=== PATIENT | female | born 1935 | race Caucasian/White ===

== ENCOUNTER → 2016-07-22 | Outpatient (CLI) | payer OTHER ==
[~2016-07-22] MED LIST: ACET-1138 PO; ASPEC81 PO; ASPI81TA28 PO; BNC40 PO; CHOL2000 PO; CLX/20 PO; COENCAP9 PO; DIPH-437 PO; LEVO50TA6 PO; LPT/20 PO; MISCCAP80 PO; NXM/40 PO; ONDA8TAB6 PO; OXYSR/10 PO; PSYL48.59 PO; RXC5 PO; ULT50HP PO; VLT50 PO
--- NOTE | 2016-07-26 12:36 | CODING QUERY MEDICAL NECESSITY ---
SUPPORTING DIAGNOSIS NEEDED A supporting diagnosis is required for the test/procedure performed on this patient in order for us to be reimbursed by the patient's insurance. Please provide a supporting diagnosis for the following test/procedure listed below next to the test name along with your signature. *If there is no additional diagnosis for this patient that would support the following test/procedure please document that below next to the test/procedure. Test(s)/Procedure(s) that require a supporting diagnosis: DOS 07/22 * Bone Density Study DIAGNOSIS: Provider Signature: Date: Thank you [facility] Once completed, please kindly fax back to [phone] For questions please call [phone]
== END | disposition home or self-care (01) ==
LOC: C.MAMM 08:41
PROVIDERS: ATTEND Internal Medicine
DX: M85.80 Other specified disorders of bone density and structure, unspecified site (principal)

== ENCOUNTER 2016-07-29 07:59 | Observation (INO) | payer OTHER ==
[~2016-07-29] VITALS: Ht 157.5 cm; Wt 51.4 kg
[~2016-07-29 07:59] MED LIST changes: -ACET-1138 PO; -ASPEC81 PO; -ASPI81TA28 PO; -BNC40 PO; -CHOL2000 PO; -CLX/20 PO; -COENCAP9 PO; -DIPH-437 PO; -LEVO50TA6 PO; -LPT/20 PO; -MISCCAP80 PO; -NXM/40 PO; -ONDA8TAB6 PO; -OXYSR/10 PO; -PSYL48.59 PO; -RXC5 PO; -VLT50 PO
[2016-07-29] MEDS ORDERED: SODIUM CHLORIDE 0.9% 1000ML 1,000 ML IV SCH (08:27)
[2016-07-29] MEDS ORDERED: LPT/20 PO (08:29)
[2016-07-29] MEDS ORDERED: ASPI81TA28 PO (08:29)
--- NOTE | 2016-07-29 08:31 | EMERGENCY ROOM VISIT NOTE ---
History Report prepared by Bhavna: Сергей Marks Under the Supervision of: Dr. Starr Chao M.D. First contact with patient: 08:17 Chief Complaint: HEADACHE Stated Complaint: HEAD PAIN History of Present Illness The patient is a 80 year old female who presents to the Emergency Room with complaints of persistent double vision for the past week. The patient notes that when she woke up this morning she noticed she was still having double vision. She notes one episode where she saw two pills instead of only the one pill in her hand. She notes this lasted about one minute. After the episode of double vision this morning, she complained of a "blinding" headache and nausea. She notes her head just doesn't feel "right" and notes the discomfort is all over her head. Currently, she describes her vision as blurry. She denies numbness or weakness at this time. The patient is on baby Aspirin. Source of History: patient Onset: the past week Position: eye (bilateral) Timing: other (persistent) Associated Symptoms: + headache ("blinding"), + nausea, No numbness, No weakness Note: Other associated symptoms: blurry vision Review of Systems See HPI for pertinent positives & negatives. A total of 10 systems reviewed and were otherwise negative. Past Medical & Surgical Medical Problems: (1) Arthritis (2) CLL (chronic lymphocytic leukemia) (3) Diverticulitis (4) IBS (irritable bowel syndrome) Family History Cancer Social History Smoking Status: Never Smoker Alcohol Use: none Marital Status: Housing Status: lives with family Occupation Status: unemployed Current/Historical Medications Scheduled Acetaminophen/Diphenhydramine (Tylenol Pm), 1 TAB PO HS Aspirin (Aspirin Ec), 81 MG PO DAILY Atorvastatin (Atorvastatin Calcium), 20 MG PO DAILY Citalopram (Citalopram Hydrobromide), 20 MG PO DAILY Diclofenac Sod (Diclofenac Sodium Dr), 1 TABS PO BID Esomeprazole Magnesium (Nexium), 40 MG PO DAILY Levothyroxine Sodium (Levothyroxine Sodium), 50 MCG PO QPM Olmesartan Medoxomil (Benicar), 40 MG PO DAILY Probiotic Product (Probiotic), 1 CAP PO DAILY Allergies Coded Allergies: Sulfa Antibiotics (Verified Allergy, Unknown, "SULFA DRUGS", 07/29/16) Physical Exam Vital Signs Date Time Temp Pulse Resp B/P Pulse Ox O2 Delivery O2 Flow Rate FiO2 2/6/17 11:04 68 16 176/66 100 Room Air 07/29/16 10:22 65 19 181/73 100 Room Air 07/29/16 09:04 62 16 160/62 97 Room Air 07/29/16 08:50 66 07/29/16 08:40 97 Room Air 07/29/16 08:08 36.7 73 18 203/81 99 Room Air Physical Exam CONSTITUTIONAL: Mild anxious distress HEENT: No icterus, moist mucous membranes NECK: No meningismus, trachea is midline. CARDIOVASCULAR: Regular rate, normal perfusion RESPIRATORY: Unlabored breathing. Clear to auscultation. GASTROINTESTINAL: Non-tender GENITOURINARY: No flank tenderness MUSCULOSKELETAL: Full range of motion NEUROLOGIC: Normal cranial nerves. No diplopia at this time. PSYCHIATRIC: Normal affect SKIN: Normal for ethnicity. Medical Decision & Procedures ER Provider Diagnostic Interpretation: Radiology results as stated below per my review and radiologist interpretation. HEAD CT NONCONTRAST CT DOSE: 537.48 mGy.cm HISTORY: Mental status change Stroke TECHNIQUE: Multiaxial CT images of the head were performed without the use of intravenous contrast. Comparison: 03/04/2016 Findings: The paranasal sinuses and mastoid air cells are clear. The calvarium and skull base are intact. The ventricles and sulci are within normal limits. There is no mass, hematoma, midline shift, or acute infarct. Age-related atrophy Impression: No acute intracranial abnormality. Age-related atrophy Electronically signed by: Harris Lee M.D. 07/29/2016 9:01 AM Dictated Date/Time: 07/29/2016 9:00 AM SINGLE VIEW CHEST CLINICAL HISTORY: Strokelike symptoms. FINDINGS: An AP, portable, upright chest radiograph is compared to study dated 03/07/2016 and correlated with chest CT dated 11/12/2006. The examination is degraded by portable technique, apical lordotic positioning, and patient rotation. The cardiomediastinal silhouette is unremarkable. There is atherosclerotic calcification of the thoracic aorta. A hiatal hernia is noted. The lungs and pleural spaces are clear. Mild apical scarring is observed. No pneumothorax is seen. The skeletal structures are osteopenic. The bony thorax is grossly intact. IMPRESSION: 1. No acute cardiopulmonary abnormality. 2. Hiatal hernia. Electronically signed by: Seymour Gasca M.D. 07/29/2016 8:56 AM Dictated Date/Time: 07/29/2016 8:55 AM Laboratory Results 07/29/16 08:40 Red Blood Count 3.66, Mean Corpuscular Volume 91.8, Mean Corpuscular Hemoglobin 30.9, Mean Corpuscular Hemoglobin Concent 33.6, Mean Platelet Volume 9.3, Neutrophils (%) (Auto) 20.4, Lymphocytes (%) (Auto) 76.2, Monocytes (%) (Auto) 2.6, Eosinophils (%) (Auto) 0.3, Basophils (%) (Auto) 0.2, Neutrophils # (Auto) 6.18, Lymphocytes # (Auto) 23.03, Monocytes # (Auto) 0.78, Eosinophils # (Auto) 0.10, Basophils # (Auto) 0.05 07/29/16 08:40 Test 07/29/16 08:40 07/29/16 08:48 07/29/16 10:25 White Blood Count 30.23 K/uL (4.8-10.8) Red Blood Count 3.66 M/uL (4.2-5.4) Hemoglobin 11.3 g/dL (12.0-16.0) Hematocrit 33.6 % (37-47) Mean Corpuscular Volume 91.8 fL (80-100) Mean Corpuscular Hemoglobin 30.9 pg (25-34) Mean Corpuscular Hemoglobin Concent 33.6 g/dl (32-36) Platelet Count 298 K/uL (130-400) Mean Platelet Volume 9.3 fL (7.4-10.4) Neutrophils (%) (Auto) 20.4 % Lymphocytes (%) (Auto) 76.2 % Monocytes (%) (Auto) 2.6 % Eosinophils (%) (Auto) 0.3 % Basophils (%) (Auto) 0.2 % Neutrophils # (Auto) 6.18 K/uL (1.4-6.5) Lymphocytes # (Auto) 23.03 K/uL (1.2-3.4) Monocytes # (Auto) 0.78 K/uL (0.11-0.59) Eosinophils # (Auto) 0.10 K/uL (0-0.5) Basophils # (Auto) 0.05 K/uL (0-0.2) RDW Standard Deviation 52.0 fL (36.4-46.3) RDW Coefficient of Variation 15.6 % (11.5-14.5) Immature Granulocyte % (Auto) 0.3 % Immature Granulocyte # (Auto) 0.09 K/uL (0.00-0.02) Prothrombin Time 10.7 SECONDS (9.0-12.0) Prothromb Time International Ratio 1.0 (0.9-1.1) Activated Partial Thromboplast Time 24.1 SECONDS (21.0-31.0) Partial Thromboplastin Ratio 0.9 Anion Gap 8.0 mmol/L (3-11) Est Creatinine Clear Calc Drug Dose 32.8 ml/min Estimated GFR () 55.3 Estimated GFR (Non- 47.7 BUN/Creatinine Ratio 29.2 (10-20) Calcium Level 8.9 mg/dl (8.5-10.1) Troponin I < 0.015 ng/ml (0-0.045) Bedside Prothrombin Time INR 1.0 (0.9-1.1) Urine Opiates Screen NEG (NEG) Urine Methadone, Qualitative NEG (NEG) Urine Barbiturates NEG (NEG) Urine Phencyclidine (PCP) Level NEG (NEG) Ur Amphetamine/Methamphetamine NEG (NEG) MDMA (Ecstasy) Screen NEG (NEG) Urine Benzodiazepines Screen NEG (NEG) Urine Cocaine Metabolite NEG (NEG) Urine Marijuana (THC) NEG (NEG) Labs reviewed by ED physician. Medications Administered Medications (Trade) Dose Ordered Sig/Neyda Route Start Time Stop Time Status Last Admin Dose Admin Sodium Chloride (Nss 1000ml) 1,000 ml @ 50 mls/hr Q20H IV 07/29/16 08:27 08/28/16 08:26 07/29/16 08:48 50 MLS/HR ECG Indication: other Rate (beats per minute): 65 Rhythm: sinus rhythm Findings: nonspecific-ST abn (Anterior), other (normal axis & reciprocal findings) ED Course 0828: Past medical records reviewed. The patient was evaluated in room B11. A complete history and physical examination was performed. 0827: Ordered NSS 1000 ml @ 50 mls/hr IV. 1149: At this time, I discussed the patient's case with Dr. Pace - Hospitalist [facility] and he agreed to accept the patient for further evaluation. Medical Decision Differential diagnoses include stroke, TIA, cranial nerve palsy. 80-year-old with history of CLL presents into the emergency room for waxing and waning diplopia. She reports she "saw 2 pills "no symptoms presently with cranial nerves intact. CT head negative. Given concern for TIA like syndrome admission arranged with Dr. Pace of hospital service. Patient remained asymptomatic throughout ED course. Consults Time Called: [phone] Consulting Physician: Dr. Pace - Hospitalist [facility] Returned Call: [phone] At this time, I discussed the patient's case with Dr. Pace and he agreed to accept the patient for further evaluation. Impression Primary Impression: Diplopia Scribe Attestation The scribe's documentation has been prepared under my direction and personally reviewed by me in its entirety. I confirm that the note above accurately reflects all work, treatment, procedures, and medical decision making performed by me. Departure Information Dispostion Being Evaluated By Hospitalist Referrals Bebeto Willis M.D. (PCP)
--- NOTE | 2016-07-29 08:57 | DIAGNOSTIC IMAGING REPORT ---
SINGLE VIEW CHEST CLINICAL HISTORY: Strokelike symptoms. FINDINGS: An AP, portable, upright chest radiograph is compared to study dated 03/07/2016 and correlated with chest CT dated 11/12/2006. The examination is degraded by portable technique, apical lordotic positioning, and patient rotation. The cardiomediastinal silhouette is unremarkable. There is atherosclerotic calcification of the thoracic aorta. A hiatal hernia is noted. The lungs and pleural spaces are clear. Mild apical scarring is observed. No pneumothorax is seen. The skeletal structures are osteopenic. The bony thorax is grossly intact. IMPRESSION: 1. No acute cardiopulmonary abnormality. 2. Hiatal hernia. Electronically signed by: Seymour Gasca M.D. 07/29/2016 8:56 AM Dictated Date/Time: 07/29/2016 8:55 AM
--- NOTE | 2016-07-29 09:03 | DIAGNOSTIC IMAGING REPORT ---
HEAD CT NONCONTRAST CT DOSE: 537.48 mGy.cm HISTORY: Mental status change Stroke TECHNIQUE: Multiaxial CT images of the head were performed without the use of intravenous contrast. Comparison: 03/04/2016 Findings: The paranasal sinuses and mastoid air cells are clear. The calvarium and skull base are intact. The ventricles and sulci are within normal limits. There is no mass, hematoma, midline shift, or acute infarct. Age-related atrophy Impression: No acute intracranial abnormality. Age-related atrophy Electronically signed by: Harris Lee M.D. 07/29/2016 9:01 AM Dictated Date/Time: 07/29/2016 9:00 AM
[2016-07-29 09:17] LABS: PARTIAL THROMBOPLASTIN RATIO 0.9; PROTHROMBIN TIME (PATIENT) 10.7 SECONDS (9.0-12.0)
[2016-07-29 09:22] LABS: BLOOD UREA NITROGEN 32 mg/dl (7-18); BUN/CREATININE RATIO 29.2 (10-20); CALCIUM 8.9 mg/dl (8.5-10.1); CARBON DIOXIDE 27 mmol/L (21-32); CHLORIDE 101 mmol/L (98-107); GLUCOSE 80 mg/dl (70-99); POTASSIUM 4.8 mmol/L (3.5-5.1); SODIUM 136 mmol/L (136-145)
[2016-07-29 09:59] LABS: BASO % 0.2 %; BASO ABS # 0.05 K/uL (0-0.2); COMPLETE YES; EOS % 0.3 %; HEMATOCRIT 33.6 % (37-47); IG% 0.3 %; LYMPH % 76.2 %; LYMPH ABS # 23.03 K/uL (1.2-3.4); MEAN CELL VOLUME 91.8 fL (80-100); MEAN CORPUSCULAR HEMOGLOBIN 30.9 pg (25-34); MEAN CORPUSCULAR HGB CONC 33.6 g/dl (32-36); MEAN PLATELET VOLUME 9.3 fL (7.4-10.4); MONO % 2.6 %; NEUT % 20.4 %; PLATELET COUNT 298 K/uL (130-400); RED BLOOD COUNT 3.66 M/uL (4.2-5.4); WHITE BLOOD COUNT 30.23 K/uL (4.8-10.8)
[2016-07-29 11:04] LABS: BENZODIAZEPINE, URINE NEG (NEG); COCAINE,URINE NEG (NEG); PHENCYCLIDINE, URINE NEG (NEG)
[2016-07-29] MEDS ORDERED: ACETAMINOPHEN 325 MG TAB PO PRN (13:00)
[2016-07-29] MEDS ORDERED: ONDANSETRON INJ 2 MG/ML 2 ML VIAL IV PRN (13:00)
[2016-07-29] MEDS ORDERED: ALUMINUM/MAGNESIUM/SIMETH (MAALOX MAX) 30 ML UDC PO PRN (13:00)
[2016-07-29] MEDS ORDERED: POLYETHYLENE (MIRALAX) 17 GM PACK PO PRN (13:00)
[2016-07-29] MEDS ORDERED: MAGNESIUM HYDROXIDE SUSP 30 ML UDC PO PRN (13:00)
[2016-07-29 13:28] LABS: ESTIMATED AVERAGE GLUCOSE 111 mg/dl; HA1C FLAG Normal (Normal)
--- NOTE | 2016-07-29 13:56 | History and Physical ---
History & Physical Date & Time of Service: Jul 29, 2016 at 13:21 Chief Complaint: Head Pain Primary Care Physician: Bebeto Willis M.D. History of Present Illness Source: patient, family (son at bedside), clinic records, hospital records This is a 80 y/o female with a history of bilateral carotid stenosis, HTN, hypothyroidism, CLL, depression and GERD who presented to the ED on 07/29 with diplopia and headache. The patient states that she has had intermittent diplopia and blurry vision over the last week. It occurs when she is reading for prolonged periods of time and then stands up and will resolve on its own after a few minutes. This morning the patient developed a sharp 5/10 headache all over her head accompanied with nausea. The patient does have a history of migraines but states that she stopped getting them years ago. The sharp head pain did subside but was then replaced with a 5/10 duller pain focused more on her forehead. She did not take anything for the pain. Her nausea has also since resolved. She currently rates her pain about a 2/10. She denies any changes in vision at the onset of the head pain. The patient denies fevers, chills, sweats, lightheadedness, loss of consciousness, chest pain, palpitations , claudication, cough, wheezing, shortness of breath, vomiting, abdominal pain, dysuria, hematuria, urinary retention, paralysis, weakness, numbness and tingling. Past Medical/Surgical History Medical Problems: (1) Arthritis Status: Chronic (2) CLL (chronic lymphocytic leukemia) Status: Chronic (3) Diverticulitis Status: Chronic (4) IBS (irritable bowel syndrome) Status: Chronic Family History The patient denies any known family history, stating that her parents in their 20s and that her only sibling, a sister, is "healthy." She denies family history of HTN, HLD, CAD, [place], CVA, diabetes mellitus, lung disease, kidney disease, and cancers. Social History Smoking Status: Never Smoker Smokeless Tobacco Use: No Alcohol Use: socially (1 drink 3x/week) Drug Use: none Marital Status: Housing status: lives with family (lives with son) Occupational Status: retired Multi-Drug Resistant Organisms History of MDRO: No Allergies Coded Allergies: Sulfa Antibiotics (Verified Allergy, Unknown, "SULFA DRUGS", 07/29/16) Home Medications Scheduled Acetaminophen/Diphenhydramine (Tylenol Pm), 1 TAB PO HS Aspirin (Aspirin Ec), 81 MG PO DAILY Atorvastatin (Atorvastatin Calcium), 20 MG PO DAILY Citalopram (Citalopram Hydrobromide), 20 MG PO DAILY Diclofenac Sod (Diclofenac Sodium Dr), 1 TABS PO BID Esomeprazole Magnesium (Nexium), 40 MG PO DAILY Levothyroxine Sodium (Levothyroxine Sodium), 50 MCG PO QPM Olmesartan Medoxomil (Benicar), 40 MG PO DAILY Probiotic Product (Probiotic), 1 CAP PO DAILY Review of Systems Constitutional: + problem reported (headache), No chills, No fever, No sweats Eyes: + diplopia (intermittent, transient), + worsening of vision (intermittent , transient blurry vision), No eye pain ENT: + tinnitus, No hearing loss, No sore throat, No trouble swallowing Respiratory: No cough, No shortness of breath, No wheezing Cardiovascular: No chest pain, No claudication, No palpitations Abdomen: + nausea, No pain, No vomiting Musculoskeletal: No calf pain, No joint pain, No muscle pain Genitourinary - Female: No dysuria, No hematuria, No urinary retention Neurologic: No balance problems, No numbness/tingling, No paralysis, No weakness Integumentary: No color change, No rash Physical Exam Vital Signs Date Time Temp Pulse Resp B/P Pulse Ox O2 Delivery O2 Flow Rate FiO2 07/29/16 12:43 71 07/29/16 12:34 74 16 99 Room Air 07/29/16 11:28 74 16 172/64 98 Room Air 07/29/16 11:04 68 16 176/66 100 Room Air 07/29/16 10:22 65 19 181/73 100 Room Air 07/29/16 09:04 62 16 160/62 97 Room Air 07/29/16 08:50 66 07/29/16 08:40 97 Room Air 07/29/16 08:08 36.7 73 18 203/81 99 Room Air General Appearance: WD/WN, no apparent distress Head: normocephalic, atraumatic Eyes: normal inspection, PERRL, EOMI, sclerae normal ENT: normal ENT inspection, hearing grossly normal, pharynx normal Neck: supple, no JVD, trachea midline, + pertinent finding (carotid bruits bilaterally) Respiratory/Chest: lungs clear, normal breath sounds, no respiratory distress Cardiovascular: regular rate, rhythm, no gallop, no murmur Abdomen/GI: normal bowel sounds, non tender, soft Extremities/Musculoskelatal: normal inspection, no calf tenderness, no pedal edema Neurologic/Psych: no motor/sensory deficits, alert, normal mood/affect, oriented x 3 Skin: normal color, warm/dry, no rash Diagnostics Laboratory Results Results Past 24 Hours Test 07/29/16 08:40 07/29/16 08:48 07/29/16 10:25 Range/Units White Blood Count 30.23 4.8-10.8 K/uL Red Blood Count 3.66 4.2-5.4 M/uL Hemoglobin 11.3 12.0-16.0 g/dL Hematocrit 33.6 37-47 % Mean Corpuscular Volume 91.8 80-100 fL Mean Corpuscular Hemoglobin 30.9 25-34 pg Mean Corpuscular Hemoglobin Concent 33.6 32-36 g/dl Platelet Count 298 130-400 K/uL Mean Platelet Volume 9.3 7.4-10.4 fL Neutrophils (%) (Auto) 20.4 % Lymphocytes (%) (Auto) 76.2 % Monocytes (%) (Auto) 2.6 % Eosinophils (%) (Auto) 0.3 % Basophils (%) (Auto) 0.2 % Neutrophils # (Auto) 6.18 1.4-6.5 K/uL Lymphocytes # (Auto) 23.03 1.2-3.4 K/uL Monocytes # (Auto) 0.78 0.11-0.59 K/uL Eosinophils # (Auto) 0.10 0-0.5 K/uL Basophils # (Auto) 0.05 0-0.2 K/uL RDW Standard Deviation 52.0 36.4-46.3 fL RDW Coefficient of Variation 15.6 11.5-14.5 % Immature Granulocyte % (Auto) 0.3 % Immature Granulocyte # (Auto) 0.09 0.00-0.02 K/uL Prothrombin Time 10.7 9.0-12.0 SECONDS Prothromb Time International Ratio 1.0 0.9-1.1 Activated Partial Thromboplast Time 24.1 21.0-31.0 SECONDS Partial Thromboplastin Ratio 0.9 Sodium Level 136 136-145 mmol/L Potassium Level 4.8 3.5-5.1 mmol/L Chloride Level 101 98-107 mmol/L Carbon Dioxide Level 27 21-32 mmol/L Anion Gap 8.0 3-11 mmol/L Blood Urea Nitrogen 32 7-18 mg/dl Creatinine 1.10 0.60-1.20 mg/dl Est Creatinine Clear Calc Drug Dose 32.8 ml/min Estimated GFR () 55.3 Estimated GFR (Non- 47.7 BUN/Creatinine Ratio 29.2 10-20 Random Glucose 80 70-99 mg/dl Calcium Level 8.9 8.5-10.1 mg/dl Troponin I < 0.015 0-0.045 ng/ml Bedside Prothrombin Time INR 1.0 0.9-1.1 Urine Opiates Screen NEG NEG Urine Methadone, Qualitative NEG NEG Urine Barbiturates NEG NEG Urine Phencyclidine (PCP) Level NEG NEG Ur Amphetamine/Methamphetamine NEG NEG MDMA (Ecstasy) Screen NEG NEG Urine Benzodiazepines Screen NEG NEG Urine Cocaine Metabolite NEG NEG Urine Marijuana (THC) NEG NEG Diagnostic Radiology Reviewed the following studies and agree with interpretation as follows: Patient Name: GIGI FARRELL Unit Number: [id number] Dictated: 07/29/16899 Transcribed: 07/29/16899 MS Printed Date/Time: [~ rep prt dt]/[~ rep prt tm] [~ rep ct labl] - [~ rep ct ivnm] [facility] [place] [address] Dictated: 07/29/16899 Transcribed: 07/29/16899 MS Printed Date/Time: [~ rep prt dt]/[~ rep prt tm] [~ rep ct labl] - [~ rep ct ivnm] Patient: GIGI FARRELL Address1: [address] [facility] Rec: [id number] Address2: Acct ID: [id number] [facility] Zip: [place] [address] Date: 1935 Sex: F Room/Bed: Ref Phy: Bebeto Willis M.D. SC: VICENTE Att Phy: Report #: [id number] [facility] Test: HWO Admit Phy: Freezing Room Worker: TOAN Interpreting Phy: Harris Lee M.D. Diagnosis: HEAD PAIN Ordering Phy: Pérez Chao MD Service Date: 07/29/16 Admit Date: 07/29/16 MNE: [id number] CONF: DICTATED BY: Harris Lee M.D.]] CC: Bebeto Willis M.D. Talotta, N. Joe., Endcc: [~ rep ct add3]] HEAD CT NONCONTRAST CT DOSE: 537.48 mGy.cm HISTORY: Mental status change Stroke TECHNIQUE: Multiaxial CT images of the head were performed without the use of intravenous contrast. Comparison: 03/04/2016 Findings: The paranasal sinuses and mastoid air cells are clear. The calvarium and skull base are intact. The ventricles and sulci are within normal limits. There is no mass, hematoma, midline shift, or acute infarct. Age-related atrophy Impression: No acute intracranial abnormality. Age-related atrophy Electronically signed by: Harris Lee M.D. 07/29/2016 9:01 AM Dictated Date/Time: 07/29/2016 9:00 AM The status of this report is Signed. Draft = Not yet reviewed or approved by Radiologist. Signed = Reviewed and approved by Radiologist. <AttendingPhy></AttendingPhy> <FamilyPhy>Bebeto Willis M.D.</FamilyPhy> < PrimaryPhy>Bebeto Willis M.D.</PrimaryPhy> <UnitNumber>[id number]</UnitNumber> <VisitNumber>[id number]</VisitNumber> <PatientName>GIGI FARRELL</PatientName > <DateOfBirth>1935</DateOfBirth> <Location>C.EDB</Location> <ServiceDate> 07/29/16</ServiceDate> <MNE>ESINDI</MNE> <OrderingPhy>Pérez Chao MD</ OrderingPhy> <OrderingPhyMNE>f rep ord dr ruano</OrderingPhyMNE> <DictatingPhyMNE> f rep dict dr ruano</DictatingPhyMNE> <CCListMNE>f rep ct mne</CCListMNE> < AdmittingPhyMNE>f pt admit dr ruano</AdmittingPhyMNE> <AttendingPhyMNE>f pt attend dr ruano</AttendingPhyMNE> <ConsultingPhyMNE>f pt consult dr ruano</ConsultingPhyMNE> <FamilyPhyMNE>f pt fam dr ruano</FamilyPhyMNE> <OtherPhyMNE>f pt other dr ruano</OtherPhyMNE> < PrimaryPhyMNE>f pt prim care dr ruano</PrimaryPhyMNE> <ReferringPhyMNE>f pt referring dr ruano</ReferringPhyMNE> Patient Name: GIGI FARERLL Unit Number: [id number] Dictated: 07/29/16854 Transcribed: 07/29/16854 EV Printed Date/Time: [~ rep prt dt]/[~ rep prt tm] [~ rep ct labl] - [~ rep ct ivnm] [facility] Radiology Department [place], [place] [id number] Dictated: 07/29/16854 Transcribed: 07/29/16854 EV Printed Date/Time: [~ rep prt dt]/[~ rep prt tm] [~ rep ct labl] - [~ rep ct ivnm] Patient: GIGI FARRELL Address1: [address] [place] [address] Rec: [id number] Address2: Acct ID: [id number] [facility] Zip: [place] [address] Date: 1935 Sex: F Room/Bed: Ref Phy: Bebeto Willis M.D. SC: VICENTE Att Phy: Report #: [id number] [place] Phy: Bebeto Willis M.D. Test: CXR1P Admit Phy: Freezing Room Worker: RADHA Interpreting Phy: Seymour Gasca M.D. Diagnosis: HEAD PAIN Ordering Phy: Pérez Chao MD Service Date: 07/29/16 Admit Date: 07/29/16 MNE: [id number] CONF: DICTATED BY: Seymour Gasca M.D.]] CC: Bebeto Willis M.D. Talotta, N. Joe., Endcc: [~ rep ct add3]] SINGLE VIEW CHEST CLINICAL HISTORY: Strokelike symptoms. FINDINGS: An AP, portable, upright chest radiograph is compared to study dated 03/07/2016 and correlated with chest CT dated 11/12/2006. The examination is degraded by portable technique, apical lordotic positioning, and patient rotation. The cardiomediastinal silhouette is unremarkable. There is atherosclerotic calcification of the thoracic aorta. A hiatal hernia is noted. The lungs and pleural spaces are clear. Mild apical scarring is observed. No pneumothorax is seen. The skeletal structures are osteopenic. The bony thorax is grossly intact. IMPRESSION: 1. No acute cardiopulmonary abnormality. 2. Hiatal hernia. Electronically signed by: Seymour Gasca M.D. 07/29/2016 8:56 AM Dictated Date/Time: 07/29/2016 8:55 AM The status of this report is Signed. Draft = Not yet reviewed or approved by Radiologist. Signed = Reviewed and approved by Radiologist. <AttendingPhy></AttendingPhy> <FamilyPhy>Bebeto Willis M.D.</FamilyPhy> < PrimaryPhy>Bebeto Willis M.D.</PrimaryPhy> <UnitNumber>[id number]</UnitNumber> <VisitNumber>[id number]</VisitNumber> <PatientName>GIGI FARRELL</PatientName > <DateOfBirth>1935</DateOfBirth> <Location>C.EDB</Location> <ServiceDate> 07/29/16</ServiceDate> <MNE>ESINDI</MNE> <OrderingPhy>Pérez Chao MD</ OrderingPhy> <OrderingPhyMNE>f rep ord dr ruano</OrderingPhyMNE> <DictatingPhyMNE> f rep dict dr ruano</DictatingPhyMNE> <CCListMNE>f rep ct mne</CCListMNE> < AdmittingPhyMNE>f pt admit dr ruano</AdmittingPhyMNE> <AttendingPhyMNE>f pt attend dr ruano</AttendingPhyMNE> <ConsultingPhyMNE>f pt consult dr ruano</ConsultingPhyMNE> <FamilyPhyMNE>f pt fam dr ruano</FamilyPhyMNE> <OtherPhyMNE>f pt other dr ruano</OtherPhyMNE> < PrimaryPhyMNE>f pt prim care dr ruano</PrimaryPhyMNE> <ReferringPhyMNE>f pt referring dr ruano</ReferringPhyMNE> EKG Reviewed EKG and agree with interpretation as follows: 65 bpm, SR, prolonged QT Impression Assessment and Plan 80 y/o female with a history of bilateral carotid stenosis, HTN, hypothyroidism , CLL, depression and GERD who presented to the ED on 07/29 with diplopia and headache. Intermittent diplopia and blurry vision after reading or watching TV for long periods of time. Headache this morning with nausea, does have h/o migraines and nausea now resolved. Head CT no acute intracranial abnormalities , age related atrophy. CXR shows hiatal hernia, no acute cardiopulmonary disease. BP 176/66, otherwise VSS. Diplopia and headache in the setting of bilateral carotid stenosis--60-70% occlusion bilaterally, scheduled to f/u with vascular next month -Admit to telemetry for observation -MRI of brain w/o contrast -Will check HgbA1c, TSH and fasting lipid profile -Continue ASA 81 mg PO qd and atorvastatin 20 mg PO qd HTN -Continue Benicar 40 mg PO qd Hypothyroidism -Continue Synthroid 50 mcg PO qd GERD -Continue Nexium 40 mg PO qd DVT prophylaxis -Enoxaparin 30 mg SC q24h -SULLY pretty and SCDs Code Status -Level V, DO NOT RESUSCITATE Depression -Continue Celexa 20 mg PO qd I agree with PA assessment and plan and have seen and examined pt myself No further episodes of diplopia Resting comfortably in bed VSS Labs reviewed Neuro: CN 2-12 intact, no sensory or motor defects Rule out TIA, check HgA1C, TSH May need opthal f/u on discharge Level of Care Telemetry (observation) Resuscitation Status DO NOT RESUSCITATE VTE Prophylaxis VTE Risk Assessment Done? Y/N: Yes Risk Level: Moderate Given or contraindicated: Enoxaparin (Lovenox)SQ, T.E.D. Stockings, SCD's
[2016-07-29] MEDS ORDERED: IV FLUIDS COMPLETED PRN (14:15)
[2016-07-29 15:16] VITALS: BP 178/76; PULSE 71; TEMP 36.6; O2SAT 97; Ht 157.5 cm; Wt 51.4 kg
--- NOTE | 2016-07-29 15:19 | DIAGNOSTIC IMAGING REPORT ---
MRI OF THE BRAIN WITHOUT IV CONTRAST CLINICAL HISTORY: Strokelike symptoms. Headache. COMPARISON STUDY: CT the brain dated 07/29/2016. TECHNIQUE: MRI of the brain was performed utilizing various T1 and T2-weighted sequences in the axial, sagittal, and coronal planes. IV contrast was not administered for this examination. FINDINGS: Brain parenchyma: There is mild patchy subcortical and periventricular microangiopathic disease. There is no hemorrhage or mass effect. There is no restricted diffusion identified typical for acute ischemia. Pa-white matter differentiation is preserved. A punctate focus of T2 shine through is seen in the posterior aspect of the corpus callosum. No extra-axial fluid collection is seen. The cerebellar tonsils are normal in configuration. Ventricles, sulci, and cisterns: Normal in configuration. Pituitary and sella: Partially empty sella is incidentally noted. Intracranial vasculature: Normal flow voids are maintained at the skull base. Orbits: The bony orbits are grossly intact. Orbital contents are normal in appearance. Sinuses and mastoids: There is a trace right mastoid effusion. The left mastoid air cells and the paranasal sinuses are clear. Calvarium: Unremarkable. Cervical cord: Partially visualized cervical spinal cord is normal in morphology and signal intensity. IMPRESSION: There is no hemorrhage, mass effect, or evidence of acute ischemia. Electronically signed by: Seymour Gasca M.D. 07/29/2016 3:18 PM Dictated Date/Time: 07/29/2016 3:12 PM
[2016-07-29 16:47] VITALS: BP_SYST 174; BP_SYST 176; BP_DIAS 70; BP_DIAS 76
[2016-07-29] MEDS ORDERED: VLT50 PO (17:25)
[2016-07-29] MEDS ORDERED: MISCCAP80 PO (17:25)
[2016-07-29] MEDS ORDERED: NXM/40 PO (17:25)
[2016-07-29 18:25] VITALS: BP 158/78; PULSE 70
[2016-07-29] MEDS ORDERED: DIPH-437 PO (18:42)
[2016-07-29 19:12] VITALS: BP_SYST 158; BP_SYST 169; BP_DIAS 78; BP_DIAS 83; PULSE 65; TEMP 36.7; O2SAT 98
[2016-07-29 20:00] VITALS: O2SAT 98
[2016-07-29] MEDS ORDERED: ENOXAPARIN 30 MG/0.3 ML SYR SC SCH (21:00)
[2016-07-29] MEDS ORDERED: LEVOTHYROXINE 50 MCG TAB PO SCH (21:00)
[2016-07-29] MEDS ORDERED: LEVO50TA6 PO (22:25)
[2016-07-29] MEDS ORDERED: BNC40 PO (22:25)
[2016-07-29] MEDS ORDERED: CLX/20 PO (22:25)
[2016-07-29 23:13] VITALS: BP 144/67; PULSE 72; TEMP 36.7; O2SAT 100
[2016-07-30 00:01] VITALS: O2SAT 100
[2016-07-30 03:37] VITALS: BP_SYST 165; BP_SYST 168; BP_DIAS 74; BP_DIAS 80; PULSE 64; TEMP 36.7; O2SAT 99
[2016-07-30 07:35] LABS: HEMATOCRIT 34.5 % (37-47); MEAN CORPUSCULAR HEMOGLOBIN 30.7 pg (25-34); MEAN PLATELET VOLUME 9.4 fL (7.4-10.4); PLATELET COUNT 315 K/uL (130-400); RED BLOOD COUNT 3.71 M/uL (4.2-5.4); WHITE BLOOD COUNT 27.41 K/uL (4.8-10.8)
[2016-07-30 07:56] VITALS: BP 150/79; PULSE 61; TEMP 36.7; O2SAT 98
[2016-07-30 07:57] LABS: BUN/CREATININE RATIO 25.6 (10-20); CALCIUM 8.7 mg/dl (8.5-10.1); CREATININE 1.1 mg/dl (0.60-1.20); POTASSIUM 4.3 mmol/L (3.5-5.1)
[2016-07-30 08:01] LABS: CHOLESTEROL/HDL RATIO 2.2
[2016-07-30] MEDS ORDERED: CITALOPRAM 20 MG TAB PO SCH (09:00)
[2016-07-30] MEDS ORDERED: OLMESARTAN MEDOXOMIL 40 MG TAB PO SCH (09:00)
[2016-07-30] MEDS ORDERED: ATORVASTATIN 20 MG TAB PO SCH (09:00)
[2016-07-30] MEDS ORDERED: PANTOprazole SOD 40 MG TAB PO SCH (09:00)
[2016-07-30] MEDS ORDERED: ASPIRIN 81 MG ECTAB PO SCH (09:00)
--- NOTE | 2016-07-30 10:59 | Discharge Instructions ---
Discharge Instructions Admission Reason for Admission: Diplopia, Headache Discharge Discharge Diagnosis / Problem: Diplopia, headache Discharge Goals Goal(s): Decrease discomfort, Diagnostic testing, Therapeutic intervention Activity Recommendations Activity Limitations: resume your previous activity . Instructions / Follow-Up Instructions / Follow-Up You were admitted to the hospital for overnight observation due to developing double vision as well as a headache with nausea. These findings can be concerning for a stroke or another acute intracranial event. A CAT scan of your head and a MRI of your brain were both negative for any masses, hematomas, or stroke. Cardiac monitoring overnight did not show any concerning arrhythmias. Blood tests to check for diabetes, thyroid dysfunction and to check your cholesterol were all normal. The double vision did not return during your stay, and this is likely an issue related directly to your eyes, not your brain. Your headache and nausea did improve/resolve on their own, and this is likely related to your history of migraines. Medications: Continue to take all of your home medications as previously prescribed. Follow up: Please follow up with your eye doctor regarding your double vision, as this could be a sign of cataracts. Please seek medical attention if you experience lightheadedness, loss of consciousness, motor weakness (especially on one side only), numbness/tingling, sudden loss of vision, chest pain, shortness of breath, nausea, or vomiting. Current Hospital Diet Patient's current hospital diet: AHA Diet (Heart Healthy) Discharge Diet Recommended Diet: AHA Diet (Heart Healthy) Pending Studies Studies pending at discharge: no Laboratory Results Hemoglobin A1c Test 07/29/16 08:40 Range/Units Estimated Average Glucose 111 mg/dl Hemoglobin A1c 5.5 4.5-5.6 % Lipid Panel Test 07/30/16 06:55 Range/Units Triglycerides Level 90 0-150 mg/dl Cholesterol Level 181 0-200 mg/dl HDL Cholesterol 82 mg/dl Cholesterol/HDL Ratio 2.2 LDL Cholesterol, Calculated 81 mg/dl Medical Emergencies . Who to Call and When: Medical Emergencies: If at any time you feel your situation is an emergency, please call 911 immediately. . Non-Emergent Contact Non-Emergency issues call your: Primary Care Provider, [employer] Call Non-Emergent contact if: your pain is worsening, your pain is unusual for you, your pain is concerning you, you have any medication questions . Past History Medical & Surgical History: (1) Diplopia (2) Headache (3) CLL (chronic lymphocytic leukemia) . "Provider Documentation" section prepared by Mariia Ruiz. VTE Core Measure Inpt VTE Proph given/why not?: Enoxaparin (Lovenox)PIERCE, T.EYe. Lotus, SCD's
--- NOTE | 2016-07-30 11:07 | Discharge Summary ---
Discharge Summary Admission Date: Jul 29, 2016 at 13:14 Discharge Date: Jul 30, 2016 Discharge Disposition: Home Principal Diagnosis: Diplopia, headache (Mariia Ruiz ., MINH) Medication Reconciliation Continued Medications: Acetaminophen/Diphenhydramine (Tylenol Pm) 500 Mg/25 Mg Tab 1 TAB PO HS, TAB Aspirin (Aspirin Ec) 81 Mg Tab 81 MG PO DAILY Atorvastatin (Atorvastatin Calcium) 20 Mg Tab 20 MG PO DAILY, #90 Citalopram (Citalopram Hydrobromide) 20 Mg Tab 20 MG PO DAILY, #90 Diclofenac Sod (Diclofenac Sodium Dr) 50 Mg Tabec 1 TABS PO BID, #180 Esomeprazole Magnesium (Nexium) 40 Mg Capcr 40 MG PO DAILY, CAP Levothyroxine Sodium (Levothyroxine Sodium) 50 Mcg Tab 50 MCG PO QPM, #90 Olmesartan Medoxomil (Benicar) 40 Mg Tab 40 MG PO DAILY, #90 Probiotic Product (Probiotic) 1 Cap Cap 1 CAP PO DAILY Discharge Exam Patient reports feeling well. No recurrence of diplopia. Headache has improved to a 1/10, states that it feels like her typical "sinus headaches" and denies any need for pain medication. No other complaints and ready for discharge. Review of Systems: Constitutional: + problem reported (1/10 dull headache in forehead), No chills, No fever, No sweats Eyes: No diplopia, No eye pain, No worsening of vision ENT: No hearing loss, No sore throat, No trouble swallowing Respiratory: No cough, No shortness of breath, No wheezing Cardiovascular: No chest pain, No claudication, No palpitations Abdomen: No nausea, No pain, No vomiting Musculoskeletal: No calf pain, No joint pain, No muscle pain Genitourinary - Female: No dysuria, No hematuria, No urinary retention Neurologic: No numbness/tingling, No paralysis, No weakness Integumentary: No color change, No itch, No rash Physical Exam: General Appearance: WD/WN, no apparent distress Eyes: normal inspection, PERRL, EOMI ENT: normal ENT inspection, hearing grossly normal, pharynx normal Neck: supple, no JVD, trachea midline, + pertinent finding (cartoid bruits bilaterally) Respiratory/Chest: lungs clear, normal breath sounds, no respiratory distress Cardiovascular: regular rate, rhythm, no gallop, + systolic murmur Abdomen / GI: normal bowel sounds, non tender, soft Extremities: normal inspection, no calf tenderness, no pedal edema Neurologic/Psychiatric: alert, normal mood/affect, oriented x 3 Skin: normal color, warm/dry, no rash (Mariia Ruiz ., PA-C) Hospital Course 80 y/o female with a history of bilateral carotid stenosis, HTN, hypothyroidism , CLL, depression and GERD who presented to the ED on 07/29 with diplopia and headache. Intermittent diplopia and blurry vision after reading or watching TV for long periods of time. Headache this morning with nausea, does have h/o migraines and nausea now resolved. Head CT no mass, hematoma, infarct or other acute intracranial abnormalities, positive for age related atrophy. CXR shows hiatal hernia, no acute cardiopulmonary disease. BP 176/66, otherwise VSS. Diplopia and headache in the setting of bilateral carotid stenosis--60-70% occlusion bilaterally, scheduled to f/u with vascular next month -Admit to telemetry for observation -MRI of brain w/o contrast shows no hemorrhage, mass effect, or evidence of acute ischemia -HgbA1c, TSH and fasting lipid profile all WNL -Continue ASA 81 mg PO qd and atorvastatin 20 mg PO qd -No diplopia while in hospital, will need to follow up non-urgently with ophthalmology as may be sign of cataracts -Headaches with h/o migraines and "sinus headaches", symptoms consistent with her typical headache HTN--stable -Continue Benicar 40 mg PO qd Hypothyroidism--stable, TSH WNL -Continue Synthroid 50 mcg PO qd Depression -Continue Celexa 20 mg PO qd GERD -Continue Nexium 40 mg PO qd DVT prophylaxis -Enoxaparin 30 mg SC q24h -SULLY pretty and SCDs Code Status -Level V, DO NOT RESUSCITATE Total Time Spent: Greater than 30 minutes This includes examination of the patient, discharge planning, medication reconciliation, and communication with other providers. (Mariia Ruiz ., PA-C) I agree with PA assessment and plan and have seen and examined pt myself Pt presented with diploplia which as since resolved since admission MRI neg for stroke VSS Labs reviewed HEENT: NC AT EOMI Discharge home with ophthalmology follow up (Los, Jose M., D.O.) Discharge Instructions Please refer to the electronic Patient Visit Report (Discharge Instructions) for additional information. (Mariia Ruiz ., GUILLEC) Additional Copies To Bebeto Willis M.D.
[2016-07-30 11:30] VITALS: BP 150/79; PULSE 61; TEMP 36.7; O2SAT 98
[2016-10-15] MEDS ORDERED: CHOL2000 PO (09:39)
[2016-10-15] MEDS ORDERED: COENCAP9 PO (09:39)
== END 2016-07-30 12:07 | disposition home or self-care (01) ==
LOC: ENRESERVDT → ENRESERVTM → C.EDB 08:01 → C.2T 13:14
PROVIDERS: ADMIT Hospitalist; ATTEND Hospitalist
DX: H53.2 Diplopia (principal); R51 Headache; E03.9 Hypothyroidism, unspecified; I10 Essential (primary) hypertension; C91.10 Chronic lymphocytic leukemia of B-cell type not having achieved remission; K58.9 Irritable bowel syndrome, unspecified; I65.23 Occlusion and stenosis of bilateral carotid arteries; F32.9 Major depressive disorder, single episode, unspecified; K21.9 Gastro-esophageal reflux disease without esophagitis; Z79.899 Other long term (current) drug therapy; K44.9 Diaphragmatic hernia without obstruction or gangrene; Z66 Do not resuscitate; Z79.82 Long term (current) use of aspirin; Z88.2 Allergy status to sulfonamides

== ENCOUNTER → 2016-10-25 | Outpatient (CLI) | payer OTHER ==
[~2016-10-25] MED LIST changes: +ACET-1138 PO; +ASPEC81 PO; +ASPI81TA28 PO; +ATROPINE SULFATE 0.1 MG/ML 5ML SYR ONE; +BNC40 PO; +CHOL2000 PO; +CLX/20 PO; +COENCAP9 PO; +DIPH-437 PO; +DOBUTamine HCL 12.5 MG/ML 20 ML VIAL ONE; +LEVO50TA6 PO; +LPT/20 PO; +METOPROLOL TARTRATE 1 MG/ML VIAL ONE; +MISCCAP80 PO; +NXM/40 PO; +ONDA8TAB6 PO; +OXYSR/10 PO; +PSYL48.59 PO; +RXC5 PO; -ULT50HP PO; +VLT50 PO
--- NOTE | 2016-10-25 14:40 | DOBUTAMINE ECHO ---
*NOTICE TO RECEIVING CONSTITUTION PARTY AGENCY This information is strictly Confidential and protected under [place] law. [place] law prohibits you from making any further disclosure of this information unless further disclosure is expressly permitted by the written consent of the person to whom it pertains or is authorized by law. A general authorization for the release of medical or other information is not sufficient for this purpose. Hospital accepts no responsibility if the information is made available to any other person, INCLUDING THE PATIENT. Interpretation Summary * Name: GIGI FARRELL Study Date: 10/25/2016 10:34 AM BP: 142/53 mmHg * Patient Location: [facility] ([facility] HR: 64 * : 1935 (M/d/yyyy) Gender: Female Height: 63 in * Age: 80 yrs Ethnicity: [place] Weight: 114 lb * Ordering Physician: Bebeto Willis * Referring Physician: Bebeto Willis * Performed By: Dora Teixeira RDCS * * Reason For Study: Pre-op, hypertension * BSA: 1.5 m2 * -- Conclusions -- * Negative dobutamine stress echocardiogram at 92% maximum predicted heart rate. * No dobutamine induced chest pain. * No ECG changes. * Baseline echocardiogram notes normal left ventricular systolic function and diastolic dysfunction. Procedure Details * DOBUTAMINE ECHO, CPT#40455 * ECHO DOPPLER, CPT #[id number] * ECHO COLOR FLOW, CPT #[id number] Left Ventricle * The left ventricle is normal in size. * There is borderline concentric left ventricular hypertrophy. * Ejection Fraction = 65-70%. * Left ventricular systolic function is normal. * Resting wall motion: Normal. Stress wall motion: Appropriate increase in Left ventricular systolic function and decrease in cavity size. No stress induced segmental wall motion abnormalities. Right Ventricle * The right ventricular cavity size is normal (basal dimension <4.2 cm in right ventricular apical 4-chamber view). * The right ventricular systolic function is normal as assessed by tricuspid annular plane systolic excursion (TAPSE) (normal >1.5 cm). Atria * The left atrial size is normal. * Right atrial size is normal. * No ASD detected; PFO is not assessed. Mitral Valve * The mitral valve is normal in structure and function. * There is no mitral valve stenosis. * Significant mitral regurgitation is absent. Tricuspid Valve * The tricuspid valve anatomy is normal. * Significant tricuspid regurgitation is absent. Aortic Valve * The aortic valve is normal in structure and function. * No hemodynamically significant valvular aortic stenosis. * There is no significant aortic regurgitation. Pulmonic Valve * The pulmonary valve is not well seen, but the Doppler examination is normal without significant regurgitation or stenosis. Great Vessels * The aortic root is normal size. Pericardium * There is no pericardial effusion. Stress Parameters * Normal baseline electrocardiogram. * Stress ECG: No ST changes. No arrhythmias. * The stress portion of this study was personally supervised by the undersigned interpreting physician. * Rest heart rate was '64' BPM. * Rest blood pressure was '142/53' * Maximum heart rate achieved was 126 bpm. * Maximum heart rate was 89 % of maximum age-predicted heart rate. * Maximum blood pressure was '142/53' * Maximum Dobutamine infusion rate was '20' mcg/kg/min. * A total of 0.375 mg of intravenous Atropine was used to supplement Dobutamine for heart rate response. * Dobutamine infusion was terminated due to achieving target heart rate * A total of 5 mg of IV Metoprolol was administered to reverse Dobutamine-induced tachycardia. MMode 2D Measurements and Calculations IVSd 0.87 cm LVIDd 3.4 cm LVIDs 2.0 cm LVPWd 1.0 cm IVS/LVPW 0.84 FS 41.0 % EDV(Teich) 46.9 ml ESV(Teich) 12.6 ml EF(Teich) 73.0 % EDV(cubed) 38.7 ml ESV(cubed) 7.9 ml EF(cubed) 79.5 % LV mass(C)d 91.0 grams LV mass(C)dI 59.8 grams/m\S\2 SV(Teich) 34.2 ml SI(Teich) 22.5 ml/m\S\2 SV(cubed) 30.8 ml SI(cubed) 20.2 ml/m\S\2 Ao root diam 2.7 cm Ao root area 5.6 cm\S\2 ACS 1.8 cm LA dimension 2.4 cm asc Aorta Diam 2.7 cm LA/Ao 0.90 LVOT diam 2.0 cm LVOT area 3.0 cm\S\2 LVAd ap4 18.1 cm\S\2 LVLd ap4 6.4 cm EDV(MOD-sp4) 41.7 ml EDV(sp4-el) 43.2 ml LVAs ap4 8.0 cm\S\2 LVLs ap4 4.7 cm ESV(MOD-sp4) 11.7 ml ESV(sp4-el) 11.5 ml EF(MOD-sp4) 72.0 % EF(sp4-el) 73.3 % LVAd ap2 19.4 cm\S\2 LVLd ap2 6.6 cm EDV(MOD-sp2) 46.9 ml EDV(sp2-el) 48.8 ml LVAs ap2 8.0 cm\S\2 LVLs ap2 4.6 cm ESV(MOD-sp2) 12.1 ml ESV(sp2-el) 11.6 ml EF(MOD-sp2) 74.2 % EF(sp2-el) 76.2 % LVLd %diff 1.9 % EDV(MOD-bp) 44.4 ml LVLs %diff -1.62 % ESV(MOD-bp) 11.9 ml EF(MOD-bp) 73.2 % SV(MOD-sp4) 30.0 ml SI(MOD-sp4) 19.7 ml/m\S\2 SV(MOD-sp2) 34.8 ml SI(MOD-sp2) 22.9 ml/m\S\2 SV(MOD-bp) 32.5 ml SI(MOD-bp) 21.4 ml/m\S\2 SV(sp4-el) 31.7 ml SI(sp4-el) 20.8 ml/m\S\2 SV(sp2-el) 37.2 ml SI(sp2-el) 24.4 ml/m\S\2 Doppler Measurements and Calculations MV E max briana 61.5 cm/sec MV A max briana 106.8 cm/sec MV E/A 0.58 MV dec time 0.32 sec Ao V2 max 117.5 cm/sec Ao max PG 5.5 mmHg Ao max PG (full) 3.2 mmHg TIAN(V,A) 2.0 cm\S\2 TIAN(V,D) 2.0 cm\S\2 LV V1 max PG 2.3 mmHg LV V1 max 76.0 cm/sec PA V2 max 110.6 cm/sec PA max PG 4.9 mmHg PA acc slope 509.6 cm/sec\S\2 PA acc time 0.11 sec TR max briana 215.4 cm/sec PA pr(Accel) 29.0 mmHg
--- NOTE | 2016-10-30 07:41 | CODING QUERY MEDICAL NECESSITY ---
SUPPORTING DIAGNOSIS NEEDED Dr. Willis, A supporting diagnosis is required for the test/procedure performed on this patient in order for us to be reimbursed by the patient's insurance. Please provide a supporting diagnosis for the following test/procedure listed below next to the test name along with your signature. *If there is no additional diagnosis for this patient that would support the following test/procedure please document that below next to the test/procedure. Test(s)/Procedure(s) that require a supporting diagnosis: * ([id number]) ECHO DOPPLER COMPLETE DIAGNOSIS: * ([id number]) ECHO COLOR FLOW DIAGNOSIS: DATE OF SERVICE: 10/25/16 Provider Signature: Date: Thank you Ibrahima Brooks [facility] Information Management Once completed, please kindly fax back to [phone] For questions please call [phone]
== END | disposition home or self-care (01) ==
LOC: C.CPL 09:18
PROVIDERS: ATTEND Internal Medicine
DX: Z01.818 Encounter for other preprocedural examination (principal); I10 Essential (primary) hypertension; I65.29 Occlusion and stenosis of unspecified carotid artery

== ENCOUNTER 2016-10-31 05:42 | Inpatient (IN) | payer OTHER ==
[2016-10-15 09:39] VITALS: BMI 21.0
--- NOTE | 2016-10-15 10:14 | PAT Medication Instructions ---
Service Date Oct 15, 2016. Current Home Medication List Acetaminophen/Diphenhydramine (Tylenol Pm), 1 TAB PO HS Aspirin (Aspirin Ec), 81 MG PO QAM Atorvastatin (Atorvastatin Calcium), 20 MG PO QAM Cholecalciferol (Vitamin D3), 1 CAP PO QAM Citalopram (Citalopram Hydrobromide), 20 MG PO QAM Coenzyme D93-Dujf Oil-Vitamin (Co-Q 10 [place]-3 Fish Oil), 1 CAP PO QAM Diclofenac Sod (Diclofenac Sodium Dr), 1 TABS PO QAM Esomeprazole Magnesium (Nexium), 40 MG PO QAM Levothyroxine Sodium (Levothyroxine Sodium), 50 MCG PO QPM Olmesartan Medoxomil (Benicar), 40 MG PO QAM Probiotic Product (Probiotic), 1 CAP PO QAM Medication Instructions For Your Scheduled Surgery - Hold the following medications 2 weeks prior to surgery: Coenzyme E81-Urij Oil-Vitamin (Co-Q 10 [place]-3 Fish Oil), 1 CAP PO QAM - Hold the following medications 10 days prior to surgery per surgeon's instructions: Diclofenac Sod (Diclofenac Sodium Dr), 1 TABS PO QAM - Hold the following medications the morning of surgery: Olmesartan Medoxomil (Benicar), 40 MG PO QAM Probiotic Product (Probiotic), 1 CAP PO QAM Cholecalciferol (Vitamin D3), 1 CAP PO QAM - Take the following medications the morning of surgery with a sip of water OTHERWISE NOTHING TO EAT OR DRINK AFTER MIDNIGHT: Esomeprazole Magnesium (Nexium), 40 MG PO QAM Aspirin (Aspirin Ec), 81 MG PO QAM Citalopram (Citalopram Hydrobromide), 20 MG PO QAM Atorvastatin (Atorvastatin Calcium), 20 MG PO QAM - Take the following medications as scheduled the night before surgery: Levothyroxine Sodium (Levothyroxine Sodium), 50 MCG PO QPM Acetaminophen/Diphenhydramine (Tylenol Pm), 1 TAB PO HS If you have any questions please call us at [phone] or [phone] or [phone]
[2016-10-15 10:37] LABS: HEMATOCRIT 31.6 % (37-47); MEAN CELL VOLUME 91.6 fL (80-100); MEAN CORPUSCULAR HEMOGLOBIN 29.6 pg (25-34); MEAN CORPUSCULAR HGB CONC 32.3 g/dl (32-36); MEAN PLATELET VOLUME 8.9 fL (7.4-10.4); PLATELET COUNT 280 K/uL (130-400); RED BLOOD COUNT 3.45 M/uL (4.2-5.4); WHITE BLOOD COUNT 20.19 K/uL (4.8-10.8)
[2016-10-15 10:39] LABS: URINE APPEARANCE CLEAR (CLEAR); URINE BILIRUBIN NEG (NEG); URINE COLOR YELLOW; URINE NITRITE NEG (NEG); URINE PH 6.5 (4.5-7.5); URINE SPECIFIC GRAVITY 1.009 (1.000-1.030); UROBILINOGEN NEG (NEG)
[2016-10-15 10:41] LABS: MANUAL MICROSCOPIC REQUIRED? NO; REVIEW REQ? NO
[2016-10-15 10:46] LABS: PROTHROMBIN TIME (PATIENT) 10.3 SECONDS (9.0-12.0)
[2016-10-15 10:58] LABS: BUN/CREATININE RATIO 23.5 (10-20); CALCIUM 8.8 mg/dl (8.5-10.1); POTASSIUM 4.8 mmol/L (3.5-5.1)
[2016-10-15 11:04] LABS: ESTIMATED AVERAGE GLUCOSE 114 mg/dl; HA1C FLAG Normal (Normal)
[2016-10-15 11:27] LABS: BASO % 0.2 %; BASO ABS # 0.04 K/uL (0-0.2); COMPLETE YES; EOS % 0.9 %; IG% 0.2 %; LYMPH % 67.3 %; LYMPH ABS # 13.59 K/uL (1.2-3.4); MONO % 3.2 %; NEUT % 28.2 %; SMUDGE CELLS PRESENT
--- NOTE | 2016-10-30 13:37 | HISTORY & PHYSICAL EXAMINATION ---
DATE OF ADMISSION: 10/31/2016 CHIEF COMPLAINT: Right knee pain. HISTORY OF PRESENT ILLNESS: The patient is a 80-year-old female with known osteoarthritis about her right knee. She has had previous corticosteroid injections with minimal relief. She has ongoing pain and disability with activities of daily living. She has pain with prolonged weightbearing and standing activities. She has difficulty with any kneeling, bending, or squatting activities. She now desires to proceed with right total knee arthroplasty. PAST MEDICAL HISTORY: Carotid stenosis, chronic lymphocytic leukemia, depression, gastroesophageal reflux disease, hypertension, hypothyroidism, and irritable bowel syndrome. PAST SURGICAL HISTORY: Colonoscopy, hand surgery, shoulder surgery, and hysterectomy. MEDICATIONS: Atorvastatin, calcium 20 mg daily, diclofenac sodium 50 mg 2 tablets daily, citalopram hydrobromide 20 mg daily, Nexium 40 mg daily, Tylenol PM at bedtime, Benicar 40 mg daily, levothyroxine sodium 50 mcg daily, aspirin 81 mg daily, probiotic daily, and vitamin D 2000 units daily. ALLERGIES: HYDROCHLOROTHIAZIDE AND SULFA. SOCIAL HISTORY AND REVIEW OF SYSTEMS: Noncontributory. PHYSICAL EXAMINATION: GENERAL: Well-nourished and well-developed elderly female, who appears her stated age. HEENT: Normocephalic and atraumatic. Extraocular movements intact. Oropharynx is pink and moist. NECK: Supple without adenopathy. LUNGS: Clear to auscultation bilaterally. HEART: Regular rate and rhythm. ABDOMEN: Soft, nontender, and nondistended. EXTREMITIES: The upper extremities are within normal limits. The right knee has a relatively neutral alignment. She complains primarily of medial compartment pain. She has mild crepitus with range of motion. X-RAYS: X-rays were reviewed. She has near qshu-mq-fuja arthritis of the medial compartment with significant loss of the medial joint space. She has dlsi-[id number]-lmbk arthritis of the patellofemoral joint. ASSESSMENT: Right knee degenerative joint disease. PLAN: Risks versus benefits were discussed. Consent was obtained. The patient has been seen preoperatively by Mariya Quesada PA-C. We will proceed with right total knee arthroplasty upon preoperative workup and medical clearance.
[~2016-10-31] VITALS: Ht 160 cm; Wt 54.1 kg
[2016-10-31] VITALS (10 sets, daily range): BP systolic 101–164; BP diastolic 51–72; PULSE 66–89; TEMP 36.5–36.8; O2SAT 97–100; Ht 160 cm; Wt 54.1 kg
[~2016-10-31 05:42] MED LIST changes: -ACET-1138 PO; -ASPEC81 PO; -ATROPINE SULFATE 0.1 MG/ML 5ML SYR ONE; -DOBUTamine HCL 12.5 MG/ML 20 ML VIAL ONE; -METOPROLOL TARTRATE 1 MG/ML VIAL ONE; -ONDA8TAB6 PO; -OXYSR/10 PO; -PSYL48.59 PO; -RXC5 PO
[2016-10-31] MEDS ORDERED: ACETAMINOPHEN 500 MG TAB PO SCH (06:00)
[2016-10-31] MEDS ORDERED: LACTATED RINGER'S 1000ML IV SCH (06:00)
[2016-10-31] MEDS ORDERED: LACTATED RINGER'S 1000ML 1,000 ML IV SCH (06:00)
[2016-10-31] MEDS ORDERED: CEFAZOLIN 1000MG/55 ML D5W 55 ML IV SCH (06:00)
[2016-10-31] MEDS ORDERED: DEXAMETHASONE 4 MG TAB PO SCH (06:00)
[2016-10-31] MEDS ORDERED: LACTATED RINGER'S 1000ML 500 ML IV ONE (06:00)
[2016-10-31] MEDS ORDERED: FAMOTIDINE 20 MG TAB PO SCH (06:00)
[2016-10-31] MEDS ORDERED: GABAPENTIN 300 MG CAP PO SCH (06:00)
[2016-10-31] MEDS ORDERED: ROPIVACAINE 5MG/ML 30 ML 150 MG, BUPIVACAINE/EPINEPHR 0.5% MPF 30 ML, KETOROLAC TROMETH... INFIL SCH ×7 (06:00)
[2016-10-31] MEDS ORDERED: METOCLOPRAMIDE HCL 10 MG TAB PO SCH (06:00)
[2016-10-31] MEDS ORDERED: PSYL48.59 PO (06:14)
[2016-10-31] MEDS ORDERED: BUPIVACAINE 0.25% 30 ML VIAL ONE (06:29)
[2016-10-31] MEDS ORDERED: BUPIVACAINE 0.5 % 5 MG/1 ML PF 10ML VIAL ONE (06:29)
[2016-10-31] MEDS ORDERED: MIDAZOLAM HCL 1 MG/ML 2ML VIAL ONE ×2 (06:52)
[2016-10-31] MEDS ORDERED: FENTANYL CITRATE INJ 50 MCG/1 ML 2 ML VIAL ONE (06:52)
[2016-10-31] MEDS ORDERED: POVIDONE-IODINE OP SOLN 30 ML BTL ONE (06:57)
[2016-10-31] MEDS ORDERED: BACITRACIN 50000 UNIT VIAL ONE (06:57)
[2016-10-31] MEDS ORDERED: ORTHO JOINT ANESTHETIC ONE (06:57)
--- NOTE | 2016-10-31 06:58 | History & Physical Bridge Note ---
H&P Re-Evaluation Bridge Note: I have examined the patient, reviewed the History & Physical and in the interval since the performance of the History & Physical I have noted the following changes of clinical significance: No changes noted
[2016-10-31] MEDS ORDERED: EpHEDrine SULFATE INJ 50 MG/ML AMP IV PRN (07:15)
[2016-10-31] MEDS ORDERED: ONDANSETRON INJ 2 MG/ML 2 ML VIAL IV PRN ×2 (07:15→09:45)
[2016-10-31] MEDS ORDERED: ATROPINE SULFATE 0.1 MG/ML 5ML SYR IV PRN (07:15)
[2016-10-31] MEDS ORDERED: FENTANYL CITRATE INJ 50 MCG/1 ML 2 ML VIAL IV PRN (07:15)
[2016-10-31] MEDS: TRANEXAMIC ACID INJ 1,000 MG in SODIUM CHLORIDE 0.9% 100ML 100 ML IV SCH ×2 (07:59→11:17)
[2016-10-31] MEDS ORDERED: LIDOCAINE HCL 2% 2 ML VIAL (20MG/ML) ONE (08:35)
[2016-10-31] MEDS ORDERED: EpHEDrine SULFATE 50MG/5ML SYR ONE (08:35)
[2016-10-31] MEDS ORDERED: PROPOFOL IV EMULSION 10 MG/ML 20 ML VIAL IV ONE (08:35)
[2016-10-31] MEDS ORDERED: PHENYLEPHRINE 100MCG/ML 5ML SYR ONE (08:35)
--- NOTE | 2016-10-31 09:12 | [facility] Post Operative Brief Note ---
Immediate Operative Summary Operative Date October 31, 2016. Pre-Operative Diagnosis DEGENERATIVE JOINT DISEASE Post-Operative Diagnosis SAME PREOP Procedure(s) Performed RIGHT TOTAL KNEE ARTHROPLASTY Surgeon DR. Virginia MILLARD Bilingual Case Manager Surgeon(s) Karina CARRINGTON PAC Estimated Blood Loss 10ml Findings oa Specimens RIGHT KNEE BONE AND TISSUE Disposition Recovery Room / PACU
--- NOTE | 2016-10-31 09:25 | OPERATIVE REPORT ---
DATE OF OPERATION: 10/31/2016 PREOPERATIVE DIAGNOSIS: Osteoarthritis, right knee. POSTOPERATIVE DIAGNOSIS: Osteoarthritis, right knee. PROCEDURE: Right total knee arthroplasty. SURGEON: Dr. Cantu. ASSOCIATE PROFESSOR OF ARCHAEOLOGY: Christos Holland PA-C. ANESTHESIA: Spinal. COMPLICATIONS: None. OPERATION AND FINDINGS: Following induction of spinal anesthesia, the patient's right leg was prepped and draped in the usual sterile manner. Limb was exsanguinated with an Esmarch bandage and tourniquet was inflated to 350 mmHg. A longitudinal incision was made anteriorly. Subcutaneous tissue was sharply dissected. Electrocautery was used for hemostasis. Prepatellar bursa was incised and median parapatellar incision was performed. Patella was everted and the knee was flexed. Fat pad was removed to aid in visualization and the anterior and posterior cruciate ligaments were removed. The medial face of the tibia was cleared of soft tissue first with a Bovie and a Naranjo elevator. This tissue was retracted posteriorly using a blunt Hohmann. A Parker retractor was used to expose the synovium above on the anterior aspect of the femur and this was removed down to bone. The PSI guide was placed on the distal femur and two pins were placed anteriorly and kept in position and two additional pins were placed distally and removed. The distal femoral cutting block was placed in position and the distal femoral cut was used in the +0 setting. Next, the cutting block was removed and the 3 block was placed in the distal end of the femur. Care was taken to ensure appropriate external rotation and feeler gauge was used to ensure no notching would occur. The femoral block was centered on the distal femur and in the medial and lateral direction and was fixed using two bone screws. The gold pins were then removed. The oscillating saw was used to create the bone cuts and the distal femoral cutting block was removed and the reciprocating saw was used to further trim the femoral cuts as well as a deep in the area for the trochlear groove. Next, posterior condyle remnants were removed. Following this, a meniscal clamp and knife were utilized to remove the anterior portion of both medial and lateral meniscus. The proximal tibia PSI guide was placed into position and the proximal tibial cutting guide was screwed into position. The extra medullary alignment guide was utilized to ensure appropriate alignment. The proximal tibia was cut and the proximal tibial cutting block was removed and this bone fragment was removed. The appropriate guide was used to perform the notch cut on the distal femur and a lamina serologist and a cochlear knife were utilized to finish both medial and lateral meniscectomies to remove any remnants of the posterior or anterior cruciate ligaments. Following this, the distal femoral component was impacted into position and blunt Deonna was used to sublux the tibia anteriorly. The proximal tibia was sized and a 2 tibial tray was chosen as the size to be used. This was put into position and appropriate external rotation and a double check with extramedullary alignment guide was performed. The canal for the tibial stem was prepared first with a 17 mm drill and then the punch and a mallet and the trial tibial poly was placed. A 9 was chosen the size to be used. It was brought to extension and the patella was prepared with the patellar reamer. A 36 component was chosen the size to be used. The trial component was placed and knee was taken through a full range of motion and there was found to be no lateral subluxation of the tibia. No lateral release was required. The trials were all removed. The final components were obtained and assembled. Cement was mixed. The knee was thoroughly irrigated and the ortho mix was injected about the knee joint. The final components were cemented into position. After thoroughly suctioning and drying the bone ends, all excess cement was removed. The knee was held in extension while the cement hardened. The wound was irrigated and closed over a Hemovac drain. #1 Vicryl was used to close the extensor mechanism. Subcutaneous tissues closed using 0 Dexon. Skin was closed with halina. Sterile dressing of Adaptic, 4 x 4's, sterile Webril, and Chacho was applied. The patient tolerated the procedure well, recovery room stable. Due to the complex nature of the procedure, the entire surgery was performed with the operational assistance of Christos Holland PA-C. The purchasing administrative assistant, under direct supervision, was involved in the actual performance of all aspects of the surgical procedure including hemostasis, tissue retraction and incision, instrument management, patient positioning, and wound closure. I attest to the content of the Intraoperative Record and any orders documented therein. Any exceptio ns are noted below.
[2016-10-31] MEDS ORDERED: MAGNESIUM HYDROXIDE SUSP 30 ML UDC PO PRN (09:45)
[2016-10-31] MEDS ORDERED: METOCLOPRAMIDE HCL INJ 5 MG/ML 2 ML VIAL IV PRN (09:45)
[2016-10-31] MEDS ORDERED: ZOLPIDEM TARTRATE 5 MG TAB PO PRN (09:45)
[2016-10-31] MEDS ORDERED: ALUMINUM/MAGNESIUM/SIMETH (MAALOX MAX) 30 ML UDC PO PRN (09:45)
[2016-10-31] MEDS ORDERED: MoRPHine SULFATE 2 MG/ML CARP IV PRN ×2 (09:45→11:45)
--- NOTE | 2016-10-31 10:18 | Anesthesiology Progress Note ---
Anesthesia Post Op Note Date & Time October 31, 2016 at 10:18 Vital Signs Pain Intensity: 0 Vital Signs Past 12 Hours Date Time Temp Pulse Resp B/P Pulse Ox O2 Delivery O2 Flow Rate FiO2 10/31/16 10:15 37.1 86 14 139/55 100 Nasal Cannula 2 10/31/16 10:05 87 12 133/56 100 Nasal Cannula 2 10/31/16 09:55 86 14 135/56 100 Nasal Cannula 2 10/31/16 09:45 87 12 132/57 100 Nasal Cannula 2 10/31/16 09:37 36.3 95 18 123/68 100 Nasal Cannula 2 10/31/16 06:22 36.6 66 18 164/72 100 Room Air Notes Mental Status: alert / awake / arousable, participated in evaluation Pt Amnestic to Procedure: Yes Nausea / Vomiting: adequately controlled Pain: adequately controlled Airway Patency, RR, SpO2: stable & adequate BP & HR: stable & adequate Hydration State: stable & adequate Neuraxial Anesthesia: was administered, sensory block is resolving Anesthetic Complications: no major complications apparent
--- NOTE | 2016-10-31 10:33 | DIAGNOSTIC IMAGING REPORT ---
RIGHT KNEE 2 VIEWS History: Right total knee arthroplasty. Degenerative arthritis. Postop. FINDINGS: The patient is status post a right total knee arthroplasty. The hardware is intact. No fracture or dislocation. Skin halina and surgical drains are in place. IMPRESSION: Right total knee arthroplasty. No evidence for hardware complication. Electronically signed by: Bret Chambers M.D. 10/31/2016 10:32 AM Dictated Date/Time: 10/31/2016 10:31 AM
[2016-10-31] MEDS ORDERED: MoRPHine SULFATE 4 MG/ML 1 ML CARP\\VIAL IV PRN (11:45)
[2016-10-31] MEDS: D5W AND 1/2NSS + 20MEQ KCL 1,000 ML IV SCH ×2 (12:24→21:33)
[2016-10-31] MEDS: FERROUS GLUCONATE 324 MG TAB PO SCH ×2 (13:03→18:04)
[2016-10-31] MEDS: ACETAMINOPHEN 500 MG TAB PO SCH ×2 (15:24→21:34)
[2016-10-31] MEDS: KETOROLAC TROMETHAMINE 30 MG/ML VIAL IV. SCH ×2 (15:30→21:35)
[2016-10-31] MEDS: CEFAZOLIN IV 1,000 MG in DEXTROSE 5% 50ML 50 ML IV SCH ×2 (15:30→23:20)
[2016-10-31] MEDS: ASPIRIN 81 MG ECTAB PO SCH (20:36)
[2016-10-31] MEDS: LEVOTHYROXINE 50 MCG TAB PO SCH (20:36)
[2016-10-31] MEDS: DOCUSATE SODIUM 100 MG CAP PO SCH (20:36)
[2016-11-01] VITALS (10 sets, daily range): BP systolic 123–163; BP diastolic 60–73; PULSE 70–84; TEMP 36.1–36.6; O2SAT 94–100
[2016-11-01] MEDS: KETOROLAC TROMETHAMINE 30 MG/ML VIAL IV. SCH ×2 (04:01→09:57)
[2016-11-01] MEDS: ACETAMINOPHEN 500 MG TAB PO SCH ×3 (05:19→22:31)
[2016-11-01 06:10] LABS: HEMATOCRIT 22.8 % (37-47); MEAN CELL VOLUME 90.8 fL (80-100); MEAN CORPUSCULAR HEMOGLOBIN 30.7 pg (25-34); MEAN CORPUSCULAR HGB CONC 33.8 g/dl (32-36); MEAN PLATELET VOLUME 8.4 fL (7.4-10.4); PLATELET COUNT 233 K/uL (130-400); RED BLOOD COUNT 2.51 M/uL (4.2-5.4); WHITE BLOOD COUNT 23.99 K/uL (4.8-10.8)
[2016-11-01 06:52] LABS: CREATININE 1.1 mg/dl (0.60-1.20); POTASSIUM 5.2 mmol/L (3.5-5.1)
[2016-11-01] MEDS ORDERED: DEXAMETHASONE INJ 10 MG in SYRINGE 0 ML IV ONE (07:30)
--- NOTE | 2016-11-01 07:46 | Orthopedic Progress Note ---
Orthopedic Progress Note Date of Service November 01, 2016. Subjective Post OP Day: 1 Reports: feeling well Objective N/V intact, dressing C/D/I (Hemovac in place), toes mobile Date Time Temp Pulse Resp B/P Pulse Ox O2 Delivery O2 Flow Rate FiO2 11/01/16 07:31 36.5 70 16 126/60 100 Room Air 11/01/16 03:15 36.3 75 18 134/62 97 Room Air 10/31/16 23:23 Room Air 10/31/16 23:11 36.5 80 15 101/51 97 Room Air 10/31/16 19:19 36.7 87 16 147/68 98 Room Air 10/31/16 15:30 100 Nasal Cannula 1.0 10/31/16 14:59 36.8 87 14 152/68 100 Nasal Cannula 1.0 10/31/16 13:49 36.6 89 16 116/65 99 Nasal Cannula 2.0 10/31/16 13:00 88 16 138/61 100 Nasal Cannula 10/31/16 11:34 100 Nasal Cannula 2.0 10/31/16 11:26 36.7 80 18 142/63 100 Nasal Cannula 2.0 10/31/16 11:18 100 Nasal Cannula 2.0 10/31/16 10:45 83 13 134/57 100 Nasal Cannula 2 10/31/16 10:30 85 15 139/55 100 Nasal Cannula 2 10/31/16 10:15 37.1 86 14 139/55 100 Nasal Cannula 2 10/31/16 10:05 87 12 133/56 100 Nasal Cannula 2 10/31/16 09:55 86 14 135/56 100 Nasal Cannula 2 10/31/16 09:45 87 12 132/57 100 Nasal Cannula 2 10/31/16 09:37 36.3 95 18 123/68 100 Nasal Cannula 2 Laboratory Results 24 Hours: Test 11/01/16 05:55 Hematocrit 22.8 % Hemoglobin 7.7 g/dL Assessment & Plan Assessment: 80 yo female stable POD #1 s/p right TKA, acute blood loss anemia Plan: 1. Med management- will transfuse 1 unit PRBC 2. DVT prophylaxis- ASA, TEDs, SCDs 3. PT/OT 4. D/C planning- home with
--- NOTE | 2016-11-01 07:50 | Discharge Instructions ---
Discharge Instructions Date of Service November 01, 2016. Admission Reason for Admission: Right Knee Osteoarthritis Discharge Discharge Diagnosis / Problem: Right knee arthritis Discharge Goals Goal(s): Decrease discomfort, Improve function Activity Recommendations Activity Limitations: as noted below Weightbearing Status: Right weightbearing (as tolerated) . Instructions / Follow-Up Instructions / Follow-Up ACTIVITY RECOMMENDATIONS: SELF CARE INSTRUCTIONS AFTER TOTAL KNEE REPLACEMENT A. You may need to continue a physical therapy program after discharge from the hospital. There are several options available to you. Your doctor will assist you in selecting the best one for you. 1. An out-patient facility 2 to 3 times a week for therapy or home therapy. 2. Continue working on all exercises taught to you in the hospital. Your goals should be to increase bending of your knee to 90 degrees and beyond and to fully straighten your knee. B. You may progress at your own pace from walking with a walker or crutches to a cane; then to no assistive devices. C. Make walking a part of your daily routine. Be up as much as comfortable with rest periods throughout the day. Rest with leg elevation is very important. Use the ice wrap frequently for the first 3-4 weeks. D. There are no restrictions on activities. You may ride in a car, shop, participate in loin puller and all social activities. E. Wear the long elastic stockings (SULLY hose) 20 hours a day for 2 weeks after surgery. They can be removed several times a day for laundering and for a bath. F. You may shower, no tub baths until cleared by your doctor. SPECIAL CARE INSTRUCTIONS: VERY IMPORTANT TO READ AND REVIEW A. There are a few signs you need to watch for after you are home. Call [facility] if you notice any of the followin. Increased severe knee pain. Some pain is expected especially when you exercise. 2. Increased swelling in your leg or knee; pain or swelling of the calf muscle in either lower leg. 3. Any fluid drainage from the incision. 4. Shortness of breath or chest pain. B. Please call [facility] at if you have any concerns or questions about your operation or recovery. The doctor or his nurse will return your call promptly. C. You must take antibiotics before dental work, bladder, bowel or other surgery. Your doctor will provide you with a permanent care to carry describing this precaution. IMPORTANT: * REMEMBER TO TAKE ASPIRIN, 81 MG, TWICE DAILY FOR 4 WEEKS UNLESS OTHERWISE DIRECTED. THIS IS YOUR BLOOD THINNER. * HIGH RISK PATIENTS MAY BE PRESCRIBED A STRONGER BLOOD THINNER. THIS WILL BE PROVIDED AT DISCHARGE. * CALL IF INCREASED PAIN, REDNESS, DRAINAGE OR FEVER GREATER THAT 101. * WEAR SULLY HOSE 20 HOURS PER DAY FOR 2 WEEKS. Silverlon- This is a large adhesive bandage that contains silver ions. This helps your incision heal by fighting off bacteria and protecting it from the outside environment. You are permitted to shower with this dressing. This will remain on your incision for 7 days and then should be removed. Some visible blood or drainage through the dressing window is normal. If there is significant drainage or leaking noted before the 7 days notify your doctor's office immediately. Once removed, keep incision clean and dry. If there is any drainage or redness noted, please call your surgeon. FOLLOW UP VISIT: If appointment is not already scheduled: Please call [facility] to make a follow-up appointment for 2 weeks after your surgery at . Current Hospital Diet Patient's current hospital diet: Regular Diet Discharge Diet Recommended Diet: Regular Diet Procedures Procedures Performed: RIGHT TOTAL KNEE ARTHROPLASTY Pending Studies Studies pending at discharge: no Laboratory Results Hemoglobin A1c Test 10/15/16 10:19 Range/Units Estimated Average Glucose 114 mg/dl Hemoglobin A1c 5.6 4.5-5.6 % Medical Emergencies . Who to Call and When: Medical Emergencies: If at any time you feel your situation is an emergency, please call 911 immediately. . Non-Emergent Contact Non-Emergency issues call your: Surgeon Call Non-Emergent contact if: temperature is above 101.5, your pain is not controlled, wound has increased drainage, wound has increased redness . "Provider Documentation" section prepared by Christos Holland PA-C. . VTE Core Measure Inpt VTE Proph given/why not?: Other Anticoagulation (ASA 81mg bid), T.E.D. Stockings, SCD's [place] Drug Monitoring Program Search Results: patient reviewed within database, no issues identified
--- NOTE | 2016-11-01 08:04 | Anesthesiology Progress Note ---
Anesthesia Post Op Note Date & Time November 01, 2016 at 08:03 Vital Signs Pain Intensity: 0.0 Vital Signs Past 12 Hours Date Time Temp Pulse Resp B/P Pulse Ox O2 Delivery O2 Flow Rate FiO2 11/01/16 07:31 36.5 70 16 126/60 100 Room Air 11/01/16 03:15 36.3 75 18 134/62 97 Room Air 10/31/16 23:23 Room Air 10/31/16 23:11 36.5 80 15 101/51 97 Room Air Notes Mental Status: alert / awake / arousable, participated in evaluation Anesthetic Complications: no major complications apparent
--- NOTE | 2016-11-01 08:34 | Clinical Documentation Query ---
CLINICAL DOCUMENTATION QUERY 80-y/o who has undergone right TKR. In your clinical opinion is this patient being managed for: ( ) Acute blood loss anemia evidenced by 2.5g/dL drop in Hgb treated with 1 unit of PRBC's ( ) Other explanation of clinical findings (Please Explain) ( ) Unable to determine (Please Define) ( ) Need to Discuss ( ) Not Agree The medical record reflects the following clinical findings, treatment, and risk factors. Clinical Indicators: Hgb 7.7, Hct 22.8, Treatment: 1 units PRBC's Risk Factors: Age, major orthopedic sx, Please clarify and document your clinical opinion in the progress notes and discharge summary. Terms such as "probable", "suspected", "likely", "questionable", "possible", or "still to be ruled out" are acceptable. IF IN AGREEMENT, YOU MUST DOCUMENT ABOVE DIAGNOSTIC STATEMENT IN DAILY PROGRESS NOTES AND DISCHARGE SUMMARY. This document is not part of the patient's record. Thank You, Chad Barrera, RN [phone]
[2016-11-01] MEDS: DOCUSATE SODIUM 100 MG CAP PO SCH ×2 (09:55→20:48)
[2016-11-01] MEDS: D5W AND 1/2NSS + 20MEQ KCL 1,000 ML IV SCH (09:55)
[2016-11-01] MEDS: ATORVASTATIN 20 MG TAB PO SCH (09:55)
[2016-11-01] MEDS: FERROUS GLUCONATE 324 MG TAB PO SCH ×3 (09:56→18:04)
[2016-11-01] MEDS: CITALOPRAM 20 MG TAB PO SCH (09:56)
[2016-11-01] MEDS: OLMESARTAN MEDOXOMIL 40 MG TAB PO SCH (09:56)
[2016-11-01] MEDS: PANTOprazole SOD 40 MG TAB PO SCH (09:56)
[2016-11-01] MEDS: MULTIVITAMIN TAB PO SCH (09:56)
[2016-11-01] MEDS: ASPIRIN 81 MG ECTAB PO SCH ×2 (09:57→20:48)
[2016-11-01] MEDS: OXYCODONE HCL IR 5 MG TAB (IMMEDIATE RELEASE) PO PRN ×2 (12:48→20:49)
[2016-11-01] MEDS: LEVOTHYROXINE 50 MCG TAB PO SCH (20:48)
[2016-11-02] MEDS: OXYCODONE HCL IR 5 MG TAB (IMMEDIATE RELEASE) PO PRN ×2 (02:26→12:31)
[2016-11-02] MEDS: ACETAMINOPHEN 500 MG TAB PO SCH (06:04)
[2016-11-02 06:06] VITALS: PULSE 77; TEMP 36.4; O2SAT 100
[2016-11-02 06:13] VITALS: BP 162/69
--- NOTE | 2016-11-02 07:41 | Orthopedic Progress Note ---
Orthopedic Progress Note Date of Service November 02, 2016. Subjective Post OP Day: 2 Reports: feeling well, pain controlled w PO medications, Denies: SOB, calf pain , chest pain, complaints, light headedness, nausea / vomiting Objective calves soft nontender, N/V intact, capillary refill less than 2 sec., dressing C /D/I, A&O x3, toes mobile Date Time Temp Pulse Resp B/P Pulse Ox O2 Delivery O2 Flow Rate FiO2 11/02/16 06:13 162/69 11/02/16 06:06 36.4 77 16 100 Room Air 11/02/16 01:00 Room Air 11/01/16 23:30 36.6 75 16 123/66 97 Room Air 11/01/16 15:45 Room Air 11/01/16 15:35 36.4 84 18 163/69 97 Room Air 11/01/16 12:30 73 18 156/72 11/01/16 11:30 36.4 74 18 161/73 11/01/16 10:49 36.5 71 18 154/68 100 11/01/16 10:30 36.5 74 16 158/67 94 11/01/16 10:18 36.5 16 138/69 100 11/01/16 09:58 36.1 80 18 161/61 Laboratory Results 24 Hours: Test 11/02/16 07:23 Assessment & Plan Assessment: 80 yo female stable POD #2 s/p right TKA, acute blood loss anemia- awaiting labs today Plan: 1. Med management- was transfused 1 unit PRBC yesterday, awaiting labs today 2. DVT prophylaxis- ASA, TEDs, SCDs 3. PT/OT 4. D/C planning- home with Discharge Planning Discharge Planning: home with home health DVT Prophylaxis: TEDs, SCDs, ASA Therapy: Physical Therapy
[2016-11-02 07:42] LABS: HEMATOCRIT 25.2 % (37-47); MEAN CELL VOLUME 88.7 fL (80-100); MEAN CORPUSCULAR HEMOGLOBIN 29.9 pg (25-34); MEAN CORPUSCULAR HGB CONC 33.7 g/dl (32-36); MEAN PLATELET VOLUME 8.7 fL (7.4-10.4); PLATELET COUNT 230 K/uL (130-400); RED BLOOD COUNT 2.84 M/uL (4.2-5.4); WHITE BLOOD COUNT 20.27 K/uL (4.8-10.8)
[2016-11-02] MEDS ORDERED: OXYSR/10 PO (07:44)
[2016-11-02] MEDS ORDERED: ASPEC81 PO (07:44)
[2016-11-02] MEDS ORDERED: ONDA8TAB6 PO (07:44)
[2016-11-02] MEDS ORDERED: RXC5 PO (07:44)
[2016-11-02] MEDS ORDERED: ACET-1138 PO (07:44)
[2016-11-02] MEDS: PANTOprazole SOD 40 MG TAB PO SCH (09:47)
[2016-11-02] MEDS: ATORVASTATIN 20 MG TAB PO SCH (09:47)
[2016-11-02] MEDS: MULTIVITAMIN TAB PO SCH (09:47)
[2016-11-02] MEDS: ASPIRIN 81 MG ECTAB PO SCH (09:47)
[2016-11-02] MEDS: DOCUSATE SODIUM 100 MG CAP PO SCH (09:47)
[2016-11-02] MEDS: CITALOPRAM 20 MG TAB PO SCH (09:47)
[2016-11-02] MEDS: OLMESARTAN MEDOXOMIL 40 MG TAB PO SCH (09:48)
[2016-11-02] MEDS: FERROUS GLUCONATE 324 MG TAB PO SCH ×2 (09:48→12:30)
[2016-11-02 10:42] VITALS: BP 162/69; PULSE 77; TEMP 36.4; O2SAT 100
--- NOTE | 2016-11-13 17:02 | DISCHARGE SUMMARY ---
CHIEF COMPLAINT: Right knee pain. Please see complete history and physical examination. HOSPITAL COURSE: The patient underwent right total knee arthroplasty without complication. She tolerated the procedure well and was discharged to the recovery room in stable condition. Her postoperative course was relatively uneventful. Her postoperative pain was reasonably well controlled with a combination of spinal anesthesia, adductor canal block, intraoperative joint injection, IV, and oral pain medications. She was started on aspirin for DVT prophylaxis. She also utilized SULLY stockings and SCDs for additional prophylaxis. She was transfused 1 unit of packed red cells for low H\T\H of 7.7 and 22.8. Her H\T\H responded appropriately and was 8.5 and 25.2 the next day. Her surgical drain was placed until postoperative day 2, her surgical dressing will remain in place for approximately 7 days postoperative. She tolerated postoperative physical therapy reasonably well where she was bending her knee and ambulating appropriately. She was discharged home on postoperative day 2. She will continue her physical therapy at home. She will continue her aspirin for DVT prophylaxis and follow up in our office in approximately 10-14 days for her initial postop evaluation.
== END 2016-11-02 12:40 | disposition home health service (06) | DRG 470 ==
LOC: ENRESERVTM → ENRESERVDT → C.ACU 05:42 → C.3E 06:50
PROC: 0SRC0J9 Replacement of Right Knee Joint with Synthetic Substitute, Cemented, Open Approach (ICD-10-PCS; principal; 2016-10-31 08:00)
DX: M17.9 Osteoarthritis of knee, unspecified (principal); C91.10 Chronic lymphocytic leukemia of B-cell type not having achieved remission; D62 Acute posthemorrhagic anemia; K21.9 Gastro-esophageal reflux disease without esophagitis; I10 Essential (primary) hypertension; E03.9 Hypothyroidism, unspecified; K58.9 Irritable bowel syndrome, unspecified; Z79.82 Long term (current) use of aspirin; Z79.899 Other long term (current) drug therapy

== ENCOUNTER → 2016-11-07 | Outpatient (CLI) | payer OTHER ==
[~2016-11-07] MED LIST changes: +ACET-1138 PO; +ASPEC81 PO; -ASPI81TA28 PO; -COENCAP9 PO; -DIPH-437 PO; +ONDA8TAB6 PO; +OXYSR/10 PO; +PSYL48.59 PO; +RXC5 PO; -VLT50 PO
--- NOTE | 2016-11-07 11:01 | DIAGNOSTIC IMAGING REPORT ---
ULTRASOUND RIGHT LOWER EXTREMITY VENOUS CLINICAL HISTORY: Right leg swelling. COMPARISON STUDY: Right lower extremity venous ultrasound dated 04/11/2010. TECHNIQUE: Real-time, grayscale, and color Doppler sonography of the deep veins of the right lower extremity was performed from the inguinal crease to the calf. Compression and augmentation were utilized. FINDINGS: There is no sonographic evidence of deep venous thrombosis identified in the right lower extremity. The common femoral, superficial femoral, and popliteal veins are patent and normally compressible. The greater saphenous vein and the profunda femoris vein at the junction with the common femoral vein are clear. The visualized calf veins are patent. A complex popliteal cyst measures 8.2 x 2.2 x 3.3 cm. This contains a coarse shadowing calcification. IMPRESSION: 1. There is no sonographic evidence of deep venous thrombosis identified in the right lower extremity. 2. Complex popliteal cyst. Electronically signed by: Seymour Gasca M.D. 11/07/2016 10:59 AM Dictated Date/Time: 11/07/2016 10:58 AM
== END | disposition home or self-care (01) ==
LOC: C.ULTRBC 10:31
PROVIDERS: ATTEND Internal Medicine
DX: R60.9 Edema, unspecified (principal); M71.21 Synovial cyst of popliteal space [Baker], right knee

== ENCOUNTER → 2017-07-21 | Outpatient (CLI) | payer OTHER ==
[~2017-07-21] MED LIST changes: -LPT/20 PO; +LPT20 PO; -ONDA8TAB6 PO
[2017-07-21 14:34] LABS: ALBUMIN 4.1 gm/dl (3.4-5.0); ALT/SGPT 18 U/L (12-78); BLOOD UREA NITROGEN 25 mg/dl (7-18); CALCIUM 9.5 mg/dl (8.5-10.1); CARBON DIOXIDE 25 mmol/L (21-32); CHOLESTEROL 189 mg/dl (0-200); CREATININE 1.04 mg/dl (0.60-1.20); GLUCOSE 87 mg/dl (70-99); POTASSIUM 4.3 mmol/L (3.5-5.1); SODIUM 135 mmol/L (136-145)
[2017-07-21 14:44] LABS: ALKALINE PHOSPHATASE 56 U/L (45-117); AST/SGOT 16 U/L (15-37); LDL CHOLESTEROL CALCULATED 89 mg/dl; TOTAL PROTEIN 7.4 gm/dl (6.4-8.2)
== END | disposition home or self-care (01) ==
LOC: C.LABBC 10:09
PROVIDERS: ATTEND Internal Medicine
DX: H53.2 Diplopia (principal); E03.9 Hypothyroidism, unspecified; M19.90 Unspecified osteoarthritis, unspecified site; C91.10 Chronic lymphocytic leukemia of B-cell type not having achieved remission; D75.89 Other specified diseases of blood and blood-forming organs; K21.9 Gastro-esophageal reflux disease without esophagitis; I10 Essential (primary) hypertension; N18.3 Chronic kidney disease, stage 3 (moderate)

== ENCOUNTER → 2017-08-15 | Outpatient (CLI) | payer OTHER ==
--- NOTE | 2017-08-15 09:12 | DIAGNOSTIC IMAGING REPORT ---
ULTRASOUND RIGHT UPPER QUADRANT ABDOMEN CLINICAL HISTORY: Epigastric abdominal pain. COMPARISON STUDY: Abdominal CT dated 03/07/2016. TECHNIQUE: Real-time, grayscale, and color flow sonography of the right upper quadrant of the abdomen was performed. Images are reviewed in the transverse and longitudinal planes. FINDINGS: Liver: The liver is normal in size and echotexture. There is no intrahepatic biliary ductal dilatation. The main portal vein is patent. Scattered cysts measure up to 1.5 cm. Gallbladder: The gallbladder is normal in appearance. No gallstones are identified. There is no gallbladder wall thickening or pericholecystic fluid. A sonographic Michelle's sign is reportedly absent. The common bile duct measures up to 0.3 cm in diameter. Pancreas: Visualized portions of the pancreatic head and body are normal in appearance. Right kidney: Survey images of the right kidney demonstrate cortical atrophy. There is no hydronephrosis. Ascites: None. IMPRESSION: No acute sonographic abnormality is identified in the right upper quadrant. No gallstones are seen. Electronically signed by: Seymour Gasca M.D. 08/15/2017 9:11 AM Dictated Date/Time: 08/15/2017 9:08 AM
== END | disposition home or self-care (01) ==
LOC: C.ULTRBC 08:45
PROVIDERS: ATTEND Physician Assistant Medical
DX: R10.13 Epigastric pain (principal); R10.11 Right upper quadrant pain

== ENCOUNTER → 2018-01-26 | Outpatient (CLI) | payer OTHER ==
[~2018-01-26] MED LIST changes: -ACET-1138 PO; +ACET-1256 PO; -ASPEC81 PO; +ASPI81TA28 PO; -CLX/20 PO; -OXYSR/10 PO; -RXC5 PO; +TRAM-10 PO
--- NOTE | 2018-01-26 10:20 | DIAGNOSTIC IMAGING REPORT ---
DOUBLE CONTRAST BARIUM ESOPHAGRAM CLINICAL HISTORY: Hiatal hernia. COMPARISON STUDY: Abdominal CT dated 01/09/2018. TECHNIQUE: A standard air contrast barium esophagram is performed. Multiple spot images of the esophagus are acquired both upright and prone. FINDINGS: The patient swallowed barium and the barium pill without difficulty. The mucosal pattern is normal. There is no evidence of intrinsic or extrinsic mass lesion. No aspiration was seen. Mild dysmotility is seen in the mid to distal third. The gastroesophageal junction distended normally. No gastroesophageal reflux could be elicited by having the patient perform the Valsalva maneuver. There is a moderate sliding-type hiatal hernia. Fluoroscopy time: 1.3 minutes. Fluoroscopic images: 22 IMPRESSION: 1. Mild esophageal dysmotility. 2. Moderate hiatal hernia. Electronically signed by: Seymour Gasca M.D. 01/26/2018 10:19 AM Dictated Date/Time: 01/26/2018 10:18 AM
== END | disposition home or self-care (01) ==
LOC: C.RAD 09:30
PROVIDERS: ATTEND Surgery
DX: K44.9 Diaphragmatic hernia without obstruction or gangrene (principal)

== ENCOUNTER → 2018-01-30 | Outpatient (CLI) | payer OTHER ==
--- NOTE | 2018-01-30 10:28 | DIAGNOSTIC IMAGING REPORT ---
(CHEST) THORAX WITHOUT CT DOSE: 166.67 mGycm HISTORY: Hiatal hernia LARGE HIATAL HERNIA TECHNIQUE: Multiaxial CT images of the chest were performed without contrast. A dose lowering technique was utilized adhering to the principles of ALARA. COMPARISON: 11/12/2006. Barium esophagus 01/26/2018 FINDINGS: Chronic apical pleural thickening bilaterally. Moderate fixed hiatal hernia. Lungs are considered clear. No significant parenchymal nodularity. No significant hilar or mediastinal adenopathy of significance. IMPRESSION: Moderate hiatal hernia. Otherwise negative chest. The above report was generated using voice recognition software. It may contain grammatical, syntax or spelling errors. Electronically signed by: Harris Lee M.D. 01/30/2018 10:26 AM Dictated Date/Time: 01/30/2018 10:23 AM
== END | disposition home or self-care (01) ==
LOC: C.CTS 10:02
PROVIDERS: ATTEND Surgery
DX: K44.9 Diaphragmatic hernia without obstruction or gangrene (principal)

== ENCOUNTER 2018-08-17 11:48 | Inpatient (IN) ==
[2018-08-17 12:57] LABS: Partial Thromboplastin Ratio 0.9; Partial Thromboplastin Time 23.6 Seconds (21.0-31.0); Prothrombin Time 10.5 Seconds (9.0-12.0)
--- NOTE | 2018-08-17 13:01 | XRay Report ---
XR chest 1V portable CLINICAL HISTORY: left arm pain COMPARISON STUDY: 07/03/2018 FINDINGS: The cardiac and mediastinal contours are normal. There is no evidence of focal pulmonary co nsolidation. There is no evidence of failure. No pleural effusions are visualized.[ IMPRESSION: No active disease in the chest. Electronically signed by: Van Gardner M.D. 08/17/2018 1:00 PM
[2018-08-17 13:05] LABS: Alanine Aminotransferase 22 U/L (12-78); Aspartate Aminotransferase 23 U/L (15-37); Blood Urea Nitrogen 36 mg/dl (7-18); Calcium 9.2 mg/dl (8.5-10.1); Carbon Dioxide 26 mmol/L (21-32); Chloride 102 mmol/L (98-107); Creatinine Clr Calc Pharmacy 27.1 ml/min; Est GFR (African American) 43.3; Est GFR (Non-African American) 37.4; Glucose 107 mg/dl (70-99); Potassium 4.4 mmol/L (3.5-5.1); Sodium 135 mmol/L (136-145)
[2018-08-17 13:09] LABS: Albumin Globulin Ratio 1.2 (0.9-2); Alkaline Phosphatase 63 U/L (45-117); Bilirubin,Total 0.4 mg/dl (0.2-1); Globulin 3.2 gm/dl (2.5-4.0); Total Protein 7.2 gm/dl (6.4-8.2); Troponin I < 0.015 ng/ml (0-0.045)
[2018-08-17 13:13] LABS: Hematocrit (blood only) 37.9 % (37-47); Hemoglobin 12.6 g/dL (12.0-16.0); Mean Corpuscular Hgb Conc 33.2 g/dL (32-36); Mean Corpuscular Volume 92.7 fL (80-100); Mean Platelet Volume 9.2 fL (7.4-10.4); Platelet Count 242 K/uL (130-400); RDW Coefficient of Variation 15.5 % (11.5-14.5); RDW Standard Deviation 52.3 fL (36.4-46.3); Red Blood Count 4.09 M/uL (4.2-5.4); White Blood Count 34.28 K/uL (4.8-10.8)
[2018-08-17] MEDS ORDERED: ASPIRIN CHEW 324 MG PO STA (13:21)
[2018-08-17] MEDS ORDERED: SODIUM CHLORIDE 0.9% 1000ML 1,000 ML IV ONE (13:21)
[2018-08-17 13:22] LABS: Basophils # (auto) 0.05 K/uL (0-0.2); Basophils % (auto) 0.1 %; Eosinophils # (auto) 0.03 K/uL (0-0.5); Eosinophils % (auto) 0.1 %; Immature Granulocytes # (auto) 0.08 K/uL (0.00-0.02); Immature Granulocytes % (auto) 0.2 %; Lymphocytes # (auto) 26.55 K/uL (1.2-3.4); Lymphocytes % (auto) 77.5 %; Monocytes # (auto) 0.72 K/uL (0.11-0.59); Monocytes % (auto) 2.1 %; Neutrophils # (auto) 6.85 K/uL (1.4-6.5); Smudge Cells Present
--- NOTE | 2018-08-17 13:48 | CT Scan Report ---
CT head/brain wo con CLINICAL HISTORY: 82 years-old Female presenting with Stroke symptoms, left arm pain. TECHNIQUE: Multidetector CT imaging of the head was performed without the use of intravenous contrast . IV contrast: None. One or more dose lowering techniques were used consistent with the principles of ALARA (as low as reasonably achievable), including automatic exposure control, mA or kV adjustment t o individual patient size, and/or use of iterative reconstruction. COMPARISON: 07/29/2016. CT DOSE (mGy.cm): The estimated cumulative dose is 537.48 mGy.cm. FINDINGS: Mixing Machine Operator topogram: Unremarkable. Proportional ventricular and sulcal prominence, likely age-related parenchymal volume loss. No hemorr galina. Brain parenchyma normal in appearance with preserved damon-white differentiation. No acute laura torial infarct. No mass effect or midline shift. No extra-axial fluid collection. Paranasal sinuses a nd mastoid air cells clear. Calvarium intact. IMPRESSION: 1. No acute intracranial abnormality. Electronically signed by: Bebeto Hoover M.D. 08/17/2018 1:47 PM
[2018-08-17 14:37] LABS: Calcium 8.7 mg/dl (8.5-10.1); Creatinine Clr Calc Pharmacy 29.8 ml/min; Est GFR (African American) 48.6; Est GFR (Non-African American) 41.9; Magnesium 2.5 mg/dl (1.8-2.4); Potassium 4.9 mmol/L (3.5-5.1)
[2018-08-17] MEDS ORDERED: ACETAMINOPHEN 325 MG TAB PO PRN (18:20)
[2018-08-17] MEDS ORDERED: PHARMACIST DISCHARGE MED REC CONSULT PRN (18:20)
--- NOTE | 2018-08-17 19:27 | Emergency Department Note ---
Entered by Audrey Aguilar acting as a scribe for History of Present Illness General Chief complaint: Arm Pain Stated complaint: PAIN IN LEFT ARM Source: patient Mode of arrival: ambulatory Limitations: no limitations History of Present Illness Onset (ago): hour(s) (929) Location: upper extremity (left arm ) Radiation: other (left shoulder) Pain Consistency: + constant Maximum Pain Intensity: 3 Quality: + other (The patient describes the pain as a weight on her arm.) Associated symptoms: + headaches and + other (The patient complains of lightheadedness and left arm weakness. The patient denies leg pain, abdominal pain, and difficulty talking. ) The patient is an 82 year old female with a history of arthritis, IBS, and diverticulitis who presents to the ED with complaints of constant left arm pain that onset this morning. She states that her pain started with her left hand cramping up and then the pain radiated up into her shoulder. The patient describes the pain as a weight on her arm. The patient complains of headache, lightheadedness, and left arm weakness. The patient denies leg pain, abdominal pain, and difficulty talking. She notes that she had trouble with her grasp along with movement of her left upper arm because it was weaker than the right. Home Medications Home Medications Medication Instructions Recorded Confirmed Type atorvastatin 20 mg PO QAM 02/26/18 08/17/18 History levothyroxine 50 mcg PO DAILY 02/26/18 08/17/18 History olmesartan [Benicar] 40 mg PO QAM 02/26/18 08/17/18 History Allergies Allergy/AdvReac Type Severity Reaction Status Date / Time hydrochlorothiazide Allergy Unknown ON MNPG Verified 08/17/18 12:41 LIST celecoxib AdvReac Intermediate loss of Verified 08/17/18 12:41 appetite and fatigue Sulfa (Sulfonamide AdvReac Unknown fatigue, Verified 08/17/18 12:41 Antibiotics) n/v Past Med/Surg History Medical History Encounter for pre-operative examination Arthritis (Chronic) Diverticulitis (Chronic) IBS (irritable bowel syndrome) (Chronic) CLL (chronic lymphocytic leukemia) (Chronic) Anemia (Acute) CLL (chronic lymphocytic leukemia) (Acute) Constipation (Acute) Contusion of left clavicle (Acute) Degenerative arthritis of right knee Headache (Acute) Lower gastrointestinal bleed (Acute 07/18/14) Syncope (Acute) Vasovagal near syncope (Acute) CLL (chronic lymphocytic leukemia) (Acute) Carotid artery stenosis Chronic back pain Diverticular disease GERD (gastroesophageal reflux disease) H/O deep venous thrombosis ~16 years ago Hiatal hernia Hyperlipidemia Hypertension Hypothyroidism IBS (irritable bowel syndrome) Intestinal perforation SURGICAL REPAIR-2015 LBBB (left bundle branch block) Osteoarthritis Thumb joint stiffness R JOINT REPLACEMENT Surgical History H/O arthroscopy of shoulder L H/O colonoscopy History of arthroscopy R History of cataract surgery R/L History of tonsillectomy History of total knee replacement R S/P [id number] Family History Son No problems noted. Son Family history of diabetes mellitus Social History Current Living Situation: Family Feels Safe at Home: Yes Smoking Status: Never smoker Second Hand Exposure: No Hx Alcohol Use: Yes Alcohol type: wine and hard liquor Alcohol Intake Frequency : 0-2 drinks per day Hx Substance Use: No Beliefs That Will Affect Care: None Preferred Language: Lao Communication Ability: Effective Visual Impairment: No Limitations Hearing Ability: Normal Review of Systems See HPI for pertinent positives & negatives. and A total of 10 systems reviewed and were otherwise negative Physical Exam Vital Signs Vital Signs - 24 hr 08/17/18 11:53 08/17/18 13:13 08/17/18 13:16 Temperature 36.3 C L Temperature Source Oral Sepsis Recent Fever Within 48 Hours No Sepsis New/Unexplained Change in Mental Status No Sepsis Action Taken by Nursing No Action Required Pulse Rate 74 80 Respiratory Rate 12 17 Blood Pressure 198/75 H 202/87 H Blood Pressure Mean 116 125 Pulse Oximetry Oxygen Delivery Method 08/17/18 13:27 08/17/18 13:30 08/17/18 14:00 Temperature Temperature Source Sepsis Recent Fever Within 48 Hours Sepsis New/Unexplained Change in Mental Status Sepsis Action Taken by Nursing Pulse Rate 67 72 69 Respiratory Rate 18 18 18 Blood Pressure 186/66 H Blood Pressure Mean 106 Pulse Oximetry Oxygen Delivery Method 08/17/18 14:01 08/17/18 14:10 08/17/18 14:20 Temperature Temperature Source Sepsis Recent Fever Within 48 Hours Sepsis New/Unexplained Change in Mental Status Sepsis Action Taken by Nursing Pulse Rate 72 63 Respiratory Rate 20 17 14 Blood Pressure 174/74 H Blood Pressure Mean 107 Pulse Oximetry Oxygen Delivery Method 08/17/18 14:30 08/17/18 14:31 08/17/18 14:40 Temperature Temperature Source Sepsis Recent Fever Within 48 Hours Sepsis New/Unexplained Change in Mental Status Sepsis Action Taken by Nursing Pulse Rate 67 65 68 Respiratory Rate 16 15 18 Blood Pressure 161/72 H Blood Pressure Mean 101 Pulse Oximetry Oxygen Delivery Method 08/17/18 14:50 08/17/18 15:03 08/17/18 15:10 Temperature Temperature Source Sepsis Recent Fever Within 48 Hours Sepsis New/Unexplained Change in Mental Status Sepsis Action Taken by Nursing Pulse Rate 72 74 67 Respiratory Rate 12 18 14 Blood Pressure Blood Pressure Mean Pulse Oximetry Oxygen Delivery Method 08/17/18 15:20 08/17/18 15:30 08/17/18 15:31 Temperature Temperature Source Sepsis Recent Fever Within 48 Hours Sepsis New/Unexplained Change in Mental Status Sepsis Action Taken by Nursing Pulse Rate 67 67 66 Respiratory Rate 16 15 12 Blood Pressure 167/79 H Blood Pressure Mean 108 Pulse Oximetry Oxygen Delivery Method 08/17/18 15:40 08/17/18 15:50 08/17/18 16:00 Temperature Temperature Source Sepsis Recent Fever Within 48 Hours Sepsis New/Unexplained Change in Mental Status Sepsis Action Taken by Nursing Pulse Rate 76 70 67 Respiratory Rate 21 20 14 Blood Pressure Blood Pressure Mean Pulse Oximetry Oxygen Delivery Method 08/17/18 16:01 08/17/18 16:10 08/17/18 16:20 Temperature Temperature Source Sepsis Recent Fever Within 48 Hours Sepsis New/Unexplained Change in Mental Status Sepsis Action Taken by Nursing Pulse Rate 67 68 67 Respiratory Rate 14 14 12 Blood Pressure 177/65 H Blood Pressure Mean 102 Pulse Oximetry Oxygen Delivery Method 08/17/18 16:30 08/17/18 16:31 08/17/18 16:40 Temperature Temperature Source Sepsis Recent Fever Within 48 Hours Sepsis New/Unexplained Change in Mental Status Sepsis Action Taken by Nursing Pulse Rate 70 66 70 Respiratory Rate 14 20 19 Blood Pressure 178/59 H Blood Pressure Mean 98 Pulse Oximetry Oxygen Delivery Method 08/17/18 16:50 08/17/18 17:00 08/17/18 17:02 Temperature Temperature Source Sepsis Recent Fever Within 48 Hours Sepsis New/Unexplained Change in Mental Status Sepsis Action Taken by Nursing Pulse Rate 66 70 72 Respiratory Rate 17 16 15 Blood Pressure Blood Pressure Mean 80 Pulse Oximetry Oxygen Delivery Method 08/17/18 17:10 08/17/18 17:39 Temperature Temperature Source Sepsis Recent Fever Within 48 Hours Sepsis New/Unexplained Change in Mental Status Sepsis Action Taken by Nursing Pulse Rate 70 70 Respiratory Rate 14 16 Blood Pressure 163/78 H Blood Pressure Mean Pulse Oximetry 97 Oxygen Delivery Method Room Air GENERAL: Sitting up in bed, alert, well appearing, well nourished, no distress, non-toxic EYE EXAM: normal conjunctiva. OROPHARYNX: no exudate, no erythema, lips, buccal mucosa, and tongue normal and mucous membranes are moist NECK: supple, no nuchal rigidity, no adenopathy, non-tender LUNGS: Clear to auscultation. Normal chest wall mechanics HEART: no murmurs, S1 normal and S2 normal ABDOMEN: abdomen soft, non-tender, normo-active bowel, sounds, no masses, no rebound or guarding. BACK: acute upper thoracic paraspinal tenderness tracking into left humerus. SKIN: no rashes and no bruising LOWER EXTREMITIES: No pitting edema. NEURO EXAM: Normal sensorium, cranial nerves II-XII intact, normal speech, faint weakness with grasp and left upper extremity; no weakness with flexion extension at the wrist elbows or movement of the shoulders, no weakness of legs. No drift. Finger to nose intact. Gross sensation intact. Course 1305: Past medical records reviewed. The patient was evaluated in room A12B, and a complete history and physical examination were performed. 1447: I updated the patient. Upon reevaluation, the patient is resting comfortably. 1440: I reviewed the patient's [facility] She will evaluate the patient for further management. Consultations Consultation #1: 1440: I reviewed the patient's case with [facility]. She will evaluate the patient for further management. Time: 14:40 Administered Medications Discontinued Medications Aspirin (Aspirin) 324 mg PO NOW STA Stop: 08/17/18 13:22 Last Admin: 08/17/18 14:00 Dose: 324 mg Sodium Chloride (Nss 1000ml) 1,000 mls @ 999 mls/hr IV .Q1H1M ONE Stop: 08/17/18 14:21 Last Infusion: 08/17/18 17:28 Dose: 0 mls/hr Admin: 08/17/18 14:03 Dose: 999 mls/hr Medical Decision Making Differential Diagnosis Differential Diagnosis: Ischemic Stroke, hemorrhagic stroke, bells palsy, mass, neoplasm, migraine headache, seizure, subarachnoid hemorrhage, TIA, and transient global amnesia. Medical Records Attestation: I reviewed the patient's medical records. Home Medications Current Medication List: was personally reviewed by me Laboratory Data Attestation: I reviewed the patient's lab results. Result diagrams: 08/17/18 12:35 08/17/18 14:12 Lab Results 08/17/18 08/17/18 08/17/18 Range/Units 12:35 12:35 12:35 WBC 34.28 H* (4.8-10.8) K/uL RBC 4.09 L (4.2-5.4) M/uL Hgb 12.6 (12.0-16.0) g/dL Hct 37.9 (37-47) % MCV 92.7 (80-100) fL MCH 30.8 (25-34) pg MCHC 33.2 (32-36) g/dL RDW Std Deviation 52.3 H (36.4-46.3) fL RDW Coeff of Kaley 15.5 H (11.5-14.5) % Plt Count 242 (130-400) K/uL MPV 9.2 (7.4-10.4) fL Immature Gran % (Auto) 0.2 % Neut % (Auto) 20.0 % Lymph % (Auto) 77.5 % Wake % (Auto) 2.1 % Eos % (Auto) 0.1 % Baso % (Auto) 0.1 % Immature Gran # (Auto) 0.08 H (0.00-0.02) K/uL Neut # (Auto) 6.85 H (1.4-6.5) K/uL Lymph # (Auto) 26.55 H (1.2-3.4) K/uL Wake # (Auto) 0.72 H (0.11-0.59) K/uL Eos # (Auto) 0.03 (0-0.5) K/uL Baso # (Auto) 0.05 (0-0.2) K/uL Smudge Cells Present PT 10.5 (9.0-12.0) Seconds INR 1.0 (0.9-1.1) APTT 23.6 (21.0-31.0) Seconds PTT Ratio 0.9 Sodium 135 L (136-145) mmol/L Potassium 4.4 (3.5-5.1) mmol/L Chloride 102 (98-107) mmol/L Carbon Dioxide 26 (21-32) mmol/L Anion Gap 7.0 (3-11) BUN 36 H (7-18) mg/dl Creatinine 1.33 H (0.6-1.2) mg/dl Est Cr Clr Drug Dosing 27.1 ml/min Est GFR ( Amer) 43.3 Est GFR (Non-Af Amer) 37.4 BUN/Creatinine Ratio 27.0 H (10-20) Glucose 107 H (70-99) mg/dl Calcium 9.2 (8.5-10.1) mg/dl Magnesium (1.8-2.4) mg/dl Total Bilirubin 0.4 (0.2-1) mg/dl AST 23 (15-37) U/L ALT 22 (12-78) U/L Alkaline Phosphatase 63 (45-117) U/L Troponin I < 0.015 (0-0.045) ng/ml Total Protein 7.2 (6.4-8.2) gm/dl Albumin 4.0 (3.4-5.0) gm/dl Globulin 3.2 (2.5-4.0) gm/dl Albumin/Globulin Ratio 1.2 (0.9-2) Blood Type Antibody Screen 08/17/18 08/17/18 Range/Units 14:12 14:12 WBC (4.8-10.8) K/uL RBC (4.2-5.4) M/uL Hgb (12.0-16.0) g/dL Hct (37-47) % MCV (80-100) fL MCH (25-34) pg MCHC (32-36) g/dL RDW Std Deviation (36.4-46.3) fL RDW Coeff of Kaley (11.5-14.5) % Plt Count (130-400) K/uL MPV (7.4-10.4) fL Immature Gran % (Auto) % Neut % (Auto) % Lymph % (Auto) % Wake % (Auto) % Eos % (Auto) % Baso % (Auto) % Immature Gran # (Auto) (0.00-0.02) K/uL Neut # (Auto) (1.4-6.5) K/uL Lymph # (Auto) (1.2-3.4) K/uL Wake # (Auto) (0.11-0.59) K/uL Eos # (Auto) (0-0.5) K/uL Baso # (Auto) (0-0.2) K/uL Smudge Cells PT (9.0-12.0) Seconds INR (0.9-1.1) APTT (21.0-31.0) Seconds PTT Ratio Sodium 136 (136-145) mmol/L Potassium 4.9 (3.5-5.1) mmol/L Chloride 105 (98-107) mmol/L Carbon Dioxide 25 (21-32) mmol/L Anion Gap 6.0 (3-11) BUN 33 H (7-18) mg/dl Creatinine 1.21 H (0.6-1.2) mg/dl Est Cr Clr Drug Dosing 29.8 ml/min Est GFR ( Amer) 48.6 Est GFR (Non-Af Amer) 41.9 BUN/Creatinine Ratio 27.0 H (10-20) Glucose 83 (70-99) mg/dl Calcium 8.7 (8.5-10.1) mg/dl Magnesium 2.5 H (1.8-2.4) mg/dl Total Bilirubin (0.2-1) mg/dl AST (15-37) U/L ALT (12-78) U/L Alkaline Phosphatase (45-117) U/L Troponin I (0-0.045) ng/ml Total Protein (6.4-8.2) gm/dl Albumin (3.4-5.0) gm/dl Globulin (2.5-4.0) gm/dl Albumin/Globulin Ratio (0.9-2) Blood Type O Positive Antibody Screen NEGATIVE Imaging Data Radiologist's Impression: Radiology results as stated below per my review and the radiologist's interpretation: CT head/brain wo con CLINICAL HISTORY: 82 years-old Female presenting with Stroke symptoms, left arm pain. TECHNIQUE: Multidetector CT imaging of the head was performed without the use of intravenous contrast. IV contrast: None. One or more dose lowering techniques were used consistent with the principles of ALARA (as low as reasonably achievable), including automatic exposure control, mA or kV adjustment to individual patient size, and/or use of iterative reconstruction. COMPARISON: 07/29/2016. CT DOSE (mGy.cm): The estimated cumulative dose is 537.48 mGy.cm. FINDINGS: Print Press Operator topogram: Unremarkable. Proportional ventricular and sulcal prominence, likely age-related parenchymal volume loss. No hemorrhage. Brain parenchyma normal in appearance with preserved damon-white differentiation. No acute territorial infarct. No mass effect or midline shift. No extra-axial fluid collection. Paranasal sinuses and mastoid air cells clear. Calvarium intact. IMPRESSION: 1. No acute intracranial abnormality. Electronically signed by: Bebeto Hoover M.D. 08/17/2018 1:47 PM Dictated: 08/17/18 1344 Transcribed: 08/17/18 1344 XR chest 1V portable CLINICAL HISTORY: left arm pain COMPARISON STUDY: 07/03/2018 FINDINGS: The cardiac and mediastinal contours are normal. There is no evidence of focal pulmonary consolidation. There is no evidence of failure. No pleural effusions are visualized.[ IMPRESSION: No active disease in the chest. Electronically signed by: Van Gardner M.D. 08/17/2018 1:00 PM Dictated: 08/17/18 1300 Transcribed: 08/17/18 1300 ECG Data Attestation: I personally reviewed and interpreted this ECG as follows: Indication: other (arm pain) Rate (beats per minute): 73 Rhythm: sinus rhythm Findings: + other (normal axis, TWI in highlateral), + LBBB and + ST depression (Normal axis, TWI in highlateral and lateral) Comparison ECG Date: from (01/09/2019) Change: the following changes noted (V6 is slightly changed) Blood Pressure Blood Pressure Findings: Elevated blood pressure Blood Pressure Disposition: further management by hospitalist ANNALISA Narrative Patient is an 82-year-old female with a past medical history of CLL that presents the ER for weakness in her left upper extremity that started around 930. Upon arrival she notes that has improved significantly. She has no other complaints. She is completely neurologically intact with exception of mild weakness with grasp. She does have some pain stemming from the left shoulder as well. Labs were obtained and showed a leukocytosis of 34,000 as expected with CLL. No significant anemia. INR was unremarkable. BMP along with LFTs bilirubin and troponin was negative. CT head was negative. EKG was unremarkable. Patient was updated bedside. With the possibility of a TIA I discussed case with the hospitalist for observation. Impression & Plan TIA (transient ischemic attack), Headache, CLL (chronic lymphocytic leukemia) Discharge Plan Visit Data *Final* Discharge Date/Time: 08/17/18 17:39 Chief Complaint: Arm Pain Stated Complaint: PAIN IN LEFT ARM ED Provider: Kendrick Barreto Discharge Problem: TIA (transient ischemic attack), Headache, CLL (chronic lymphocytic leukemia) Patient Disposition: Admitted As Inpatient Discharge Instructions Interventions: ED Discharge Assessment Last Done: 08/17/18 17:39 The scribe's documentation has been prepared under my direction and personally reviewed by me in its entirety. I confirm that the note above accurately reflects all work, treatment, procedures, and medical decision making performed by me.
[2018-08-17] MEDS ORDERED: OPTIRAY 320 125ml IV PRN (20:03)
--- NOTE | 2018-08-17 22:02 | History & Physical Report ---
Date of Service August 17, 2018 Assessment & Plan (1) TIA (transient ischemic attack): Patient with mild weakness in LUE. ?TIA/CVA/focal seizure as symptoms began with hand cramping then progressed. Patient with history of left carotid stenosis, audible bruit -Admit to PCU -Check MRI brain -Check CTA head and neck -Check 2D echo -Check AIC and Lipids -ASA 81mg po daily -Continue Lipitor, will increase to 40mg po daily -Neurology consultation - appreciate assistance (2) Hypertension: Blood pressure well controlled at present. -Hold Olmesartan for now to allow for permissive HTN in setting of possible CVA -Continue to monitor (3) Hyperlipidemia: -Continue Lipitor - increase to 40mg po daily (4) CLL (chronic lymphocytic leukemia): Stable. WBC count is near baseline -Continue to monitor (5) Hypothyroid: Stable -Continue Synthroid F/E/N - Heplock. Monitor electrolytes. Heart healthy diet as tolerated when speech/swallow passed Ppx - SCDs to bilateral LE code - Full Dispo [- 280-1 History of Present Illness Chief Complaint: arm pain, tingling Primary Care Provider: Bebeto Willis MD 82yo female with history of HTN, HLP, GERD, Hypothyroid, Carotid stenosis, CLL presenting with pain and weakness in the left upper extremity. Symptoms began around 0900 with cramping in the left hand which progressed to the forearm and shoulder. Around 10:00 patient began to have weakness in her left arm. Symptoms lasted approximately 2 hours then resolved. She also reports blurring of vision in both eyes and a dull diffuse headache. She denies facial droop, slurred speech, leg weakness or difficulty with balance. Patient with history of frequent hand cramping. She states that her cramps typically don't progress as they did today and have never before resulted in focal weakness. ER Course: NSS, ASA 324mg Allergies Allergy/AdvReac Type Severity Reaction Status Date / Time hydrochlorothiazide Allergy Unknown ON MNPG Verified 08/17/18 12:41 LIST celecoxib AdvReac Intermediate loss of Verified 08/17/18 12:41 appetite and fatigue Sulfa (Sulfonamide AdvReac Unknown fatigue, Verified 08/17/18 12:41 Antibiotics) n/v Home Medications Home Medications Medication Instructions Recorded Confirmed Type atorvastatin 20 mg PO QAM 02/26/18 08/17/18 History levothyroxine 50 mcg PO DAILY 02/26/18 08/17/18 History olmesartan [Benicar] 40 mg PO QAM 02/26/18 08/17/18 History Past Med/Surg History Medical History Encounter for pre-operative examination Arthritis (Chronic) Diverticulitis (Chronic) IBS (irritable bowel syndrome) (Chronic) CLL (chronic lymphocytic leukemia) (Chronic) Anemia (Acute) CLL (chronic lymphocytic leukemia) (Acute) Constipation (Acute) Contusion of left clavicle (Acute) Degenerative arthritis of right knee Headache (Acute) Lower gastrointestinal bleed (Acute 07/18/14) Syncope (Acute) Vasovagal near syncope (Acute) CLL (chronic lymphocytic leukemia) (Acute) Carotid artery stenosis Chronic back pain Diverticular disease GERD (gastroesophageal reflux disease) H/O deep venous thrombosis ~16 years ago Hiatal hernia Hyperlipidemia Hypertension Hypothyroidism IBS (irritable bowel syndrome) Intestinal perforation SURGICAL REPAIR-2015 LBBB (left bundle branch block) Osteoarthritis Thumb joint stiffness R JOINT REPLACEMENT Surgical History H/O arthroscopy of shoulder L H/O colonoscopy History of arthroscopy R History of cataract surgery R/L History of tonsillectomy History of total knee replacement R S/P SHWETA-BSO Family History Son No problems noted. Son Family history of diabetes mellitus Social History Current Living Situation: Family Feels Safe at Home: Yes Smoking Status: Never smoker Second Hand Exposure: No Hx Alcohol Use: Yes Alcohol type: wine and hard liquor Alcohol Intake Frequency : 0-2 drinks per day Hx Substance Use: No Beliefs That Will Affect Care: None Preferred Language: Divehi Communication Ability: Effective Visual Impairment: No Limitations Hearing Ability: Normal Review of Systems All systems reviewed & are unremarkable except as noted in HPI & below +lightheadedness +blurry ision +headache +neck pain Physical Exam 2 Vital Signs (Past 24 Hours): Last Vital Signs Temp 36.3 C L 08/17/18 11:53 Pulse 70 08/17/18 17:39 Resp 16 08/17/18 17:39 BP 163/78 H 08/17/18 17:39 Pulse Ox 97 08/17/18 17:39 Physical Exam: General: patient resting comfortably, NAD, non-toxic in appearance, AA&O x 4 Skin: warm, dry, intact, no rashes or lesions HEENT: NC/AT, PERRL, EOMI, anicteric sclera, conjunctiva without injection, external ear normal to inspection and nontender, bilateral hearing aides in place, nares patent, moist mucus membranes, dentition intact, no oropharyngeal lesions, neck supple, trachea midline, no LAD, no thyromegaly, no JVD Heart: +S1/S2, regular, +DAVEY 3/6 at LSB, +carotid bruit left Lungs: equal air entry bilaterally, no rales/rhonchi/wheezes Abd: +BS, soft, NT/ND, no masses/organomegaly/ascites Ext: warm, 2+ pulses in UE/LE bilaterally, no clubbing/cyanosis or edema Neuro: nonfocal, patient AA&O x 4, speech intact, no facial droop, moving all extremities on command, slighly weaker in LUE 4+/5 with handgrip, flexion/ extension Results & Data Laboratory Results Lab Results 08/17/18 08/17/18 08/17/18 Range/Units 12:35 12:35 12:35 WBC 34.28 H* (4.8-10.8) K/uL RBC 4.09 L (4.2-5.4) M/uL Hgb 12.6 (12.0-16.0) g/dL Hct 37.9 (37-47) % MCV 92.7 (80-100) fL MCH 30.8 (25-34) pg MCHC 33.2 (32-36) g/dL RDW Std Deviation 52.3 H (36.4-46.3) fL RDW Coeff of Kaley 15.5 H (11.5-14.5) % Plt Count 242 (130-400) K/uL MPV 9.2 (7.4-10.4) fL Immature Gran % (Auto) 0.2 % Neut % (Auto) 20.0 % Lymph % (Auto) 77.5 % Garrard % (Auto) 2.1 % Eos % (Auto) 0.1 % Baso % (Auto) 0.1 % Immature Gran # (Auto) 0.08 H (0.00-0.02) K/uL Neut # (Auto) 6.85 H (1.4-6.5) K/uL Lymph # (Auto) 26.55 H (1.2-3.4) K/uL Garrard # (Auto) 0.72 H (0.11-0.59) K/uL Eos # (Auto) 0.03 (0-0.5) K/uL Baso # (Auto) 0.05 (0-0.2) K/uL Smudge Cells Present PT 10.5 (9.0-12.0) Seconds INR 1.0 (0.9-1.1) APTT 23.6 (21.0-31.0) Seconds PTT Ratio 0.9 Sodium 135 L (136-145) mmol/L Potassium 4.4 (3.5-5.1) mmol/L Chloride 102 (98-107) mmol/L Carbon Dioxide 26 (21-32) mmol/L Anion Gap 7.0 (3-11) BUN 36 H (7-18) mg/dl Creatinine 1.33 H (0.6-1.2) mg/dl Est Cr Clr Drug Dosing 27.1 ml/min Est GFR ( Amer) 43.3 Est GFR (Non-Af Amer) 37.4 BUN/Creatinine Ratio 27.0 H (10-20) Glucose 107 H (70-99) mg/dl Calcium 9.2 (8.5-10.1) mg/dl Magnesium (1.8-2.4) mg/dl Total Bilirubin 0.4 (0.2-1) mg/dl AST 23 (15-37) U/L ALT 22 (12-78) U/L Alkaline Phosphatase 63 (45-117) U/L Troponin I < 0.015 (0-0.045) ng/ml Total Protein 7.2 (6.4-8.2) gm/dl Albumin 4.0 (3.4-5.0) gm/dl Globulin 3.2 (2.5-4.0) gm/dl Albumin/Globulin Ratio 1.2 (0.9-2) Blood Type Antibody Screen 08/17/18 08/17/18 Range/Units 14:12 14:12 WBC (4.8-10.8) K/uL RBC (4.2-5.4) M/uL Hgb (12.0-16.0) g/dL Hct (37-47) % MCV (80-100) fL MCH (25-34) pg MCHC (32-36) g/dL RDW Std Deviation (36.4-46.3) fL RDW Coeff of Kaley (11.5-14.5) % Plt Count (130-400) K/uL MPV (7.4-10.4) fL Immature Gran % (Auto) % Neut % (Auto) % Lymph % (Auto) % Garrard % (Auto) % Eos % (Auto) % Baso % (Auto) % Immature Gran # (Auto) (0.00-0.02) K/uL Neut # (Auto) (1.4-6.5) K/uL Lymph # (Auto) (1.2-3.4) K/uL Garrard # (Auto) (0.11-0.59) K/uL Eos # (Auto) (0-0.5) K/uL Baso # (Auto) (0-0.2) K/uL Smudge Cells PT (9.0-12.0) Seconds INR (0.9-1.1) APTT (21.0-31.0) Seconds PTT Ratio Sodium 136 (136-145) mmol/L Potassium 4.9 (3.5-5.1) mmol/L Chloride 105 (98-107) mmol/L Carbon Dioxide 25 (21-32) mmol/L Anion Gap 6.0 (3-11) BUN 33 H (7-18) mg/dl Creatinine 1.21 H (0.6-1.2) mg/dl Est Cr Clr Drug Dosing 29.8 ml/min Est GFR ( Amer) 48.6 Est GFR (Non-Af Amer) 41.9 BUN/Creatinine Ratio 27.0 H (10-20) Glucose 83 (70-99) mg/dl Calcium 8.7 (8.5-10.1) mg/dl Magnesium 2.5 H (1.8-2.4) mg/dl Total Bilirubin (0.2-1) mg/dl AST (15-37) U/L ALT (12-78) U/L Alkaline Phosphatase (45-117) U/L Troponin I (0-0.045) ng/ml Total Protein (6.4-8.2) gm/dl Albumin (3.4-5.0) gm/dl Globulin (2.5-4.0) gm/dl Albumin/Globulin Ratio (0.9-2) Blood Type O Positive Antibody Screen NEGATIVE Diagnostic Findings XR chest 1V portable CLINICAL HISTORY: left arm pain COMPARISON STUDY: 07/03/2018 FINDINGS: The cardiac and mediastinal contours are normal. There is no evidence of focal pulmonary consolidation. There is no evidence of failure. No pleural effusions are visualized.[ IMPRESSION: No active disease in the chest. Electronically signed by: Van Gardner M.D. 08/17/2018 1:00 PM Dictated: 08/17/18 1300 Transcribed: 08/17/[address] head/brain wo con CLINICAL HISTORY: 82 years-old Female presenting with Stroke symptoms, left arm pain. TECHNIQUE: Multidetector CT imaging of the head was performed without the use of intravenous contrast. IV contrast: None. One or more dose lowering techniques were used consistent with the principles of ALARA (as low as reasonably achievable), including automatic exposure control, mA or kV adjustment to individual patient size, and/or use of iterative reconstruction. COMPARISON: 07/29/2016. CT DOSE (mGy.cm): The estimated cumulative dose is 537.48 mGy.cm. FINDINGS: Vacuum Furnace Operator topogram: Unremarkable. Proportional ventricular and sulcal prominence, likely age-related parenchymal volume loss. No hemorrhage. Brain parenchyma normal in appearance with preserved damon-white differentiation. No acute territorial infarct. No mass effect or midline shift. No extra-axial fluid collection. Paranasal sinuses and mastoid air cells clear. Calvarium intact. IMPRESSION: 1. No acute intracranial abnormality. Electronically signed by: Bebeto oHover M.D. 08/17/2018 1:47 PM Dictated: 08/17/18 1344 Transcribed: 08/17/18 1344 ECG Additional Comments: Sinus rhythm with PACsYOSEPH new from January 09 2018, no acute ischemia Code Status & VTE Plan Code Status full VTE Prophylaxis Plan VTE Prophylaxis will be ordered: Yes Critical Care Time Critical Care Time: No _ (1) Hypertension Hypertension type: essential hypertension Qualified Code(s): I10 - Essential (primary) hypertension (2) Hyperlipidemia Hyperlipidemia type: unspecified Qualified Code(s): E78.5 - Hyperlipidemia, unspecified (3) Hypothyroid Hypothyroidism type: unspecified Qualified Code(s): E03.9 - Hypothyroidism, unspecified
[2018-08-17] MEDS ORDERED: GADOBUTROL 65ML VIAL IV PRN (23:04)
--- NOTE | 2018-08-17 23:49 | CT Scan Report ---
CT ANGIOGRAM OF THE BRAIN; CT ANGIOGRAM OF THE NECK CLINICAL HISTORY: Strokelike symptoms. COMPARISON STUDY: Unenhanced CT of the brain dated 08/17/2018. TECHNIQUE: Following the IV administration of 120 of Optiray 320, CT angiogram of the head and neck w as performed from the aortic arch to the vertex. Images are reviewed in the axial, sagittal, and юлия nal planes. 3-D MIPS images are created and assessed. IV contrast was administered without complicati on. All measurements were calculated based on NASCET criteria. A dose lowering technique was utilize d adhering to the principles of ALARA. CT DOSE: 302.63 mGy.cm FINDINGS: Brain parenchyma: There is age-related involutional change noting mild subcortical and periventricula r microangiopathic disease. There is no hemorrhage, mass effect, or evidence of acute territorial isc hemia by CT criteria. There is no evidence of enhancing mass lesion on the angiogram phase images. Th e ventricles, sulci, and cisterns are prominent secondary to involutional change. Pa-white matter d ifferentiation is preserved. No extra-axial fluid collection is seen. Thoracic aorta: There is atherosclerotic calcification of the visualized abdominal aorta. Imaged port ions of the thoracic aorta are normal in caliber. The aortic arch demonstrates standard 3-vessel rakel jessica. Right carotid arterial system: The right common carotid artery is widely patent, as are the right int ernal and external carotid arteries. Left carotid arterial system: The left common carotid artery is widely patent, as are the left landscape maintenance internship al and external carotid arteries. The proximal to mid portions of the left internal carotid artery de monstrates a slightly beaded appearance. Vertebral arteries: Widely patent and codominant. Subclavian arteries: The subclavian arteries are widely patent bilaterally. Intracranial vasculature: There is atherosclerotic calcification and atherosclerotic irregularity see n in the cavernous carotid arteries. The internal carotid arteries are patent at the skull base, as a re the anterior and middle cerebral arteries bilaterally. The vertebrobasilar system and posterior ce rebral arteries are widely patent. The vertebral arteries are patent and codominant. There is no aneu rysm, high-grade stenosis, or focal vessel cut off seen throughout the intracranial circulation. Jugular veins: Patent bilaterally. Dural sinuses: Patent. Lung apices: Apical scarring is noted. Upper lobe lung parenchyma is otherwise clear as visualized. Soft tissues: The visualized pharyngeal soft tissues are normal in appearance noting angiographic pha se technique. The oropharyngeal airway appears widely patent. The salivary and thyroid glands are nor mal in appearance. No cervical lymphadenopathy is seen. Skeletal structures: The skeletal structures are osteopenic. Spondylotic changes noted in the cervica l spine. The calvarium appears intact. Orbits: The bony orbits are intact. Orbital contents are normal in appearance noting bilateral ocular lens implants. Sinuses and mastoids: The paranasal sinuses are clear. There is a trace right mastoid effusion. The l eft mastoid air cells are well pneumatized. IMPRESSION: 1. There is no hemorrhage, mass effect, or evidence of acute territorial ischemia by CT criteria on t his angiographic phase examination. 2. Unremarkable CT angiogram of the brain. 3. The left internal carotid artery demonstrates a slightly beaded appearance. This is nonspecific an d could be seen in the setting of fibromuscular dysplasia. 4. Otherwise unremarkable CT angiogram of the neck. The carotid arteries are widely patent bilaterall y. Electronically signed by: Seymour Gasca M.D. 08/17/2018 11:48 PM
--- NOTE | 2018-08-17 23:53 | Magnetic Resonance Report ---
MRI OF THE BRAIN COMBO CLINICAL HISTORY: Strokelike symptoms. COMPARISON STUDY: CT of the brain performed the same day 08/17/2018. MRI of the brain dated 07/29/2016. TECHNIQUE: MRI of the brain was performed utilizing various T1 and T2-weighted sequences in the axial , sagittal, and coronal planes. Contrast-enhanced sequences were acquired following the administratio n of 5 cc of Gadavist. FINDINGS: Brain parenchyma: There is age-related involutional change noting mild subcortical and periventricula r microangiopathic disease. There is no hemorrhage or mass effect. There is no restricted diffusion t o suggest acute ischemia. No enhancing mass lesion is identified on the postcontrast images. Pa-whi te matter differentiation is preserved. No extra-axial fluid collection is seen. The cerebellar tonsi ls are normal in configuration. Ventricles, sulci, and cisterns: Prominent secondary to involutional change. Pituitary and sella: Partially empty sella is incidentally noted. Intracranial vasculature: Normal flow voids are maintained at the skull base. Orbits: The bony orbits are grossly intact. Orbital contents are normal in appearance, noting bilater al ocular lens implants. Sinuses and mastoids: Clear. Calvarium: Unremarkable. Cervical cord: Partially visualized cervical spinal cord is normal in morphology and signal intensity . IMPRESSION: No acute intracranial abnormality. Electronically signed by: Seymour Gasca M.D. 08/17/2018 11:51 PM
[2018-08-18 05:58] LABS: Hematocrit (blood only) 33.4 % (37-47); Hemoglobin 10.9 g/dL (12.0-16.0); Mean Corpuscular Hgb Conc 32.6 g/dL (32-36); Mean Corpuscular Volume 93.8 fL (80-100); Mean Platelet Volume 9.4 fL (7.4-10.4); Platelet Count 203 K/uL (130-400); RDW Coefficient of Variation 15.4 % (11.5-14.5); RDW Standard Deviation 52.5 fL (36.4-46.3); Red Blood Count 3.56 M/uL (4.2-5.4); White Blood Count 23.68 K/uL (4.8-10.8)
[2018-08-18 06:16] LABS: Estimated Average Glucose 123 mg/dl; Hemoglobin A1C 5.9 % (4.5-5.6)
[2018-08-18] MEDS ORDERED: LEVOTHYROXINE SODIUM 50 MCG TABLET PO SCH (06:30)
[2018-08-18 06:36] LABS: BUN Creatinine Ratio 27.8 (10-20); Calcium 8.4 mg/dl (8.5-10.1); Creatinine Clr Calc Pharmacy 32.3 ml/min; Est GFR (African American) 53.9; Est GFR (Non-African American) 46.5; Potassium 4.3 mmol/L (3.5-5.1)
[2018-08-18 07:23] LABS: Basophils # (auto) 0.04 K/uL (0-0.2); Basophils % (auto) 0.2 %; Eosinophils # (auto) 0.15 K/uL (0-0.5); Eosinophils % (auto) 0.6 %; Immature Granulocytes # (auto) 0.04 K/uL (0.00-0.02); Immature Granulocytes % (auto) 0.2 %; Lymphocytes # (auto) 19.84 K/uL (1.2-3.4); Lymphocytes % (auto) 83.8 %; Monocytes # (auto) 0.61 K/uL (0.11-0.59); Monocytes % (auto) 2.6 %; Neutrophils % (auto) 12.6 %; Smudge Cells Present
[2018-08-18] MEDS ORDERED: ATORVASTATIN 40 MG TAB PO SCH (09:00)
[2018-08-18] MEDS ORDERED: ASPIRIN 81 MG ECTAB PO SCH (09:00)
[2018-08-18] MEDS ORDERED: OLMESARTAN MEDOXOMIL 40 MG TAB PO SCH (09:00)
--- NOTE | 2018-08-18 09:15 | Neurology Consultation ---
Date of Consultation August 18, 2018 Assessment & Plan (1) Left arm pain: This is a 82-year-old right-handed female who presents with slowly progressive left upper extremity pain and cramping with secondarily some sense of mild weakness. Considering that she did not have any symptoms in the face or leg, symptoms more likely related to cervical radiculopathy. While I cannot 100% rule out a TIA, less likely to be TIA by history. Patient's vascular risk factors include hypertension and dyslipidemia. Recommendations: I have ordered MRI of the neck for further evaluation of left arm pain. Advised that if left arm pain returns, would recommend physical therapy. Agree with addition of aspirin 81 mg daily to cover her for possible TIA and taking into consideration her vascular risk factors and age. Follow-up echocardiogram results Follow-up PT/OT for discharge planning. Avoid hypotension and dehydration Stroke risk factor modifications and recommendations: Blood pressure recommendations 130/80-110/70 Total cholesterol goal 100- 200 and LDL goal less than 100 Hemoglobin A1c goal less than 7 Encourage cardiovascular exercise at least 3 times a week for 30 minutes. Follow-up in neurology clinic in 1 month for hospital follow-up if desired. If there is any questions or concerns, feel free to call/page me. History of Present Illness Reason for Consultation: Concern for possible TIA Attending Physician: Aamir Pace, DO History of Present Illness This is a 82-year-old right-handed female who presents with left arm pain numbness. Patient reports that she has a history of cramping and pain in her right hand but this is the first time that she had it in the left hand. She reports that maybe 5 minutes before she felt a little lightheaded. She then started to notice pain and cramping in her left hand. Slowly progressed to pain in the forearm and she noticed that it felt like her left arm was half and had difficulty moving it. She denies any numbness or tingling. She reports that then progressed to pain in her left shoulder. Describes it as an achy type pain. She reports that the symptoms lasted from 9:30 AM to last evening and then slowly resolved. She does report chronic neck pain. No shooting pain down the arms. Upon reviewing her chart the patient does have notable chronic pain from multiple sites of osteoarthritis. She has seen Dr. Grady in neurology clinic in 2011 for left lumbar radiculopathy. On review of systems the patient notes daily headaches for years. These appear to be non-migrainous and may be cervicogenic. She does report a history of migraine headaches 35 years ago. Creatinine 1.1, total cholesterol 153, LDL 70, HDL 70 was right 65, hemoglobin A1c 5.9. CTA of the head and neck was reviewed. Noted to have some left ICA slightly beaded appearance which may be related to fibromuscular dysplasia MRI of the brain report and images were reviewed by myself and essentially unremarkable for age. There is a few nonspecific T2 hyperintensities in the subcortical white matter likely indicative of mild cerebral small vessel ischemic disease. Past medical history: Chronic pain secondary to osteoarthritis, hypothyroid, dyslipidemia, hypertension, IBS, CLL, CKD, lumbar radiculopathy, Tylenol hernia repair, postop right knee surgery, history of perforated diverticulitis, Raynouds, remote history of migraine headaches Family history of sister with migraine headaches Social history: Normally independent her activities of daily living. No tobacco use. Allergies Allergy/AdvReac Type Severity Reaction Status Date / Time hydrochlorothiazide Allergy Unknown ON MNPG Verified 08/17/18 12:41 LIST celecoxib AdvReac Intermediate loss of Verified 08/17/18 12:41 appetite and fatigue Sulfa (Sulfonamide AdvReac Unknown fatigue, Verified 08/17/18 12:41 Antibiotics) n/v Home Medications Home Medications Medication Instructions Recorded Confirmed Type atorvastatin 20 mg PO QAM 02/26/18 08/17/18 History levothyroxine 50 mcg PO DAILY 02/26/18 08/17/18 History olmesartan [Benicar] 40 mg PO QAM 02/26/18 08/17/18 History Patient History Medical History Encounter for pre-operative examination Arthritis (Chronic) Diverticulitis (Chronic) IBS (irritable bowel syndrome) (Chronic) CLL (chronic lymphocytic leukemia) (Chronic) Anemia (Acute) CLL (chronic lymphocytic leukemia) (Acute) Constipation (Acute) Contusion of left clavicle (Acute) Degenerative arthritis of right knee Headache (Acute) Lower gastrointestinal bleed (Acute 07/18/14) Syncope (Acute) Vasovagal near syncope (Acute) CLL (chronic lymphocytic leukemia) (Acute) Carotid artery stenosis Chronic back pain Diverticular disease GERD (gastroesophageal reflux disease) H/O deep venous thrombosis ~16 years ago Hiatal hernia Hyperlipidemia Hypertension Hypothyroidism IBS (irritable bowel syndrome) Intestinal perforation SURGICAL REPAIR-2016 LBBB (left bundle branch block) Osteoarthritis Thumb joint stiffness R JOINT REPLACEMENT Surgical History H/O arthroscopy of shoulder L H/O colonoscopy History of arthroscopy R History of cataract surgery R/L History of tonsillectomy History of total knee replacement R S/P SHWETA-BSO Family History Son No problems noted. Son Family history of diabetes mellitus Social History Current Living Situation: Family Other Information That Helps Us Care for You: No Feels Safe at Home: Yes Safety Concerns: Feels Safe At This Time Smoking Status: Never smoker Second Hand Exposure: No Hx Alcohol Use: Yes Alcohol type: wine and hard liquor Alcohol Intake Frequency : 0-2 drinks per day Hx Substance Use: No Beliefs That Will Affect Care: None Preferred Language: Occitan Communication Ability: Effective Review of Systems Complete review of systems otherwise negative except for the above-noted in HPI Physical Exam 2 Vital Signs (Past 24 Hours): Last Vital Signs Temp 36.8 C 08/18/18 07:03 Pulse 67 08/18/18 07:03 Resp 20 08/18/18 07:03 BP 138/73 08/18/18 07:03 Pulse Ox 97 08/18/18 07:03 Physical Exam: Gen.: Patient is alert and oriented in no acute distress lying in bed Heart: Regular rate and rhythm Extremities: No gross deformities or rashes noted Neurological examination: Mental status: Patient is alert and oriented to person place and time. Able to give his own history. Good fund of knowledge. Attention concentration normal for the situation. Remote and recent memory intact Speech is fluent without any dysarthria or aphasia noted Cranial nerves: Visual toro intact to confrontation. Funduscopic examination was unremarkable with no signs of papilledema. Pupils equally round and reactive to light. Extraocular muscles intact without nystagmus. No facial asymmetry noted. Facial sensation intact. Tongue midline. Good palatal elevation. Good shoulder shrug bilaterally. Hearing grossly intact voice. Strength: 5/5 both proximal and distal in all extremities .Tone is normal. Sensation: Grossly intact to light touch in all extremities Deep tendon reflexes: +1 in bilateral biceps and patellar. Toes are downgoing to plantar stimulation bilaterally Coordination: Patient has good finger to nose without dysmetria. Station within the bed is normal.
[2018-08-18] MEDS ORDERED: INFLUENZA ADMINISTRATION CHARGE ONE (10:15)
[2018-08-18] MEDS ORDERED: INFLUENZA VACCINE HIGH DOSE 65+ 0.5 ML SYR IM ONE (10:15)
--- NOTE | 2018-08-18 11:03 | Magnetic Resonance Report ---
MR cervical spine wo con CLINICAL HISTORY: 82 years-old Female presenting with left arm pain and weakness, lightheadedness, le ft arm pain. TECHNIQUE: Multisequence, multiplanar MR imaging of the cervical spine was performed without the use of intravenous contrast. IV contrast: None. COMPARISON: Correlation made to CTA neck from 08/17/2018. FINDINGS: Localizer images: Unremarkable. Reversal of normal cervical lordosis due to multilevel degenerative changes. Vertebral bodies maintai n normal height and bone marrow signal intensity. There is trace anterolisthesis of C3 on C4 measurin g 2 mm. Alignment otherwise grossly preserved. Moderate to severe intervertebral disc height loss fro m C3-4 through C5-6, where there is the greatest degree of degenerative change. Multilevel degenerati ve changes further detailed below: C2-3: Trace disc osteophyte complex. No neural foraminal or spinal canal narrowing. C3-4: Disc osteophyte complex/uncovertebral hypertrophy results in mild effacement of the ventral the cruz sac. Mild right and mild to moderate left neural foraminal narrowing. Minimal contouring of the a nterior spinal cord. C4-5: Disc osteophyte complex/uncovertebral hypertrophy results in minimal effacement of the ventral thecal sac and moderate left neural foraminal narrowing. C5-6: Disc osteophyte complex/uncovertebral hypertrophy results in no significant spinal canal narrow ing. Mild bilateral neural foraminal narrowing, left greater than right. C6-7: Trace disc osteophyte complex. No significant neural foraminal or spinal canal narrowing. C7-T1: No significant spinal canal or neural foraminal narrowing. Cervical spinal cord maintains normal morphology and signal intensity. Craniocervical junction normal . No gross evidence of an epidural collection. No paraspinal muscle edema. Remaining visualized soft tissues within normal limits. IMPRESSION: 1. Multilevel degenerative changes of the cervical spine most severe from C3-4 through C5-6. Neural foraminal narrowing at these levels is worse on the left. No significant spinal canal narrowing. Electronically signed by: Bebeto Hoover M.D. 08/18/2018 11:01 AM
--- NOTE | 2018-08-18 23:30 | Discharge Summary ---
Date of Service August 18, 2018 Admission HPI Per Admitting Provider 82yo female with history of HTN, HLP, GERD, Hypothyroid, Carotid stenosis, CLL presenting with pain and weakness in the left upper extremity. Symptoms began around 0900 with cramping in the left hand which progressed to the forearm and shoulder. Around 10:00 patient began to have weakness in her left arm. Symptoms lasted approximately 2 hours then resolved. She also reports blurring of vision in both eyes and a dull diffuse headache. She denies facial droop, slurred speech, leg weakness or difficulty with balance. Patient with history of frequent hand cramping. She states that her cramps typically don't progress as they did today and have never before resulted in focal weakness. ER Course: NSS, ASA 324mg Admission Exam Per Admitting Provider Physical Exam: General: patient resting comfortably, NAD, non-toxic in appearance, AA&O x 4 Skin: warm, dry, intact, no rashes or lesions HEENT: NC/AT, PERRL, EOMI, anicteric sclera, conjunctiva without injection, external ear normal to inspection and nontender, bilateral hearing aides in place, nares patent, moist mucus membranes, dentition intact, no oropharyngeal lesions, neck supple, trachea midline, no LAD, no thyromegaly, no JVD Heart: +S1/S2, regular, +DAVEY 3/6 at LSB, +carotid bruit left Lungs: equal air entry bilaterally, no rales/rhonchi/wheezes Abd: +BS, soft, NT/ND, no masses/organomegaly/ascites Ext: warm, 2+ pulses in UE/LE bilaterally, no clubbing/cyanosis or edema Neuro: nonfocal, patient AA&O x 4, speech intact, no facial droop, moving all e xtremities on command, slighly weaker in LUE 4+/5 with handgrip, flexion/extension Principal Diagnosis Left arm weakness Discharge Exam Constitutional WD/WN, vitals as above Eyes PERRL, conjunctivae normal, anicteric sclerae ENMT external ear and nose normal, oropharynx normal Neck trachea midline, no thyromegaly Respiratory normal respiratory effort, lungs clear to auscultation Cardiovascular RRR, no murmur, no edema Gastrointestinal (Abdomen) normal bowel sounds, soft, nontender, no hepatosplenomegaly Musculoskeletal no cyanosis or clubbing, extremities motor strength 5/5 Skin no rashes, warm and dry Neurologic patellar DTR's 2+ bilat, sensation intact and PERRL, EOMI, accommodation nl, no face palsy, no dysarthria Psychiatric A+Ox3, euthymic affect Lymphatic no cervical or axillary lymphadenopathy Discharge Data Allergies Allergy/AdvReac Type Severity Reaction Status Date / Time hydrochlorothiazide Allergy Unknown ON [facility] Verified 08/17/18 12:41 LIST celecoxib AdvReac Intermediate loss of Verified 08/17/18 12:41 appetite and fatigue Sulfa (Sulfonamide AdvReac Unknown fatigue, Verified 08/17/18 12:41 Antibiotics) n/v Consultations 08/17/18 14:47 ED Decision to Admit Stat 08/17/18 18:20 Consult Case Management - Discharge Planning Routine Consult Neurology Routine Ordered Studies 08/17/18 13:20 CT head/brain wo con Stat 08/17/18 18:20 CT angio head w con Routine CT angio neck with con Routine MR brain wo/w con Routine 08/18/18 09:00 MR cervical spine wo con Routine Hospital Course (1) TIA (transient ischemic attack): thought to be TIA but ruled out MRI brain showed no stroke CTA head and neck unremarkable MRI cervical spine showed degenerative changes and mild foraminal narrowing but nothing severe neurology recommends physical therapy follow up with PCP continue aspirin for protection in the future (2) Hypertension: continue Olmesartan (3) Hyperlipidemia: -Continue Lipitor (4) CLL (chronic lymphocytic leukemia): Stable. WBC count is near baseline -Continue to monitor (5) Hypothyroid: Stable -Continue Synthroid Total Time Total Time Spent Total Time Spent (In Minutes): 25 minutes Total Time Includes: Examination of the Patient, Discharge Planning, Medication Reconciliation and Communication With Other Providers (Dr. Uribe) Discharge Plan Discharge Items Patient Disposition: Home - Self-Care Reason For Visit: TIA Discharge Diagnosis: Possible TIA, MRI brain normal Cervical spine MRI showed some degenerative changes Condition: Good Discharge Goals: Improve function and Increase independence Activity: Resume your previous activity Lifting: None Bathing: No limitations Exercise/Sports: None Non-emergency contact: Primary Care Provider and Neurologist Call non-emergency contact if: you have any medication questions, your symptoms worsen and you have a fever Diet: Heart Healthy Addtl Provider Instructions: Medications: - ASPIRIN: start taking 81mg daily for stroke prevention - LIPITOR: increase to 40mg daily, take two tablets, follow up with PCP for script for 40mg Left arm weakness MRI brain normal, MR angiogram head and neck normal MRI cervical spine with some mild degenerative changes, nothing severe recommend physical therapy follow up with PCP in one week, follow up in neurology clinic in one month Prescriptions: New aspirin [Ecotrin Low Strength] 81 mg Tablet,Delayed Release (Dr/Ec) 81 mg PO QAM 30 Days Qty: 30 RF: 1 Continued atorvastatin 20 mg Tablet 20 mg PO QAM RF: 0 levothyroxine 50 mcg Tablet 50 mcg PO DAILY RF: 0 olmesartan [Benicar] 40 mg Tablet 40 mg PO QAM RF: 0 Stand-Alone Forms: [facility] Discharge Orders: Discharge Order (Routine); Ordered 08/18/18 Ordered By: Aamir Pace Admission Data Admit Date/Time: 08/17/18 16:10 Attending Provider: Aamir Pace Admit Provider: Yuliana Watkins Primary Care Provider: Bebeto Willis Other Providers: Bobbi Bowser Service: Telemetry Other Interventions: Discharge Summary Assessment (RN) Last Done: 08/18/18 14:52 DC Date/Time DO NOT enter until pt leaves facility: 08/18/18 15:39
--- NOTE | 2018-09-25 07:22 | Coding Query ---
CODING QUERY To promote full compliance with coding requirements relating to patient care, provider participation is requested in all cases of machine assembler supervisor uncertainty. Please assist us with the question(s) below: Coding Question: There is conflicting documentation in the record, in the discharge summary under "hospital course" it states "thought to be TIA but ruled out", yet it is listed under the discharge diagnosis. Please clarify below to the best of your knowledge. Thank you so much for your help! ( ) Arm pain/weakness due to TIA (x ) TIA ruled-out ( ) Arm pain/weakness possibly due to cervical radiculopathy ( ) Other, explain Thank you! Roz Lion Principal Diagnosis: "that condition established after study, to be chiefly responsible for occasioning the admission of the patient to the hospital for care." Co-Existing Principal Diagnosis: "when two or more diagnoses equally meet the criteria for principal diagnosis as determined by the circumstances of admission, diagnostic work up, and/or therapy provided, and the Alphabetic Index, Tabular List, or another coding guideline does not provide sequencing direction, any one of the diagnoses may be sequenced first." "When the physician has documented what appears to be a current diagnosis in the body of the record, but has not included the diagnosis in the final diagnostic statement, the physician should be asked whether the diagnosis should be added." ([facility] 2 QTR90. p3-4) YUMIKO
== END 2018-08-18 15:39 | disposition home or self-care (01) | DRG 74 ==
LOC: ED 11:48 → 2N 16:10 → SUATTDRO 16:10 → 2N 17:39

== ENCOUNTER 2019-01-11 21:38 | Observation (INO) ==
[2019-01-11] MEDS ORDERED: ONDANSETRON INJ 2 MG/ML 2 ML VIAL IV STA (21:54)
[2019-01-11] MEDS ORDERED: SODIUM CHLORIDE 0.9% 500 ML IV SCH (22:00)
--- NOTE | 2019-01-11 22:15 | XRay Report ---
XR chest 1V portable HISTORY: cough COMPARISON: Chest 08/17/2018. FINDINGS: The lungs are clear. Cardiac silhouette is normal in size. No pleural effusions. No pneumot horax. IMPRESSION: No acute process. Electronically signed by: Bret Chambers M.D. 01/11/2019 10:13 PM
[2019-01-11 22:28] LABS: Alanine Aminotransferase 22 U/L (12-78); Albumin Level 3.8 gm/dl (3.4-5.0); Aspartate Aminotransferase 22 U/L (15-37); BUN Creatinine Ratio 31.1 (10-20); Blood Urea Nitrogen 34 mg/dl (7-18); Calcium 8.9 mg/dl (8.5-10.1); Carbon Dioxide 24 mmol/L (21-32); Chloride 101 mmol/L (98-107); Creatinine Clr Calc Pharmacy 31.2 ml/min; Est GFR (African American) 54.1; Est GFR (Non-African American) 46.7; Glucose 53 mg/dl (70-99); Hematocrit (blood only) 34.5 % (37-47); Hemoglobin 11.8 g/dL (12.0-16.0); Magnesium 2.1 mg/dl (1.8-2.4); Mean Corpuscular Hgb Conc 34.2 g/dL (32-36); Mean Corpuscular Volume 93.5 fL (80-100); Mean Platelet Volume 9.1 fL (7.4-10.4); Platelet Count 293 K/uL (130-400); Potassium 3.8 mmol/L (3.5-5.1); RDW Coefficient of Variation 13.8 % (11.5-14.5); RDW Standard Deviation 46.9 fL (36.4-46.3); Red Blood Count 3.69 M/uL (4.2-5.4); Sodium 134 mmol/L (136-145); White Blood Count 50.39 K/uL (4.8-10.8)
[2019-01-11 22:38] LABS: Albumin Globulin Ratio 1.4 (0.9-2); Alkaline Phosphatase 57 U/L (45-117); Bilirubin,Total 0.3 mg/dl (0.2-1); Globulin 2.8 gm/dl (2.5-4.0); Total Protein 6.6 gm/dl (6.4-8.2); Troponin I < 0.015 ng/ml (0-0.045)
[2019-01-11] MEDS ORDERED: IOVERSOL 100ml IV PRN (22:52)
--- NOTE | 2019-01-11 22:53 | CT Scan Report ---
HEAD CT NONCONTRAST CT DOSE: 537.48 mGy.cm HISTORY: syncope TECHNIQUE: Multiaxial CT images of the head were performed without the use of intravenous contrast. A utomated exposure control was utilized for this study. A dose lowering technique was utilized adheri ng to the principles of ALARA. Comparison: Head CT 08/17/2018. Findings: The paranasal sinuses and mastoid air cells are clear. The calvarium and skull base are int act. There is no mass, hematoma, midline shift, acute infarct. White matter hypodensity is nonspecifi c but suggestive of microvascular ischemic change. The ventricles and sulci demonstrate mild age-rela emmanuel involutional changes. Impression: No significant change compared to the prior study. No acute intracranial abnormality. Electronically signed by: Bret Chambers M.D. 01/11/2019 10:51 PM
[2019-01-11 22:56] LABS: Basophils # (auto) 0.07 K/uL (0-0.2); Basophils % (auto) 0.1 %; Echinocytes 1+; Eosinophils # (auto) 0.16 K/uL (0-0.5); Eosinophils % (auto) 0.3 %; Immature Granulocytes # (auto) 0.09 K/uL (0.00-0.02); Immature Granulocytes % (auto) 0.2 %; Lymphocytes # (auto) 44.81 K/uL (1.2-3.4); Lymphocytes % (auto) 88.9 %; Monocytes # (auto) 1.02 K/uL (0.11-0.59); Neutrophils # (auto) 4.24 K/uL (1.4-6.5); Neutrophils % (auto) 8.5 %; Smudge Cells Present
--- NOTE | 2019-01-11 23:04 | CT Scan Report ---
ABDOMEN AND PELVIS CT WITH IV CONTRAST CT DOSE: 252.39 mGy.cm HISTORY: mid abd pain TECHNIQUE: Multiaxial CT images of the abdomen and pelvis were performed following the use of intrave nous contrast. A dose lowering technique was utilized adhering to the principles of ALARA. COMPARISON STUDY: Abdomen and pelvis CT 01/09/2018. FINDINGS: A few bibasilar linear densities consistent with subsegmental atelectasis. No pneumoperiton eum. No pneumatosis. Old right right-sided pelvic fractures are again noted. Old mild inferior endpla te compression fracture at T10. Small hiatus hernia is noted. This is decreased in size. A few scatte red hepatic cysts remain unchanged. The gallbladder, spleen, and adrenal glands are unremarkable. No hydronephrosis. Stable 1 cm cystic focus at the uncinate process of the pancreas. 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 Extensive calcified plaque within the abdominal aorta . No evidence for an abdominal aortic aneurysm. The bladder is unremarkable. The uterus is surgically absent. Colonic diverticulosis. No evidence for diverticulitis. Mild thickening versus decompression of the splenic flexure of the colon. Therefore, a low-grade colitis cannot be excluded. Normal appen johnny. IMPRESSION: 1. Mild thickening versus under distention of the splenic flexure of the colon. Therefore, a low-grad e colitis cannot be excluded. 2. Normal appendix. 3. Colonic diverticulosis. 4. Additional chronic findings as described above. Electronically signed by: Bret Chambers M.D. 01/11/2019 11:03 PM
[2019-01-11] MEDS ORDERED: PROCHLORPERAZINE 5 MG in SYRINGE 4 ML IV ONE (23:27)
[2019-01-11] MEDS ORDERED: SODIUM CHLORIDE 0.9% 1000ML 250 ML IV ONE (23:28)
--- NOTE | 2019-01-12 00:07 | Emergency Department Note ---
History of Present Illness General Chief complaint: Nausea Stated complaint: SYNCOPE, AB PAIN, VOMITING, NAUSEA History of Present Illness This 83-year-old presents to the ER complaining of syncope, nausea, vomiting and abdominal pain Location: Generalized Quality: Nauseous Severity: Moderate Duration: Tonight Timing: Patient passed out and son called EMS Context: Family was concerned and summoned EMS Modifying factors: better with nothing; worse with movement Patient states she got up from the couch got lightheaded went to the bar and passed out. Her son caught her and lowered her to the ground. Patient came to and has been vomiting since. She states when she got to the bar she had abdomin al pain before she passed out. Patient has not been able to keep fluids down. EMS gave her Zofran. Patient denies headache, neck pain, chest pain, dyspnea, fever, chills, congestion. Patient states she had an occasional cough. No prior heart disease or history of CVA. Patient states she felt fine all day. She went bowling, shopping and grocery shopping. Patient states she only had a peanut butter sandwich for dinner. Home Medications Home Medications Medication Instructions Recorded Confirmed Type atorvastatin 20 mg PO QAM 02/26/18 01/11/19 History levothyroxine 50 mcg PO HS 02/26/18 01/11/19 History olmesartan [Benicar] 40 mg PO QAM 02/26/18 01/11/19 History coQ10 (ubiquinol) 200 mg PO QAM 10/13/18 01/11/19 History ranitidine HCl [Zantac] 150 mg PO BID 10/13/18 01/11/19 History Saccharomyces boulardii 250 mg 250 mg PO DAILY cap 12/31/18 01/11/19 History capsule cholecalciferol (vitamin D3) 2,000 2,000 units PO DAILY cap 12/31/18 01/11/19 History unit capsule Allergies Allergy/AdvReac Type Severity Reaction Status Date / Time hydrochlorothiazide Allergy Unknown ON [facility] Verified 01/11/19 23:24 LIST celecoxib AdvReac Intermediate loss of Verified 01/11/19 23:24 appetite and fatigue Sulfa (Sulfonamide AdvReac Mild fatigue, Verified 01/11/19 23:24 Antibiotics) n/v Past Med/Surg History Medical History Arteriosclerosis of carotid artery Adult situational stress disorder (Acute) Arthritis (Acute) Chronic constipation (Acute) Chronic kidney disease (CKD), stage III (moderate) (Acute) Chronic lymphocytic leukemia (Acute) Chronic pain (Acute) Depression (Acute) Hypertension (Acute) Hypothyroidism (Acute) Insomnia (Acute) Irritable bowel syndrome (Acute) Left carotid bruit (Acute) Lumbar radiculopathy (Acute) Macrocytosis (Acute) Osteopenia (Acute) Raynauds phenomenon (Acute) Arthritis (Chronic) IBS (irritable bowel syndrome) (Chronic) CLL (chronic lymphocytic leukemia) (Chronic) CONT. MONITORING Anemia (Acute) Degenerative arthritis of right knee Lower gastrointestinal bleed (Acute 07/18/14) Vasovagal near syncope (Acute) Carotid artery stenosis Chronic back pain Diverticular disease GERD (gastroesophageal reflux disease) H/O deep venous thrombosis "OVER 45 YEARS AGO" Hyperlipidemia Hypertension Hypothyroidism LBBB (left bundle branch block) Migraine HX OF Osteoarthritis Surgical History H/O arthroscopy of shoulder L H/O colonoscopy History of arthroscopy R History of cataract surgery R/L History of esophagogastroduodenoscopy (EGD) History of herniorrhaphy HIATAL HERNIA REPAIR History of tonsillectomy History of tooth extraction History of total knee replacement R S/P SHWETA-BSO Thumb joint stiffness R JOINT REPLACEMENT Family History Sister Migraine headache Son Family history of diabetes mellitus Social History Preferred Language: Wolof Communication Ability: Effective Visual Impairment: No Limitations Hearing Ability: Normal Beliefs That Will Affect Care: None Current Living Situation: Family Feels Safe at Home: Yes Smoking Status: Never smoker Second Hand Exposure: No Hx Alcohol Use: Yes Alcohol type: wine and hard liquor Hx Substance Use: No Review of Systems All systems reviewed & are unremarkable except as noted in HPI & below Physical Exam Vital Signs Vital Signs - 24 hr 01/11/19 21:53 01/11/19 21:59 Temperature 36.5 C Temperature Source Oral Sepsis Recent Fever Within 48 Hours No Sepsis New/Unexplained Change in Mental Status No Sepsis Action Taken by Nursing No Action Required Pulse Rate 86 Pulse Rhythm Regular Respiratory Rate 18 Respiratory Effort / Characteristics Non-Labored Respiratory Depth Normal Respiratory Pattern Regular Blood Pressure 159/70 H Blood Pressure Mean 99 Pulse Oximetry 97 97 Oxygen Delivery Method Room Air Room Air VITALS: Vitals are noted on the nurse's note and reviewed by myself. Vital signs stable. GENERAL: Pleasant female, in no acute distress, nondiaphoretic, well-developed well-nourished. SKIN: The skin was without rashes, erythema, edema, or bruising. There is no tenting of the skin. Capillary reflex less than 2 seconds. HEAD: Normocephalic atraumatic. EARS: External auditory canals clear, tympanic membranes pearly damon without erythema or effusion bilaterally. EYES: Pupils equal round and reactive to light and accommodation. Conjunctivae without injection, sclerae without icterus. Extraocular movements intact. NOSE: Patent, turbinates without inflammation or discharge. MOUTH: Mucous membranes mildly dry. Pharynx without erythema or exudate. Uvula midline. Airway patent. Tongue does not deviate. NECK: Supple without nuchal rigidity. No lymphadenopathy. No thyromegaly. Cervical spine is nontender. No JVD. HEART: Regular rate and rhythm LUNGS: Clear to auscultation bilaterally without wheezes, rales or rhonchi. No retractions or accessory muscle use. ABDOMEN: Positive bowel sounds x 4. Normal tympanic percussion. Soft, tender to palpation epigastric region, without masses or organomegaly. Michelle sign ne gative. No guarding or rebound tenderness. No CVA tenderness MUSCULOSKELETAL: No muscle atrophy, erythema, or edema noted. NEURO: Patient was alert and oriented to person place and time. Normal se nsation to light and sharp touch. No focal neurological deficits. Course Administered Medications Ioversol (Optiray 320 100ml) 100 ml IV ONCE PRN PRN Reason: Interaction Checking Stop: 01/15/19 22:51 Last Admin: 01/11/19 22:52 Dose: 93 ml Documented by: [id number] Discontinued Medications Sodium Chloride (Nss) 500 mls @ 999 mls/hr IV .Q31M TAMARA Stop: 01/11/19 22:30 Last Infusion: 01/11/19 23:20 Dose: 0 mls/hr Documented by: [id number] Admin: 01/11/19 22:39 Dose: 999 mls/hr Documented by: [id number] Ondansetron HCl (Zofran) 4 mg IV NOW STA Stop: 01/11/19 21:55 Last Admin: 01/11/19 22:39 Dose: 4 mg Documented by: [id number] Medical Decision Making Medical Records Attestation: I reviewed the patient's medical records. Home Medications Current Medication List: was personally reviewed by me Laboratory Data Attestation: I reviewed the patient's lab results. Result diagrams: 01/11/19 21:03 01/11/19 21:03 Lab Results 01/11/19 01/11/19 01/11/19 Range/Units 21:03 21:03 21:48 WBC 50.39 H* (4.8-10.8) K/uL RBC 3.69 L (4.2-5.4) M/uL Hgb 11.8 L (12.0-16.0) g/dL Hct 34.5 L (37-47) % MCV 93.5 (80-100) fL MCH 32.0 (25-34) pg MCHC 34.2 (32-36) g/dL RDW Std Deviation 46.9 H (36.4-46.3) fL RDW Coeff of Kaley 13.8 (11.5-14.5) % Plt Count 293 (130-400) K/uL MPV 9.1 (7.4-10.4) fL Immature Gran % (Auto) 0.2 % Neut % (Auto) 8.5 % Lymph % (Auto) 88.9 % [place] % (Auto) 2.0 % Eos % (Auto) 0.3 % Baso % (Auto) 0.1 % Immature Gran # (Auto) 0.09 H (0.00-0.02) K/uL Neut # (Auto) 4.24 (1.4-6.5) K/uL Lymph # (Auto) 44.81 H (1.2-3.4) K/uL [place] # (Auto) 1.02 H (0.11-0.59) K/uL Eos # (Auto) 0.16 (0-0.5) K/uL Baso # (Auto) 0.07 (0-0.2) K/uL Smudge Cells Present Echinocytes 1+ Sodium 134 L (136-145) mmol/L Potassium 3.8 (3.5-5.1) mmol/L Chloride 101 (98-107) mmol/L Carbon Dioxide 24 (21-32) mmol/L Anion Gap 9.0 (3-11) BUN 34 H (7-18) mg/dl Creatinine 1.10 (0.6-1.2) mg/dl Est Cr Clr Drug Dosing 31.2 ml/min Est GFR ( Amer) 54.1 Est GFR (Non-Af Amer) 46.7 BUN/Creatinine Ratio 31.1 H (10-20) Glucose 53 L* (70-99) mg/dl POC Glucose 58 L* (70-99) Calcium 8.9 (8.5-10.1) mg/dl Magnesium 2.1 (1.8-2.4) mg/dl Total Bilirubin 0.3 (0.2-1) mg/dl AST 22 (15-37) U/L ALT 22 (12-78) U/L Alkaline Phosphatase 57 (45-117) U/L Troponin I < 0.015 (0-0.045) ng/ml Total Protein 6.6 (6.4-8.2) gm/dl Albumin 3.8 (3.4-5.0) gm/dl Globulin 2.8 (2.5-4.0) gm/dl Albumin/Globulin Ratio 1.4 (0.9-2) Lipase 254 (73-393) U/L TSH 2.770 (0.300-4.500) uIu/ml 01/11/19 Range/Units 22:55 WBC (4.8-10.8) K/uL RBC (4.2-5.4) M/uL Hgb (12.0-16.0) g/dL Hct (37-47) % MCV (80-100) fL MCH (25-34) pg MCHC (32-36) g/dL RDW Std Deviation (36.4-46.3) fL RDW Coeff of Kaley (11.5-14.5) % Plt Count (130-400) K/uL MPV (7.4-10.4) fL Immature Gran % (Auto) % Neut % (Auto) % Lymph % (Auto) % [place] % (Auto) % Eos % (Auto) % Baso % (Auto) % Immature Gran # (Auto) (0.00-0.02) K/uL Neut # (Auto) (1.4-6.5) K/uL Lymph # (Auto) (1.2-3.4) K/uL Hopewell # (Auto) (0.11-0.59) K/uL Eos # (Auto) (0-0.5) K/uL Baso # (Auto) (0-0.2) K/uL Smudge Cells Echinocytes Sodium (136-145) mmol/L Potassium (3.5-5.1) mmol/L Chloride (98-107) mmol/L Carbon Dioxide (21-32) mmol/L Anion Gap (3-11) BUN (7-18) mg/dl Creatinine (0.6-1.2) mg/dl Est Cr Clr Drug Dosing ml/min Est GFR ( Amer) Est GFR (Non-Af Amer) BUN/Creatinine Ratio (10-20) Glucose (70-99) mg/dl POC Glucose 78 (70-99) Calcium (8.5-10.1) mg/dl Magnesium (1.8-2.4) mg/dl Total Bilirubin (0.2-1) mg/dl AST (15-37) U/L ALT (12-78) U/L Alkaline Phosphatase (45-117) U/L Troponin I (0-0.045) ng/ml Total Protein (6.4-8.2) gm/dl Albumin (3.4-5.0) gm/dl Globulin (2.5-4.0) gm/dl Albumin/Globulin Ratio (0.9-2) Lipase (73-393) U/L TSH (0.300-4.500) uIu/ml Imaging Data Attestation: I personally reviewed and interpreted this imaging study as follows: MDM Narrative Prior records/ancillary studies reviewed. Triage Nursing notes reviewed. Additional history obtained from family and EMS. The patient's history was concerning for syncope. Differential diagnosis: Etiologies such as vasovagal event, infection, hypoglycemia, electrolyte abnormalities, cardiac sources, intracerebral event, toxicologic, neurologic, as well as others were entertained. Physical examination: As above ER treatment provided: IV hydration with normal saline, Zofran, Zantac, Compazine On reassessment the patient felt better. Diagnostics interpretation by me: ECG: Poor baseline, normal sinus, normal intervals, no acute ST-T wave changes, rate of 70. EKG compared to prior EKG with no acute changes noted. Impression normal sinus rhythm interpreted by myself I think arrhythmia is unlikely. EKG shows normal sinus rhythm with no interval abnormalities such as QT prolongation or WPW. There are no findings to suggest Brugada syndrome. Cardiac monitoring in the emergency department reveals no tachycardic or bradycardic dysrhythmia. Hypertrophic cardiomyopathy was considered but there are no clear historical elements pointing toward this. EKG is not suggestive. The QRS voltage is not extremely large and there are no suggestive Q waves. The labs revealed leukocytosis, patient has CLL. Hypoglycemia and patient was given addison bobbi and blood sugar came up Imaging studies: HEAD CT NONCONTRAST CT DOSE: 537.48 mGy.cm HISTORY: syncope TECHNIQUE: Multiaxial CT images of the head were performed without the use of intravenous contrast. Automated exposure control was utilized for this study. A dose lowering technique was utilized adhering to the principles of ALARA. Comparison: Head CT 08/17/2018. Findings: The paranasal sinuses and mastoid air cells are clear. The calvarium and skull base are intact. There is no mass, hematoma, midline shift, acute infarct. White matter hypodensity is nonspecific but suggestive of microvascular ischemic change. The ventricles and sulci demonstrate mild age-related involutional changes. Impression: No significant change compared to the prior study. No acute intracranial abnormality. Electronically signed by: Bret Chambers M.D. 01/11/2019 10:51 PM XR chest 1V portable HISTORY: cough COMPARISON: Chest 08/17/2018. FINDINGS: The lungs are clear. Cardiac silhouette is normal in size. No pleural effusions. No pneumothorax. IMPRESSION: No acute process. Electronically signed by: Bret Chambers M.D. 01/11/2019 10:13 PM ABDOMEN AND PELVIS CT WITH IV CONTRAST CT DOSE: 252.39 mGy.cm HISTORY: mid abd pain TECHNIQUE: Multiaxial CT images of the abdomen and pelvis were performed following the use of intravenous contrast. A dose lowering technique was utilized adhering to the principles of ALARA. COMPARISON STUDY: Abdomen and pelvis CT 01/09/2018. FINDINGS: A few bibasilar linear densities consistent with subsegmental atelectasis. No pneumoperitoneum. No pneumatosis. Old right right-sided pelvic fractures are again noted. Old mild inferior endplate compression fracture at T10. Small hiatus hernia is noted. This is decreased in size. A few scattered hepatic cysts remain unchanged. The gallbladder, spleen, and adrenal glands are unremarkable. No hydronephrosis. Stable 1 cm cystic focus at the uncinate process of the pancreas. 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 Extensive calcified plaque within the abdominal aorta. No evidence for an abdominal aortic aneurysm. The bladder is unremarkable. The uterus is surgically absent. Colonic diverticulosis. No evidence for diverticulitis. Mild thickening versus decompression of the splenic flexure of the colon. Therefore, a low-grade colitis cannot be excluded. Normal appendix. IMPRESSION: 1. Mild thickening versus under distention of the splenic flexure of the colon. Therefore, a low-grade colitis cannot be excluded. 2. Normal appendix. 3. Colonic diverticulosis. 4. Additional chronic findings as described above. Electronically signed by: Bret Chambers M.D. Consultation: A consultation was placed with Dr. Quinn, hospitalist. The case was discussed and diagnostics were reviewed. The patient was evaluated in the ER for further treatment. This appears to be consistent with syncope, intractable vomiting and dehydration. Medicine was consulted. Patient is agreeable to treatment plan of admission. Patient still quite weak appearing. She still got nauseated. She is given several rounds of antiemetics. She was hydrated as above. Negative PET scan. Negative chest x-ray. Mild colitis on CAT scan. By the evaluation outlined above emergent etiologies such as electrolyte abnormalities, cardiac sources, intracerebral event, toxicologic, neurologic,as well as others were deemed relatively unlikely. The pt informed about the findings as listed above. All questions were answered and pleased with the treatment. Case reviewed with my attending The chart was completed utilizing [employer] voice recognition software. Grammatical errors, random word insertions, pronoun errors, and incomplete sentences are an occassional consequence of this system due to software limitations, ambient noise, and hardware issues. Any formal questions or concerns about the content, text, or information contained within the body of this dictation should be directly addressed to the physician occupational therapist assistants for clarification. Impression & Plan Atypical syncope, Vomiting, Colitis Discharge Plan Visit Data Chief Complaint: Nausea Stated Complaint: SYNCOPE, AB PAIN, VOMITING, NAUSEA ED Provider: Lu[facility] ED Midlevel Provider: July Rust Discharge Problem: Atypical syncope, Vomiting, Colitis Patient Disposition: Being Evaluated by Hospitalist Condition: Fair Forms Stand Alone Forms: [facility] Prescriptions Prescriptions: No Action Saccharomyces boulardii 250 mg capsule 250 mg PO DAILY RF: 0 cholecalciferol (vitamin D3) 2,000 unit capsule 2,000 units PO DAILY RF: 0 ranitidine HCl [Zantac] 150 mg Tablet 150 mg PO BID RF: 0 coQ10 (ubiquinol) 200 mg Capsule 200 mg PO QAM RF: 0 atorvastatin 20 mg Tablet 20 mg PO QAM RF: 0 levothyroxine 50 mcg Tablet 50 mcg PO HS RF: 0 olmesartan [Benicar] 40 mg Tablet 40 mg PO QAM RF: 0 Referrals Referrals: Bebeto Willis MD [Primary Care Provider] -
[2019-01-12] MEDS ORDERED: PROCHLORPERAZINE 5 MG/ML 2 ML VIAL ONE (00:14)
--- NOTE | 2019-01-12 00:53 | History & Physical Report ---
Date of Service January 12, 2019 Assessment & Plan (1) Abdominal pain, acute, epigastric: This is an 83-year-old female who presents with acute onset of abdominal pain, emesis and then syncope at home. She states she was in her usual state of health as of lunchtime today, had normal appetite. She did have one loose BM this morning, but she states this is normal for her. She endorses a history of IBS. States that she was waiting for her son to come home, and when he did she sat up from the couch and walked to the kitchen and experienced acute abdominal pain in the epigastric area and the next thing she knew she was on the ground. She states her son witnessed the entire event. States he denies any shaking of her limbs or head. He brought her to the emergency room for evaluation. She states she is also had several bouts of nonbloody emesis prior to arrival. Past medical history does include history of hernia repair, IBS, history of bowel perforation and stay [place] [facility] [place] States last colonoscopy was for screening purposes and was told to return in 10 years. She did have an upper EGD done earlier this September which showed a mild Schatzki ring at the GE junction which was dilated, also showed small hiatal hernia, normal duodenum and no specimens were collected. Patient also has CLL, hypothyroidism, osteopenia. ED course: Patient remained afebrile and normotensive. Not hypoxic. Labs remarkable for leukocytosis (in the setting of CLL), normal chemistries, negative troponin, normal lipase, normal TSH. Slightly elevated BUN. Imaging was done and showed abdominal pelvis CT with contrast showed low-grade colitis, colonic diverticulosis as well as a normal appendix. CT head was negative. Chest x-ray was negative. She was given fluids and antiemetics. Abdominal pain, emesis -denies diarrrheal symptoms. No h/o radiation to bowels. Does not take excessive NSAIDs. -endorses nonbloody emesis prior to arrival, responding well to IV compazine -possible colitis on CT a/p, but otherwise nonacute on imaging -h/o multiple abdominal issues including hiatal hernia, IBS, diverticulosis and h/o bowel perforation and Schatzki ring s/p dilation (Sep 2018) by Dr. Solis. Plan: -observe -IV hydration -bowel rest, clear fluids -zofran PRN -without diarrheal symptoms do not see clear indication for cipro/flagyl therapy, however day team to assess clinical response to above Syncope -x1 associated with acute nausea/emesis -no diarrheal symptoms -no residual neurologic deficits on exam, CT head neg -likely 2/2 vasovagal reflex. Fluids/antiemetics as above. FEN/GI: NSS @80. Clear liquids, advance as tolerated DVT ppx: SCDs, ambulation CODE STATUS: DNR/DNI as discussed with pt DISPO: observe on Med/surg (2) Vomiting: (3) Colitis: (4) Chronic lymphocytic leukemia: with expected leukocytosis (5) Hypothyroidism: cont levothyroxine TSH normal (6) Irritable bowel syndrome: (7) CLL (chronic lymphocytic leukemia): (8) IBS (irritable bowel syndrome): (9) Diverticulosis: (10) Hiatal hernia: cont antacids (11) Vasovagal syncope: History of Present Illness Chief Complaint: Emesis, syncope, abdominal pain Primary Care Provider: Bebeto Willis MD This is an 83-year-old female who presents with acute onset of abdominal pain, emesis and then syncope at home. She states she was in her usual state of health as of lunchtime today, had normal appetite. She did have one loose BM this morning, but she states this is normal for her. She endorses a history of IBS. States that she was waiting for her son to come home, and when he did she sat up from the couch and walked to the kitchen and experienced acute abdominal pain in the epigastric area and the next thing she knew she was on the ground. She states her son witnessed the entire event. States he denies any shaking of her limbs or head. He brought her to the emergency room for evaluation. She states she is also had several bouts of nonbloody emesis prior to arrival. Past medical history does include history of hernia repair, IBS, history of bowel perforation and stay at [facility] [place] States last colonoscopy was for screening purposes and was told to return in 10 years. She did have an upper EGD done earlier this September which showed a mild Schatzki ring at the GE junction which was dilated, also showed small hiatal hernia, normal duodenum and no specimens were collected. Patient also has CLL, hypothyroidism, osteopenia. ED course: Patient remained afebrile and normotensive. Not hypoxic. Labs remarkable for leukocytosis (in the setting of CLL), normal chemistries, ne gative troponin, normal lipase, normal TSH. Slightly elevated BUN. Imaging was done and showed abdominal pelvis CT with contrast showed low-grade colitis, colonic diverticulosis as well as a normal appendix. CT head was negative. Chest x-ray was negative. She was given fluids and antiemetics. Allergies Allergy/AdvReac Type Severity Reaction Status Date / Time hydrochlorothiazide Allergy Unknown ON MNPG Verified 01/11/19 23:24 LIST celecoxib AdvReac Intermediate loss of Verified 01/11/19 23:24 appetite and fatigue Sulfa (Sulfonamide AdvReac Mild fatigue, Verified 01/11/19 23:24 Antibiotics) n/v Home Medications Home Medications Medication Instructions Recorded Confirmed Type atorvastatin 20 mg PO QAM 02/26/18 01/11/19 History levothyroxine 50 mcg PO HS 02/26/18 01/11/19 History olmesartan [Benicar] 40 mg PO QAM 02/26/18 01/11/19 History coQ10 (ubiquinol) 200 mg PO QAM 10/13/18 01/11/19 History Saccharomyces boulardii 250 mg 250 mg PO DAILY cap 12/31/18 01/11/19 History capsule cholecalciferol (vitamin D3) 2,000 2,000 units PO DAILY cap 12/31/18 01/11/19 History unit capsule ranitidine 150 mg tablet 150 mg PO BID #60 tab 01/12/19 Rx Past Med/Surg History Medical History Arteriosclerosis of carotid artery Adult situational stress disorder (Acute) Arthritis (Acute) Chronic constipation (Acute) Chronic kidney disease (CKD), stage III (moderate) (Acute) Chronic lymphocytic leukemia (Acute) Chronic pain (Acute) Depression (Acute) Hypertension (Acute) Hypothyroidism (Acute) Insomnia (Acute) Irritable bowel syndrome (Acute) Left carotid bruit (Acute) Lumbar radiculopathy (Acute) Macrocytosis (Acute) Osteopenia (Acute) Raynauds phenomenon (Acute) Arthritis (Chronic) IBS (irritable bowel syndrome) (Chronic) CLL (chronic lymphocytic leukemia) (Chronic) CONT. MONITORING Anemia (Acute) Degenerative arthritis of right knee Lower gastrointestinal bleed (Acute 07/18/14) Vasovagal near syncope (Acute) Carotid artery stenosis Chronic back pain Diverticular disease GERD (gastroesophageal reflux disease) H/O deep venous thrombosis "OVER 45 YEARS AGO" Hyperlipidemia Hypertension Hypothyroidism LBBB (left bundle branch block) Migraine HX OF Osteoarthritis Surgical History H/O arthroscopy of shoulder L H/O colonoscopy History of arthroscopy R History of cataract surgery R/L History of esophagogastroduodenoscopy (EGD) History of herniorrhaphy HIATAL HERNIA REPAIR History of tonsillectomy History of tooth extraction History of total knee replacement R S/P SHWETA-BSO Thumb joint stiffness R JOINT REPLACEMENT Family History Sister Migraine headache Son Family history of diabetes mellitus Social History Preferred Language: Uzbek Communication Ability: Effective Visual Impairment: No Limitations Hearing Ability: Normal Beliefs That Will Affect Care: None Current Living Situation: Family Feels Safe at Home: Yes Smoking Status: Never smoker Second Hand Exposure: No Hx Alcohol Use: Yes Alcohol type: wine and hard liquor Hx Substance Use: No Review of Systems Review of Systems: All systems reviewed & are unremarkable except as noted in HPI & below Physical Exam Physical Exam: Vitals noted and within normal limits GENERAL: Awake, alert to person, place, and time, nontoxic-appearing, in no distress. HENT: Normocephalic, atraumatic. Mucus membranes appear dry. EYES: Normal conjunctiva. Sclera non-icteric. EOMI. NECK: Supple. Full range of motion. No JVD. RESPIRATORY: Clear to auscultation. Normal work of breathing. CARDIAC: Regular rate, normal rhythm. Extremities warm and well perfused. ABDOMEN: Soft, non-distended. Mild tenderness to palpation in epigastric area, notable for no tenderness in the left lower quadrant. No rebound or guarding. No masses. Bowel sounds are normal. LOWER EXTREMITIES: Inspection of calves reveal equal size bilaterally. They are non-tender. No edema. No discoloration. NEURO: No gross focal motor deficits noted. Sensation in tact. CN II-XII grossly in tact. . SKIN: Rash not present. No jaundice noted. Significant lesions not present. PSYCH: Appropriate mood and affect. Cooperative. Exam as done by Zulema Preston MD, Medication Administration Professional. Results & Data Vital Signs (Past 12 Hours) Vital Signs Temp Pulse Pulse Resp BP BP Pulse Ox 01/12/19 00:27 71 18 118/43 L 99 01/11/19 21:59 97 01/11/19 21:53 36.5 C 86 18 159/70 H 97 Laboratory Results 01/11/19 01/11/19 01/11/19 Range/Units 22:55 21:48 21:03 WBC (4.8-10.8) K/uL RBC (4.2-5.4) M/uL Hgb (12.0-16.0) g/dL Hct (37-47) % MCV (80-100) fL MCH (25-34) pg MCHC (32-36) g/dL RDW Std Deviation (36.4-46.3) fL RDW Coeff of Kaley (11.5-14.5) % Plt Count (130-400) K/uL MPV (7.4-10.4) fL Immature Gran % (Auto) % Neut % (Auto) % Lymph % (Auto) % Pacific % (Auto) % Eos % (Auto) % Baso % (Auto) % Immature Gran # (Auto) (0.00-0.02) K/uL Neut # (Auto) (1.4-6.5) K/uL Lymph # (Auto) (1.2-3.4) K/uL Pacific # (Auto) (0.11-0.59) K/uL Eos # (Auto) (0-0.5) K/uL Baso # (Auto) (0-0.2) K/uL Smudge Cells Echinocytes Sodium 134 L (136-145) mmol/L Potassium 3.8 (3.5-5.1) mmol/L Chloride 101 (98-107) mmol/L Carbon Dioxide 24 (21-32) mmol/L Anion Gap 9.0 (3-11) BUN 34 H (7-18) mg/dl Creatinine 1.10 (0.6-1.2) mg/dl Est Cr Clr Drug Dosing 31.2 ml/min Est GFR ( Amer) 54.1 Est GFR (Non-Af Amer) 46.7 BUN/Creatinine Ratio 31.1 H (10-20) Glucose 53 L* (70-99) mg/dl POC Glucose 78 58 L* (70-99) Calcium 8.9 (8.5-10.1) mg/dl Magnesium 2.1 (1.8-2.4) mg/dl Total Bilirubin 0.3 (0.2-1) mg/dl AST 22 (15-37) U/L ALT 22 (12-78) U/L Alkaline Phosphatase 57 (45-117) U/L Troponin I < 0.015 (0-0.045) ng/ml Total Protein 6.6 (6.4-8.2) gm/dl Albumin 3.8 (3.4-5.0) gm/dl Globulin 2.8 (2.5-4.0) gm/dl Albumin/Globulin Ratio 1.4 (0.9-2) Lipase 254 (73-393) U/L TSH 2.770 (0.300-4.500) uIu/ml 01/11/19 Range/Units 21:03 WBC 50.39 H* (4.8-10.8) K/uL RBC 3.69 L (4.2-5.4) M/uL Hgb 11.8 L (12.0-16.0) g/dL Hct 34.5 L (37-47) % MCV 93.5 (80-100) fL MCH 32.0 (25-34) pg MCHC 34.2 (32-36) g/dL RDW Std Deviation 46.9 H (36.4-46.3) fL RDW Coeff of Kaley 13.8 (11.5-14.5) % Plt Count 293 (130-400) K/uL MPV 9.1 (7.4-10.4) fL Immature Gran % (Auto) 0.2 % Neut % (Auto) 8.5 % Lymph % (Auto) 88.9 % Pacific % (Auto) 2.0 % Eos % (Auto) 0.3 % Baso % (Auto) 0.1 % Immature Gran # (Auto) 0.09 H (0.00-0.02) K/uL Neut # (Auto) 4.24 (1.4-6.5) K/uL Lymph # (Auto) 44.81 H (1.2-3.4) K/uL Pacific # (Auto) 1.02 H (0.11-0.59) K/uL Eos # (Auto) 0.16 (0-0.5) K/uL Baso # (Auto) 0.07 (0-0.2) K/uL Smudge Cells Present Echinocytes 1+ Sodium (136-145) mmol/L Potassium (3.5-5.1) mmol/L Chloride (98-107) mmol/L Carbon Dioxide (21-32) mmol/L Anion Gap (3-11) BUN (7-18) mg/dl Creatinine (0.6-1.2) mg/dl Est Cr Clr Drug Dosing ml/min Est GFR ( Amer) Est GFR (Non-Af Amer) BUN/Creatinine Ratio (10-20) Glucose (70-99) mg/dl POC Glucose (70-99) Calcium (8.5-10.1) mg/dl Magnesium (1.8-2.4) mg/dl Total Bilirubin (0.2-1) mg/dl AST (15-37) U/L ALT (12-78) U/L Alkaline Phosphatase (45-117) U/L Troponin I (0-0.045) ng/ml Total Protein (6.4-8.2) gm/dl Albumin (3.4-5.0) gm/dl Globulin (2.5-4.0) gm/dl Albumin/Globulin Ratio (0.9-2) Lipase (73-393) U/L TSH (0.300-4.500) uIu/ml Supervising Physician Co-Signing Physician Notes Attending addendum: I have physically seen this patient, have supervised the medical residents activities, and agree with the H&P unless as otherwise noted. Assessment and Plan: Abdominal pain/emesis/syncope- History of hiatal hernia, IBS, diverticulosis, bowel perforation, Schatzki ring status post dilatation. Observation admission. Bowel rest with clear fluids IV fluids Zofran 4 mg IV every 6 hours as needed. Order stool studies for C. difficile and culture. Antibiotics not indicated at this time. Syncope was likely vasovagal. Remainder of orders and notations as noted. PG Care Time/CCT Total # of Minutes Spent Total Time Spent with Patient: Total time spent is greater than 50% in patient information coordinator rdination of care (as documented) at patient's floor/unit and/or counseling patient: Resident Activity Tracking Resident Involvement: Resident Care Provided Care Provided: Adult [facility]
--- NOTE | 2019-01-12 01:25 | Emergency Department Note ---
ED Visit Note HPI: 83 y/o woman with pmhx of CLL presents with syncope. PE: AFVSS, NAD Oropharynx with dry mucous membranes and otherwise unremarkable. RRR CTAB EKG with baseline LBBB. No Sgarbossa criteria. Similar to prior. Plan: CT head negative. CT a/p with colitis. IVF hydration. Admit. I reviewed the patient's past medical history, medications, and visit nursing notes. I discussed the case with the physician engineer first assistant, examined the patient, and agree with the findings and plan as documented in JERSON Rust's note. .
[2019-01-12 02:20] LABS: Appearance Urine Clear (Clear); Bacteria Urine Automated Negative (Negative); Bilirubin Urine Negative (Negative); Blood Urine Trace (Negative); Cast Urine Automated 0 /lpf (0-5); Color Urine Yellow; Epithelial Cell Urine Auto 0-5 /lpf (0-5); Glucose Urine UA Negative (Negative); Ketones Urine Negative (Negative); Leukocyte Esterase Urine Negative (Negative); Nitrite Urine Negative (Negative); Protein Urine Negative (Negative); RBC Urine Automated 0-4 /hpf (0-4); Specific Gravity Urine 1.039 (1.000-1.030); Urobilinogen Urine Negative (Negative); pH Urine 6.5 (4.5-7.5)
[2019-01-12] MEDS ORDERED: MAGNESIUM HYDROXIDE SUSP 30 ML UDC PO PRN (02:28)
[2019-01-12] MEDS ORDERED: ALUMINUM/MAGNESIUM SUSP 30 ML UDC PO PRN (02:28)
[2019-01-12] MEDS ORDERED: ONDANSETRON INJ 2 MG/ML 2 ML VIAL IV PRN (02:28)
[2019-01-12] MEDS ORDERED: ACETAMINOPHEN 325 MG TAB PO PRN (02:28)
[2019-01-12] MEDS ORDERED: POLYETHYLENE (MIRALAX) 17 GM PACK PO PRN (02:28)
[2019-01-12] MEDS: SODIUM CHLORIDE 0.9% 1000ML 1,000 ML IV SCH ×2 (03:48→15:36)
[2019-01-12] MEDS ORDERED: OLMESARTAN MEDOXOMIL 40 MG TAB PO SCH (09:00)
--- NOTE | 2019-01-12 13:36 | Discharge Summary ---
Date of Service January 12, 2019 Admission HPI Per Admitting Provider This is an 83-year-old female who presents with acute onset of abdominal pain, emesis and then syncope at home. She states she was in her usual state of health as of lunchtime today, had normal appetite. She did have one loose BM this morning, but she states this is normal for her. She endorses a history of IBS. States that she was waiting for her son to come home, and when he did she sat up from the couch and walked to the kitchen and experienced acute abdominal pain in the epigastric area and the next thing she knew she was on the ground. She states her son witnessed the entire event. States he denies any shaking of her limbs or head. He brought her to the emergency room for evaluation. She states she is also had several bouts of nonbloody emesis prior to arrival. Past medical history does include history of hernia repair, IBS, history of bowel perforation and stay at [facility] [place]. States last colonoscopy was for screening purposes and was told to return in 10 years. She did have an upper EGD done ear lier this September which showed a mild Schatzki ring at the GE junction which was dilated, also showed small hiatal hernia, normal duodenum and no specimens were collected. Patient also has CLL, hypothyroidism, osteopenia. ED course: Patient remained afebrile and normotensive. Not hypoxic. Labs remarkable for leukocytosis (in the setting of CLL), normal chemistries, negative troponin, normal lipase, normal TSH. Slightly elevated BUN. Imaging was done and showed abdominal pelvis CT with contrast showed low-grade colitis, colonic diverticulosis as well as a normal appendix. CT head was negative. Chest x-ray was negative. She was given fluids and antiemetics. Principal Diagnosis Vasovagal syncope Discharge Exam Constitutional WD/WN, vitals as above Eyes PERRL, conjunctivae normal, anicteric sclerae ENMT external ear and nose normal, oropharynx normal Neck trachea midline, no thyromegaly Respiratory normal respiratory effort, lungs clear to auscultation Cardiovascular RRR, no murmur, no edema Gastrointestinal (Abdomen) normal bowel sounds, soft, nontender, no hepatosplenomegaly Musculoskeletal no cyanosis or clubbing, extremities motor strength 5/5 Skin no rashes, warm and dry Neurologic patellar DTR's 2+ bilat, sensation intact and PERRL, EOMI, accommodation nl, no face palsy, no dysarthria Psychiatric A+Ox3, euthymic affect Lymphatic no cervical or axillary lymphadenopathy Discharge Data Allergies Allergy/AdvReac Type Severity Reaction Status Date / Time hydrochlorothiazide Allergy Unknown ON MNPG Verified 01/11/19 23:24 LIST celecoxib AdvReac Intermediate loss of Verified 01/11/19 23:24 appetite and fatigue Sulfa (Sulfonamide AdvReac Mild fatigue, Verified 01/11/19 23:24 Antibiotics) n/v Consultations 01/11/19 23:28 ED Decision to Admit Stat Ordered Studies 01/11/19 21:52 CT abd pelvis IV con only Stat 01/11/19 21:53 CT head/brain wo con Stat Hospital Course (1) Abdominal pain, acute, epigastric: most likely etiology was gastroenteritis, most of the pain was after vomiting so it was likely from straining no evidence of colitis, pancreatitis, cholecystitis h/o multiple abdominal issues including hiatal hernia, IBS, diverticulosis and h/o bowel perforation and Schatzki ring s/p dilation (Sep 2018) by Dr. Solis. tolerated liquids this morning, advanced to low fiber diet and ate well no abdominal pain, no nausea or vomiting d/c to home with PCP follow up (2) Vasovagal syncope: passed out after experiencing abdominal pain, profound nausea no further episodes after initial episode at home vitals stable, walking without light headedness okay to d/c home (3) Vomiting: gastroenteritis resolved (4) Chronic lymphocytic leukemia: with expected leukocytosis, 50k today (5) Hypothyroidism: cont levothyroxine TSH normal (6) Irritable bowel syndrome: no diarrhea or constipation at this time (7) Diverticulosis: (8) Hiatal hernia: cont antacids s/p partial fundoplication and hiatal hernia repair in the fall of [address] Parada no complications Total Time Total Time Spent Total Time Spent (In Minutes): 32 minutes Total Time Includes: Examination of the Patient, Discharge Planning and Medication Reconciliation Discharge Plan Discharge Items Patient Disposition: Home - Self-Care Reason For Visit: VOMITING, COLITIS Condition: Good Discharge Goals: Decrease discomfort and Improve function Activity: Resume your previous activity Follow-up/Referrals: Bebeto Willis MD [Primary Care Provider] - Diet: Regular Addtl Provider Instructions: Medications: no changes Gastroenteritis, acute episode no findings on lab work or imaging CT of the abdomen/pelvis was essentially normal, no infectious or inflammatory changes symptoms resolved with supportive care tolerating a diet Syncope most likely etiology was vasovagal syncope in setting of gastrointestinal symptoms no other findings on work up and no further episodes Prescriptions: Continued ranitidine HCl [Zantac] 150 mg tablet 150 mg PO BID Qty: 60 RF: 1 Saccharomyces boulardii 250 mg capsule 250 mg PO DAILY RF: 0 cholecalciferol (vitamin D3) 2,000 unit capsule 2,000 units PO DAILY RF: 0 coQ10 (ubiquinol) 200 mg Capsule 200 mg PO QAM RF: 0 atorvastatin 20 mg Tablet 20 mg PO QAM RF: 0 levothyroxine 50 mcg Tablet 50 mcg PO HS RF: 0 olmesartan [Benicar] 40 mg Tablet 40 mg PO QAM RF: 0 Stand-Alone Forms: [facility] Discharge Orders: Discharge Order (Routine); Ordered 01/12/19 Ordered By: Aamir Pace Admission Data Admit Date/Time: 01/12/19 01:17 Attending Provider: Aamir Pace Admit Provider: Zulema Preston Primary Care Provider: Bebeto Willis Other Providers: Shaka Leger Service: Medical
[2019-01-12] MEDS ORDERED: LEVOTHYROXINE SODIUM 50 MCG TABLET PO SCH (21:00)
== END 2019-01-12 16:18 | disposition home or self-care (01) ==
LOC: 3N 21:38 → ED 21:38 → SUATTDRO 01-12 01:17 → 3N 01-12 02:01

== ENCOUNTER 2021-07-22 19:35 | Inpatient (IN) ==
[2021-07-22] MEDS ORDERED: ONDANSETRON INJ 2 MG/ML 2 ML VIAL IV STA ×2 (19:54→21:14)
--- NOTE | 2021-07-22 19:58 | Emergency Department Note ---
History of Present Illness General Chief complaint: Nausea Stated complaint: NAUSEA, Time Seen by Provider: 07/22/21 19:43 Source: patient History of Present Illness Provider complaint: Abdominal pain Onset (ago): day(s) Location: abdomen, left and right Radiation: non-radiation Pain Consistency: + now resolved Maximum Pain Intensity: 4 Quality: + other (Soreness) Relieved By: + none Associated symptoms: + nausea/vomiting; no chest pain, no cough, no fever/chills or no shortness of breath This is a 85-year-old female presents with abdominal discomfort and nausea. The patient states that she developed abdominal pain 3 days ago. She states it was a soreness to both sides. It lasted for 2 days and now is completely resolved. No modifying factors. No associated vomiting. She presents today because she has persistent nausea for the past 2 to 3 days. She has not vomited. She does state that she feels like she has heartburn and has a burning sensation in her upper abdomen. She denies any chest discomfort or pain. She has had no fever, cough or cold symptoms, shortness of breath, diarrhea, black or bloody stools or urinary symptoms. She states that approximately 3 years ago she had a ruptured bowel and was concerned that this may be a recurrence. She does not know why her bowel ruptured. Home Medications Medication Instructions Recorded Confirmed Type cetirizine 10 mg tablet (Zyrtec) 5 mg PO DAILY PRN 07/29/19 07/22/21 History ondansetron HCl 4 mg tablet 4 mg PO Q8H PRN #20 tab 09/05/20 07/22/21 Rx tramadol 50 mg tablet 50 mg PO Q8H PRN #60 tab 09/05/20 07/22/21 Rx atorvastatin 20 mg tablet 20 mg PO QAM #90 tab 06/21/21 07/22/21 Rx levothyroxine 50 mcg tablet 50 mcg PO HS #90 tab 06/21/21 07/22/21 Rx acetaminophen 650 mg 650 mg PO Q12H PRN 07/22/21 07/22/21 History tablet,extended release (Tylenol Arthritis Pain) aspirin 81 mg tablet,delayed 81 mg PO QAM 07/22/21 07/22/21 History release (Adult Aspirin Regimen) escitalopram oxalate 10 mg tablet 10 mg PO QAM 07/22/21 07/22/21 History olmesartan 40 mg tablet 40 mg PO QAM 07/22/21 07/22/21 History Allergies Allergy/AdvReac Type Severity Reaction Status Date / Time hydrochlorothiazide Allergy Unknown ON MNPG Verified 07/22/21 20:58 LIST celecoxib AdvReac Intermediate loss of Verified 07/22/21 20:58 appetite and fatigue Sulfa (Sulfonamide AdvReac Mild fatigue, Verified 07/22/21 20:58 Antibiotics) n/v Past Med/Surg History Medical History Allergic rhinitis Atypical syncope Carpal tunnel syndrome of left wrist Chronic hyponatremia Chronic sinusitis, unspecified Diverticulitis H/O deep venous thrombosis "OVER 45 YEARS AGO" Hiatal hernia s/p robotic repair Left carotid bruit Lower gastrointestinal bleed (07/18/14) Migraine HX OF TIA (transient ischemic attack) Vasovagal near syncope Vasovagal syncope Surgical History H/O arthroscopy of shoulder L H/O colonoscopy History of arthroscopy R History of carpal tunnel release History of cataract surgery R/L History of esophagogastroduodenoscopy (EGD) History of herniorrhaphy HIATAL HERNIA REPAIR History of tonsillectomy History of tooth extraction History of total knee replacement R S/P SHWETA-BSO Status post LASIK surgery of both eyes Thumb joint stiffness R JOINT REPLACEMENT Family History Sister Migraine headache Son Family history of diabetes mellitus Denies family history of Ovarian cancer Prostate cancer Myocardial infarction Breast cancer Lung cancer Colorectal cancer Social History Smoking Status: Never smoker Second Hand Exposure: No; Hx Alcohol Use: Yes Alcohol type: wine and hard liquor Alcohol Intake Frequency: 4 or More x per/Week Hx Substance Use: No Preferred Language: Chadian Communication Ability: Effective Visual Impairment: Limited Hearing Ability: Use of Hearing Aid Pastry Assistant Required: No Beliefs That Will Affect Care: None marital status: / Current Living Situation: Family current occupational status: retired How many Children do You have: 0 Feels Safe at Home: Yes Childhood Exposure to Second-Hand Smoke: No caffeine: Yes Dental Care, Regularly: No Physical Activity Frequency: 3-4 Times per Week Seatbelt Use: always Sunscreen Use: No Assistive Devices: None Review of Systems See HPI for pertinent positives & negatives. and A total of 10 systems reviewed and were otherwise negative Physical Exam Vital Signs Vital Signs - 24 hr 07/22/21 19:39 07/22/21 20:18 Temperature 36.3 C L Temperature Source Temporal Artery Scan Pulse Rate 84 Pulse Rate [Apical] 79 Respiratory Rate 20 15 Respiratory Effort / Characteristics Non-Labored Spontaneous Respiratory Depth Normal Blood Pressure 218/82 H Blood Pressure [Left Arm] 219/78 H Blood Pressure Mean 127 Blood Pressure Mean [Left Arm] 125 Pulse Oximetry 96 98 Oxygen Delivery Method Room Air Room Air Sepsis New/Unexplained Change in Mental Status N/A Sepsis Action Taken by Nursing No Action Required Constitutional: Vital signs reviewed. Eyes: Pupils are equal round reactive to light. Conjunctiva are noninjected. ENT: Pharynx is clear without erythema or exudate. Mucous membranes are moist. Neck supple without meningeal signs. Respiratory: Clear to auscultation bilaterally. Breath sounds are equal bilaterally. Cardiovascular: Regular rate and rhythm. No rubs or gallops. GI: Soft, nondistended and nontender. Bowel sounds are present. Musculoskeletal: No peripheral edema. No lower extremity tenderness. Integumentary: No cyanosis. or jaundice. Neurological: The patient is awake and alert. No focal deficits. Psychiatric: Normal affect. Not anxious appearing. Course Administered Medications Sodium Chloride (Nss) 500 mls @ 80 mls/hr IV .Q6H15M [facility] Stop: 08/21/21 19:59 Last Admin: 07/22/21 20:26 Dose: 80 mls/hr Documented by: [id number] Discontinued Medications Labetalol HCl (Labetalol Hcl Iv 5 Mg/Ml 20ml) 10 mg IV NOW STA Stop: 07/22/21 21:13 Last Admin: 07/22/21 21:21 Dose: 10 mg Documented by: [id number] Cosigned by: [id number] Ondansetron HCl (Ondansetron Inj 2 Mg/Ml 2 Ml Vial) 4 mg IV NOW STA Stop: 07/22/21 19:55 Last Admin: 07/22/21 20:30 Dose: 4 mg Documented by: [id number] Ondansetron HCl (Ondansetron Inj 2 Mg/Ml 2 Ml Vial) 4 mg IV NOW STA Stop: 07/22/21 21:15 Last Admin: 07/22/21 21:21 Dose: 4 mg Documented by: [id number] Medical Decision Making Differential Diagnosis GERD, bowel obstruction, peptic ulcer disease, cardiac, dehydration Medical Records Attestation: I reviewed the patient's medical records. I did perform a limited focused review of portions of the patient's old chart on the electronic medical record. The patient has had no recent pertinent visits to this hospital. Home Medications Current Medication List: was personally reviewed by wa Laboratory Data Attestation: I reviewed the patient's lab results. Result diagrams: 07/22/21 20:07/22/21 20:01 Lab Results 07/22/21 07/22/21 07/22/21 Range/Units 20:01 20:01 21:24 WBC 29.43 H (4.8-10.8) K/uL RBC 3.95 L (4.2-5.4) M/uL Hgb 13.0 (12.0-16.0) g/dL Hct 38.0 (37-47) % MCV 96.2 (80-100) fL MCH 32.9 (25-34) pg MCHC 34.2 (32-36) g/dL RDW Std Deviation 48.5 H (36.4-46.3) fL RDW Coeff of Kaley 13.7 (11.5-14.5) % Plt Count 225 (130-400) K/uL MPV 9.1 (7.4-10.4) fL Immature Gran % (Auto) 0.1 % Neut % (Auto) 9.7 % Lymph % (Auto) 88.4 % [place] % (Auto) 1.7 % Eos % (Auto) 0.0 % Baso % (Auto) 0.1 % Neut # (Auto) 2.83 (1.4-6.5) K/uL Lymph # (Auto) 26.02 H (1.2-3.4) K/uL [place] # (Auto) 0.51 (0.11-0.59) K/uL Eos # (Auto) 0.01 (0-0.5) K/uL Baso # (Auto) 0.02 (0-0.2) K/uL Immature Gran # (Auto) 0.04 H (0.00-0.02) K/uL Smudge Cells Present Sodium 122 L (136-145) mmol/L Potassium 4.4 (3.5-5.1) mmol/L Chloride 89 L (98-107) mmol/L Carbon Dioxide 23 (21-32) mmol/L Anion Gap 10 (3-11) BUN 14 (6-23) mg/dl Creatinine 0.89 (0.6-1.2) mg/dl Est Cr Clr Drug Dosing 38.6 ml/min Est GFR ( Amer) 69.0 ml/min Est GFR (Non-Af Amer) 59.5 ml/min BUN/Creatinine Ratio 15.7 (10-20) Glucose 100 H (70-99(Fasting)) mg/dl Calcium 9.1 (8.5-10.1) mg/dl Total Bilirubin 0.4 (0.2-1.0) mg/dl AST 35 (13-39) U/L ALT 27 (7-52) U/L Alkaline Phosphatase 55 (34-104) U/L Troponin I < 0.03 (0-0.04) ng/ml Total Protein 6.8 (6.0-8.3) gm/dl Albumin 4.4 (3.4-5.0) gm/dl Globulin 2.4 L (2.5-4.0) gm/dl Albumin/Globulin Ratio 1.8 (0.9-2) Lipase 24 (11-82) U/L Urine Color Yellow Urine Appearance Clear (Clear) Urine pH 6.0 (4.5-7.5) Ur Specific [place] 1.014 (1.000-1.030) Urine Protein Negative (Negative) Urine Glucose (UA) Negative (Negative) Urine Ketones 1+ H (Negative) Urine Blood Negative (Negative) Urine Nitrite Negative (Negative) Urine Bilirubin Negative (Negative) Urine Urobilinogen Negative (Negative) Ur Leukocyte Esterase Negative (Negative) Imaging Data Radiologist's Impression: [facility] Patient: GIGI FARRELL (Female) :B 37 Status: ER Date: 07/22/21 21:04 Room #: History: nausea and pain eval for obstruction Slices: [phone] Priors: Tech: Montana Castaneda @ [phone] Exams: CT ABDOMEN & PELVIS Without Contrast Contrast: Accession Numbers: [id number] Referring Physician: REFERRED SELF Preliminary Findings Only See Final Report For Complete Findings CT ABDOMEN & PELVIS Without Contrast: No bowel obstruction. No free fluid, fluid collection, or free air. No acute abnormality within the organs. Radiologist: Hector Malik MD Study ready at 21:10 and initial results transmitted at 22:08 ECG Data Attestation: I personally reviewed and interpreted this ECG as follows: Indication: + nausea Rate (beats per minute): 60 Rhythm: + normal sinus ECG Intervals/blocks: + Left bundle branch block ECG ST segments: + Nonspecific ST abnormalities ECG Findings: no PVCs Comparison ECG Date: from (January 12, 2019) Change: no significant change MDM Narrative I did evaluate the patient as noted above. The patient is presenting with nausea for the past 2 to 3 days. Previously she had 2 days of abdominal soreness which is now completely resolved. On exam she has no tenderness to palpation of her abdomen. She is primarily concerned about an intestinal problem such as a repeat perforation as she had years ago. IV access was established. I did place an order for continuous cardiac monitoring. The monitor showed normal sinus rhythm at a rate of 78 bpm. I did order and personally review the patient's 12-lead EKG as described above. She has some nonspecific ST changes as well as a left bundle branch block. These are not new when compared to an EKG from December 2018. Her blood pressure remains significantly elevated and so I did treat her with labetalol 10 mg IV. Her blood pressure did improve significantly with a systolic of 160. I did order a urine analysis. There is no evidence of infection. I did order and review the patient's blood work as noted in the electronic medical record. CBC demonstrates a white count of 29,000. She does have CLL. She is not anemic or thrombocytopenic. Electrolytes are concerning for sodium of 122. Her last sodium was 133 in March. Chloride is 89. LFTs are unremarkable. Troponin is negative. I did order a CT of the abdomen and pelvis. I did review the images myself as well as the radiology report as described above. There is no evidence of acute process. No obstruction or perforation. I did discuss the test results with the patient. She states she barely drank any water today and usually she drinks about 3 to 4 16 ounce bottles of water a day. did recommend hospitalization for further care and evaluation. I did discuss the case with the hospitalist and comp field case manager. Impression & Plan Acute hyponatremia, Abdominal pain, Nausea, Hypertensive urgency Discharge Plan Visit Data Chief Complaint: Nausea Stated Complaint: NAUSEA, ED Provider: Sanjeev Stafford Discharge Problem: Acute hyponatremia, Abdominal pain, Nausea, Hypertensive urgency Patient Disposition: Being Evaluated by Hospitalist Forms Stand Alone Forms: My [facility] Prescriptions Prescriptions: No Action atorvastatin 20 mg tablet 20 mg PO QAM Qty: 90 RF: 3 levothyroxine 50 mcg tablet 50 mcg PO HS Qty: 90 RF: 3 cetirizine [Zyrtec] 10 mg tablet 5 mg PO DAILY PRN (Reason: Allergy Symptoms) RF: 0 tramadol 50 mg tablet 50 mg PO Q8H PRN (Reason: pain) Qty: 60 RF: 0 ondansetron HCl 4 mg tablet 4 mg PO Q8H PRN (Reason: nausea and vomiting) Qty: 20 RF: 0 aspirin [Adult Aspirin Regimen] 81 mg tablet,delayed release (DR/EC) 81 mg PO QAM RF: 0 olmesartan 40 mg tablet 40 mg PO QAM RF: 0 escitalopram oxalate 10 mg tablet 10 mg PO QAM RF: 0 acetaminophen [Tylenol Arthritis Pain] 650 mg Tablet Extended Release 650 mg PO Q12H PRN (Reason: arthritis pain) RF: 0 Referrals Referrals: Bebeto Willis MD [Primary Care Provider] -
[2021-07-22] MEDS ORDERED: SODIUM CHLORIDE 0.9% 500 ML IV SCH (20:00)
[2021-07-22 20:39] LABS: Mean Corpuscular Hemoglobin 32.9 pg (25-34); Mean Corpuscular Hgb Conc 34.2 g/dL (32-36); Mean Corpuscular Volume 96.2 fL (80-100); Mean Platelet Volume 9.1 fL (7.4-10.4); Platelet Count 225 K/uL (130-400); RDW Coefficient of Variation 13.7 % (11.5-14.5); RDW Standard Deviation 48.5 fL (36.4-46.3); Red Blood Count 3.95 M/uL (4.2-5.4); White Blood Count 29.43 K/uL (4.8-10.8)
[2021-07-22 21:00] LABS: Alanine Aminotransferase 27 U/L (7-52); Albumin Globulin Ratio 1.8 (0.9-2); Albumin Level 4.4 gm/dl (3.4-5.0); Alkaline Phosphatase 55 U/L (34-104); Anion Gap 10 (3-11); Aspartate Aminotransferase 35 U/L (13-39); BUN Creatinine Ratio 15.7 (10-20); Bilirubin,Total 0.4 mg/dl (0.2-1.0); Blood Urea Nitrogen 14 mg/dl (6-23); Calcium 9.1 mg/dl (8.5-10.1); Carbon Dioxide 23 mmol/L (21-32); Chloride 89 mmol/L (98-107); Creatinine Clr Calc Pharmacy 38.6 ml/min; Est GFR (Non-African American) 59.5 ml/min; Globulin 2.4 gm/dl (2.5-4.0); Glucose 100 mg/dl (70-99(Fasting)); Lipase 24 U/L (11-82); Potassium 4.4 mmol/L (3.5-5.1); Sodium 122 mmol/L (136-145); Total Protein 6.8 gm/dl (6.0-8.3)
[2021-07-22 21:01] LABS: Troponin I < 0.03 ng/ml (0-0.04)
[2021-07-22] MEDS ORDERED: LABETALOL HCL IV 5 MG/ML 20ML IV STA (21:12)
[2021-07-22 21:20] LABS: Basophils # (auto) 0.02 K/uL (0-0.2); Basophils % (auto) 0.1 %; Eosinophils # (auto) 0.01 K/uL (0-0.5); Immature Granulocytes # (auto) 0.04 K/uL (0.00-0.02); Immature Granulocytes % (auto) 0.1 %; Lymphocytes # (auto) 26.02 K/uL (1.2-3.4); Lymphocytes % (auto) 88.4 %; Monocytes # (auto) 0.51 K/uL (0.11-0.59); Monocytes % (auto) 1.7 %; Neutrophils # (auto) 2.83 K/uL (1.4-6.5); Neutrophils % (auto) 9.7 %; Smudge Cells Present
[2021-07-22 21:32] LABS: Appearance Urine Clear (Clear); Bilirubin Urine Negative (Negative); Blood Urine Negative (Negative); Color Urine Yellow; Glucose Urine UA Negative (Negative); Ketones Urine 1+ (Negative); Leukocyte Esterase Urine Negative (Negative); Nitrite Urine Negative (Negative); Protein Urine Negative (Negative); Specific Gravity Urine 1.014 (1.000-1.030); Urobilinogen Urine Negative (Negative)
[2021-07-22] MEDS ORDERED: ALUMINUM/MAGNESIUM SUSP 30 ML UDC PO STA (22:53)
--- NOTE | 2021-07-22 22:54 | History & Physical Report ---
Date of Service July 22, 2021 Assessment & Plan (1) COVID-19: Plan: 85yo female with history of HTN, GERD, CLL presenting with weakness, fatigue and ongoing nausea. Patient had low back/flank pain several days ago which has since resolved - LBP is quite common in Omicron Covid-19 infection. She is afebrile. Denies SOB, fever. She has a chronic cough but does not state it has gotten worse. She has not received her Covid-19 vaccination Not hypoxic, no need for supplemental O2 -Admit to medical -Maintain isolation precautions -Monitor oxygen saturation -No indication for supplemental oxygen, steroids or other Covid treatments at this time -Tylenol as needed for fever (2) Acute hyponatremia: Plan: Sd=775 on baseline hyponatremia. Last Na was 133 on 04/16/21. Suspect SIADH picture in setting of Covid-19 infection -Check urine and serum osm and random urine Na -Check TSH with AM labs -Fluid restriction 1000mL/day -Monitor Na (3) Nausea: Plan: Most likely secondary to Covid-19 infection, worsening GERD, possibly low Na contributing to nausea as well -Zofran PRN -Phenergan PRN -Treatment as above (4) Hypertension: Plan: Blood pressure elevated on arrival - presently 182/73 -Continue Olmesartan 40mg po daily -Continue to monitor (5) GERD (gastroesophageal reflux disease): Plan: Chronic. Worsening symptoms over the last several days. Possibly secondary to GERD -Start Pepcid 40mg daily -Maalox as needed (6) Depression: Plan: Chronic -Continue Escitalopram 10mg po daily (7) Hypothyroidism: Plan: Chronic -Check TSH -Continue Synthroid 50mcg po daily (8) CLL (chronic lymphocytic leukemia): Plan: WBC improved from prior -Continue to monitor (9) Hyperlipidemia: Plan: Chronic. -Continue Atorvastatin 20mg daily Plan: F/E/N - 1L given in ER, monitor Na as above, regular diet as tolerated with fluid restriction Ppx - Lovenox Code - Conditional - patient does not want intubation or mechanical ventilation Dispo - Admit to medical History of Present Illness Chief Complaint: Nausea Primary Care Provider: Bebeto Willis MD Jennie William is an 85yo female with history of CLL, chronic hyponatremia (last Rl=174 on 04/16/21), TIA. Patient presents with 3 days of persistent nausea without vomiting. Symptoms are worsened with bending over. She has some e pigastric discomfort as well as abdominal fullness and pain of the bilateral flanks. Back pain lasted x 2 days and has since resolved but nausea has persisted. Patient has not eaten much over the last several days. She has not had a bowel movement. She feels weak and tired. She denies fever, chills, sweats, SOB, vomiting, diarrhea, dysuria, melena or hematochezia. No additional complaints at this time. States she drinks appx 3-4 20oz bottles of water per day (appx 60-80 oz daily). Hypertensive in the ER. Adequate oxygenation on room air ER Course: Zofran 4mg IV x 2, Labetalol 10mg IV, NSS 500mL at 80mL/hr Patient is not vaccinated against Covid-19 Her Covid-19 test performed in the ER is POSITIVE Allergies Allergy/AdvReac Type Severity Reaction Status Date / Time hydrochlorothiazide Allergy Unknown ON MNPG Verified 07/22/21 20:58 LIST celecoxib AdvReac Intermediate loss of Verified 07/22/21 20:58 appetite and fatigue Sulfa (Sulfonamide AdvReac Mild fatigue, Verified 07/22/21 20:58 Antibiotics) n/v Home Medications Medication Instructions Recorded Confirmed Type cetirizine 10 mg tablet (Zyrtec) 5 mg PO DAILY PRN 07/29/19 07/22/21 History ondansetron HCl 4 mg tablet 4 mg PO Q8H PRN #20 tab 09/05/20 07/22/21 Rx tramadol 50 mg tablet 50 mg PO Q8H PRN #60 tab 09/05/20 07/22/21 Rx atorvastatin 20 mg tablet 20 mg PO QAM #90 tab 06/21/21 07/22/21 Rx levothyroxine 50 mcg tablet 50 mcg PO HS #90 tab 06/21/21 07/22/21 Rx acetaminophen 650 mg 650 mg PO Q12H PRN 07/22/21 07/22/21 History tablet,extended release (Tylenol Arthritis Pain) aspirin 81 mg tablet,delayed 81 mg PO QAM 07/22/21 07/22/21 History release (Adult Aspirin Regimen) escitalopram oxalate 10 mg tablet 10 mg PO QAM 07/22/21 07/22/21 History olmesartan 40 mg tablet 40 mg PO QAM 07/22/21 07/22/21 History Past Med/Surg History Medical History Allergic rhinitis Atypical syncope Carpal tunnel syndrome of left wrist Chronic hyponatremia Chronic sinusitis, unspecified Diverticulitis H/O deep venous thrombosis "OVER 45 YEARS AGO" Hiatal hernia s/p robotic repair Left carotid bruit Lower gastrointestinal bleed (07/18/14) Migraine HX OF TIA (transient ischemic attack) Vasovagal near syncope Vasovagal syncope Surgical History H/O arthroscopy of shoulder L H/O colonoscopy History of arthroscopy R History of carpal tunnel release History of cataract surgery R/L History of esophagogastroduodenoscopy (EGD) History of herniorrhaphy HIATAL HERNIA REPAIR History of tonsillectomy History of tooth extraction History of total knee replacement R S/P SHWETA-BSO Status post LASIK surgery of both eyes Thumb joint stiffness R JOINT REPLACEMENT Family History Sister Migraine headache Son Family history of diabetes mellitus Denies family history of Ovarian cancer Prostate cancer Myocardial infarction Breast cancer Lung cancer Colorectal cancer Social History Smoking Status: Never smoker Second Hand Exposure: No; Hx Alcohol Use: Yes Alcohol type: wine and hard liquor Alcohol Intake Frequency: 4 or More x per/Week Hx Substance Use: No Preferred Language: [place] Communication Ability: Effective Visual Impairment: Limited Hearing Ability: Use of Hearing Aid Location Manager Required: No Beliefs That Will Affect Care: None marital status: / Current Living Situation: Family current occupational status: retired How many Children do You have: 0 Feels Safe at Home: Yes Childhood Exposure to Second-Hand Smoke: No caffeine: Yes Dental Care, Regularly: No Physical Activity Frequency: 3-4 Times per Week Seatbelt Use: always Sunscreen Use: No Assistive Devices: None Review of Systems Review of Systems: All systems reviewed & are unremarkable except as noted in HPI & below Physical Exam Physical Exam: General: patient resting comfortably, NAD, non-toxic in appearance, AA&O x 4 Skin: warm, dry, intact, no rashes or lesions HEENT: NC/AT, PERRL, EOMI, anicteric sclera, conjunctiva without injection, external ear normal to inspection and nontender, nares patent, moist mucus membranes, dentition intact, no oropharyngeal lesions, neck supple, trachea midline, no LAD, no thyromegaly, no JVD Heart: +S1/S2, regular, no m/r/g Lungs: equal air entry bilaterally, no rales/rhonchi/wheezes Abd: +BS, soft, ND, tenderness in epigastric region, no masses/organomegaly/ascites Ext: warm, 2+ pulses in UE/LE bilaterally, no clubbing/cyanosis or edema Neuro: nonfocal, patient AA&O x 4, speech intact, no facial droop, moving all extremities on command with equal strength 5/5 Results & Data Results & Data ([facility]) Vital Signs (Past 12 Hours) Vital Signs Temp Pulse Pulse Resp BP BP Pulse Ox 07/22/21 22:00 64 14 182/73 H 96 07/22/21 20:18 79 15 219/78 H 98 07/22/21 19:39 36.3 C L 84 20 218/82 H 96 Laboratory Results Laboratory Results WBC 29.43 K/uL (4.8-10.8) H 07/22/21 20:01 RBC 3.95 M/uL (4.2-5.4) L 07/22/21 20:01 Hgb 13.0 g/dL (12.0-16.0) 07/22/21 20:01 Hct 38.0 % (37-47) 07/22/21 20:01 MCV 96.2 fL (80-100) 07/22/21 20:01 MCH 32.9 pg (25-34) 07/22/21 20:01 MCHC 34.2 g/dL (32-36) 07/22/21 20:01 RDW Std Deviation 48.5 fL (36.4-46.3) H 07/22/21 20:01 RDW Coeff of Kaley 13.7 % (11.5-14.5) 07/22/21 20:01 Plt Count 225 K/uL (130-400) 07/22/21 20:01 MPV 9.1 fL (7.4-10.4) 07/22/21 20:01 Immature Gran % (Auto) 0.1 % 07/22/21 20:01 Neut % (Auto) 9.7 % 07/22/21 20:01 Lymph % (Auto) 88.4 % 07/22/21 20:01 [place] % (Auto) 1.7 % 07/22/21 20:01 Eos % (Auto) 0.0 % 07/22/21 20:01 Baso % (Auto) 0.1 % 07/22/21 20:01 Neut # (Auto) 2.83 K/uL (1.4-6.5) 07/22/21 20:01 Lymph # (Auto) 26.02 K/uL (1.2-3.4) H 07/22/21 20:01 [place] # (Auto) 0.51 K/uL (0.11-0.59) 07/22/21 20:01 Eos # (Auto) 0.01 K/uL (0-0.5) 07/22/21 20:01 Baso # (Auto) 0.02 K/uL (0-0.2) 07/22/21 20:01 Immature Gran # (Auto) 0.04 K/uL (0.00-0.02) H 07/22/21 20:01 Smudge Cells Present 07/22/21 20:01 Sodium 122 mmol/L (136-145) L 07/22/21 20:01 Potassium 4.4 mmol/L (3.5-5.1) 07/22/21 20:01 Chloride 89 mmol/L (98-107) L 07/22/21 20:01 Carbon Dioxide 23 mmol/L (21-32) 07/22/21 20:01 Anion Gap 10 (3-11) 07/22/21 20:01 BUN 14 mg/dl (6-23) 07/22/21 20:01 Creatinine 0.89 mg/dl (0.6-1.2) 07/22/21 20:01 Est Cr Clr Drug Dosing 38.6 ml/min 07/22/21 20:01 Est GFR ( Amer) 69.0 ml/min 07/22/21 20:01 Est GFR (Non-Af Amer) 59.5 ml/min 07/22/21 20:01 BUN/Creatinine Ratio 15.7 (10-20) 07/22/21 20:01 Glucose 100 mg/dl (70-99(Fasting)) H 07/22/21 20:01 Calcium 9.1 mg/dl (8.5-10.1) 07/22/21 20:01 Total Bilirubin 0.4 mg/dl (0.2-1.0) 07/22/21 20:01 AST 35 U/L (13-39) 07/22/21 20:01 ALT 27 U/L (7-52) 07/22/21 20:01 Alkaline Phosphatase 55 U/L (34-104) 07/22/21 20:01 Troponin I < 0.03 ng/ml (0-0.04) 07/22/21 20:01 Total Protein 6.8 gm/dl (6.0-8.3) 07/22/21 20:01 Albumin 4.4 gm/dl (3.4-5.0) 07/22/21 20:01 Globulin 2.4 gm/dl (2.5-4.0) L 07/22/21 20:01 Albumin/Globulin Ratio 1.8 (0.9-2) 07/22/21 20:01 Lipase 24 U/L (11-82) 07/22/21 20:01 Urine Color Yellow 07/22/21 21:24 Urine Appearance Clear (Clear) 07/22/21 21:24 Urine pH 6.0 (4.5-7.5) 07/22/21 21:24 Ur Specific [place] 1.014 (1.000-1.030) 07/22/21 21:24 Urine Protein Negative (Negative) 07/22/21 21:24 Urine Glucose (UA) Negative (Negative) 07/22/21 21:24 Urine Ketones 1+ (Negative) H 07/22/21 21:24 Urine Blood Negative (Negative) 07/22/21 21:24 Urine Nitrite Negative (Negative) 07/22/21 21:24 Urine Bilirubin Negative (Negative) 07/22/21 21:24 Urine Urobilinogen Negative (Negative) 07/22/21 21:24 Ur Leukocyte Esterase Negative (Negative) 07/22/21 21:24 ECG Additional Comments: LBBB present on prior admission Code Status & VTE Plan VTE Prophylaxis Plan VTE Prophylaxis will be ordered: Yes PG Care Time/CCT Total # of Minutes Spent Total Time Spent with Patient: Total time spent is greater than 50% in coordination of care (as documented) at patient's floor/unit and/or counseling patient: Coding Level of Care Code INT OBSERVATION CARE 70M LVL 3 Diagnoses Acute hyponatremia E87.1 Nausea R11.0 Depression F32.9 Depression Type: unspecified Hypothyroidism E03.9 CLL (chronic lymphocytic leukemia) C91.90 Hypertension I10 Hypertension type: essential hypertension Hyperlipidemia E78.5 Hyperlipidemia type: unspecified GERD (gastroesophageal reflux disease) K21.9 COVID-19 U07.1 (1) Depression Depression Type: unspecified Qualified Code(s): F32.9 - Major depressive disorder, single episode, unspecified (2) Hypertension Hypertension type: essential hypertension Qualified Code(s): I10 - Essential (primary) hypertension (3) Hyperlipidemia Hyperlipidemia type: unspecified Qualified Code(s): E78.5 - Hyperlipidemia, unspecified
[2021-07-23] MEDS ORDERED: diphenhydrAMINE Capsule 25 MG CAP PO PRN (00:51)
[2021-07-23] MEDS ORDERED: traMADol HCL 50 MG TABLET PO PRN (00:51)
[2021-07-23] MEDS ORDERED: ACETAMINOPHEN 325 MG TAB PO PRN (00:51)
[2021-07-23] MEDS ORDERED: PROMETHAZINE HCL 6.25 MG in SODIUM CHLORIDE 0.9% 50 ML IV PRN (00:51)
[2021-07-23] MEDS ORDERED: DOCUSATE SODIUM 100 MG CAP PO PRN (00:51)
[2021-07-23] MEDS ORDERED: POLYETHYLENE (MIRALAX) 17 GM PACK PO PRN (00:51)
[2021-07-23 01:23] LABS: Magnesium 1.7 mg/dl (1.7-2.4)
[2021-07-23] MEDS: ENOXAPARIN INJ 40 MG/0.4 ML SYR SQ SCH (06:15)
--- NOTE | 2021-07-23 07:40 | CT Scan Report ---
CT SCAN OF THE ABDOMEN AND PELVIS WITHOUT IV CONTRAST CLINICAL HISTORY: Nausea. Generalized abdominal pain. COMPARISON STUDY: Abdominal CT dated 01/11/2019. TECHNIQUE: CT scan of the abdomen and pelvis is performed from the lung bases to the proximal femora. Images are reviewed in the axial, sagittal, and coronal planes. IV contrast was not administered for this examination. Note that the examination was performed in significantly suboptimal fashion withou t oral and IV contrast. A dose lowering technique was utilized adhering to the principles of ALARA. CT DOSE: 237.89 mGy.cm FINDINGS: Lung bases: The heart is normal in size and without pericardial effusion. A calcified granuloma is se en at the right lung base. The lung bases are otherwise clear noting mild bibasilar scarring/atelecta sis. There is a small hiatal hernia. Liver: The unenhanced liver is normal in size, contour, and attenuation. There is no intrahepatic aston iary ductal dilatation. Hepatic cysts measure up to 2.1 cm. Additional subcentimeter hypodensities al so likely represent cysts but are too small for definitive characterization. Gallbladder: Unremarkable. Spleen: Normal in size and attenuation. Pancreas: The unenhanced pancreas is atrophic and grossly unremarkable. Adrenal glands: Unremarkable. Kidneys: The unenhanced kidneys are atrophic and without hydronephrosis. There are no renal calculi i dentified. There is no evidence of contour deforming renal mass lesion. Abdominal vasculature: There is advanced atherosclerotic calcification mild ectasia of the abdominal aorta. Bowel: There is mild colonic diverticulosis without CT evidence of acute diverticulitis. No bowel obs truction is seen. The sigmoid colon is redundant. The appendix is well-visualized and normal. Peritoneum: There is no intraperitoneal free air or abdominal ascites. There is a small fat-containin g umbilical hernia. There are also fat-containing supraumbilical hernias. Lymphadenopathy: None. Pelvic viscera: The bladder is normal as visualized. The uterus is surgically absent. No adnexal lesi on is seen. Skeletal structures: The skeletal structures are osteopenic. There are chronic right pubic ring fract ures. Moderate lumbosacral spondylosis is observed. There is a minimal chronic superior endplate comp ression deformity of T12. No lytic or blastic lesions are seen. IMPRESSION: 1. Significantly suboptimal examination without oral and IV contrast. 2. There are no acute infectious or inflammatory findings in the abdomen or pelvis. 3. Chronic changes as above. ACT 112: Negative or not required by law. Electronically signed by: Seymour Gasca M.D. 07/23/2021 7:39 AM
[2021-07-23 07:59] LABS: Hematocrit (blood only) 34.2 % (37-47); Hemoglobin 11.8 g/dL (12.0-16.0); Mean Corpuscular Hemoglobin 32.4 pg (25-34); Mean Corpuscular Hgb Conc 34.5 g/dL (32-36); Mean Platelet Volume 9.3 fL (7.4-10.4); Platelet Count 193 K/uL (130-400); RDW Coefficient of Variation 13.6 % (11.5-14.5); Red Blood Count 3.64 M/uL (4.2-5.4); White Blood Count 26.44 K/uL (4.8-10.8)
--- NOTE | 2021-07-23 08:08 | Hospitalist Progress Note ---
Date of Service July 23, 2021 Assessment & Plan (1) COVID-19: Plan: 85yo female with HTN, CLL, and GERD presented on 07/22 with weakness, fatigue, nausea, and low back/flank pain. Acute hyponatremia Differential includes SIADH (possibly secondary to covid), paraneoplastic process, others Serum and urine osmolality both low Fluid restriction to 1000mL/hr Salt tabs 1g daily Trend BMP Covid-19 Patient tested positive on admission (07/22) Maintaining adequate oxygenation on room air; dexamethasone and remdesevir not indicated at this time Leukocytosis likely secondary to known CLL CXR not indicated at this time given adequate oxygenation, unremarkable lung exam, and lack of symptoms Airborne precautions Continue to monitor Back pain: resolved Likely secondary to covid-19 as low back pain is common with omicron Resolved as of 07/23; continue to monitor APAP for mild pain, tramadol for moderate pain Nausea: resolved Likely secondary to covid-19 +/- GERD Resolved as of 07/23; continue zofran and phenergan prn HTN Significantly elevated on admission (218/78), likely secondary to active covid infection; no signs/symptoms of hypertensive emergency at that time Fairly well-controlled at this time (144/74) Continue home olmesartan CLL WBC improved from prior labs; continue to monitor GERD Continue pepcid, maalox HLD Continue home atorvastatin Hypothyroidism TSH wnl at 2.825 (07/23) Continue home synthroid Depression Continue home escitalopram FEN: regular diet, fluid restriction (1000mL/day) Code status: DNI DVT ppx: lovenox Isolation: airborne PT/OT: ordered Dispo: med/surg (2) CLL (chronic lymphocytic leukemia): (3) Chronic kidney disease (CKD), stage III (moderate): (4) Acute hyponatremia: (5) Hypertension: (6) Hyperlipidemia: (7) GERD (gastroesophageal reflux disease): Admission and Anticipated Discharge Date Admission Date: July 22, 2021 Supervising Physician Co-Signing Physician Notes I personally examined the patient and verified all bridges points of history and exam, discussed case, and agree with decision making with Dr Haynes generally feeling better still nauseated but doing better vitals noted nad heent nc at mmm breathing unlabored no accessory muscles good effort skin no pallor or icterus. abd soft nd nt covid w GI sx - doing better, suspect acute on chronic hyponatremia a little low solute and SiADH - fluid restrict, salt tabs, follow for rate of correction - as long as eating better and Na moving towards her normal, can look to dc ?maybe in the next day or so otherwise as above Subjective Patient seen and evaluated at bedside this morning. No acute events overnight. Patient feels well today and has no complaints. Denies CP or SOB at this time. Patient also denies fever, chills, abdominal pain, nausea, vomiting, or other symptoms. Review of Systems Review of Systems: See HPI Physical Exam Physical Exam: Constitutional: well-appearing, no acute distress HEENT: MMM CV: regular rhythm, no murmur appreciated, extremities well-perfused, no LE edema Resp: CTABL, no wheezes/rales/rhonchi appreciated, no increased work of breathing GI: soft, nondistended, nontender, BS normoactive MSK: no gross deformities appreciated Skin: warm, dry, no rash appreciated Neuro: alert, oriented, no focal neurologic deficit appreciated Results & Data Results & Data ([facility]) Vital Signs (Past 12 Hours) Vital Signs Temp Pulse Pulse Resp BP Pulse Ox 07/23/21 07:52 36.7 C 61 16 144/74 H 98 07/23/21 00:52 36.7 C 63 16 197/64 H 100 07/22/21 23:58 95 H 24 194/68 H 96 07/22/21 22:00 64 14 182/73 H 96 07/22/21 20:18 79 15 219/78 H 98 Resident Activity Tracking Resident Involvement: Resident Care Provided Care Provided: Adult Hospital Medicine (1) Hyperlipidemia Hyperlipidemia type: unspecified Qualified Code(s): E78.5 - Hyperlipidemia, unspecified (2) Hypertension Hypertension type: essential hypertension Qualified Code(s): I10 - Essential (primary) hypertension
[2021-07-23 08:25] LABS: BUN Creatinine Ratio 16.7 (10-20); Calcium 8.6 mg/dl (8.5-10.1); Creatinine Clr Calc Pharmacy 47.4 ml/min; Est GFR (African American) 89.1 ml/min; Est GFR (Non-African American) 76.9 ml/min; Potassium 4.3 mmol/L (3.5-5.1)
[2021-07-23 08:54] LABS: Basophils # (auto) 0.03 K/uL (0-0.2); Basophils % (auto) 0.1 %; Eosinophils # (auto) 0.02 K/uL (0-0.5); Eosinophils % (auto) 0.1 %; Immature Granulocytes # (auto) 0.03 K/uL (0.00-0.02); Immature Granulocytes % (auto) 0.1 %; Lymphocytes # (auto) 23.99 K/uL (1.2-3.4); Lymphocytes % (auto) 90.7 %; Monocytes # (auto) 0.56 K/uL (0.11-0.59); Monocytes % (auto) 2.1 %; Neutrophils # (auto) 1.81 K/uL (1.4-6.5); Neutrophils % (auto) 6.9 %; Smudge Cells Present
[2021-07-23] MEDS: ONDANSETRON INJ 2 MG/ML 2 ML VIAL IV PRN (09:21)
--- NOTE | 2021-07-23 09:25 | Electrocardiogram Report ---
Test Reason : Blood Pressure : / mmHG Vent. Rate : 060 BPM Atrial Rate : 060 BPM P-R Int : 180 ms QRS Dur : 122 ms QT Int : 488 ms P-R-T Axes : 048 -18 050 degrees QTc Int : 488 ms Normal sinus rhythm Possible Left atrial enlargement Left bundle branch block Abnormal ECG When compared with ECG of 11-JAN-2019 21:46, Left bundle branch block is now Present Criteria for Septal infarct are no longer Present Borderline criteria for Lateral infarct are no longer Present Confirmed by Jesse Lakhani ([id number]) on 07/23/2021 9:24:34 AM Referred By: REFERRED SELF Confirmed By:Jesse Lakhani
[2021-07-23] MEDS: SENNA 8.6 MG TAB PO SCH (09:30)
[2021-07-23] MEDS: FAMOTIDINE 40 MG TABLET PO SCH (09:30)
[2021-07-23] MEDS: ESCITALOPRAM OXALATE 10 MG TAB PO SCH (09:30)
[2021-07-23] MEDS: OLMESARTAN MEDOXOMIL 40 MG TAB PO SCH (09:30)
[2021-07-23] MEDS: ASPIRIN 81 MG ECTAB PO SCH (09:30)
[2021-07-23] MEDS: ATORVASTATIN 20 MG TAB PO SCH (09:30)
[2021-07-23] MEDS: SODIUM CHLORIDE 1 GM TABLET PO SCH (12:47)
[2021-07-23 16:14] LABS: BUN Creatinine Ratio 12.5 (10-20); Calcium 8.6 mg/dl (8.5-10.1); Creatinine Clr Calc Pharmacy 32.8 ml/min; Est GFR (African American) 57.1 ml/min; Est GFR (Non-African American) 49.3 ml/min; Potassium 4.9 mmol/L (3.5-5.1)
--- NOTE | 2021-07-23 16:20 | Billing Data ---
Date of Service July 23, 2021 Coding Level of Care Code 20664 Subseq Obs Care Lvl 3
[2021-07-23] MEDS: LEVOTHYROXINE SODIUM 50 MCG TABLET PO SCH (20:21)
[2021-07-24] MEDS: ENOXAPARIN INJ 40 MG/0.4 ML SYR SQ SCH (05:44)
[2021-07-24] MEDS: ASPIRIN 81 MG ECTAB PO SCH (07:25)
[2021-07-24] MEDS: SODIUM CHLORIDE 1 GM TABLET PO SCH (07:25)
[2021-07-24] MEDS: OLMESARTAN MEDOXOMIL 40 MG TAB PO SCH (07:25)
[2021-07-24] MEDS: SENNA 8.6 MG TAB PO SCH (07:25)
[2021-07-24] MEDS: ESCITALOPRAM OXALATE 10 MG TAB PO SCH (07:26)
[2021-07-24] MEDS: ATORVASTATIN 20 MG TAB PO SCH (07:26)
[2021-07-24] MEDS: FAMOTIDINE 40 MG TABLET PO SCH (07:26)
--- NOTE | 2021-07-24 07:29 | Hospitalist Progress Note ---
Date of Service July 24, 2021 Assessment & Plan (1) COVID-19: Plan: 85yo female with HTN, CLL, and GERD presented on 07/22 with weakness, fatigue, nausea, and low back/flank pain. Acute hyponatremia Differential includes SIADH (possibly secondary to covid), paraneoplastic process, others Serum and urine osmolality both low Has gradually improved since admission, up to 127 from 122 Fluid restriction to 1000mL/hr Salt tabs 1g daily Trend BMP Covid-19 Patient tested positive on admission (07/22) Maintaining adequate oxygenation on room air; dexamethasone and remdesevir not indicated at this time Leukocytosis likely secondary to known CLL CXR not indicated at this time given adequate oxygenation, unremarkable lung exam, and lack of symptoms Airborne precautions Continue to monitor Nausea Likely secondary to covid-19 infection Continue pepcid; started protonix IV 40mg bid (07/24) Continue zofran/promethazine prn; will not schedule these at this time given mildly elevated QTc Back pain: resolved Likely secondary to covid-19 as low back pain is common with omicron Resolved as of 07/23; continue to monitor APAP for mild pain, tramadol for moderate pain Nausea: resolved Likely secondary to covid-19 +/- GERD Resolved as of 07/23; continue zofran and phenergan prn HTN Significantly elevated on admission (218/78), likely secondary to active covid infection; no signs/symptoms of hypertensive emergency at that time Continue home olmesartan CLL WBC improved from prior labs; continue to monitor GERD Continue pepcid, maalox HLD Continue home atorvastatin Hypothyroidism TSH wnl at 2.825 (07/23) Continue home synthroid Depression Continue home escitalopram FEN: regular diet, fluid restriction (1000mL/day) Code status: DNI DVT ppx: lovenox Isolation: airborne PT/OT: ordered Dispo: med/surg (2) CLL (chronic lymphocytic leukemia): (3) Chronic kidney disease (CKD), stage III (moderate): (4) Acute hyponatremia: (5) Hypertension: (6) Hyperlipidemia: (7) GERD (gastroesophageal reflux disease): Admission and Anticipated Discharge Date Admission Date: July 22, 2021 Supervising Physician Co-Signing Physician Notes I personally examined the patient and verified all bridges points of history and exam, discussed case, and agree with decision making with Dr Haynes nausea worse and vomiting a little worse today. no abd pain. doesn't feel markedly worse but does feel a ltitle worse. no otther acute complaints. vitals noted nad heent nc at mmm breathing unlabored no accessory muscles good effort skin no pallor or icterus. abd soft nd nt covid w GI sx - doing better, suspect acute on chronic hyponatremia a little low solute and SiADH - salt tabs, given poor PO intake and probable solute deficiency - and sl hyperkalemia - will give NSS to dilute K, salt load as well. worse nausea - escalate stomach meds/cover symptoms. follow. still suspect all due to viral symptoms otherwise as above, plan for home once eating/drinking better Subjective Patient seen and evaluated at bedside this morning. No acute events overnight. Today patient reports moderate nausea and one episode of vomiting this morning without blood. Patient notes her nausea has improved since. Patient is not feeling ready for discharge due to her new symptoms. No other new symptoms at this time including CP, SOB, lightheadedness, dizziness, and diarrhea. Review of Systems Review of Systems: See HPI Physical Exam Physical Exam: Constitutional: well-appearing, no acute distress HEENT: MMM CV: regular rhythm, no murmur appreciated, extremities well-perfused, no LE edema Resp: CTABL, no wheezes/rales/rhonchi appreciated, no increased work of breathing GI: soft, nondistended, nontender, BS normoactive MSK: no gross deformities appreciated Skin: warm, dry, no rash appreciated Neuro: alert, oriented, no focal neurologic deficit appreciated Results & Data Results & Data ([facility]) Vital Signs (Past 12 Hours) Vital Signs Temp Pulse Resp BP BP Pulse Ox 07/24/21 07:21 188/76 H 181/69 H 07/24/21 07:20 36.7 C 66 18 192/71 H 99 07/23/21 22:01 36.8 C 62 16 161/75 H 98 Resident Activity Tracking Resident Involvement: Resident Care Provided Care Provided: Adult Hospital Medicine (1) Hyperlipidemia Hyperlipidemia type: unspecified Qualified Code(s): E78.5 - Hyperlipidemia, unspecified (2) Hypertension Hypertension type: essential hypertension Qualified Code(s): I10 - Essential (primary) hypertension
[2021-07-24] MEDS: ONDANSETRON INJ 2 MG/ML 2 ML VIAL IV PRN (08:17)
[2021-07-24 11:31] LABS: Albumin Globulin Ratio 1.9 (0.9-2); Albumin Level 4.4 gm/dl (3.4-5.0); BUN Creatinine Ratio 17.6 (10-20); Bilirubin,Total 0.4 mg/dl (0.2-1.0); Calcium 9.1 mg/dl (8.5-10.1); Creatinine Clr Calc Pharmacy 40.1 ml/min; Est GFR (African American) 72.9 ml/min; Est GFR (Non-African American) 62.9 ml/min; Globulin 2.3 gm/dl (2.5-4.0); Potassium 5.4 mmol/L (3.5-5.1); Total Protein 6.7 gm/dl (6.0-8.3)
[2021-07-24 12:10] LABS: Basophils # (auto) 0.03 K/uL (0-0.2); Basophils % (auto) 0.1 %; Hematocrit (blood only) 40.8 % (37-47); Hemoglobin 13.7 g/dL (12.0-16.0); Immature Granulocytes # (auto) 0.06 K/uL (0.00-0.02); Immature Granulocytes % (auto) 0.2 %; Lymphocytes # (auto) 29.85 K/uL (1.2-3.4); Lymphocytes % (auto) 87.3 %; Mean Corpuscular Hemoglobin 32.3 pg (25-34); Mean Corpuscular Hgb Conc 33.6 g/dL (32-36); Mean Corpuscular Volume 96.2 fL (80-100); Mean Platelet Volume 9.2 fL (7.4-10.4); Monocytes # (auto) 0.61 K/uL (0.11-0.59); Monocytes % (auto) 1.8 %; Neutrophils # (auto) 3.63 K/uL (1.4-6.5); Neutrophils % (auto) 10.6 %; Platelet Count 229 K/uL (130-400); RDW Coefficient of Variation 13.9 % (11.5-14.5); RDW Standard Deviation 49.1 fL (36.4-46.3); Red Blood Count 4.24 M/uL (4.2-5.4); Smudge Cells Present; White Blood Count 34.18 K/uL (4.8-10.8)
[2021-07-24] MEDS: PANTOprazole 40 MG in SYRINGE 0 ML IV SCH ×2 (14:11→21:11)
[2021-07-24] MEDS ORDERED: SODIUM CHLORIDE 0.45 % 1,000 ML IV SCH (16:45)
--- NOTE | 2021-07-24 16:51 | Billing Data ---
Date of Service July 24, 2021 Coding Level of Care Code 57272 Subseq Hosp Care Lvl 3
[2021-07-24] MEDS: SODIUM CHLORIDE 0.9% 1000ML 1,000 ML IV SCH (17:51)
[2021-07-24] MEDS: LEVOTHYROXINE SODIUM 50 MCG TABLET PO SCH (21:11)
[2021-07-25] MEDS: ONDANSETRON INJ 2 MG/ML 2 ML VIAL IV PRN (01:19)
[2021-07-25] MEDS: ENOXAPARIN INJ 40 MG/0.4 ML SYR SQ SCH (06:04)
[2021-07-25] MEDS: SODIUM CHLORIDE 0.9% 1000ML 1,000 ML IV SCH (06:04)
[2021-07-25 06:47] LABS: Hemoglobin 11.7 g/dL (12.0-16.0); Mean Corpuscular Hemoglobin 32.4 pg (25-34); Mean Corpuscular Hgb Conc 33.4 g/dL (32-36); Mean Platelet Volume 8.9 fL (7.4-10.4); Platelet Count 188 K/uL (130-400); RDW Coefficient of Variation 14.1 % (11.5-14.5); Red Blood Count 3.61 M/uL (4.2-5.4); White Blood Count 24.67 K/uL (4.8-10.8)
[2021-07-25 07:36] LABS: Albumin Globulin Ratio 1.9 (0.9-2); Albumin Level 3.7 gm/dl (3.4-5.0); BUN Creatinine Ratio 12.3 (10-20); Bilirubin,Total 0.4 mg/dl (0.2-1.0); Calcium 8.3 mg/dl (8.5-10.1); Creatinine Clr Calc Pharmacy 46.7 ml/min; Est GFR (African American) 87.7 ml/min; Est GFR (Non-African American) 75.6 ml/min; Globulin 1.9 gm/dl (2.5-4.0); Potassium 4.1 mmol/L (3.5-5.1); Total Protein 5.6 gm/dl (6.0-8.3)
[2021-07-25] MEDS: SENNA 8.6 MG TAB PO SCH (08:10)
[2021-07-25] MEDS: SODIUM CHLORIDE 1 GM TABLET PO SCH (08:10)
[2021-07-25] MEDS: ASPIRIN 81 MG ECTAB PO SCH (08:10)
[2021-07-25] MEDS: ESCITALOPRAM OXALATE 10 MG TAB PO SCH (08:11)
[2021-07-25] MEDS: OLMESARTAN MEDOXOMIL 40 MG TAB PO SCH (08:11)
[2021-07-25] MEDS: PANTOprazole 40 MG in SYRINGE 0 ML IV SCH (08:11)
[2021-07-25] MEDS: FAMOTIDINE 40 MG TABLET PO SCH (08:11)
[2021-07-25] MEDS: ATORVASTATIN 20 MG TAB PO SCH (08:11)
[2021-07-25 08:32] LABS: Basophils # (auto) 0.01 K/uL (0-0.2); Eosinophils # (auto) 0.01 K/uL (0-0.5); Immature Granulocytes # (auto) 0.01 K/uL (0.00-0.02); Lymphocytes # (auto) 22.29 K/uL (1.2-3.4); Lymphocytes % (auto) 90.4 %; Monocytes # (auto) 0.48 K/uL (0.11-0.59); Monocytes % (auto) 1.9 %; Neutrophils # (auto) 1.87 K/uL (1.4-6.5); Neutrophils % (auto) 7.7 %; Poikilocytosis Present; Smudge Cells Present
--- NOTE | 2021-07-25 14:39 | Discharge Summary ---
Date of Service July 25, 2021 Admission HPI Per Admitting Provider Jennie William is an 85yo female with history of CLL, chronic hyponatremia (last Lf=655 on 04/16/21), TIA. Patient presents with 3 days of persistent nausea without vomiting. Symptoms are worsened with bending over. She has some epigastric discomfort as well as abdominal fullness and pain of the bilateral flanks. Back pain lasted x 2 days and has since resolved but nausea has persisted. Patient has not eaten much over the last several days. She has not had a bowel movement. She feels weak and tired. She denies fever, chills, sweats, SOB, vomiting, diarrhea, dysuria, melena or hematochezia. No additional complaints at this time. States she drinks appx 3-4 20oz bottles of water per day (appx 60-80 oz daily). Hypertensive in the ER. Adequate oxygenation on room air ER Course: Zofran 4mg IV x 2, Labetalol 10mg IV, NSS 500mL at 80mL/hr Patient is not vaccinated against Covid-19 Her Covid-19 test performed in the ER is POSITIVE Admission Exam Per Admitting Provider General: patient resting comfortably, NAD, non-toxic in appearance, AA&O x 4 Skin: warm, dry, intact, no rashes or lesions HEENT: NC/AT, PERRL, EOMI, anicteric sclera, conjunctiva without injection, external ear normal to inspection and nontender, nares patent, moist mucus membranes, dentition intact, no oropharyngeal lesions, neck supple, trachea midline, no LAD, no thyromegaly, no JVD Heart: +S1/S2, regular, no m/r/g Lungs: equal air entry bilaterally, no rales/rhonchi/wheezes Abd: +BS, soft, ND, tenderness in epigastric region, no masses/organomegaly/ascites Ext: warm, 2+ pulses in UE/LE bilaterally, no clubbing/cyanosis or edema Neuro: nonfocal, patient AA&O x 4, speech intact, no facial droop, moving all extremities on command with equal strength 5/5 Principal Diagnosis Covid-19, acute hyponatremia Discharge Exam Constitutional: well-appearing, no acute distress HEENT: MMM CV: regular rhythm, no murmur appreciated, extremities well-perfused, no LE edema Resp: CTABL, no wheezes/rales/rhonchi appreciated, no increased work of breathing GI: soft, nondistended, nontender, BS normoactive MSK: no gross deformities appreciated Skin: warm, dry, no rash appreciated Neuro: alert, oriented, no focal neurologic deficit appreciated Discharge Data Allergies Allergy/AdvReac Type Severity Reaction Status Date / Time hydrochlorothiazide Allergy Unknown ON [facility] Verified 07/22/21 20:58 LIST celecoxib AdvReac Intermediate loss of Verified 07/22/21 20:58 appetite and fatigue Sulfa (Sulfonamide AdvReac Mild fatigue, Verified 07/22/21 20:58 Antibiotics) n/v Consultations 07/22/21 22:20 ED Decision to Admit Stat Ordered Studies 07/22/21 19:54 CT abd pelvis wo con Urgent Hospital Course (1) COVID-19: Acute hyponatremia Differential includes SIADH (possibly secondary to covid), paraneoplastic process, others Serum and urine osmolality both low Has gradually improved since admission, up to 131 from 122 Fluid restriction to 1000mL/hr Recommend PCP follow-up with outpatient BMP within one week Covid-19 Patient tested positive on admission (07/22) Maintaining adequate oxygenation on room air; dexamethasone and remdesevir not indicated Leukocytosis likely secondary to known CLL CXR not indicated at this time given adequate oxygenation, unremarkable lung exam, and lack of symptoms Nausea Likely secondary to covid-19 infection Controlled with zofran/promethazine prn Patient discharged with a two-week course of protonix 40mg twice daily, famotidine 40mg twice daily, and zofran 4mg PO as needed for nausea Back pain: resolved Likely secondary to covid-19 as low back pain is common with omicron Resolved as of 07/23 HTN Significantly elevated on admission (218/78), likely secondary to active covid infection; no signs/symptoms of hypertensive emergency at that time Likely secondary to active covid infection Continue home olmesartan CLL WBC improved from prior labs; continue to monitor GERD Continue pepcid, maalox HLD Continue home atorvastatin Hypothyroidism TSH wnl at 2.825 (07/23) Continue home synthroid Depression Continue home escitalopram (2) CLL (chronic lymphocytic leukemia): (3) Chronic kidney disease (CKD), stage III (moderate): (4) Acute hyponatremia: (5) Hypertension: (6) Hyperlipidemia: (7) GERD (gastroesophageal reflux disease): Total Time Total Time Spent Total Time Spent (In Minutes): <30 Discharge Plan Discharge Items Patient Disposition: Home - Self-Care Reason For Visit: NAUSEA, HYPONATREMIA Discharge Diagnosis: Covid-19, acute hyponatremia Activity: Resume your previous activity Non-emergency contact: Primary Care Provider Call non-emergency contact if: your symptoms worsen Follow-up/Referrals: Bebeto Willis MD [Primary Care Provider] - 07/30/21 10:00 am (TELEPHONE CALL WITH PHUONG NASH PA-C) Diet: Heart Healthy Addtl Attending Provider Instructions: You were admitted to the hospital for covid-19 in addition to a low sodium level . You were treated with IV fluids and supportive care. We feel it is safe for you to continue your recovery from home. A discharge summary will be sent to your primary care physician to ensure contin uity of care. Please bring this discharge summary with you to your next office appointment so that your provider can review it at that time. Follow-up appointments: Make a follow-up appointment with your PCP within the next week. It is very important that you follow up with them shortly after discharge from the hospital. Keep all your follow-up appointments as already scheduled. If you cannot make an appointment, notify your provider. Medications: Your medication list has been reviewed and reconciled upon discharge to ensure accuracy and continuity of care. An updated list of all your medications is included with your hospital discharge paperwork. Please review this list closely, and make note of any changes. * We sent a new medication called Pepcid (famotidine) to your pharmacy. Take famotidine (40mg) one tablet twice daily for 14 days. * We sent a new medication called Protonix (pantoprazole) to your pharmacy. Take famotidine (40mg) one tablet twice daily for 14 days. * We sent a new medication called Zofran (ondansetron) to your pharmacy. Take ondansetron (4mg) one tablet every six hours as needed for nausea. Take your medications as instructed; do not skip a dose of your medicines. Make sure all of your doctors know every medicine you are taking (including hovw-mti-ynbdtmx medicines, vitamins, and supplements). Call your primary care provider before taking any new medicines (including hjur-mqf-helylbg medicines, vitamins, and supplements), because some of these may interact with your current medications, or may make your symptoms worse. Tell your primary care provider if you cannot afford your medications. CONTACT YOUR PRIMARY CARE PROVIDER if you experience any of the following: Fever, chills, sweats Shortness of breath Difficulty following your treatment plan, or difficulty taking medications CALL 911 OR GO TO THE EMERGENCY DEPARTMENT if you experience any of the following: Sudden, severe abdominal pain or nausea/vomiting Severe chest pain, or chest pain that radiates (moves) to your jaw or arm Sudden, severe shortness of breath or difficulty breathing Thank you for allowing us to participate in your care. Pending Studies at Discharge: No Stand-Alone Forms: My [facility], Opioid Pain Management, Smoking Cessation Medications and CO Order Prescriptions: New pantoprazole [Protonix] 40 mg tablet,delayed release (DR/EC) 40 mg PO BID 14 Days Qty: 28 RF: 0 famotidine 40 mg tablet 40 mg PO BID 14 Days Qty: 28 RF: 0 ondansetron HCl 4 mg tablet 4 mg PO Q6H PRN (Reason: nausea and vomiting) 10 Days RF: 0 Continued atorvastatin 20 mg tablet 20 mg PO QAM Qty: 90 RF: 3 levothyroxine 50 mcg tablet 50 mcg PO HS Qty: 90 RF: 3 cetirizine [Zyrtec] 10 mg tablet 5 mg PO DAILY PRN (Reason: Allergy Symptoms) RF: 0 tramadol 50 mg tablet 50 mg PO Q8H PRN (Reason: pain) Qty: 60 RF: 0 aspirin [Adult Aspirin Regimen] 81 mg tablet,delayed release (DR/EC) 81 mg PO QAM RF: 0 olmesartan 40 mg tablet 40 mg PO QAM RF: 0 escitalopram oxalate 10 mg tablet 10 mg PO QAM RF: 0 acetaminophen [Tylenol Arthritis Pain] 650 mg Tablet Extended Release 650 mg PO Q12H PRN (Reason: arthritis pain) RF: 0 ondansetron HCl 4 mg tablet 4 mg PO Q8H PRN (Reason: nausea and vomiting) 10 Days Qty: 20 RF: 0 Discharge Orders: Discharge Order (Routine); Ordered 07/25/21 Ordered By: Levi Garrett/Other Patient Handouts: Sodium (Blood), Hyponatremia Dc Admission Data Admit Date/Time: 07/24/21 07:58 Attending Provider: Kendrick William Admit Provider: Yuliana Watkins Primary Care Provider: Bebeto Willis Other Providers: Yuliana Watkins Other Interventions: Discharge Summary Assessment (RN) Last Done: 07/25/21 14:05 Supervising Physician Co-Signing Physician Notes I personally examined the patient and verified all bridges points of history and exam, discussed case, and agree with decision making with Dr Haynes Nausea better and has not vomited since yesterday. Eating better and feels up to going home. vitals noted nad heent nc at mmm breathing unlabored no accessory muscles good effort skin no pallor or icterus. covid w GI sx - doing better, suspect acute on chronic hyponatremia a little low solute and SiADH -overall is improved. I suspect that her SIADH physiology has let upend, while present earlier in her admission, seems to no longer be a clinically significant factor. Stable for home. PPI and Zofran for short time. otherwise as above Resident Activity Tracking Resident Involvement: Resident Care Provided Care Provided: Adult Hospital Medicine
--- NOTE | 2021-07-25 18:29 | Billing Data ---
Date of Service July 25, 2021 Coding Level of Care Code D/C DAY MANAGEMENT <30 MINS
== END 2021-07-25 15:58 | disposition home or self-care (01) | DRG 178 ==
LOC: ED 19:35 → 3E 19:35 → SUATTDRO 22:53 → 3E 07-23 00:27

== ENCOUNTER 2023-03-23 12:36 | Observation (INO) ==
--- NOTE | 2023-03-23 13:15 | XRay Report ---
XR chest 1V portable CLINICAL HISTORY: Chest pain, nonspecific COMPARISON STUDY: Chest CT January 30, 2018. Chest radiograph January 11, 2019. FINDINGS: Mild elevation of the right hemidiaphragm is again noted. Lungs are clear. There is no pneu mothorax or pleural effusion. Blunting of the left costophrenic angle is chronic. Cardiac size is nor mal. Mediastinal contours are normal. There is no evidence for pulmonary edema. IMPRESSION: No acute cardiopulmonary findings. ACT 112: Negative or not required by law. Electronically signed by: Vini Hoang M.D. 03/23/2023 1:13 PM
[2023-03-23 13:19] LABS: Hematocrit (blood only) 38.4 % (37.0-47.0); Hemoglobin 12.8 g/dl (12.0-16.0); Mean Corpuscular Hemoglobin 32.4 pg (25.0-34.0); Mean Corpuscular Hgb Conc 33.3 g/dL (32.0-36.0); Mean Corpuscular Volume 97.2 fL (80.0-100.0); Mean Platelet Volume 9.2 fL (9.4-12.4); Platelet Count 222 K/uL (130-400); RDW Coefficient of Variation 13.2 % (11.5-14.5); RDW Standard Deviation 47.2 fL (36.4-46.3); Red Blood Count 3.95 M/uL (4.20-5.40); White Blood Count 54.25 K/ul (4.8-10.8)
[2023-03-23 13:22] LABS: Albumin Globulin Ratio 2.2 (0.9-2); Albumin Level 4.8 gm/dl (3.4-5.0); BUN Creatinine Ratio 17.6 (10-20); Bilirubin,Total 0.7 mg/dl (0.2-1.0); Calcium 9.8 mg/dl (8.6-10.3); Creatinine Clr Calc Pharmacy 31.3 ml/min; Est GFR (African American) 57.7 ml/min; Est GFR (Non-African American) 49.8 ml/min; Globulin 2.2 gm/dl (2.5-4.0)
[2023-03-23 13:40] LABS: Troponin I High Sensitivity 4.8 pg/ml (0-14)
[2023-03-23 13:44] LABS: Basophils # (auto) 0.22 K/uL (0.00-0.20); Basophils % (auto) 0.4 %; Eosinophils # (auto) 0.05 K/uL (0.00-0.50); Eosinophils % (auto) 0.1 %; Immature Granulocytes # (auto) 0.08 K/uL (0.01-0.20); Immature Granulocytes % (auto) 0.1 %; Lymphocytes # (auto) 49.78 K/uL (1.20-3.40); Lymphocytes % (auto) 91.8 %; Monocytes # (auto) 0.43 K/uL (0.11-0.59); Monocytes % (auto) 0.8 %; Neutrophils # (auto) 3.69 K/uL (1.40-6.50); Neutrophils % (auto) 6.8 %; Smudge Cells Present
[2023-03-23 14:43] LABS: D Dimer 1150 ug/L FEU (0-500)
--- NOTE | 2023-03-23 14:49 | Emergency Department Note ---
Impression & Plan Hypertensive urgency, Chest pain ED Provider Note NAME: GIGI FARRELL AGE: 87 SEX: F : 1935 ARRIVES VIA: Walk-In INFORMANT: Patient, ED PROVIDER(S): Rudy Mathews MD CHIEF COMPLAINT: chest pain HPI: This is an 87-year-old female presenting for midsternal chest pain. Patient dates the chest pain is on the midsternal/left side of her chest. She states it is a intermittent sensation. Somewhat worse with movement. Not simply worse with breathing. Otherwise she does not note shortness of breath. She notes radiation of pain to her arm or neck or back. She denies any cardiac issues in the past. No blood thinners. ROS: See above HPI for pertinent positives & negatives. A total of 10 systems reviewed and were otherwise negative. PAST MEDICAL HISTORY: See Below PAST SURGICAL HISTORY: See Below FAMILY HISTORY: See Below SOCIAL HISTORY: See Below HOME MEDICATIONS: See Below ALLERGIES: See Below VITALS: See Below PHYSICAL EXAMINATION: General: resting comfortably in no acute distress, thin Head: Normocephalic and atraumatic Eyes: Normal inspection, extraocular muscles intact, no conjunctival pallor Ear, nose, throat: Normal external exam Neck: Normal range of motion Respiratory: Patient is in no respiratory distress, lungs clear to auscultation bilaterally Cardiovascular: RRR without murmur appreciated GI: soft, nontender, no guarding or rebound Extremities: pulses intact with good cap refills, no LE pitting edema or calf tenderness Neuro: The patient awake and alert, appropriately conversive,no focal decifits Skin: Warm, dry, and intact MEDICAL DECISION MAKING: This is a 87-year-old female presenting for midsternal/left chest pain. Intermittent sensation, somewhat random but also worse with movement. No pleurisy. We will do screening work-up for ACS, PE, dissection. Patient EKG is reviewed showing no sniffing and change from previous. Troponin is negative x2 but is uptrending. Patient blood pressure is elevated up to 224/87. This is concerning for hypertensive emergency/urgency. Will admit for further evaluation. Discussed this with the patient and family who are comfortable with this plan. Will admit for further cardiac rule out/blood pressure management Triage Nursing notes reviewed. Prior medical records reviewed Vital Signs: reviewed and remarkable for no significant abnormalities Differential diagnosis: ACS, PE, dissection, hypertensive emergency ER treatment provided: See below Diagnostics interpreted by me: ECG: ECG reviewed by me with sinus rhythm with PAC, normal axis, normal CO, incomplete left bundle branch block, normal QTc, no ST segment elevations consistent with STEMI criteria Cardiac Monitoring: An order was placed for continuous cardiac monitoring. The monitor shows a rate of 57 with sinus bradycardia Laboratory studies: As stated above and show below. Imaging studies: See below. Radiographic imaging was reviewed by myself Consultation(s): None Past Med/Surg History Medical History Allergic rhinitis Atypical syncope Carpal tunnel syndrome of left wrist Chronic hyponatremia Chronic sinusitis, unspecified Diverticulitis H/O deep venous thrombosis Hiatal hernia Left carotid bruit Lower gastrointestinal bleed (07/18/14) Migraine TIA (transient ischemic attack) Vasovagal near syncope Vasovagal syncope Surgical History H/O arthroscopy of shoulder H/O colonoscopy History of arthroscopy History of carpal tunnel release History of cataract surgery History of esophagogastroduodenoscopy (EGD) History of herniorrhaphy History of tonsillectomy History of tooth extraction History of total knee replacement S/P [id number]-BSO Status post LASIK surgery of both eyes Thumb joint stiffness Family History Sister Migraine headache Son Family history of diabetes mellitus Denies family history of Ovarian cancer Prostate cancer Myocardial infarction Breast cancer Lung cancer Colorectal cancer Social History Smoking Status: Never smoker Second Hand Exposure: No; Do You Dip or Chew Tobacco: No; Hx Alcohol Use: No Hx Substance Use: No Preferred Language: Lao Communication Ability: Effective Communication Ability Comment: BILAT AIDES Visual Impairment: Limited Hearing Ability: Use of Hearing Aid Qualitative Executive Researcher Required: No Beliefs That Will Affect Care: None marital status: / Current Living Situation: Family Current Living Situation Comment: Lives at home with son current occupational status: retired How many Children do You have: 0 Feels Safe at Home: Yes Childhood Exposure to Second-Hand Smoke: No caffeine: Yes Dental Care, Regularly: No Physical Activity Frequency: 3-4 Times per Week Seatbelt Use: always Sunscreen Use: No Assistive Devices: None Allergies Allergies Allergy/AdvReac Type Severity Reaction Status Date / Time hydrochlorothiazide Allergy Unknown ON MNPG Verified 09/18/22 10:18 LIST celecoxib AdvReac Intermediate loss of Verified 09/18/22 10:18 appetite and fatigue Sulfa (Sulfonamide AdvReac Mild fatigue, Verified 09/18/22 10:18 Antibiotics) n/v Home Meds Home Medications Medication Instructions Recorded Confirmed cetirizine 10 mg tablet (Zyrtec) 5 mg PO DAILY PRN Allergy Symptoms 07/29/19 03/23/23 acetaminophen 650 mg 650 mg PO Q12H PRN arthritis pain 07/22/21 03/23/23 tablet,extended release (Tylenol Arthritis Pain) aspirin 81 mg tablet,delayed 81 mg PO QAM 07/22/21 03/23/23 release (Adult Aspirin Regimen) atorvastatin 20 mg tablet 20 mg PO QAM 03/23/23 03/23/23 escitalopram oxalate 10 mg tablet 10 mg PO QAM 03/23/23 03/23/23 levothyroxine 50 mcg tablet 50 mcg PO HS 03/23/23 03/23/23 olmesartan 40 mg tablet 40 mg PO QAM 03/23/23 03/23/23 Previous Rx's Medication Instructions Recorded tramadol 50 mg tablet 50 mg PO Q8H PRN pain #60 tabs 04/19/22 ondansetron HCl 4 mg tablet 4 mg PO Q8H PRN nausea and 06/18/22 vomiting #30 tabs Results & Data (ED) Vital Signs Vital Signs - 24 hr 03/23/23 12:39 03/23/23 12:51 03/23/23 13:01 Temperature 36.8 C Temperature Source Temporal Artery Scan Pulse Rate 102 H 70 62 Pulse Rate [Apical] Pulse Rate from SpO2 Sensor Pulse Rhythm [Apical] Respiratory Rate 18 Respiratory Effort / Characteristics Respiratory Depth Respiratory Pattern Blood Pressure 190/93 H Blood Pressure [Right Arm] Blood Pressure Mean 125 Blood Pressure Mean [Right Arm] Blood Pressure Position [Right Arm] Pulse Oximetry 98 96 Oxygen Delivery Method Room Air Room Air Sepsis Recent Fever Within 48 Hours No Sepsis New/Unexplained Change in Mental Status No Sepsis Action Taken by Nursing No Action Required 03/23/23 12:50 03/23/23 13:00 03/23/23 13:00 Temperature Temperature Source Pulse Rate 71 64 Pulse Rate [Apical] Pulse Rate from SpO2 Sensor 64 Pulse Rhythm [Apical] Respiratory Rate 16 18 Respiratory Effort / Characteristics Respiratory Depth Respiratory Pattern Blood Pressure 218/81 H Blood Pressure [Right Arm] Blood Pressure Mean 125 Blood Pressure Mean [Right Arm] Blood Pressure Position [Right Arm] Pulse Oximetry 99 Oxygen Delivery Method Sepsis Recent Fever Within 48 Hours Sepsis New/Unexplained Change in Mental Status Sepsis Action Taken by Nursing 03/23/23 13:10 03/23/23 13:20 03/23/23 13:30 Temperature Temperature Source Pulse Rate 64 62 59 L Pulse Rate [Apical] Pulse Rate from SpO2 Sensor 65 62 64 Pulse Rhythm [Apical] Respiratory Rate 22 19 21 Respiratory Effort / Characteristics Respiratory Depth Respiratory Pattern Blood Pressure Blood Pressure [Right Arm] Blood Pressure Mean Blood Pressure Mean [Right Arm] Blood Pressure Position [Right Arm] Pulse Oximetry 99 97 77 L Oxygen Delivery Method Sepsis Recent Fever Within 48 Hours Sepsis New/Unexplained Change in Mental Status Sepsis Action Taken by Nursing 03/23/23 13:40 03/23/23 13:48 03/23/23 13:48 Temperature Temperature Source Pulse Rate 58 L 59 L Pulse Rate [Apical] Pulse Rate from SpO2 Sensor Pulse Rhythm [Apical] Respiratory Rate 20 16 Respiratory Effort / Characteristics Respiratory Depth Respiratory Pattern Blood Pressure 205/79 H Blood Pressure [Right Arm] Blood Pressure Mean 134 Blood Pressure Mean [Right Arm] Blood Pressure Position [Right Arm] Pulse Oximetry 83 L Oxygen Delivery Method Sepsis Recent Fever Within 48 Hours Sepsis New/Unexplained Change in Mental Status Sepsis Action Taken by Nursing 03/23/23 13:50 03/23/23 14:36 03/23/23 12:36 Temperature Temperature Source Pulse Rate 62 Pulse Rate [Apical] Pulse Rate from SpO2 Sensor Pulse Rhythm [Apical] Respiratory Rate 18 18 Respiratory Effort / Characteristics Respiratory Depth Respiratory Pattern Blood Pressure Blood Pressure [Right Arm] 205/79 H Blood Pressure Mean Blood Pressure Mean [Right Arm] 121 Blood Pressure Position [Right Arm] Pulse Oximetry 99 Oxygen Delivery Method Room Air Sepsis Recent Fever Within 48 Hours Sepsis New/Unexplained Change in Mental Status Sepsis Action Taken by Nursing 03/23/23 15:29 03/23/23 16:30 03/23/23 16:53 Temperature Temperature Source Pulse Rate Pulse Rate [Apical] 63 64 Pulse Rate from SpO2 Sensor Pulse Rhythm [Apical] Regular Respiratory Rate 18 18 Respiratory Effort / Characteristics Non-Labored Spontaneous Non-Labored Spontaneous Respiratory Depth Normal Normal Respiratory Pattern Regular Regular Blood Pressure 224/82 H Blood Pressure [Right Arm] 213/77 H 224/82 H Blood Pressure Mean Blood Pressure Mean [Right Arm] 122 129 Blood Pressure Position [Right Arm] Lying Lying Pulse Oximetry 98 95 Oxygen Delivery Method Room Air Room Air Sepsis Recent Fever Within 48 Hours Sepsis New/Unexplained Change in Mental Status Sepsis Action Taken by Nursing 03/23/23 17:06 03/23/23 17:10 Temperature Temperature Source Pulse Rate 57 L Pulse Rate [Apical] Pulse Rate from SpO2 Sensor Pulse Rhythm [Apical] Respiratory Rate Respiratory Effort / Characteristics Respiratory Depth Respiratory Pattern Blood Pressure 224/87 H Blood Pressure [Right Arm] Blood Pressure Mean Blood Pressure Mean [Right Arm] Blood Pressure Position [Right Arm] Pulse Oximetry Oxygen Delivery Method Sepsis Recent Fever Within 48 Hours Sepsis New/Unexplained Change in Mental Status Sepsis Action Taken by Nursing Laboratory Data 03/23/23 12:50 03/23/23 12:50 Lab Results 03/23/23 03/23/23 03/23/23 Range/Units 12:50 12:50 12:50 WBC 54.25 H* (4.8-10.8) K/ul RBC 3.95 L (4.20-5.40) M/uL Hgb 12.8 (12.0-16.0) g/dl Hct 38.4 (37.0-47.0) % MCV 97.2 (80.0-100.0) fL MCH 32.4 (25.0-34.0) pg MCHC 33.3 (32.0-36.0) g/dL RDW Std Deviation 47.2 H (36.4-46.3) fL RDW Coeff of Kaley 13.2 (11.5-14.5) % Plt Count 222 (130-400) K/uL MPV 9.2 L (9.4-12.4) fL Immature Gran % (Auto) 0.1 % Neut % (Auto) 6.8 % Lymph % (Auto) 91.8 % Patrick % (Auto) 0.8 % Eos % (Auto) 0.1 % Baso % (Auto) 0.4 % Neut # (Auto) 3.69 (1.40-6.50) K/uL Lymph # (Auto) 49.78 H (1.20-3.40) K/uL Patrick # (Auto) 0.43 (0.11-0.59) K/uL Eos # (Auto) 0.05 (0.00-0.50) K/uL Baso # (Auto) 0.22 H (0.00-0.20) K/uL Immature Gran # (Auto) 0.08 (0.01-0.20) K/uL Smudge Cells Present D-Dimer 1150 H* (0-500) ug/L FEU Sodium 132 L (136-145) mmol/L Potassium 5.0 (3.5-5.1) mmol/L Chloride 98 (98-107) mmol/L Carbon Dioxide 27 (21-32) mmol/L Anion Gap 7 (3-11) BUN 18 (6-23) mg/dl Creatinine 1.02 (0.6-1.2) mg/dl Est Cr Clr Drug Dosing 31.3 ml/min Est GFR ( Amer) 57.7 ml/min Est GFR (Non-Af Amer) 49.8 ml/min BUN/Creatinine Ratio 17.6 (10-20) Glucose 103 H (70-99(Fasting)) mg/dl Calcium 9.8 (8.6-10.3) mg/dl Total Bilirubin 0.7 (0.2-1.0) mg/dl AST 26 (13-39) U/L ALT 16 (7-52) U/L Alkaline Phosphatase 51 (34-104) U/L Troponin I High Sens 4.8 (0-14) pg/ml Total Protein 7.0 (6.0-8.3) gm/dl Albumin 4.8 (3.4-5.0) gm/dl Globulin 2.2 L (2.5-4.0) gm/dl Albumin/Globulin Ratio 2.2 H (0.9-2) Lipase 25 (11-82) U/L 03/23/23 Range/Units 15:35 WBC (4.8-10.8) K/ul RBC (4.20-5.40) M/uL Hgb (12.0-16.0) g/dl Hct (37.0-47.0) % MCV (80.0-100.0) fL MCH (25.0-34.0) pg MCHC (32.0-36.0) g/dL RDW Std Deviation (36.4-46.3) fL RDW Coeff of Kaley (11.5-14.5) % Plt Count (130-400) K/uL MPV (9.4-12.4) fL Immature Gran % (Auto) % Neut % (Auto) % Lymph % (Auto) % Patrick % (Auto) % Eos % (Auto) % Baso % (Auto) % Neut # (Auto) (1.40-6.50) K/uL Lymph # (Auto) (1.20-3.40) K/uL Patrick # (Auto) (0.11-0.59) K/uL Eos # (Auto) (0.00-0.50) K/uL Baso # (Auto) (0.00-0.20) K/uL Immature Gran # (Auto) (0.01-0.20) K/uL Smudge Cells D-Dimer (0-500) ug/L FEU Sodium (136-145) mmol/L Potassium (3.5-5.1) mmol/L Chloride (98-107) mmol/L Carbon Dioxide (21-32) mmol/L Anion Gap (3-11) BUN (6-23) mg/dl Creatinine (0.6-1.2) mg/dl Est Cr Clr Drug Dosing ml/min Est GFR ( Amer) ml/min Est GFR (Non-Af Amer) ml/min BUN/Creatinine Ratio (10-20) Glucose (70-99(Fasting)) mg/dl Calcium (8.6-10.3) mg/dl Total Bilirubin (0.2-1.0) mg/dl AST (13-39) U/L ALT (7-52) U/L Alkaline Phosphatase (34-104) U/L Troponin I High Sens 10.8 D (0-14) pg/ml Total Protein (6.0-8.3) gm/dl Albumin (3.4-5.0) gm/dl Globulin (2.5-4.0) gm/dl Albumin/Globulin Ratio (0.9-2) Lipase (11-82) U/L Administered Medications Discontinued Medications Ioversol (Optiray 320 125ml) 118 ml IV ONCE ONE Stop: 03/23/23 15:19 Last Admin: 03/23/23 15:18 Dose: 118 ml Documented By: JENELLE Labetalol HCl (Labetalol Hcl Iv 5 Mg/Ml 20ml) 10 mg IV NOW STA Stop: 03/23/23 16:51 Last Admin: 03/23/23 16:53 Dose: 10 mg Documented By: BERT Co-signed By: ASConnie Imaging Data Radiologist's Impression: Chest X-Ray 03/23/23 12:50 XR chest 1V portable CLINICAL HISTORY: Chest pain, nonspecific COMPARISON STUDY: Chest CT January 30, 2018. Chest radiograph January 11, 2019. FINDINGS: Mild elevation of the right hemidiaphragm is again noted. Lungs are clear. There is no pneumothorax or pleural effusion. Blunting of the left costophrenic angle is chronic. Cardiac size is normal. Mediastinal contours are normal. There is no evidence for pulmonary edema. IMPRESSION: No acute cardiopulmonary findings. ACT 112: Negative or not required by law. Electronically signed by: Vini Hoang M.D. 03/23/2023 1:13 PM Chest CTA 03/23/23 14:43 CT ANGIOGRAPHY OF THE CHEST, PULMONARY EMBOLUS PROTOCOL CLINICAL HISTORY: Chest pain. Evaluate for pulmonary embolus. COMPARISON STUDY: Chest CT January 30, 2018. Chest radiograph performed earlier today. TECHNIQUE: Following IV administration of 119 mL of Optiray, helical axial images of the chest were obtained utilizing the pulmonary embolus protocol. Maximal intensity projections and sagittal and coronal reformats were viewed on an independent 3D workstation. IV contrast was administered without compli cation. Automated exposure control was utilized for the study. A dose lowering technique was utilized adhering to the principles of ALARA. CT DOSE: 296.71 mGy.cm FINDINGS: No pulmonary emboli are identified. The size of the heart is normal. There are no pericardial effusion. No enlarged thoracic lymph nodes are present. No pneumothorax or pleural effusion is present. There is no consolidation to suggest pneumonia. Subpleural biapical densities favor scarring. No acute fractures within the bony thorax are noted. Mild T10 and T12 compression deformities are unchanged since prior chest CT. There is a lateral segment hepatic cyst. IMPRESSION: 1. No pulmonary emboli identified. 2. No acute intrathoracic findings. ACT 112: Negative or not required by law. Electronically signed by: Vini Hoang M.D. 03/23/2023 3:40 PM Discharge Plan Visit Data Chief Complaint: Cardiac Assessment Stated Complaint: CHEST PAIN SINCE LAST NIGHT ED Provider: Rudy Mathews Discharge Problem: Hypertensive urgency, Chest pain Forms Stand Alone Forms: [facility] Prescriptions Prescriptions: No Action tramadol 50 mg tablet 50 mg PO Q8H PRN (Reason: pain) Qty: 60 0RF cetirizine [Zyrtec] 10 mg tablet 5 mg PO DAILY PRN (Reason: Allergy Symptoms) ondansetron HCl 4 mg tablet 4 mg PO Q8H PRN (Reason: nausea and vomiting) Qty: 30 1RF aspirin [Adult Aspirin Regimen] 81 mg tablet,delayed release (DR/EC) 81 mg PO QAM acetaminophen [Tylenol Arthritis Pain] 650 mg Tablet Extended Release 650 mg PO Q12H PRN (Reason: arthritis pain) atorvastatin 20 mg tablet 20 mg PO QAM levothyroxine 50 mcg tablet 50 mcg PO HS olmesartan 40 mg tablet 40 mg PO QAM escitalopram oxalate 10 mg tablet 10 mg PO QAM Referrals Referrals: Janel Singleton PAClaudyC [Primary Care Provider] -
[2023-03-23] MEDS ORDERED: OPTIRAY 320 125ml IV ONE (15:18)
--- NOTE | 2023-03-23 15:43 | CT Scan Report ---
CT ANGIOGRAPHY OF THE CHEST, PULMONARY EMBOLUS PROTOCOL CLINICAL HISTORY: Chest pain. Evaluate for pulmonary embolus. COMPARISON STUDY: Chest CT January 30, 2018. Chest radiograph performed earlier today. TECHNIQUE: Following IV administration of 119 mL of Optiray, helical axial images of the chest were o btained utilizing the pulmonary embolus protocol. Maximal intensity projections and sagittal and cor onal reformats were viewed on an independent 3D workstation. IV contrast was administered without co mplication. Automated exposure control was utilized for the study. A dose lowering technique was ut ilized adhering to the principles of ALARA. CT DOSE: 296.71 mGy.cm FINDINGS: No pulmonary emboli are identified. The size of the heart is normal. There are no pericard ial effusion. No enlarged thoracic lymph nodes are present. No pneumothorax or pleural effusion is pr esent. There is no consolidation to suggest pneumonia. Subpleural biapical densities favor scarring. No acute fractures within the bony thorax are noted. Mild T10 and T12 compression deformities are unc hanged since prior chest CT. There is a lateral segment hepatic cyst. IMPRESSION: 1. No pulmonary emboli identified. 2. No acute intrathoracic findings. ACT 112: Negative or not required by law. Electronically signed by: Vnii Hoang M.D. 03/23/2023 3:40 PM
--- NOTE | 2023-03-23 15:58 | Electrocardiogram Report ---
Test Reason : Blood Pressure : / mmHG Vent. Rate : 073 BPM Atrial Rate : 073 BPM P-R Int : 166 ms QRS Dur : 108 ms QT Int : 414 ms P-R-T Axes : 054 -20 082 degrees QTc Int : 456 ms Sinus rhythm with Premature atrial complexes Incomplete left bundle block Abnormal ECG When compared with ECG of 22-JUL-2021 21:30, Premature atrial complexes are now Present QRS duration has decreased Confirmed by Gerry Heaton ([id number]) on 03/23/2023 3:57:58 PM Referred By: REFERRED SELF Confirmed By:Gerry Heaton
[2023-03-23] MEDS ORDERED: LABETALOL HCL IV 5 MG/ML 20ML IV STA (16:50)
--- NOTE | 2023-03-23 17:07 | History & Physical Report ---
Date of Service March 23, 2023 Assessment & Plan (1) Hypertensive urgency: Plan: Hypertensive urgency With some left shoulder pain which she notes when carrying groceries. This is not exertional and she does not have any chest pain at rest, notes that she does have pain to palpation and pain is reproduced either from using the left arm or on palpation.? Muscle strain from carrying groceries. Troponin high- sensitivity is normal on admission but with a elevated delta, she has no diaphoresis and no shortness of breath. EKG with no acute ischemic findings, left bundle similar to prior and does not meet Sgarbossa criteria. Low suspicion for ACS Patient took her olmesartan this morning. On recheck BP is greater than 220. Prior allergy to hydrochlorothiazide does not know what this was. Patient received 1 dose of labetalol, but has borderline bradycardia with heart rate in the 60s. Amlodipine added. We will admit to telemetry for hypertension with chest pain No neurologic deficits, no weakness, no strokelike symptoms at time of admission If continued hypertension will double dose of amlodipine to 5 mg. If continues to be refractory can add spironolactone although caution risk of hyperkalemia with spironolactone/ARB combination No history of persistent resistant hypertension, hypertension is generally adequately controlled at home and intermittent under increased stress. No history of DUANE. Potassium is upper limit of normal (2) Chronic kidney disease (CKD), stage III (moderate): Plan: Creatinine 1.02 on admission, at baseline Adjust drug dosing for creatinine clearance of 31 No signs of LEXA on admission (3) GERD (gastroesophageal reflux disease): Plan: No symptoms on admission (4) LBBB (left bundle branch block): Plan: Chronic, noted (5) Carotid artery stenosis: Plan: Noted, no acute strokelike pathology. Continue atorvastatin. Continue aspirin (6) CLL (chronic lymphocytic leukemia): Plan: No history of chemotherapy, follows with [facility] as outpatient. Counts have been relatively stable, ranges from approximately 3060. WBC 54 on admission consistent with CLL. D-dimer is elevated, CTA is without evidence of PE. No evidence of lower extremity DVT on exam Plan DVT prophylaxis: Heparin, SCDs Diet: Heart healthy, low-sodium Disposition: PCU CODE STATUS: DNR/DNI History of Present Illness Primary Care Provider: MINH Babinty is a 87-year-old female with a past medical history of hyponatremia, CLL, hypertension on olmesartan, GERD, hyperlipidemia, hypothyroidism, depression who presents to the emergency after she developed midsternal chest pain with some left arm radiation but which was worse on palpation and with movement and not associated with shortness of breath or diaphoresis. She is hypertensive in the ER. Initial high sensitive troponin was negative, however delta was greater than 4 and was initially held for additional evaluation. While under evaluation patient was persistently hypertensive to greater than 220 despite IV labetalol treatment and was recommended for admission and treatment of hypertensive urgency for chest pain with severe hypertension. D-dimer was elevated, CTA did not show any evidence of pulmonary emboli or other acute findings She reports she was lifting groceries and then had some pain in her L shoulder/armpit. Pain does not seen exertional. Does hurt when she moves her shoulder, no pain at rest. Hurts a little to palpation. No shortness of breath or diaphoresis. Denies hx of heart of lung problems Remote history of blood clots, does not know details. NO anticoagulations in october years, no recurrent Follows w Dr Beal in [facility] for CLL. Stable per pt. She reports she has had intermittently high blood pressure in the past, is not sure what causes this. She notes she has some chronic kidney disease which has been stable. She has been peeing normally. Has been eating and drinking normally. No salt load recently. No kidney or flank pain. Other than her shoulder when moving has no pain. Prior allergy to hydrochlorothiazide, does not know what this was. She has never been on amlodipine Denies lightheadedness, dizziness, syncope, presyncope. Denies orthostasis Medical History: Reviewed Medications: Reviewed Surgical History: Reviewed Family history: Reviewed Allergies: Reviewed Social History: Reviewed Code Status: DNR/DNI Allergies Allergy/AdvReac Type Severity Reaction Status Date / Time hydrochlorothiazide Allergy Unknown ON [facility] Verified 09/18/22 10:18 LIST celecoxib AdvReac Intermediate loss of Verified 09/18/22 10:18 appetite and fatigue Sulfa (Sulfonamide AdvReac Mild fatigue, Verified 09/18/22 10:18 Antibiotics) n/v Home Medications Medication Instructions Recorded Confirmed Type cetirizine 10 mg tablet (Zyrtec) 5 mg PO DAILY PRN Allergy Symptoms 07/29/19 03/23/23 History acetaminophen 650 mg 650 mg PO Q12H PRN arthritis pain 07/22/21 03/23/23 History tablet,extended release (Tylenol Arthritis Pain) aspirin 81 mg tablet,delayed 81 mg PO QAM 07/22/21 03/23/23 History release (Adult Aspirin Regimen) tramadol 50 mg tablet 50 mg PO Q8H PRN pain #60 tabs 04/19/22 03/23/23 Rx ondansetron HCl 4 mg tablet 4 mg PO Q8H PRN nausea and 06/18/22 03/23/23 Rx vomiting #30 tabs atorvastatin 20 mg tablet 20 mg PO QAM 03/23/23 03/23/23 History escitalopram oxalate 10 mg tablet 10 mg PO QAM 03/23/23 03/23/23 History levothyroxine 50 mcg tablet 50 mcg PO HS 03/23/23 03/23/23 History olmesartan 40 mg tablet 40 mg PO QAM 03/23/23 03/23/23 History Past Med/Surg History Medical History Allergic rhinitis Atypical syncope Carpal tunnel syndrome of left wrist Chronic hyponatremia Chronic sinusitis, unspecified Diverticulitis H/O deep venous thrombosis Hiatal hernia Left carotid bruit Lower gastrointestinal bleed (07/18/14) Migraine TIA (transient ischemic attack) Vasovagal near syncope Vasovagal syncope Surgical History H/O arthroscopy of shoulder H/O colonoscopy History of arthroscopy History of carpal tunnel release History of cataract surgery History of esophagogastroduodenoscopy (EGD) History of herniorrhaphy History of tonsillectomy History of tooth extraction History of total knee replacement S/P [id number]-BSO Status post LASIK surgery of both eyes Thumb joint stiffness Family History Sister Migraine headache Son Family history of diabetes mellitus Denies family history of Ovarian cancer Prostate cancer Myocardial infarction Breast cancer Lung cancer Colorectal cancer Social History Smoking Status: Never smoker Second Hand Exposure: No; Do You Dip or Chew Tobacco: No; Hx Alcohol Use: No Hx Substance Use: No Preferred Language: Pakistani Communication Ability: Effective Communication Ability Comment: BILAT AIDES Visual Impairment: Limited Hearing Ability: Use of Hearing Aid [employer] Program[employer] Required: No Beliefs That Will Affect Care: None marital status: / Current Living Situation: Family Current Living Situation Comment: Lives at home with son current occupational status: retired How many Children do You have: 0 Feels Safe at Home: Yes Childhood Exposure to Second-Hand Smoke: No caffeine: Yes Dental Care, Regularly: No Physical Activity Frequency: 3-4 Times per Week Seatbelt Use: always Sunscreen Use: No Assistive Devices: None Physical Exam Physical Exam: General: A&Ox3. NAD. Cooperative. Pleasant, answers questions appropriately HEENT: Atraumatic, normocephalic. Vision and hearing grossly intact. No facial asymmetry Pulm: CTAB A&P. -wheezes, -rales, -rhonchi. Symmetrical chest rise. No increased work of breathing. No respiratory distress. Cardiac: RRR, +sm. Radial pulses intact and symmetrical. Abdominal: Nontender, nondistended, soft. BS present. Extremities: Warm, dry no edema. Moves all extremities equally. Sensation soft touch intact in hands and feet without asymmetry Results & Data Results & Data Vital Signs (Past 12 Hours) Vital Signs Temp Pulse Pulse Resp BP BP Pulse Ox 03/23/23 16:53 224/82 H 03/23/23 16:30 64 18 224/82 H 95 03/23/23 15:29 63 18 213/77 H 98 03/23/23 12:36 03/23/23 14:36 18 205/79 H 99 03/23/23 13:50 62 18 03/23/23 13:48 205/79 H 03/23/23 13:48 59 L 16 03/23/23 13:40 58 L 20 83 L 03/23/23 13:30 59 L 21 77 L 03/23/23 13:20 62 19 97 03/23/23 13:10 64 22 99 03/23/23 13:00 64 18 99 03/23/23 13:00 218/81 H 03/23/23 12:50 71 16 03/23/23 13:01 62 96 03/23/23 12:51 70 03/23/23 12:39 36.8 C 102 H 18 190/93 H 98 O2 Del Method 03/23/23 16:53 03/23/23 16:30 Room Air 03/23/23 15:29 Room Air 03/23/23 12:36 Room Air 03/23/23 14:36 03/23/23 13:50 03/23/23 13:48 03/23/23 13:48 03/23/23 13:40 03/23/23 13:30 03/23/23 13:20 03/23/23 13:10 03/23/23 13:00 03/23/23 13:00 03/23/23 12:50 03/23/23 13:01 Room Air 03/23/23 12:51 03/23/23 12:39 Room Air PG Care Time/CCT Total # of Minutes Spent Total Time Spent with Patient: Total time spent is greater than 50% in coordination of care (as documented) at patient's floor/unit and/or counseling patient: Coding Level of Care Code 67844 INT INP/OBS CARE 3/75MIN Diagnoses Hypertensive urgency I16.0 Chronic kidney disease (CKD), stage III (moderate) N18.3 GERD (gastroesophageal reflux disease) K21.9 LBBB (left bundle branch block) I44.7 Carotid artery stenosis I65.29 CLL (chronic lymphocytic leukemia) C91.90
[2023-03-23] MEDS ORDERED: amLODIPine BESYLATE 5 MG TAB PO ONE (17:18)
[2023-03-23] MEDS ORDERED: CETIRIZINE HCL 10 MG TABLET PO PRN (20:45)
[2023-03-23] MEDS ORDERED: NON-FORMULARY MEDICATION (Acetaminophen [Tylenol Arthritis Pain] 650 mg Tablet Extended Re PO PRN (20:45)
[2023-03-23] MEDS ORDERED: traMADol HCL 50 MG TABLET PO PRN (20:45)
[2023-03-23] MEDS: HEPARIN SOD 5,000 UNIT/0.5 ML VIAL SQ SCH (22:21)
[2023-03-23] MEDS: LEVOTHYROXINE SODIUM 50 MCG TABLET PO SCH (22:22)
--- NOTE | 2023-03-24 07:41 | Hospitalist Progress Note ---
Date of Service March 24, 2023 Assessment & Plan (1) Hypertensive urgency: (2) Chronic kidney disease (CKD), stage III (moderate): (3) GERD (gastroesophageal reflux disease): (4) LBBB (left bundle branch block): (5) Carotid artery stenosis: (6) CLL (chronic lymphocytic leukemia): Plan #Hypertensive Urgency Continue Losartan 100mg qD Add amlodipine 10mg qD CP non exertional, likely MSK 2/2 heavy lifting Monitor pressures, consider adding Toprol 12.5mg Potassium high limit of normal, ? allergy to HCTZ #CKD III Creatinine 1.02 which is baseline #GERD currently asymptomatic #LBBB Chronic, stable #Carotid Artery Stenosis No acute stroke-like signs or symptoms Continue atorvastatin Continue ASA #CLL Untreated Normal WBC 30-60 D-dimer elevated, CTA negative for PE, angela's negative on exam Admission and Anticipated Discharge Date Admission Date: March 23, 2023 Supervising Physician Co-Signing Physician Notes I also saw the patient and confirmed bridges portions of the clinical history and physical examination. Upon our exam midmorning, the patient complained of a mild headache; denied chest pain, shortness of breath. She reports a longstanding history of hypertension however, to the best of her recollection, blood pressure normally in the [id number] when at her PCP. She does note increasing fatigue over the last 3 months. Exam 161/74, 61, 18, 36.8, 96% on room air Alert and oriented. Heart regular Soft systolic murmur heard best at the left upper sternal border Respirations are nonlabored; lungs clear No pedal edema appreciated Impression and plan I agree with the impression and plan as noted in the resident documentation above. Hypertensive urgency Continue home losartan or pharmacy equivalent Amlodipine increased to 10 mg Check echocardiogram Could consider beta-isamar or diuretic if additional blood pressure control needed Additional per resident documentation Subjective 87 yo female PMHx hyponatremia, CLL, HTN, GERD, HLD, hypothyroid, depression admitted for hypertensive urgency. Overnight continued to be hypertensive to 170-190/70-90. Received Lopressor in ED and one dose of amlodipine 5mg last night. Otherwise she is on losartan 100mg qD (converted from her olmesartan she takes at home). This AM: resting comfortably in NAD. Has mild headache and nausea which is normal for her at baseline after colon surgery. Denies vision changes, CP, SOB, N/V/D, LE swelling. Review of Systems Review of Systems: reviewed, per HPI Physical Exam Physical Exam: General: patient resting comfortably, NAD, non-toxic in appearance, AA&O x 4, answers questions appropriately and follows commands. Skin: warm, dry, intact HEENT: NC/AT, anicteric sclera, conjunctiva without injection, moist mucus membranes, trachea midline, no thyromegaly, no JVD Heart: +S1/S2, regular, systolic murmur Lungs: equal air entry bilaterally, no rales/rhonchi/wheezes Abd: +BS, soft, NT/ND, no masses/organomegaly/ascites Ext: warm, no clubbing/cyanosis or edema Neuro: nonfocal, patient AA&O x 4, speech intact, no facial droop, moving all extremities on command. Results & Data Results & Data Vital Signs (Past 12 Hours) Vital Signs Temp Pulse Pulse Resp BP BP Pulse Ox 03/24/23 07:30 36.9 C 64 18 190/78 H 97 03/24/23 04:22 36.6 C 80 16 185/73 H 95 03/24/23 04:18 61 03/24/23 00:54 36.6 C 03/23/23 23:56 72 18 170/97 H 96 03/23/23 23:00 60 16 157/85 H 96 03/23/23 22:00 57 L 18 152/57 H 99 03/23/23 21:30 58 L 12 159/58 H 96 03/23/23 21:00 57 L 12 203/84 H 98 03/23/23 21:29 58 L 03/23/23 20:55 58 L 14 149/114 H 100 O2 Del Method 03/24/23 07:30 Room Air 03/24/23 04:22 Room Air 03/24/23 04:18 03/24/23 00:54 03/23/23 23:56 Room Air 03/23/23 23:00 03/23/23 22:00 03/23/23 21:30 03/23/23 21:00 03/23/23 21:29 03/23/23 20:55 Laboratory Results 03/24/23 03/23/23 03/23/23 Range/Units 01:30 15:35 12:50 WBC (4.8-10.8) K/ul RBC (4.20-5.40) M/uL Hgb (12.0-16.0) g/dl Hct (37.0-47.0) % MCV (80.0-100.0) fL MCH (25.0-34.0) pg MCHC (32.0-36.0) g/dL RDW Std Deviation (36.4-46.3) fL RDW Coeff of Kaley (11.5-14.5) % Plt Count (130-400) K/uL MPV (9.4-12.4) fL Immature Gran % (Auto) % Neut % (Auto) % Lymph % (Auto) % Harlan % (Auto) % Eos % (Auto) % Baso % (Auto) % Neut # (Auto) (1.40-6.50) K/uL Lymph # (Auto) (1.20-3.40) K/uL Harlan # (Auto) (0.11-0.59) K/uL Eos # (Auto) (0.00-0.50) K/uL Baso # (Auto) (0.00-0.20) K/uL Immature Gran # (Auto) (0.01-0.20) K/uL Smudge Cells D-Dimer 1150 H* (0-500) ug/L FEU Sodium (136-145) mmol/L Potassium (3.5-5.1) mmol/L Chloride (98-107) mmol/L Carbon Dioxide (21-32) mmol/L Anion Gap (3-11) BUN (6-23) mg/dl Creatinine (0.6-1.2) mg/dl Est Cr Clr Drug Dosing ml/min Est GFR ( Amer) ml/min Est GFR (Non-Af Amer) ml/min BUN/Creatinine Ratio (10-20) Glucose (70-99(Fasting)) mg/dl Calcium (8.6-10.3) mg/dl Total Bilirubin (0.2-1.0) mg/dl AST (13-39) U/L ALT (7-52) U/L Alkaline Phosphatase (34-104) U/L Troponin I High Sens 13.1 10.8 D (0-14) pg/ml Total Protein (6.0-8.3) gm/dl Albumin (3.4-5.0) gm/dl Globulin (2.5-4.0) gm/dl Albumin/Globulin Ratio (0.9-2) Lipase (11-82) U/L 03/23/23 03/23/23 Range/Units 12:50 12:50 WBC 54.25 H* (4.8-10.8) K/ul RBC 3.95 L (4.20-5.40) M/uL Hgb 12.8 (12.0-16.0) g/dl Hct 38.4 (37.0-47.0) % MCV 97.2 (80.0-100.0) fL MCH 32.4 (25.0-34.0) pg MCHC 33.3 (32.0-36.0) g/dL RDW Std Deviation 47.2 H (36.4-46.3) fL RDW Coeff of Kaley 13.2 (11.5-14.5) % Plt Count 222 (130-400) K/uL MPV 9.2 L (9.4-12.4) fL Immature Gran % (Auto) 0.1 % Neut % (Auto) 6.8 % Lymph % (Auto) 91.8 % Harlan % (Auto) 0.8 % Eos % (Auto) 0.1 % Baso % (Auto) 0.4 % Neut # (Auto) 3.69 (1.40-6.50) K/uL Lymph # (Auto) 49.78 H (1.20-3.40) K/uL Harlan # (Auto) 0.43 (0.11-0.59) K/uL Eos # (Auto) 0.05 (0.00-0.50) K/uL Baso # (Auto) 0.22 H (0.00-0.20) K/uL Immature Gran # (Auto) 0.08 (0.01-0.20) K/uL Smudge Cells Present D-Dimer (0-500) ug/L FEU Sodium 132 L (136-145) mmol/L Potassium 5.0 (3.5-5.1) mmol/L Chloride 98 (98-107) mmol/L Carbon Dioxide 27 (21-32) mmol/L Anion Gap 7 (3-11) BUN 18 (6-23) mg/dl Creatinine 1.02 (0.6-1.2) mg/dl Est Cr Clr Drug Dosing 31.3 ml/min Est GFR ( Amer) 57.7 ml/min Est GFR (Non-Af Amer) 49.8 ml/min BUN/Creatinine Ratio 17.6 (10-20) Glucose 103 H (70-99(Fasting)) mg/dl Calcium 9.8 (8.6-10.3) mg/dl Total Bilirubin 0.7 (0.2-1.0) mg/dl AST 26 (13-39) U/L ALT 16 (7-52) U/L Alkaline Phosphatase 51 (34-104) U/L Troponin I High Sens 4.8 (0-14) pg/ml Total Protein 7.0 (6.0-8.3) gm/dl Albumin 4.8 (3.4-5.0) gm/dl Globulin 2.2 L (2.5-4.0) gm/dl Albumin/Globulin Ratio 2.2 H (0.9-2) Lipase 25 (11-82) U/L Resident Activity Tracking Resident Involvement: Resident Care Provided Care Provided: Adult Hospital Medicine
[2023-03-24] MEDS: LOSARTAN POTASSIUM 50 MG TAB PO SCH (07:52)
[2023-03-24] MEDS: ATORVASTATIN 20 MG TAB PO SCH (07:53)
[2023-03-24] MEDS: ASPIRIN 81 MG ECTAB PO SCH (07:53)
[2023-03-24] MEDS: ESCITALOPRAM OXALATE 10 MG TAB PO SCH (07:54)
[2023-03-24] MEDS: HEPARIN SOD 5,000 UNIT/0.5 ML VIAL SQ SCH ×2 (08:47→21:30)
[2023-03-24] MEDS: amLODIPine BESYLATE 5 MG TAB PO SCH (08:47)
[2023-03-24] MEDS ORDERED: amLODIPine BESYLATE 5 MG TAB PO SCH (09:00)
[2023-03-24] MEDS: ACETAMINOPHEN 325 MG TAB PO PRN ×2 (11:20→17:26)
--- NOTE | 2023-03-24 17:21 | XCELERA ---
[id number]
[2023-03-24] MEDS: LEVOTHYROXINE SODIUM 50 MCG TABLET PO SCH (21:31)
--- NOTE | 2023-03-25 07:37 | Hospitalist Progress Note ---
Date of Service March 25, 2023 Assessment & Plan (1) Hypertensive urgency: (2) Chronic kidney disease (CKD), stage III (moderate): (3) GERD (gastroesophageal reflux disease): (4) LBBB (left bundle branch block): (5) Carotid artery stenosis: (6) CLL (chronic lymphocytic leukemia): Plan #Hypertensive Urgency Continue Losartan 100mg qD Add amlodipine 10mg qD CP non exertional, likely MSK 2/2 heavy lifting Monitor pressures, consider adding Toprol 12.5mg Potassium high limit of normal, ? allergy to HCTZ #CKD III Creatinine 1.02 which is baseline #GERD currently asymptomatic #LBBB Chronic, stable #Carotid Artery Stenosis No acute stroke-like signs or symptoms Continue atorvastatin Continue ASA #CLL Untreated Normal WBC 30-60 D-dimer elevated, CTA negative for PE, angela's negative on exam Admission and Anticipated Discharge Date Admission Date: March 23, 2023 Subjective 87 yo female PMHx hyponatremia, CLL, HTN, GERD, HLD, hypothyroid, depression admitted for hypertensive urgency. Overnight BPs improved. This AM: resting comfortably in NAD. Has mild headache and nausea which is normal for her at baseline after colon surgery. Denies vision changes, CP, SOB, N/V/D, LE swelling. Review of Systems Review of Systems: reviewed, per HPI Physical Exam 2 Physical Exam: General: patient resting comfortably, NAD, non-toxic in appearance, AA&O x 4, answers questions appropriately and follows commands. Skin: warm, dry, intact HEENT: NC/AT, anicteric sclera, conjunctiva without injection, moist mucus membranes, trachea midline, no thyromegaly, no JVD Heart: +S1/S2, regular, systolic murmur Lungs: equal air entry bilaterally, no rales/rhonchi/wheezes Abd: +BS, soft, NT/ND, no masses/organomegaly/ascites Ext: warm, no clubbing/cyanosis or edema Neuro: nonfocal, patient AA&O x 4, speech intact, no facial droop, moving all extremities on command. Results & Data Results & Data Vital Signs (Past 12 Hours) Vital Signs Temp Pulse Pulse Resp BP Pulse Ox O2 Del Method 03/25/23 07:18 57 L 03/25/23 04:40 36.8 C 66 18 153/68 H 95 Room Air 03/24/23 22:00 66 10/03/23 00:00 36.8 C 75 18 134/71 98 Room Air 03/24/23 20:09 36.6 C 66 18 160/64 H 96 Room Air Laboratory Results 03/24/23 Range/Units 07:47 Troponin I High Sens 8.7 D (0-14) pg/ml
[2023-03-25] MEDS: LOSARTAN POTASSIUM 50 MG TAB PO SCH (08:21)
[2023-03-25] MEDS: ESCITALOPRAM OXALATE 10 MG TAB PO SCH (08:21)
[2023-03-25] MEDS: ASPIRIN 81 MG ECTAB PO SCH (08:21)
[2023-03-25] MEDS: amLODIPine BESYLATE 5 MG TAB PO SCH (08:21)
[2023-03-25] MEDS: HEPARIN SOD 5,000 UNIT/0.5 ML VIAL SQ SCH (08:22)
[2023-03-25 08:30] LABS: BUN Creatinine Ratio 17.5 (10-20); Calcium 9.3 mg/dl (8.6-10.3); Est GFR (Non-African American) 49.2 ml/min; Magnesium 1.9 mg/dl (1.7-2.4); Potassium 4.7 mmol/L (3.5-5.1)
[2023-03-25] MEDS: ATORVASTATIN 20 MG TAB PO SCH (10:02)
--- NOTE | 2023-03-25 13:09 | Discharge Summary ---
Date of Service March 25, 2023 Admission HPI Per Admitting Provider Jennie is a 87-year-old female with a past medical history of hyponatremia, CLL, hypertension on olmesartan, GERD, hyperlipidemia, hypothyroidism, depression who presents to the emergency after she developed midsternal chest pain with some left arm radiation but which was worse on palpation and with movement and not associated with shortness of breath or diaphoresis. She is hypertensive in the ER. Initial high sensitive troponin was negative, however delta was greater than 4 and was initially held for additional evaluation. While under evaluation patient was persistently hypertensive to greater than 220 despite IV labetalol treatment and was recommended for admission and treatment of hypertensive urgency for chest pain with severe hypertension. D-dimer was elevated, CTA did not show any evidence of pulmonary emboli or other acute findings She reports she was lifting groceries and then had some pain in her L shoulder/armpit. Pain does not seen exertional. Does hurt when she moves her shoulder, no pain at rest. Hurts a little to palpation. No shortness of breath or diaphoresis. Denies hx of heart of lung problems Remote history of blood clots, does not know details. NO anticoagulations in october years, no recurrent Follows w Dr Beal in [facility] for CLL. Stable per pt. She reports she has had intermittently high blood pressure in the past, is not sure what causes this. She notes she has some chronic kidney disease which has been stable. She has been peeing normally. Has been eating and drinking normally. No salt load recently. No kidney or flank pain. Other than her shoulder when moving has no pain. Prior allergy to hydrochlorothiazide, does not know what this was. She has never been on amlodipine Denies lightheadedness, dizziness, syncope, presyncope. Denies orthostasis Medical History: Reviewed Medications: Reviewed Surgical History: Reviewed Family history: Reviewed Allergies: Reviewed Social History: Reviewed Code Status: DNR/DNI Admission Exam Per Admitting Provider Physical Exam: General: A&Ox3. NAD. Cooperative. Pleasant, answers questions appropriately HEENT: Atraumatic, normocephalic. Vision and hearing grossly intact. No facial asymmetry Pulm: CTAB A&P. -wheezes, -rales, -rhonchi. Symmetrical chest rise. No increased work of breathing. No respiratory distress. Cardiac: RRR, +sm. Radial pulses intact and symmetrical. Abdominal: Nontender, nondistended, soft. BS present. Extremities: Warm, dry no edema. Moves all extremities equally. Sensation soft touch intact in hands and feet without asymmetry Principal Diagnosis Hypertensive urgency Discharge Exam General: patient resting comfortably, NAD, non-toxic in appearance, AA&O x 4, answers questions appropriately and follows commands. Skin: warm, dry, intact HEENT: NC/AT, anicteric sclera, conjunctiva without injection, moist mucus membranes, trachea midline, no thyromegaly, no JVD Heart: +S1/S2, regular, systolic murmur Lungs: equal air entry bilaterally, no rales/rhonchi/wheezes Abd: +BS, soft, NT/ND, no masses/organomegaly/ascites Ext: warm, no clubbing/cyanosis or edema Neuro: nonfocal, patient AA&O x 4, speech intact, no facial droop, moving all extremities on command. Discharge Data Allergies Allergy/AdvReac Type Severity Reaction Status Date / Time hydrochlorothiazide Allergy Unknown ON [facility] Verified 09/18/22 10:18 LIST celecoxib AdvReac Intermediate loss of Verified 09/18/22 10:18 appetite and fatigue Sulfa (Sulfonamide AdvReac Mild fatigue, Verified 09/18/22 10:18 Antibiotics) n/v Consultations 03/23/23 17:01 ED Decision to Admit Stat Ordered Studies 03/23/23 14:43 CT for pulmonary embolism PE [CT angio chest PE protocol] Stat Hospital Course (1) Hypertensive urgency: (2) Chronic kidney disease (CKD), stage III (moderate): (3) GERD (gastroesophageal reflux disease): (4) LBBB (left bundle branch block): (5) Carotid artery stenosis: (6) CLL (chronic lymphocytic leukemia): Jeremiah Schneider was admitted to [facility] with complaint of L chest/shoulder/arm pain. Cardiac workup was initiated and was negative except for elevated BP. She was intially treated with lopressor with little improvement in her BP. Was trialed on 5 mg of amlodipine with good response but not at goal. Amlodipine increased to 10 mg on hospital day 1 with better response. Systolic BPs remained less than 160 on this dose. She would likely benefit from a diuretic but with her history of questionable allergy and borderline potassium this was not initiated. She was dischared on amlodipine 10mg and her usual dose of olmesartan. #Hypertensive Urgency Continue Losartan 100mg qD Add amlodipine 10mg qD CP non exertional, likely MSK 2/2 heavy lifting Monitor pressures, consider adding Toprol 12.5mg Potassium high limit of normal, ? allergy to HCTZ #CKD III Creatinine 1.02 which is baseline #GERD currently asymptomatic #LBBB Chronic, stable #Carotid Artery Stenosis No acute stroke-like signs or symptoms Continue atorvastatin Continue ASA #CLL Untreated Normal WBC 30-60 D-dimer elevated, CTA negative for PE, angela's negative on exam Total Time Total Time Spent Total Time Spent (In Minutes): 20 minutes Discharge Plan Discharge Items Patient Disposition: Home - Self-Care Reason For Visit: HYPERTENSION, CP Discharge Diagnosis: Hypertension Activity: Resume your previous activity Non-emergency contact: Primary Care Provider Call non-emergency contact if: you have any medication questions Follow-up/Referrals: Jaenl Singleton PA-C [Primary Care Provider] - 04/01/23 12:00 pm Diet: Regular Addtl Attending Provider Instructions: You were admitted to the hospital for L chest/shoulder/arm pain and found to have very high blood pressure. You were treated with medications including amlodipine. A discharge summary will be sent to your primary care physician to ensure continuity of care. Please bring this discharge summary with you to your next office appointment so that your provider can review it at that time. Medications: Your medication list has been reviewed and reconciled upon discharge to ensure accuracy and continuity of care. An updated list of all your medications is included with your hospital discharge paperwork. Please review this list closely and make note of any changes to your medications. Continue all medications you were taking before you were admitted to the hospital. You should begin taking amlodipine 10mg once per day. Follow up appointments: - Make a follow up appointment with your PCP within the next week. It is very important that you follow up with them shortly after discharge from the hospital. - Keep all of your follow up appointments as already scheduled. If you cannot make an appointment, notify your provider. CONTACT YOUR PRIMARY CARE PROVIDER if you experience any of the following: - Difficulty following your treatment plan - Difficulty taking any of your med ications CALL 911 OR GO TO THE EMERGENCY DEPARTMENT if you experience any of the following: Severe chest pain or chest pain that radiates to your jaw or arm - Sudden, severe shortness of breath or difficulty breathing Pending Studies at Discharge: No Stand-Alone Forms: My [facility] Medications and DC Order Prescriptions: New amlodipine 10 mg tablet 10 mg PO QAM Qty: 30 0RF Continued tramadol 50 mg tablet 50 mg PO Q8H PRN (Reason: pain) Qty: 60 0RF cetirizine [Zyrtec] 10 mg tablet 5 mg PO DAILY PRN (Reason: Allergy Symptoms) ondansetron HCl 4 mg tablet 4 mg PO Q8H PRN (Reason: nausea and vomiting) Qty: 30 1RF aspirin [Adult Aspirin Regimen] 81 mg tablet,delayed release (DR/EC) 81 mg PO QAM acetaminophen [Tylenol Arthritis Pain] 650 mg Tablet Extended Release 650 mg PO Q12H PRN (Reason: arthritis pain) atorvastatin 20 mg tablet 20 mg PO QAM levothyroxine 50 mcg tablet 50 mcg PO HS olmesartan 40 mg tablet 40 mg PO QAM escitalopram oxalate 10 mg tablet 10 mg PO QAM Discharge Orders: Discharge Order (Routine); Ordered 03/25/23 Ordered By: Ascencion Moe Admission Data Admit Date/Time: 03/23/23 17:30 Attending Provider: Yuri Murdock Admit Provider: Bebeto Santiago Primary Care Provider: Janel Singleton Other Providers: Bebeto Santiago Other Interventions: Discharge Summary Assessment (RN) Last Done: 03/25/23 10:48 Supervising Physician Co-Signing Physician Notes I also saw the patient and confirmed bridges portions of the clinical history and physical examination. Patient without complaint this morning. She is looking forward to returning home. Blood pressures are improved. \ Exam 151/61, 70, 16, 36.8, 95% room air Alert and oriented. Heart regular Soft systolic murmur heard best at the left upper sternal border Respirations are nonlabored; lungs clear No pedal edema appreciated Impression and plan I agree with the impression and plan as noted in the resident documentation above. Hypertensive urgency Continue home losartan or pharmacy equivalent Continue amlodipine 10 mg Follow-up with PCP 1-2 weeks Could consider beta-isamar or diuretic if additional blood pressure control needed Additional per resident documentation Resident Activity Tracking Resident Involvement: Resident Care Provided Care Provided: Adult Hospital Medicine
== END 2023-03-25 11:29 | disposition home or self-care (01) ==
LOC: EDINP 12:36 → ED 12:36 → SUATTDRO 17:30 → 2E 20:45 → 2N 03-24 17:15

== ENCOUNTER 2025-02-12 12:50 | Observation (INO) ==
--- NOTE | 2025-02-12 13:56 | CT Scan Report ---
CT SCAN OF THE BRAIN WITHOUT IV CONTRAST CLINICAL HISTORY: Fall. Head injury. COMPARISON STUDY: CT of the brain dated 01/11/2019 TECHNIQUE: Unenhanced axial CT scan of the brain is performed from the vertex to the skull base. Imag es are reviewed in the axial, sagittal, coronal planes. A dose lowering technique was utilized adheri ng to the principles of ALARA. CT DOSE: 547.75 mGy.cm FINDINGS: Brain parenchyma: There is age-related involutional change noting [id number] subcortical and pe riventricular microangiopathic disease. There is no hemorrhage, mass effect, or evidence of acute ter ritorial ischemia by CT criteria. A small chronic lacunar infarct is seen in the left basal ganglia. Pa-white matter differentiation is preserved. No extra-axial fluid collection is seen. Ventricles, sulci, cisterns: Prominent secondary to involutional change. Intracranial vasculature: There is atherosclerotic calcification of the cavernous carotid and vertebr al arteries. Calvarium: The skeletal structures are osteopenic. No depressed calvarial fracture is seen. Sinuses and mastoids: The visualized paranasal sinuses are clear. There is trace right mastoid effusi on. The left mastoid air cells are well pneumatized. Orbits: The bony orbits are grossly intact. There are bilateral ocular lens implants. IMPRESSION: There is no hemorrhage, mass effect, or evidence of acute territorial ischemia by CT donna milan. ACT 112: Negative or not required by law. Electronically signed by: Seymour Gasca M.D. 02/12/2025 1:54 PM
[2025-02-12 14:50] LABS: Hematocrit (blood only) 38.0 % (37.0-47.0); Hemoglobin 12.3 g/dl (12.0-16.0); Mean Corpuscular Hemoglobin 32.4 pg (25.0-34.0); Mean Corpuscular Volume 100.0 fL (80.0-100.0); Platelet Count 219 K/uL (130-400); RDW Standard Deviation 52.8 fL (36.4-46.3); Red Blood Count 3.80 M/uL (4.20-5.40); White Blood Count 57.62 K/ul (4.8-10.8)
--- NOTE | 2025-02-12 15:05 | Emergency Department Note ---
Impression & Plan Syncope, Acute hyperkalemia ED Provider Note NAME: GIGI FARRELL AGE: 89 SEX: F : 1935 ARRIVES VIA: Walk-In INFORMANT: Patient, ED PROVIDER(S): Rudy Mathews MD CHIEF COMPLAINT: Fell, syncope, twitching HPI: This is a an 89-year-old female presents for fall, syncope and twitching. Patient notes that yesterday she was getting up to get food when she passed out. She reported did not hit her head as per her sister, who was not here. Son tells me the story. Otherwise patient is not complain of any chest pain, shortness of breath, fever, chills, nausea, vomiting. She reports no weakness in any 1 side. No numbness, tingling, slurred speech or confusion. She states she feels just weak overall. She notes some slight twitching in her muscles in all extremities but otherwise at her baseline. ROS: See above HPI for pertinent positives & negatives. A total of 10 systems reviewed and were otherwise negative. PAST MEDICAL HISTORY: See Below PAST SURGICAL HISTORY: See Below FAMILY HISTORY: See Below SOCIAL HISTORY: See Below HOME MEDICATIONS: See Below ALLERGIES: See Below VITALS: See Below PHYSICAL EXAMINATION: General: resting comfortably in no acute distress Head: Normocephalic and atraumatic Eyes: Normal inspection, extraocular muscles intact Ear, nose, throat: Normal external exam Neck: Normal range of motion Respiratory: lungs clear to auscultation bilaterally Cardiovascular: Regular rate/rhythm, holosystolic murmur GI: soft, nontender, no guarding or rebound Extremities: nontender, moves all extremities Neuro: The patient awake and alert, appropriately conversive, no focal deficits, symmetric faces, NIH 0, no motor drift Skin: Warm, dry, and intact MEDICAL DECISION MAKING: This is a an 89-year-old female seen for fall, syncope and twitching. Patient states she feels weak overall. Will do screening blood work, troponin, EKG -Blood shows chronically elevated WBC count, consistent with her CLL. Otherwise electrolytes show slight dehydration including hyponatremia and minimal hyperkalemia. -Troponin negative. -CT head currently negative -Chest Xray independently interpreted by me showing no pneumothorax, focal opacity, or pleural effusions. -Patient does have a cardiac murmur, unclear if new or old. She also had a syncope with no significant prodrome. Due to this, concern for cardiogenic syncope, will admit for further rule out and echocardiogram. Differential diagnosis: Cardiogenic syncope, dehydration, hyperkalemia, ACS Independent History obtained from: Son Diagnostics interpreted by me: ECG: ECG independently interpreted by me with normal sinus rhythm, rate of 65, normal axis, normal TN, normal QRS, normal QTc, no ST segment elevations consistent with STEMI criteria Cardiac Monitoring: An order was placed for continuous cardiac monitoring. The monitor shows a rate of with rhythm. Past Med/Surg History Problem List (Updated 02/12/25 @ 16:14 by Rudy Mathews MD) Acute hyperkalemia (Acute) Syncope (Acute) Hematuria Chronic hyponatremia Chronic sinusitis, unspecified (Chronic) Glaucoma (Chronic) Arteriosclerosis of carotid artery (Chronic) Chronic constipation (Chronic) Chronic kidney disease (CKD), stage III (moderate) (Chronic) Chronic pain (Chronic) Depression (Chronic) Hypothyroidism (Chronic) Insomnia (Chronic) Lumbar radiculopathy (Chronic) Macrocytosis (Chronic) Osteopenia (Chronic) Raynauds phenomenon (Chronic) GERD (gastroesophageal reflux disease) (Chronic) Hyperlipidemia (Chronic) Hypertension (Chronic) LBBB (left bundle branch block) (Chronic) Osteoarthritis (Chronic) Degenerative arthritis of right knee (Chronic) CLL (chronic lymphocytic leukemia) (Chronic) Anemia (Chronic) IBS (irritable bowel syndrome) (Chronic) Medical History (Updated 02/12/25 @ 16:14 by Rudy Mathwes MD) IBS (irritable bowel syndrome) History of anemia Osteoarthritis Carotid artery stenosis Left bundle branch block (LBBB) HTN (hypertension) Hyperlipidemia GERD (gastroesophageal reflux disease) Raynauds disease Osteopenia Left carotid bruit History of diverticulosis Hypothyroidism Depression Chronic pain CKD (chronic kidney disease), stage III Chronic constipation Arteriosclerosis of carotid artery Glaucoma Chronic sinusitis History of COVID-19 (2021) no hosp; resolved Chronic hyponatremia Nephrolithiasis current CLL (chronic lymphocytic leukemia) Hypertensive urgency hx Allergic rhinitis Carpal tunnel syndrome of left wrist Vasovagal syncope hx Hiatal hernia s/p robotic repair Migraine HX OF TIA (transient ischemic attack) denies H/O deep venous thrombosis "OVER 45 YEARS AGO" Lower gastrointestinal bleed (07/18/14) HX Surgical History Status post LASIK surgery of both eyes History of carpal tunnel release History of esophagogastroduodenoscopy (EGD) History of herniorrhaphy Lap HIATAL HERNIA REPAIR 02/2018. Dr Parada. History of tooth extraction H/O colonoscopy Thumb joint stiffness R JOINT REPLACEMENT H/O arthroscopy of shoulder L History of total knee replacement R History of arthroscopy R S/P [id number] History of cataract surgery R/L History of tonsillectomy Family History Sister Migraine headache Son Family history of diabetes mellitus Denies family history of Ovarian cancer Prostate cancer Myocardial infarction Breast cancer Lung cancer Colorectal cancer Social History Smoking Status: Never smoker Second Hand Exposure: No; Do You Dip or Chew Tobacco: No; Hx Alcohol Use: No Hx Substance Use: No Preferred Language: Russian Communication Ability: Effective Visual Impairment: Limited Hearing Ability: Use of Hearing Aid Auto Radiator Specialist Required: No Beliefs That Will Affect Care: None marital status: / Current Living Situation: Alone Current Living Situation Comment: home with son current occupational status: retired How many Children do You have: 0 Other Information That Helps Us Care for You: No Feels Safe at Home: Yes Safety Concerns: Feels Safe At This Time Childhood Exposure to Second-Hand Smoke: No caffeine: Yes Dental Care, Regularly: No Physical Activity Frequency: 3-4 Times per Week Seatbelt Use: always Sunscreen Use: No Assistive Devices: None Allergies Allergies Allergy/AdvReac Type Severity Reaction Status Date / Time hydrochlorothiazide Allergy Unknown ON MNPG Verified 02/12/25 15:19 LIST celecoxib AdvReac Intermediate loss of Verified 02/12/25 15:19 appetite and fatigue Sulfa (Sulfonamide AdvReac Mild fatigue, Verified 02/12/25 15:19 Antibiotics) n/v Home Meds Home Medications Medication Instructions Recorded Confirmed cetirizine 10 mg tablet (Zyrtec) 5 mg PO DAILY PRN Allergy Symptoms 07/29/19 02/12/25 acetaminophen 650 mg 650 mg PO Q12H arthritis pain 07/22/21 02/12/25 tablet,extended release (Tylenol Arthritis Pain) aspirin 81 mg tablet,delayed 81 mg PO QAM 07/22/21 02/12/25 release (Adult Aspirin Regimen) estradiol 0.01% (0.1 mg/gram) 2 g vaginal 2XWK PRN Unknown 02/12/25 02/12/25 vaginal cream gabapentin 100 mg capsule 100 mg PO HS 02/12/25 02/12/25 quetiapine 25 mg tablet 25 mg PO HS 02/12/25 02/12/25 tramadol 50 mg tablet 25 - 50 mg PO Q8H PRN pain 02/12/25 02/12/25 Previous Rx's Medication Instructions Recorded ondansetron HCl 4 mg tablet 4 mg PO Q8H PRN nausea and 02/06/24 vomiting #30 tabs famotidine 20 mg tablet 20 mg PO BID PRN heartburn #180 03/16/24 tabs amlodipine 10 mg tablet 10 mg PO DAILY #14 tabs 05/18/24 albuterol sulfate 90 mcg/actuation 1 inh inhalation QID PRN shortness 06/18/24 aerosol inhaler of breath or wheezing #6.7 grams pantoprazole 40 mg tablet,delayed 40 mg PO DAILY #90 tabs 08/11/24 release azelastine 137 mcg (0.1 %) nasal 1 spray intranasal BID #30 mL 10/05/24 spray atorvastatin 20 mg tablet 20 mg PO QAM #90 tabs 12/23/24 olmesartan 40 mg tablet 40 mg PO QAM #90 tabs 12/23/24 budesonide 1 mg/2 mL suspension 1 mg (2 mL) inhalation DAILY #60 mL 12/27/24 for nebulization levothyroxine 50 mcg tablet 50 mcg PO HS #90 tabs 12/30/24 escitalopram oxalate 10 mg tablet 10 mg PO DAILY #90 tabs 02/01/25 (Lexapro) Results & Data (ED) Vital Signs Vital Signs - 24 hr 02/12/25 12:52 02/12/25 13:30 02/12/25 13:41 Temperature 36.6 C Temperature Source Temporal Artery Scan Pulse Rate 81 68 Pulse Rate [Apical] 66 Respiratory Rate 20 20 Respiratory Effort / Characteristics Non-Labored Respiratory Depth Normal Blood Pressure 184/65 H Blood Pressure [Right Arm] 158/60 H Blood Pressure Mean 104 Blood Pressure Mean [Right Arm] 92 Blood Pressure Position [Right Arm] Sitting Pulse Oximetry 100 97 Oxygen Delivery Method Room Air Room Air Sepsis Recent Fever Within 48 Hours No Sepsis New/Unexplained Change in Mental Status No Sepsis Action Taken by Nursing No Action Required 02/12/25 13:41 02/12/25 15:00 Temperature Temperature Source Pulse Rate Pulse Rate [Apical] 66 Respiratory Rate 20 Respiratory Effort / Characteristics Non-Labored Spontaneous Respiratory Depth Normal Blood Pressure Blood Pressure [Right Arm] 164/65 H Blood Pressure Mean Blood Pressure Mean [Right Arm] 98 Blood Pressure Position [Right Arm] Pulse Oximetry 97 100 Oxygen Delivery Method Room Air Room Air Sepsis Recent Fever Within 48 Hours Sepsis New/Unexplained Change in Mental Status Sepsis Action Taken by Nursing Laboratory Data 02/13/25 01:31 02/13/25 01:31 Lab Results 02/12/25 02/12/25 Range/Units 14:36 14:38 WBC 57.62 H* (4.8-10.8) K/ul RBC 3.80 L (4.20-5.40) M/uL Hgb 12.3 (12.0-16.0) g/dl POC Hgb 13.6 (12.0-16.0) g/dl Hct 38.0 (37.0-47.0) % POC Hct 40 (37-47) % MCV 100.0 (80.0-100.0) fL MCH 32.4 (25.0-34.0) pg MCHC 32.4 (32.0-36.0) g/dL RDW Std Deviation 52.8 H (36.4-46.3) fL RDW Coeff of Kaley 14.3 (11.5-14.5) % Plt Count 219 (130-400) K/uL MPV 9.3 L (9.4-12.4) fL PT 10.3 (9.0-12.0) Seconds INR 0.9 (0.9-1.1) APTT 26 (21-31) Seconds PTT Ratio 1.0 POC Sodium 136 (135-144) mmol/L Sodium 134 L (136-145) mmol/L POC Potassium 5.0 (3.3-5.0) mmol/L Potassium 5.3 H (3.5-5.1) mmol/L POC Chloride 99 L (101-112) mmol/L Chloride 100 (98-107) mmol/L Carbon Dioxide 28 (21-32) mmol/L POC Total CO2 25 (24-31) mmol/L Anion Gap 6 (3-11) POC Anion Gap 18.0 (16-25) mmol/L POC BUN 35 H (7-18) mg/dl BUN 37 H (6-23) mg/dl Creatinine 1.17 (0.6-1.2) mg/dl POC Creatinine 1.2 (0.6-1.3) mg/dl Est Cr Clr Drug Dosing 25.1 ml/min eGFR 44.88 BUN/Creatinine Ratio 31.6 H (10-20) Glucose 89 (70-99(Fasting)) mg/dl POC Glucose (other) 87 (70-99) mg/dl Calcium 9.8 (8.6-10.3) mg/dl POC Ioniz Calcium Martinez 1.21 (1.12-1.32) mmol/l Magnesium 2.5 H (1.7-2.4) mg/dl Total Bilirubin 0.6 (0.2-1.0) mg/dl AST 31 (13-39) U/L ALT 22 (7-52) U/L Alkaline Phosphatase 43 (34-104) U/L Troponin I High Sens 6.0 (0-14) pg/ml Total Protein 7.6 (6.0-8.3) gm/dl Albumin 4.5 (3.4-5.0) gm/dl Globulin 3.1 (2.5-4.0) gm/dl Albumin/Globulin Ratio 1.5 (0.9-2) SARS-CoV-2 (PCR) NEGATIVE (Negative) Influenza Type A (PCR) Negative (Neg) Influenza Type B (PCR) Negative (Neg) RSV (RT-PCR) Negative (Neg) Administered Medications Acetaminophen (Acetaminophen 325 Mg Tab) 650 mg PO Q12H TAMARA Stop: 03/14/25 18:14 Last Admin: 02/13/25 05:32 Dose: 650 mg Documented By: Admin: 02/12/25 18:10 Dose: Not Given Documented By: CA Azelastine HCl (Azelastine Hcl 0.1% Nasal 200 Sprays/27,400 Mcg Btl) 1 sprays NA BID TAMARA Stop: 03/14/25 20:59 Last Admin: 02/12/25 20:19 Dose: 1 sprays Documented By: JESSICA Gabapentin (Gabapentin 100 Mg Cap) 100 mg PO HS TAMARA Stop: 03/14/25 20:59 Last Admin: 02/12/25 20:19 Dose: 100 mg Documented By: JESSICA Heparin Sodium (Porcine) (Heparin Sod 5,000 Unit/0.5 Ml Vial) 5,000 units SQ Q12 TAMARA Stop: 03/14/25 20:59 Last Admin: 02/12/25 20:19 Dose: 5,000 units Documented By: JESSICA Levothyroxine Sodium (Levothyroxine Sodium 50 Mcg Tablet) 50 mcg PO DAILYBB TAMARA Stop: 03/15/25 06:29 Last Admin: 02/13/25 05:32 Dose: 50 mcg Documented By: JESSICA Quetiapine Fumarate (Quetiapine Fumarate 25 Mg Tablet) 25 mg PO HS TAMARA Stop: 03/14/25 20:59 Last Admin: 02/12/25 20:19 Dose: 25 mg Documented By: JESSICA Sodium Zirconium Cyclosilicate (Sodium Zirconium Cyclosilicate 10 Gm Packet) 10 gm PO TID@0600,1200,1900 TAMARA Stop: 02/13/25 12:01 Last Admin: 02/13/25 06:45 Dose: 10 gm Documented By: JESSICA Discontinued Medications Budesonide (Budesonide 0.5 Mg/2 Ml Vial (Pulmicort)) 1 mg INH DAILY TAMARA Stop: 03/15/25 08:59 Last Admin: 02/13/25 06:49 Dose: 1 mg Documented By: NICOLÁS Acetaminophen (Ofirmev) 1,000 mg in 100 mls @ 400 mls/hr IV NOW STA Stop: 02/12/25 16:39 Last Infusion: 02/12/25 17:34 Dose: Infused Documented By: Admin: 02/12/25 16:33 Dose: 400 mls/hr Documented By: CTK Sodium Zirconium Cyclosilicate (Sodium Zirconium Cyclosilicate 10 Gm Packet) 10 gm PO TID TAMARA Stop: 02/12/25 21:01 Last Admin: 02/12/25 22:03 Dose: 10 gm Documented By: KDL Imaging Data Radiologist's Impression: Head CT 02/12/25 13:22 CT SCAN OF THE BRAIN WITHOUT IV CONTRAST CLINICAL HISTORY: Fall. Head injury. COMPARISON STUDY: CT of the brain dated 01/11/2019 TECHNIQUE: Unenhanced axial CT scan of the brain is performed from the vertex to the skull base. Images are reviewed in the axial, sagittal, coronal planes. A dose lowering technique was utilized adhering to the principles of ALARA. CT DOSE: 547.75 mGy.cm FINDINGS: Brain parenchyma: There is age-related involutional change noting [id number] subcortical and periventricular microangiopathic disease. There is no hemorrhage, mass effect, or evidence of acute territorial ischemia by CT criteria. A small chronic lacunar infarct is seen in the left basal ganglia. Pa-white matter differentiation is preserved. No extra-axial fluid collection is seen. Ventricles, sulci, cisterns: Prominent secondary to involutional change. Intracranial vasculature: There is atherosclerotic calcification of the cavernous carotid and vertebral arteries. Calvarium: The skeletal structures are osteopenic. No depressed calvarial fracture is seen. Sinuses and mastoids: The visualized paranasal sinuses are clear. There is trace right mastoid effusion. The left mastoid air cells are well pneumatized. Orbits: The bony orbits are grossly intact. There are bilateral ocular lens implants. IMPRESSION: There is no hemorrhage, mass effect, or evidence of acute territorial ischemia by CT criteria. ACT 112: Negative or not required by law. Electronically signed by: Seymour Gasca M.D. 02/12/2025 1:54 PM Discharge Plan Visit Data Chief Complaint: TIA Symptoms Stated Complaint: TIA SYMPTOMS ED Provider: Rudy Mathews Discharge Problem: Syncope, Acute hyperkalemia Patient Disposition: Admitted As Inpatient Condition: Fair Discharge Instructions Interventions: ED Discharge Assessment Last Done: 02/12/25 17:23
[2025-02-12 15:09] LABS: Alanine Aminotransferase 22.0 U/L (7-52); Albumin Globulin Ratio 1.5 (0.9-2); Alkaline Phosphatase 43.0 U/L (34-104); Anion Gap 6.0 (3-11); Bilirubin,Total 0.6 mg/dl (0.2-1.0); Blood Urea Nitrogen 37.0 mg/dl (6-23); Calcium 9.8 mg/dl (8.6-10.3); Carbon Dioxide 28.0 mmol/L (21-32); Chloride 100.0 mmol/L (98-107); Creatinine Clr Calc Pharmacy 25.1 ml/min; Globulin 3.1 gm/dl (2.5-4.0); Glucose 89.0 mg/dl (70-99(Fasting)); Magnesium 2.5 mg/dl (1.7-2.4); Potassium 5.3 mmol/L (3.5-5.1); Sodium 134.0 mmol/L (136-145); Total Protein 7.6 gm/dl (6.0-8.3)
[2025-02-12 15:25] LABS: INR 0.9 (0.9-1.1); Partial Thromboplastin Time 26 Seconds (21-31); Prothrombin Time 10.3 Seconds (9.0-12.0)
[2025-02-12 15:32] LABS: Influenza A virus by PCR Negative (Neg); Influenza B virus by PCR Negative (Neg); SARS CoV2 RNA(COVID-19) Ceph NEGATIVE (Negative)
--- NOTE | 2025-02-12 16:26 | History & Physical Report ---
Date of Service February 12, 2025 Assessment & Plan (1) Acute hyperkalemia: (2) Syncope: Plan 89 female Atherosclerotic disease chronic hyponatremia CKD depression hypothyroidism insomnia lumbar radiculopathy GERD hypertension hyperlipidemia left bundle branch block OA CLL anemia Who presents with syncope. This occurred when standing up to get food with her immediately passing out. Syncope was witnessed no head trauma. No prodromal symptoms prior to episode no chest pain shortness of breath nausea lightheadedness headache vision change numbness tingling weakness abdominal pain or any other symptoms. No recent illness. Endorses generalized weakness and fatigue. No focal weakness. No tongue biting or incontinence or seizure activity witnessed. She Did endorse some muscle twitching in her extremities. Her son at bedside. At my time of evaluation she was asymptomatic. She told me she was leaving and was ready to go. Relayed to ED physician was about to discharge the patient. After I had an extensive conversation with patient and son Regarding risks of leaving, she ultimately decided to stay To at least be monitored overnight. She reminds me of her age and tells me she does not want to be in the hospital but will stay overnight just to be monitored. Syncope Telemetry Neurochecks EKG nonspecific changes. Trend troponins Orthostatics Echo TFTs Orthostatics Hyperkalemia Lokelma Monitor CKD Avoid nephrotoxic meds Hypothyroidism hypertension hyperlipidemia continue home medications DVT prophylaxis Full code Disposition admit for observation History of Present Illness Chief Complaint: syncope Primary Care Provider: Lucinda Wick, DO 89 female Atherosclerotic disease chronic hyponatremia CKD depression hypothyroidism insomnia lumbar radiculopathy GERD hypertension hyperlipidemia left bundle branch block OA CLL anemia Who presents with syncope. This occurred when standing up to get food with her immediately passing out. Syncope was witnessed no head trauma. No prodromal symptoms prior to episode no chest pain shortness of breath nausea lightheadedness headache vision change numbness ting ling weakness abdominal pain or any other symptoms. No recent illness. Endorses generalized weakness and fatigue. No focal weakness. No tongue biting or incontinence or seizure activity witnessed. She Did endorse some muscle twitching in her extremities. Her son at bedside. At my time of evaluation she was asymptomatic. She told me she was leaving and was ready to go. Relayed to ED physician was about to discharge the patient. After I had an extensive conversation with patient and son Regarding risks of leaving, she ultimately decided to stay To at least be monitored overnight. She reminds me of her age and tells me she does not want to be in the hospital but will stay overnight just to be monitored. Awaiting completion of med rec Allergies Allergy/AdvReac Type Severity Reaction Status Date / Time hydrochlorothiazide Allergy Unknown ON MNPG Verified 02/12/25 15:19 LIST celecoxib AdvReac Intermediate loss of Verified 02/12/25 15:19 appetite and fatigue Sulfa (Sulfonamide AdvReac Mild fatigue, Verified 02/12/25 15:19 Antibiotics) n/v Home Medications Medication Instructions Recorded Confirmed Type cetirizine 10 mg tablet (Zyrtec) 5 mg PO DAILY PRN Allergy Symptoms 07/29/19 02/12/25 History acetaminophen 650 mg 650 mg PO Q12H arthritis pain 07/22/21 02/12/25 History tablet,extended release (Tylenol Arthritis Pain) aspirin 81 mg tablet,delayed 81 mg PO QAM 07/22/21 02/12/25 History release (Adult Aspirin Regimen) ondansetron HCl 4 mg tablet 4 mg PO Q8H PRN nausea and 02/06/24 02/12/25 Rx vomiting #30 tabs famotidine 20 mg tablet 20 mg PO BID PRN heartburn #180 03/16/24 02/12/25 Rx tabs amlodipine 10 mg tablet 10 mg PO DAILY #14 tabs 05/18/24 02/12/25 Rx albuterol sulfate 90 mcg/actuation 1 inh inhalation QID PRN shortness 06/18/24 02/12/25 Rx aerosol inhaler of breath or wheezing #6.7 grams pantoprazole 40 mg tablet,delayed 40 mg PO DAILY #90 tabs 08/11/24 02/12/25 Rx release azelastine 137 mcg (0.1 %) nasal 1 spray intranasal BID #30 mL 10/05/24 02/12/25 Rx spray atorvastatin 20 mg tablet 20 mg PO QAM #90 tabs 12/23/24 02/12/25 Rx olmesartan 40 mg tablet 40 mg PO QAM #90 tabs 12/23/24 02/12/25 Rx budesonide 1 mg/2 mL suspension 1 mg (2 mL) inhalation DAILY #60 mL 12/27/24 02/12/25 Rx for nebulization levothyroxine 50 mcg tablet 50 mcg PO HS #90 tabs 12/30/24 02/12/25 Rx escitalopram oxalate 10 mg tablet 10 mg PO DAILY #90 tabs 02/01/25 02/12/25 Rx (Lexapro) estradiol 0.01% (0.1 mg/gram) 2 g vaginal 2XWK PRN Unknown 02/12/25 02/12/25 History vaginal cream gabapentin 100 mg capsule 100 mg PO HS 02/12/25 02/12/25 History quetiapine 25 mg tablet 25 mg PO HS 02/12/25 02/12/25 History tramadol 50 mg tablet 25 - 50 mg PO Q8H PRN pain 02/12/25 02/12/25 History Past Med/Surg History Problem List (Updated 02/12/25 @ 16:14 by Rudy Mathews MD) Acute hyperkalemia (Acute) Syncope (Acute) Hematuria Chronic hyponatremia Chronic sinusitis, unspecified (Chronic) Glaucoma (Chronic) Arteriosclerosis of carotid artery (Chronic) Chronic constipation (Chronic) Chronic kidney disease (CKD), stage III (moderate) (Chronic) Chronic pain (Chronic) Depression (Chronic) Hypothyroidism (Chronic) Insomnia (Chronic) Lumbar radiculopathy (Chronic) Macrocytosis (Chronic) Osteopenia (Chronic) Raynauds phenomenon (Chronic) GERD (gastroesophageal reflux disease) (Chronic) Hyperlipidemia (Chronic) Hypertension (Chronic) LBBB (left bundle branch block) (Chronic) Osteoarthritis (Chronic) Degenerative arthritis of right knee (Chronic) CLL (chronic lymphocytic leukemia) (Chronic) Anemia (Chronic) IBS (irritable bowel syndrome) (Chronic) Medical History (Updated 02/12/25 @ 16:14 by Rudy Mathews MD) IBS (irritable bowel syndrome) History of anemia Osteoarthritis Carotid artery stenosis Left bundle branch block (LBBB) HTN (hypertension) Hyperlipidemia GERD (gastroesophageal reflux disease) Raynauds disease Osteopenia Left carotid bruit History of diverticulosis Hypothyroidism Depression Chronic pain CKD (chronic kidney disease), stage III Chronic constipation Arteriosclerosis of carotid artery Glaucoma Chronic sinusitis History of COVID-19 (2021) no hosp; resolved Chronic hyponatremia Nephrolithiasis current CLL (chronic lymphocytic leukemia) Hypertensive urgency hx Allergic rhinitis Carpal tunnel syndrome of left wrist Vasovagal syncope hx Hiatal hernia s/p robotic repair Migraine HX OF TIA (transient ischemic attack) denies H/O deep venous thrombosis "OVER 45 YEARS AGO" Lower gastrointestinal bleed (07/18/14) HX Surgical History Status post LASIK surgery of both eyes History of carpal tunnel release History of esophagogastroduodenoscopy (EGD) History of herniorrhaphy Lap HIATAL HERNIA REPAIR 02/2018. Dr Parada. History of tooth extraction H/O colonoscopy Thumb joint stiffness R JOINT REPLACEMENT H/O arthroscopy of shoulder L History of total knee replacement R History of arthroscopy R S/P SHWETA-BSO History of cataract surgery R/L History of tonsillectomy Family History Sister Migraine headache Son Family history of diabetes mellitus Denies family history of Ovarian cancer Prostate cancer Myocardial infarction Breast cancer Lung cancer Colorectal cancer Social History Smoking Status: Never smoker Second Hand Exposure: No; Do You Dip or Chew Tobacco: No; Hx Alcohol Use: Yes (6 oz daily) Alcohol type: wine and hard liquor Alcohol Intake Frequency: 4 or More x per/Week Hx Substance Use: No Preferred Language: Omani Communication Ability: Effective Visual Impairment: Limited Hearing Ability: Use of Hearing Aid Digital Artist Required: No Beliefs That Will Affect Care: None marital status: / Current Living Situation: Family Current Living Situation Comment: home with son current occupational status: retired How many Children do You have: 0 Feels Safe at Home: Yes Childhood Exposure to Second-Hand Smoke: No caffeine: Yes Dental Care, Regularly: No Physical Activity Frequency: 3-4 Times per Week Seatbelt Use: always Sunscreen Use: No Assistive Devices: Denture - Upper, Denture - Lower, Glasses and Hearing Aid - Bilateral Review of Systems Review of Systems: Negative except as in HPI Physical Exam Physical Exam: General: Well appearing, sitting in chair comfortably Ears: Normal external canal and tympanic membranes bilaterally Mouth: Patent airway, moist mucosa, normal dentition Neck: No thyromegaly or lymphadenopathy noted CV: Normal rate, regular rhythm. No murmurs. Resp: Breathing comfortably on room air. Lungs clear to auscultation bilaterally. No wheezes, crackles, or rhonchi Abd: Soft, nontender, no hepatomegaly. No masses Ext: Warm, well perfused. No edema Neuro: Cranial nerves grossly intact, moves all extremities equally. Gait is normal. Psych: Mood is appropriate Results & Data Results & Data Vital Signs (Past 12 Hours) Vital Signs Temp Pulse Pulse Resp BP BP Pulse Ox 02/12/25 15:00 66 20 164/65 H 100 02/12/25 13:41 97 02/12/25 13:41 66 20 158/60 H 97 02/12/25 13:30 68 02/12/25 12:52 36.6 C 81 20 184/65 H 100 O2 Del Method 02/12/25 15:00 Room Air 02/12/25 13:41 Room Air 02/12/25 13:41 Room Air 02/12/25 13:30 02/12/25 12:52 Room Air Laboratory Results Abnormal Labs 02/12/25 02/12/25 14:36 14:38 WBC 57.62 H* RBC 3.80 L RDW Std Deviation 52.8 H MPV 9.3 L Sodium 134 L Potassium 5.3 H POC Chloride 99 L POC BUN 35 H BUN 37 H BUN/Creatinine Ratio 31.6 H Magnesium 2.5 H PG Care Time/CCT Total # of Minutes Spent Total Time Spent with Patient: Total time spent is greater than 50% in coordination of care (as documented) at patient's floor/unit and/or counseling patient: Coding Level of Care Code 27790 INT INP/OBS CARE 2/55MIN Diagnoses Acute hyperkalemia E87.5 Syncope R55
[2025-02-12] MEDS: ACETAMINOPHEN 1,000 MG/100 ML VIAL IV STA (16:33)
[2025-02-12] MEDS ORDERED: ONDANSETRON INJ 2 MG/ML 2 ML VIAL IV PRN (17:50)
[2025-02-12] MEDS ORDERED: ACETAMINOPHEN 325 MG TAB PO PRN (17:50)
[2025-02-12] MEDS ORDERED: ALBUTEROL HFA 8 GM INHALER INH PRN (17:50)
[2025-02-12 18:02] LABS: Anion Gap 7.0 (3-11); Blood Urea Nitrogen 36.0 mg/dl (6-23); Calcium 9.2 mg/dl (8.6-10.3); Carbon Dioxide 25.0 mmol/L (21-32); Chloride 102.0 mmol/L (98-107); Creatinine Clr Calc Pharmacy 25.7 ml/min; Glucose 83.0 mg/dl (70-99(Fasting)); Potassium 5.3 mmol/L (3.5-5.1); Sodium 134.0 mmol/L (136-145)
[2025-02-12] MEDS: ACETAMINOPHEN 325 MG TAB PO SCH (18:10)
[2025-02-12 18:47] LABS: Hematocrit (blood only) 37.2 % (37.0-47.0); Hemoglobin 12.1 g/dl (12.0-16.0); Mean Corpuscular Hemoglobin 32.0 pg (25.0-34.0); Mean Corpuscular Volume 98.4 fL (80.0-100.0); Platelet Count 203 K/uL (130-400); RDW Standard Deviation 51.7 fL (36.4-46.3); Red Blood Count 3.78 M/uL (4.20-5.40); White Blood Count 53.77 K/ul (4.8-10.8)
[2025-02-12 19:01] LABS: Alanine Aminotransferase 20.0 U/L (7-52); Albumin Globulin Ratio 1.4 (0.9-2); Alkaline Phosphatase 43.0 U/L (34-104); Anion Gap 6.0 (3-11); Bilirubin,Total 0.6 mg/dl (0.2-1.0); Blood Urea Nitrogen 35.0 mg/dl (6-23); Calcium 9.5 mg/dl (8.6-10.3); Carbon Dioxide 27.0 mmol/L (21-32); Chloride 101.0 mmol/L (98-107); Creatinine Clr Calc Pharmacy 25.1 ml/min; Globulin 3.0 gm/dl (2.5-4.0); Glucose 90.0 mg/dl (70-99(Fasting)); Potassium 5.2 mmol/L (3.5-5.1); Sodium 134.0 mmol/L (136-145); Total Protein 7.3 gm/dl (6.0-8.3)
[2025-02-12 19:18] LABS: Thyroid Stimulating Hormone 1.465 uIu/ml (0.300-4.500)
[2025-02-12] MEDS: GABAPENTIN 100 MG CAP PO SCH (20:19)
[2025-02-12] MEDS: AZELASTINE HCL 0.1% NASAL 200 SPRAYS/27,400 MCG BTL SCH (20:19)
[2025-02-12] MEDS: HEPARIN SOD 5,000 UNIT/0.5 ML VIAL SQ SCH (20:19)
[2025-02-12] MEDS: SODIUM ZIRCONIUM CYCLOSILICATE 10 GM PACKET PO SCH (22:03)
--- NOTE | 2025-02-13 01:57 | Ultrasound Report ---
Exam(s): US CAROTID EXAM: US Duplex Bilateral Extracranial Arteries CLINICAL HISTORY: Syncope. TECHNIQUE: Real-time duplex ultrasound scan of the extracranial arteries integrating B-mode two-dimensional vascular structure, Doppler spectral analysis and color flow Doppler imaging. COMPARISON: No relevant prior studies available. FINDINGS: Right common carotid artery: The peak systolic velocity of the right common carotid artery is 58 cm/s. There is spectral broadening. No occlusion or significant stenosis on color flow and spectral Doppler imaging. Right internal carotid artery: The peak systolic velocity of the right internal carotid artery is 189 cm/s. There is spectral broadening. No occlusion or significant stenosis on color flow and spectral Doppler imaging. Right external carotid artery: Unremarkable. No occlusion or significant stenosis on color flow and spectral Doppler imaging. Right vertebral artery: Unremarkable. Antegrade flow. Right ICA/CCA ratio: The right ICA/CCA ratio is 3.3. Left common carotid artery: The peak systolic velocity of the left common carotid artery is 53 cm/s. There is spectral broadening. No occlusion or significant stenosis on color flow and spectral Doppler imaging. Left internal carotid artery: The peak systolic velocity of the left internal carotid artery is 98 cm/s. There is spectral broadening. No occlusion or significant stenosis on color flow and spectral Doppler imaging. Left external carotid artery: Unremarkable. No occlusion or significant stenosis on color flow and spectral Doppler imaging. Left vertebral artery: Unremarkable. Antegrade flow. Left ICA/CCA ratio: The left ICA/CCA ratio is 1.8. Lymph nodes: Unremarkable. No lymphadenopathy. CAROTID STENOSIS REFERENCE USING IAC CRITERIA: Mild - <50% stenosis. ICA PSV is less than 180 cm/s and plaque or intimal thickening is visible. Moderate - 50-69% stenosis. ICA PSV is 180 to 230 cm/s and plaque is visible. Severe - 70-94% stenosis. ICA PSV is more than 230 cm/s and visible plaque with lumen narrowing is seen. Near occlusion - 95-99% stenosis. ICA PSV is variable and significant plaque with luminal narrowing is seen. Occluded - 100% stenosis. No flow identified. IMPRESSION: 1. 50-69% stenosis of the right ICA by velocity and ratio criteria. 2. Less than 50% stenosis of the left ICA by velocity and ratio criteria. Electronically signed by: Arely Cevallos MD 02/13/25 01:56 AM
[2025-02-13 02:04] LABS: Hematocrit (blood only) 32.4 % (37.0-47.0); Hemoglobin 10.6 g/dl (12.0-16.0); Mean Corpuscular Hemoglobin 32.3 pg (25.0-34.0); Mean Corpuscular Volume 98.8 fL (80.0-100.0); Platelet Count 185 K/uL (130-400); RDW Standard Deviation 51.0 fL (36.4-46.3); Red Blood Count 3.28 M/uL (4.20-5.40); White Blood Count 48.32 K/ul (4.8-10.8)
[2025-02-13 02:07] LABS: Anion Gap 5.0 (3-11); Blood Urea Nitrogen 34.0 mg/dl (6-23); Calcium 9.0 mg/dl (8.6-10.3); Carbon Dioxide 26.0 mmol/L (21-32); Chloride 103.0 mmol/L (98-107); Creatinine Clr Calc Pharmacy 25.1 ml/min; Glucose 86.0 mg/dl (70-99(Fasting)); Potassium 5.0 mmol/L (3.5-5.1); Sodium 134.0 mmol/L (136-145)
[2025-02-13] MEDS: LEVOTHYROXINE SODIUM 50 MCG TABLET PO SCH (05:32)
[2025-02-13 06:07] LABS: Appearance Urine Clear (Clear); Glucose Urine UA Negative (Negative)
[2025-02-13] MEDS: SODIUM ZIRCONIUM CYCLOSILICATE 10 GM PACKET PO SCH (06:45)
[2025-02-13] MEDS: BUDESONIDE 0.5 MG/2 ML VIAL (PULMICORT) INH SCH (06:49)
[2025-02-13 08:04] VITALS: RESP 18; O2SAT 95
--- NOTE | 2025-02-13 08:34 | XRay Report ---
SINGLE VIEW CHEST CLINICAL HISTORY: Syncope FINDINGS: An AP, portable, upright chest radiograph is compared to study dated 05/05/2024 and correla emmanuel with chest CT dated 03/23/2023. The heart is enlarged noting atherosclerotic calcification of the thoracic aorta. The pulmonary vasculature is noncongested. There is chronic elevation of the right he midiaphragm. Mild scarring/atelectasis is noted at the lung bases. Chronic interstitial thickening is similar to previous. A nipple shadow projects over the left lung base. There are subtle airspace opa cities in the left midlung. No large pleural effusion or pneumothorax is identified. The skeletal str uctures are osteopenic. The bony thorax is grossly intact. Arthritic change is seen in the shoulders. IMPRESSION: 1. Cardiomegaly without radiographic evidence of congestive failure. 2. There are subtle airspace opacities in the left midlung. Correlate clinically for evidence of a mi ld infectious/inflammatory pneumonitis. Radiographic follow-up to resolution is recommended. ACT 112: Negative or not required by law. Electronically signed by: Seymour Gasca M.D. 02/13/2025 8:33 AM
[2025-02-13] MEDS: ESCITALOPRAM OXALATE 10 MG TAB PO SCH (09:04)
[2025-02-13] MEDS: ASPIRIN 81 MG ECTAB PO SCH (09:05)
[2025-02-13] MEDS: ATORVASTATIN 20 MG TAB PO SCH (09:05)
[2025-02-13] MEDS: LOSARTAN POTASSIUM 50 MG TAB PO SCH (09:05)
[2025-02-13 11:28] VITALS: TEMP 97.9
--- NOTE | 2025-02-13 12:36 | XCELERA ---
[id number]
--- NOTE | 2025-02-13 12:42 | Electrocardiogram Report ---
Test Reason : Blood Pressure : */* mmHG Vent. Rate : 65 BPM Atrial Rate : 65 BPM P-R Int : 190 ms QRS Dur : 110 ms QT Int : 450 ms P-R-T Axes : 49 -28 80 degrees QTcB Int : 468 ms Normal sinus rhythm Incomplete left bundle block Abnormal ECG When compared with ECG of 23-Mar-2023 12:46, Premature atrial complexes are no longer Present Confirmed by Jesse Lakhani ([id number]) on 02/13/2025 12:42:15 PM Referred By: REFERRED SELF Confirmed By: Jesse Lakhani
--- NOTE | 2025-02-13 12:51 | Discharge Summary ---
Discharge Summary Date of Service February 13, 2025 Principal Dx & Hospital Course #1 = Principal Diagnosis (1) Acute hyperkalemia: (2) Syncope: Plan 89 female Atherosclerotic disease chronic hyponatremia CKD depression hypothyroidism insomnia lumbar radiculopathy GERD hypertension hyperlipidemia left bundle branch block OA CLL anemia Who presents with syncope. Pt's son reports that she was clumsy and she walked past the chair even though she was trying to sit on it and missed the chair and fell. She reports immediately passing out. Syncope was witnessed no head trauma. No prodromal symptoms prior to episode no chest pain shortness of breath nausea lightheadedness headache vision change numbness tingling weakness abdominal pain or any other symptoms. No recent illness. Endorses generalized weakness and fatigue. No focal weakness. No tongue biting or incontinence or seizure activity witnessed. She Did endorse some muscle twitching in her extremities. Her son at bedside. At my time of evaluation she was asymptomatic. She told me she was leaving and was ready to go. Relayed to ED physician was about to discharge the patient. After I had an extensive conversation with patient and son Regarding risks of leaving, she ultimately decided to stay To at least be monitored overnight. She reminds me of her age and tells me she does not want to be in the hospital but will stay overnight just to be monitored. #Syncope - pt's son at bedside- states that she had increased her gabapentin from 100mg to 200mg few days prior to the episode - ECHO unremarkable - TFTs wnl - reduce gabapentin back down to 100mg po nightly. if still symptoms, then pt will need to discuss with her PCP #Hyperkalemia #Hypertension - s/p Lokelma - pt is on olmesartan, which will be discontinued and pt will be started on Carvedilol (can't use thiazides in the setting of SSRI and mild hyponatremia) - cont amlodipine #Hyponatremia - minimally low, could be SSRI induced, montior for now #CKD IIIb - Avoid nephrotoxic meds #Hypothyroidism lipidemia continue home medications Discharge plan discussed with patient's son who is at bedside. Admission HPI Per Admitting Provider 89 female Atherosclerotic disease chronic hyponatremia CKD depression hypothyroidism insomnia lumbar radiculopathy GERD hypertension hyperlipidemia left bundle branch block OA CLL anemia Who presents with syncope. This occurred when standing up to get food with her immediately passing out. Syncope was witnessed no head trauma. No prodromal symptoms prior to episode no chest pain shortness of breath nausea lightheadedness headache vision change numbness tingling weakness abdominal pain or any other symptoms. No recent illness. Endorses generalized weakness and fatigue. No focal weakness. No tongue biting or incontinence or seizure activity witnessed. She Did endorse some muscle twitching in her extremities. Her son at bedside. At my time of evaluation she was asymptomatic. She told me she was leaving and was ready to go. Relayed to ED physician was about to discharge the patient. After I had an extensive conversation with patient and son Regarding risks of leaving, she ultimately decided to stay To at least be monitored overnight. She reminds me of her age and tells me she does not want to be in the hospital but will stay overnight just to be monitored. Awaiting completion of [facility] Discharge Plan Discharge Items Patient Disposition: Home - Self-Care Reason For Visit: SYNCOPE Discharge Diagnosis: Syncope Condition on Discharge: Fair Activity: Resume your previous activity Non-emergency contact: Primary Care Provider Call non-emergency contact if: you have any medication questions and your symptoms worsen Follow-up/Referrals: Lucinda Wick, [Primary Care Provider] - Diet: Heart Healthy and Low Potassium (2gm) Addtl Attending Provider Instructions: - You were noted to have high potassium level. Losartan can cause this. Do not continue losartan. Your blood pressure medication was changed to Coreg. - Please have potassium levels checked in about 3 days. This needs to be ordered by your primary care doctor. - Reduce Gabapentin dose to 100mg nightly - You also have low sodium. It's only slightly low and could be due to your anxiety medication. Please have sodium level checked along with your potassium levels in 3 days. Please have primary care doctor order the blood work. - Please follow up with your primary care doctor in about 5 to 7 days after discharge. Pending Studies at Discharge: No Stand-Alone Forms: My [employer], Smoking Cessation Medications and DC Order Prescriptions: New carvedilol [Coreg] 6.25 mg tablet 6.25 mg PO BID Qty: 60 0RF Rx Instructions: must administer with a meal/food Continued famotidine 20 mg tablet 20 mg PO BID PRN (Reason: heartburn) Qty: 180 1RF albuterol sulfate 90 mcg/actuation HFA aerosol inhaler 1 inh inhalation QID PRN (Reason: shortness of breath or wheezing) Qty: 6.7 0RF pantoprazole 40 mg tablet,delayed release (DR/EC) 40 mg PO DAILY Qty: 90 3RF atorvastatin 20 mg tablet 20 mg PO QAM Qty: 90 3RF levothyroxine 50 mcg tablet 50 mcg PO HS Qty: 90 3RF cetirizine [Zyrtec] 10 mg tablet 5 mg PO DAILY PRN (Reason: Allergy Symptoms) ondansetron HCl 4 mg tablet 4 mg PO Q8H PRN (Reason: nausea and vomiting) Qty: 30 1RF azelastine 137 mcg (0.1 %) spray,non-aerosol 1 spray intranasal BID Qty: 30 2RF Rx Instructions: administer into each nostril escitalopram oxalate [Lexapro] 10 mg tablet 10 mg PO DAILY Qty: 90 2RF budesonide 1 mg/2 mL suspension for nebulization 1 mg inhalation DAILY Qty: 60 2RF amlodipine 10 mg tablet 10 mg PO DAILY Qty: 14 0RF Rx Instructions: 7 day supply until mail order comes aspirin [Adult Aspirin Regimen] 81 mg tablet,delayed release (DR/EC) 81 mg PO QAM acetaminophen [Tylenol Arthritis Pain] 650 mg Tablet Extended Release 650 mg PO Q12H quetiapine 25 mg tablet 25 mg PO HS tramadol 50 mg tablet 25 - 50 mg PO Q8H PRN (Reason: pain) Rx Instructions: 0.5 - 1 tablet orally every 8 hours PRN; gabapentin 100 mg capsule 100 mg PO HS Patient Comments: Pt states she is currently still taking 100mg at bedtime. - 02/12/25 Rx Instructions: take 1 tablet nightly, increase by 1 tablet weekly. Max:3 tablets/day. orally; estradiol 0.01 % (0.1 mg/gram) cream 2 g vaginal 2XWK PRN (Reason: Unknown) Discontinued olmesartan 40 mg tablet 40 mg PO QAM Qty: 90 3RF Discharge Orders: Discharge Order (Routine); Ordered 02/13/25 Ordered By: Harini Elkins Admission Data Admit Date/Time: 02/12/25 16:33 Attending Provider: Harini Elkins Admit Provider: Paramjit Mathews Primary Care Provider: Lucinda Wcik Other Providers: Paramjit Mathews Hospital Stay Data Consultations 02/12/25 16:06 ED Decision to Admit Stat Diagnostic Imagining Performed 02/12/25 13:22 CT head/brain wo con Stat 02/12/25 16:33 Carotid duplex [US carotid doppler BI] Stat Discharge Instructions Given to Patient (Per Discharging Provider) - You were noted to have high potassium level. Losartan can cause this. Do not continue losartan. Your blood pressure medication was changed to Coreg. - Please have potassium levels checked in about 3 days. This needs to be ordered by your primary care doctor. - Reduce Gabapentin dose to 100mg nightly - You also have low sodium. It's only slightly low and could be due to your anxiety medication. Please have sodium level checked along with your potassium levels in 3 days. Please have primary care doctor order the blood work. - Please follow up with your primary care doctor in about 5 to 7 days after discharge. Total Time Total Time Spent Total Time Spent (In Minutes): 45 Coding Level of Care Code 67204 INP/OBS DISCH >30 MIN Diagnoses Acute hyperkalemia E87.5 Syncope R55
[2025-02-13 13:13] VITALS: BP 134/67; PULSE 65
== END 2025-02-13 13:21 | disposition home or self-care (01) ==
LOC: 2S 12:50 → ED 12:50 → SUATTDRO 16:33 → 2S 17:23

== ENCOUNTER 2025-02-16 10:25 | Inpatient (IN) ==
[2025-02-16] MEDS: SODIUM CHLORIDE 0.9% 500 ML IV ONE ×2 (10:53→12:30)
[2025-02-16] MEDS: ACETAMINOPHEN 1,000 MG/100 ML VIAL IV STA (10:54)
[2025-02-16 10:56] LABS: Hematocrit (blood only) 34.6 % (37.0-47.0); Hemoglobin 11.4 g/dl (12.0-16.0); Mean Corpuscular Hemoglobin 33.2 pg (25.0-34.0); Mean Corpuscular Volume 100.9 fL (80.0-100.0); Platelet Count 233 K/uL (130-400); RDW Standard Deviation 51.7 fL (36.4-46.3); Red Blood Count 3.43 M/uL (4.20-5.40); White Blood Count 57.07 K/ul (4.8-10.8)
--- NOTE | 2025-02-16 10:57 | Emergency Department Note ---
Impression & Plan Syncope, Bradycardia, Leukocytosis, Acute dehydration ED Provider Note NAME: GIGI FARRELL AGE: 89 SEX: F : 1935 ARRIVES VIA: Walk-In INFORMANT: [Patient][daughter] ED PROVIDER(S): [Seymour Flores MD] CHIEF COMPLAINT: Syncope HISTORY OF PRESENT ILLNESS: Patient is an 89-year-old female who was discharged from our hospital 3 days ago. She had her gabapentin decreased during her hospital stay and was placed on Coreg for blood pressure in place of olmesartan. The patient was driving with her daughter to have blood work drawn. The daughter looked over and the patient was staring into space and not responding. She then slumped over. She was brought to the hospital for evaluation. The patient denies any chest pain or dyspnea. She remembers feeling dizzy and lightheaded and nauseated while in the car. Patient complains of ongoing headache, she states that this has been very persistent and, it just will not seem to go away. No cough or congestion. No abdominal pain or vomiting. No diarrhea. No fever. PMHx/PSHx/Social Hx: See Below PHYSICAL EXAM: GENERAL: Patient is in no acute distress. HEENT: No acute trauma, normocephalic atraumatic, mucous membranes dry, no nasal congestion. NECK: No stridor, no adenopathy, no meningismus, trachea is midline. LUNGS: Clear to auscultation bilaterally, no wheeze, no rhonchi, breath sounds equal. HEART: 2/6 systolic murmur, bradycardic with a regular rhythm. ABDOMEN: Soft, nontender, no peritonitis. EXTREMITIES: No cyanosis, full range of motion of all the joints without pain or difficulty. NEUROLOGIC: Oriented x 3, no acute motor or sensory deficits, no focal weakness. No speech slurring. SKIN: No jaundice, no diaphoresis. DIFFERENTIAL DIAGNOSIS: Medication reaction, vasovagal syncope, OR, dysrhythmia, anemia, among others. EMERGENCY DEPARTMENT PROCEDURES: MEDICAL DECISION MAKING: There is a significant leukocytosis consistent with her CLL. There was no worrisome anemia. There was a normal platelet count. No coagulopathy. Potassium is slightly high but not in need of emergent correction. The creatinine was somewhat elevated, consistent with some dehydration. There was no concerning liver enzyme elevation. ECG showed a sinus bradycardia, no ischemia. Cardiac enzyme testing x 1 was not consistent with acute cardiac injury. Urinalysis did not show infection. Lyme disease testing was negative. Chest x-ray did not show pneumonia. Brain CT showed no acute bleed or mass effect. On exam, the patient was sleepy and tired, she was bradycardic. The patient received IV saline, 1 L. She was given IV Toradol for pain, IV Tylenol for pain. The patient presents with a syncopal event. She was found to be bradycardic. The bradycardia may be secondary to the new medication, Coreg, that was started with her last hospitalization. The patient requires further care and monitoring here in the hospital. I did speak with the patient and family, the on-call hospitalist was consulted. Prior/Outside records/notes reviewed: Discharge summary note from 02/13/2025 describing her presentation, hospital course and discharge plan. ECG per my interpretation: Indication was syncope. The ECG shows a marked sinus bradycardia with a rate of 44. There is no acute ST elevation, no PVCs. The QTc is 439. Continuous Cardiac Monitoring per my interpretation: An order was placed for continuous cardiac monitoring. The monitor shows a rate of 42 with sinus pericardia. Imaging/x-ray results per my interpretation: Chest x-ray does not show pneumonia or CHF. Chronic Medical/Social conditions affecting care: Advanced age, recent inpatient hospitalization Care/Management discussed with: Case management, the on-call hospitalist. Level of care consideration(s): After review of the information above and other included data: --I believe the patient requires escalation of care to admission DISPOSITION: Admission Past Med/Surg History Problem List (Updated 02/16/25 @ 18:42 by Seymour Flores MD) Acute dehydration (Acute) Leukocytosis (Acute) Bradycardia (Acute) Syncope (Acute) Confusion Chronic headache Acute hyperkalemia (Acute) Syncope (Acute) Hematuria Chronic hyponatremia Chronic sinusitis, unspecified (Chronic) Glaucoma (Chronic) Arteriosclerosis of carotid artery (Chronic) Chronic constipation (Chronic) Chronic kidney disease (CKD), stage III (moderate) (Chronic) Chronic pain (Chronic) Depression (Chronic) Hypothyroidism (Chronic) Insomnia (Chronic) Lumbar radiculopathy (Chronic) Macrocytosis (Chronic) Osteopenia (Chronic) Raynauds phenomenon (Chronic) GERD (gastroesophageal reflux disease) (Chronic) Hyperlipidemia (Chronic) Hypertension (Chronic) LBBB (left bundle branch block) (Chronic) Osteoarthritis (Chronic) Degenerative arthritis of right knee (Chronic) CLL (chronic lymphocytic leukemia) (Chronic) Anemia (Chronic) IBS (irritable bowel syndrome) (Chronic) Medical History IBS (irritable bowel syndrome) History of anemia Osteoarthritis Carotid artery stenosis Left bundle branch block (LBBB) HTN (hypertension) Hyperlipidemia GERD (gastroesophageal reflux disease) Raynauds disease Osteopenia Left carotid bruit History of diverticulosis Hypothyroidism Depression Chronic pain CKD (chronic kidney disease), stage III Chronic constipation Arteriosclerosis of carotid artery Glaucoma Chronic sinusitis History of COVID-19 (2021) no hosp; resolved Chronic hyponatremia Nephrolithiasis current CLL (chronic lymphocytic leukemia) Hypertensive urgency hx Allergic rhinitis Carpal tunnel syndrome of left wrist Vasovagal syncope hx Hiatal hernia s/p robotic repair Migraine HX OF TIA (transient ischemic attack) denies H/O deep venous thrombosis "OVER 45 YEARS AGO" Lower gastrointestinal bleed (07/18/14) HX Surgical History Status post LASIK surgery of both eyes History of carpal tunnel release History of esophagogastroduodenoscopy (EGD) History of herniorrhaphy Lap HIATAL HERNIA REPAIR 02/2018. Dr Parada. History of tooth extraction H/O colonoscopy Thumb joint stiffness R JOINT REPLACEMENT H/O arthroscopy of shoulder L History of total knee replacement R History of arthroscopy R S/P [id number] History of cataract surgery R/L History of tonsillectomy Family History Sister Migraine headache Son Family history of diabetes mellitus Denies family history of Ovarian cancer Prostate cancer Myocardial infarction Breast cancer Lung cancer Colorectal cancer Social History Smoking Status: Former smoker Second Hand Exposure: No; Do You Dip or Chew Tobacco: No; Hx Alcohol Use: Yes Alcohol type: wine Alcohol Intake Frequency: 4 or More x per/Week Hx Substance Use: No Preferred Language: Maltese Communication Ability: Effective Visual Impairment: Limited Hearing Ability: Use of Hearing Aid [place]et Flunky Required: No Beliefs That Will Affect Care: None marital status: / Current Living Situation: Family Current Living Situation Comment: home with son current occupational status: retired How many Children do You have: 0 Other Information That Helps Us Care for You: No Feels Safe at Home: Yes Safety Concerns: Feels Safe At This Time Childhood Exposure to Second-Hand Smoke: No caffeine: Yes Dental Care, Regularly: No Physical Activity Frequency: 3-4 Times per Week Seatbelt Use: always Sunscreen Use: No Assistive Devices: Glasses and Hearing Aid - Bilateral Allergies Allergies Allergy/AdvReac Type Severity Reaction Status Date / Time hydrochlorothiazide Allergy Unknown ON MNPG Verified 02/12/25 15:19 LIST celecoxib AdvReac Intermediate loss of Verified 02/12/25 15:19 appetite and fatigue Sulfa (Sulfonamide AdvReac Mild fatigue, Verified 02/12/25 15:19 Antibiotics) n/v Home Meds Home Medications Medication Instructions Recorded Confirmed cetirizine 10 mg tablet (Zyrtec) 5 mg PO DAILY PRN Allergy Symptoms 07/29/19 02/16/25 acetaminophen 650 mg 650 mg PO Q12H arthritis pain 07/22/21 02/16/25 tablet,extended release (Tylenol Arthritis Pain) aspirin 81 mg tablet,delayed 81 mg PO QAM 07/22/21 02/16/25 release (Adult Aspirin Regimen) estradiol 0.01% (0.1 mg/gram) 2 g vaginal 2XWK PRN Unknown 02/12/25 02/16/25 vaginal cream gabapentin 100 mg capsule 100 mg PO HS 02/12/25 02/16/25 quetiapine 25 mg tablet 25 mg PO HS 02/12/25 02/16/25 tramadol 50 mg tablet 25 - 50 mg PO Q8H PRN pain 02/12/25 02/16/25 Previous Rx's Medication Instructions Recorded ondansetron HCl 4 mg tablet 4 mg PO Q8H PRN nausea and 02/06/24 vomiting #30 tabs famotidine 20 mg tablet 20 mg PO BID PRN heartburn #180 03/16/24 tabs amlodipine 10 mg tablet 10 mg PO DAILY #14 tabs 05/18/24 albuterol sulfate 90 mcg/actuation 1 inh inhalation QID PRN shortness 06/18/24 aerosol inhaler of breath or wheezing #6.7 grams pantoprazole 40 mg tablet,delayed 40 mg PO DAILY #90 tabs 08/11/24 release azelastine 137 mcg (0.1 %) nasal 1 spray intranasal BID #30 mL 10/05/24 spray atorvastatin 20 mg tablet 20 mg PO QAM #90 tabs 12/23/24 budesonide 1 mg/2 mL suspension 1 mg (2 mL) inhalation DAILY #60 mL 12/27/24 for nebulization levothyroxine 50 mcg tablet 50 mcg PO HS #90 tabs 12/30/24 escitalopram oxalate 10 mg tablet 10 mg PO DAILY #90 tabs 02/01/25 (Lexapro) carvedilol 6.25 mg tablet (Coreg) 6.25 mg PO BID #60 tabs 02/13/25 Results & Data (ED) Vital Signs Vital Signs - 24 hr 02/16/25 10:26 02/16/25 10:42 02/16/25 10:43 Temperature 36.5 C Temperature Source Oral Pulse Rate 44 L 42 L Pulse Rate [Apical] Respiratory Rate 18 Respiratory Effort / Characteristics Non-Labored Spontaneous Respiratory Depth Normal Respiratory Pattern Regular Blood Pressure 130/54 L Blood Pressure [Right Arm] Blood Pressure Mean 79 Blood Pressure Mean [Right Arm] Pulse Oximetry 97 97 Oxygen Delivery Method Room Air Room Air Sepsis Recent Fever Within 48 Hours No Sepsis New/Unexplained Change in Mental Status N/A Sepsis Action Taken by Nursing No Action Required 02/16/25 10:43 02/16/25 11:45 02/16/25 14:00 Temperature Temperature Source Pulse Rate Pulse Rate [Apical] 46 L Respiratory Rate 18 Respiratory Effort / Characteristics Non-Labored Spontaneous Respiratory Depth Normal Respiratory Pattern Regular Blood Pressure 152/63 H Blood Pressure [Right Arm] 152/58 H Blood Pressure Mean 92 Blood Pressure Mean [Right Arm] 89 Pulse Oximetry 97 99 Oxygen Delivery Method Room Air Room Air Sepsis Recent Fever Within 48 Hours Sepsis New/Unexplained Change in Mental Status Sepsis Action Taken by Nursing 02/16/25 14:02 Temperature Temperature Source Pulse Rate 59 L Pulse Rate [Apical] Respiratory Rate 14 Respiratory Effort / Characteristics Respiratory Depth Respiratory Pattern Blood Pressure Blood Pressure [Right Arm] Blood Pressure Mean Blood Pressure Mean [Right Arm] Pulse Oximetry Oxygen Delivery Method Room Air Sepsis Recent Fever Within 48 Hours Sepsis New/Unexplained Change in Mental Status Sepsis Action Taken by [facility] Medications Current Medication List: was personally reviewed by me Laboratory Data Attestation: I reviewed the patient's lab results. 02/16/25 10:35 02/16/25 10:35 Lab Results 02/16/25 Range/Units 10:35 WBC 57.07 H* (4.8-10.8) K/ul RBC 3.43 L (4.20-5.40) M/uL Hgb 11.4 L (12.0-16.0) g/dl Hct 34.6 L (37.0-47.0) % MCV 100.9 H (80.0-100.0) fL MCH 33.2 (25.0-34.0) pg MCHC 32.9 (32.0-36.0) g/dL RDW Std Deviation 51.7 H (36.4-46.3) fL RDW Coeff of Kaley 14.1 (11.5-14.5) % Plt Count 233 (130-400) K/uL MPV 9.5 (9.4-12.4) fL Neutrophils % (Manual) 2 % Lymphocytes % (Manual) 98 % Neutrophils # (Manual) 1.14 L (1.40-6.50) K/uL Total Absolute Neuts 1.14 L (1.4-6.5) K/uL Lymphocytes # (Manual) 55.93 H (1.2-3.4) K/uL Total Abs Lymphocytes 55.93 H (1.2-3.4) K/uL Smudge Cells Present Polychromasia 1+ ESR 4 (0-30) mm/hr PT 10.5 (9.0-12.0) Seconds INR 1.0 (0.9-1.1) APTT 22 (21-31) Seconds PTT Ratio 0.8 Sodium 136 (136-145) mmol/L Potassium 5.2 H (3.5-5.1) mmol/L Chloride 106 (98-107) mmol/L Carbon Dioxide 24 (21-32) mmol/L Anion Gap 6 (3-11) BUN 36 H (6-23) mg/dl Creatinine 1.23 H (0.6-1.2) mg/dl Est Cr Clr Drug Dosing 23.9 ml/min eGFR 42.27 BUN/Creatinine Ratio 29.3 H (10-20) Glucose 105 H (70-99(Fasting)) mg/dl Calcium 9.1 (8.6-10.3) mg/dl Magnesium 2.2 (1.7-2.4) mg/dl Total Bilirubin 0.5 (0.2-1.0) mg/dl AST 29 (13-39) U/L ALT 17 (7-52) U/L Alkaline Phosphatase 36 (34-104) U/L Troponin I High Sens 5.5 (0-14) pg/ml C-Reactive Protein < 0.50 (0-0.5) mg/dl Total Protein 6.5 (6.0-8.3) gm/dl Albumin 4.1 (3.4-5.0) gm/dl Globulin 2.4 L (2.5-4.0) gm/dl Albumin/Globulin Ratio 1.7 (0.9-2) Lyme Disease Screen Negative (Negative) Administered Medications Acetaminophen (Acetaminophen 325 Mg Tab) 650 mg PO Q12H TAMARA Stop: 03/18/25 16:59 Last Admin: 02/16/25 16:54 Dose: 650 mg Documented By: ARMAAN Hydrocodone Bitart/Acetaminophen (Hydrocodone/Acetamophen 5/325mg Tab) 1 tab PO Q6H PRN PRN Reason: Pain Stop: 03/02/25 17:59 Last Admin: 02/16/25 18:21 Dose: 1 tab Documented By: ARMAAN Sodium Chloride (Nss) 1,000 mls @ 60 mls/hr IV .[id number] TAMARA Stop: 02/17/25 23:34 Last Admin: 02/16/25 15:40 Dose: 60 mls/hr Documented By: DUSTIN Discontinued Medications Sodium Chloride (Nss) 500 mls @ 999 mls/hr IV .Q31M ONE Stop: 02/16/25 11:13 Last Infusion: 02/16/25 11:24 Dose: Infused Documented By: Admin: 02/16/25 10:53 Dose: 999 mls/hr Documented By: ERICK Acetaminophen (Ofirmev) 1,000 mg in 100 mls @ 400 mls/hr IV NOW STA Stop: 02/16/25 11:05 Last Infusion: 02/16/25 11:09 Dose: Infused Documented By: Admin: 02/16/25 10:54 Dose: 400 mls/hr Documented By: ERICK Sodium Chloride (Nss) 500 mls @ 999 mls/hr IV .Q31M ONE Stop: 02/16/25 12:28 Last Infusion: 02/16/25 13:27 Dose: Infused Documented By: Admin: 02/16/25 12:30 Dose: 999 mls/hr Documented By: KRIS Ketorolac Tromethamine (Ketorolac Tromethamine 15 Mg/Ml Vial) 10 mg IV NOW ONE Stop: 02/16/25 12:11 Last Admin: 02/16/25 12:30 Dose: 10 mg Documented By: [facility] Sodium Zirconium Cyclosilicate (Sodium Zirconium Cyclosilicate 10 Gm Packet) 10 gm PO ONCE ONE Stop: 02/16/25 14:12 Last Admin: 02/16/25 15:40 Dose: 10 gm Documented By: DUSTIN Imaging Data Radiologist's Impression: Chest X-Ray 02/16/25 10:42 XR chest 1V portable HISTORY: 89 years-old Female Chest pain, nonspecific COMPARISON: 02/12/2025 TECHNIQUE: AP view of the chest FINDINGS: Cardiomediastinal and hilar silhouettes are unchanged. Atherosclerosis of the aorta. Unchanged pleural thickening at the lung apices. Previously questioned left midlung airspace opacities are not seen. No pneumothorax, large pleural effusion, airspace consolidation or overt pulmonary edema. Chronic blunting of the left lateral costophrenic angle may be secondary to scarring versus atelectasis. IMPRESSION: No acute process. No airspace consolidation to suggest pneumonia. ACT 112: Negative or not required by law. The above report was generated using voice recognition software. It may contain grammatical, syntax or spelling errors. Electronically signed by: Severo Goddard M.D. 02/16/2025 11:[address] 02/16/25 10:51 CT SCAN OF THE BRAIN WITHOUT IV CONTRAST CLINICAL HISTORY: Headache COMPARISON STUDY: CT of the brain dated 02/12/2025 TECHNIQUE: Unenhanced axial CT scan of the brain is performed from the vertex to the skull base. Images are reviewed in the axial, sagittal, coronal planes. A dose lowering technique was utilized adhering to the principles of ALARA. CT DOSE: 547.75 mGy.cm FINDINGS: Brain parenchyma: There is age-related involutional change noting [id number] subcortical and periventricular microangiopathic disease. There is no hemorrhage, mass effect, or evidence of acute territorial ischemia by CT criteria. A small chronic lacunar infarct is seen in the left basal ganglia. Pa-white matter differentiation is preserved. No extra-axial fluid collection is seen. Ventricles, sulci, cisterns: Prominent secondary to involutional change. Intracranial vasculature: There is atherosclerotic calcification of the cavernous carotid and vertebral arteries. Calvarium: Unremarkable. Sinuses and mastoids: The visualized paranasal sinuses are clear. There is trace right mastoid effusion. The left mastoid air cells are well pneumatized. Orbits: The bony orbits are grossly intact. There are bilateral ocular lens implants. IMPRESSION: There is no hemorrhage, mass effect, or evidence of acute territorial ischemia by CT criteria. ACT 112: Negative or not required by law. Electronically signed by: Seymour Gasca M.D. 02/16/2025 11:22 AM Discharge Plan Visit Data Chief Complaint: Unresponsive Stated Complaint: UNRESPONSIVE ED Provider: Seymour Flores Discharge Problem: Syncope, Bradycardia, Leukocytosis, Acute dehydration Patient Disposition: Admitted As Inpatient Condition: Fair Discharge Instructions Interventions: ED Discharge Assessment Last Done: 02/16/25 15:50 Discharge Problem: Syncope Qualifiers: Syncope type: unspecified Qualified Code(s): R55 - Syncope and collapse Leukocytosis Qualifiers: Leukocytosis type: unspecified Qualified Code(s): D72.829 - Elevated white blood cell count, unspecified
--- NOTE | 2025-02-16 11:02 | XRay Report ---
XR chest 1V portable HISTORY: 89 years-old Female Chest pain, nonspecific COMPARISON: 02/12/2025 TECHNIQUE: AP view of the chest FINDINGS: Cardiomediastinal and hilar silhouettes are unchanged. Atherosclerosis of the aorta. Unchanged pleura l thickening at the lung apices. Previously questioned left midlung airspace opacities are not seen. No pneumothorax, large pleural effusion, airspace consolidation or overt pulmonary edema. Chronic vaughn nting of the left lateral costophrenic angle may be secondary to scarring versus atelectasis. IMPRESSION: No acute process. No airspace consolidation to suggest pneumonia. ACT 112: Negative or not required by law. The above report was generated using voice recognition software. It may contain grammatical, syntax o r spelling errors. Electronically signed by: Severo Goddard M.D. 02/16/2025 11:01 AM
[2025-02-16 11:11] LABS: Alanine Aminotransferase 17 U/L (7-52); Albumin Globulin Ratio 1.7 (0.9-2); Alkaline Phosphatase 36 U/L (34-104); Anion Gap 6 (3-11); Bilirubin,Total 0.5 mg/dl (0.2-1.0); Blood Urea Nitrogen 36 mg/dl (6-23); Calcium 9.1 mg/dl (8.6-10.3); Carbon Dioxide 24 mmol/L (21-32); Chloride 106 mmol/L (98-107); Creatinine Clr Calc Pharmacy 23.9 ml/min; Globulin 2.4 gm/dl (2.5-4.0); Glucose 105 mg/dl (70-99(Fasting)); Magnesium 2.2 mg/dl (1.7-2.4); Potassium 5.2 mmol/L (3.5-5.1); Sodium 136 mmol/L (136-145); Total Protein 6.5 gm/dl (6.0-8.3)
--- NOTE | 2025-02-16 11:24 | CT Scan Report ---
CT SCAN OF THE BRAIN WITHOUT IV CONTRAST CLINICAL HISTORY: Headache COMPARISON STUDY: CT of the brain dated 02/12/2025 TECHNIQUE: Unenhanced axial CT scan of the brain is performed from the vertex to the skull base. Imag es are reviewed in the axial, sagittal, coronal planes. A dose lowering technique was utilized adheri ng to the principles of ALARA. CT DOSE: 547.75 mGy.cm FINDINGS: Brain parenchyma: There is age-related involutional change noting [id number] subcortical and pe riventricular microangiopathic disease. There is no hemorrhage, mass effect, or evidence of acute ter ritorial ischemia by CT criteria. A small chronic lacunar infarct is seen in the left basal ganglia. Pa-white matter differentiation is preserved. No extra-axial fluid collection is seen. Ventricles, sulci, cisterns: Prominent secondary to involutional change. Intracranial vasculature: There is atherosclerotic calcification of the cavernous carotid and vertebr al arteries. Calvarium: Unremarkable. Sinuses and mastoids: The visualized paranasal sinuses are clear. There is trace right mastoid effusi on. The left mastoid air cells are well pneumatized. Orbits: The bony orbits are grossly intact. There are bilateral ocular lens implants. IMPRESSION: There is no hemorrhage, mass effect, or evidence of acute territorial ischemia by CT donna milan. ACT 112: Negative or not required by law. Electronically signed by: Seymour Gasca M.D. 02/16/2025 11:22 AM
[2025-02-16 11:30] LABS: INR 1.0 (0.9-1.1); Partial Thromboplastin Time 22 Seconds (21-31); Prothrombin Time 10.5 Seconds (9.0-12.0)
[2025-02-16 11:50] LABS: ALC (manual) 55.93 K/uL (1.2-3.4); ANC (manual) 1.14 K/uL (1.4-6.5); Polychromasia 1+; Smudge Cells Present
[2025-02-16] MEDS: KETOROLAC TROMETHAMINE 15 MG/ML VIAL IV ONE (12:30)
--- NOTE | 2025-02-16 14:12 | History & Physical Report ---
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 Presents with another syncopal episode today while riding in a car. Did have prodromal dizziness/lightheadedness. Was bradycardic upon presentation to the ER today (HRs 40s). Also c/o chronic confusion/memory issues as well as frontal headaches. #syncope - -did have prodromal dizziness prior to passing out in the car -nothing observed by her daughter to suggest seizures -had syncope the other day as well prompting an admission on 02/12-02/13 -echo on 02/13 with preserved EF and normal valve function -was bradycardic today upon presentation - fortunately sinus - but [id number] HRs were in the 40s; due to recently started coreg during prior admission? -was bradycardia the CAUSE of the event, or a by-product of the event? (did she have vasovagal type event leading to bradycardia?) -has had chronic "floating" feeling in her head - medication side effects from gabapentin or seroquel or both? -plan to hold the gabapentin (just started on this in early January) -cont seroquel for now (chronic med - started in early 2024) - but low threshold to stop it if her symptoms persist -hold tramadol -MRI brain -consider CTAs head/neck -check orthostatic BPs #hyperkalemia - -very mild -2nd to mild LEXA? looks volume contracted on exam, and was on ARB until recently -lokelma now -IV fluids overnight -repeat BMP am #chronic frontal headaches - -sed rate/crp very normal making temporal arteritis very unlikely (<10% chance of having such with normal inflammatory markers) -MRI brain ordered -if MRI negative....due to cervical neck issues? other etiology? #confusion/floating feeling in head/memory impairment - -B12 level in 07/2024 was wnl -check B1 level -TSH level wnl at 1.4 -MRI brain -if w/u is negative....early cognitive impairment? -can't rule out med side effects from gabapentin, tramadol, seroquel, etc. #HTN - -hold coreg -cont amlodipine #hypothyroidism - -TSH wnl -cont synthroid #CKD stage 4 - -Cr close to baseline -repeat BMP am #CLL - -she is not on Rx for such -cell lines are acceptable today #GERD - -cont PPI #DVT proph - -if she stays beyond tomorrow then add chemical DVT proph pt/ot evals ordered family updated at bedside observation status for now History of Present Illness Chief Complaint: syncope Primary Care Provider: Lucinda Wick DO 89yo female - recent hospitalization from 02/12 to 02/13 for syncope without prodrome - with chronic hyponatremia x 5+ years, CKD stage 4, depression, hypothyroidism, insomnia, lumbar radiculopathy, GERD, hypertension, hyperlipidemia, chronic incomplete left bundle branch block, CLL, and 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 After hospital d/c on 02/13 she reports being in her usual state of health. Was eating/drinking normally per her recollection. For some time she has had dizziness/lightheadedness that she describes as a "floating" feeling in her head. Denies vertigo. The dizziness/floating feeling has been present off/on for weeks to months. This has been associated with frontal headaches for at least 2-3 months as well. Does wake up with the headaches at times in the morning. Some neck pain as well. Remote history of migraines years ago but none recently. In addition to headaches and dizziness she has had "slow thinking" and fogginess/confusion for several weeks. While driving in the car today to get blood work (daughter was driving) the patient stated she was feeling dizzy. Daughter looked over at her and daughter states her mother was staring straight ahead and not responding. She subsequently closed her eyes and passed out. During this time period - about 5-10 minutes - she did not respond to her daughter's questioning. She was not diaphoretic or pale per the daughter By the time they arrived to [facility] she regained consciousness. When asked if today's event felt similar to her syncope on 02/12 she replied yes, stating "I get that floating feeling." Of note - patient was placed on gabapentin earlier this month for her chronic right ear auditory hallucinations. Upon arrival to the ER today her HRs were in the 40s (sinus). Allergies Allergy/AdvReac Type Severity Reaction Status Date / Time hydrochlorothiazide Allergy Unknown ON [facility] Verified 02/12/25 15:19 LIST celecoxib AdvReac Intermediate loss of Verified 02/12/25 15:19 appetite and fatigue Sulfa (Sulfonamide AdvReac Mild fatigue, Verified 02/12/25 15:19 Antibiotics) n/v Home Medications Medication Instructions Recorded Confirmed Type cetirizine 10 mg tablet (Zyrtec) 5 mg PO DAILY PRN Allergy Symptoms 07/29/19 02/16/25 History acetaminophen 650 mg 650 mg PO Q12H arthritis pain 07/22/21 02/16/25 History tablet,extended release (Tylenol Arthritis Pain) aspirin 81 mg tablet,delayed 81 mg PO QAM 07/22/21 02/16/25 History release (Adult Aspirin Regimen) ondansetron HCl 4 mg tablet 4 mg PO Q8H PRN nausea and 02/06/24 02/16/25 Rx vomiting #30 tabs famotidine 20 mg tablet 20 mg PO BID PRN heartburn #180 03/16/24 02/16/25 Rx tabs amlodipine 10 mg tablet 10 mg PO DAILY #14 tabs 05/18/24 02/16/25 Rx albuterol sulfate 90 mcg/actuation 1 inh inhalation QID PRN shortness 06/18/24 02/16/25 Rx aerosol inhaler of breath or wheezing #6.7 grams pantoprazole 40 mg tablet,delayed 40 mg PO DAILY #90 tabs 08/11/24 02/16/25 Rx release azelastine 137 mcg (0.1 %) nasal 1 spray intranasal BID #30 mL 10/05/24 02/16/25 Rx spray atorvastatin 20 mg tablet 20 mg PO QAM #90 tabs 12/23/24 02/16/25 Rx budesonide 1 mg/2 mL suspension 1 mg (2 mL) inhalation DAILY #60 mL 12/27/24 02/16/25 Rx for nebulization levothyroxine 50 mcg tablet 50 mcg PO HS #90 tabs 12/30/24 02/16/25 Rx escitalopram oxalate 10 mg tablet 10 mg PO DAILY #90 tabs 02/01/25 02/16/25 Rx (Lexapro) estradiol 0.01% (0.1 mg/gram) 2 g vaginal 2XWK PRN Unknown 02/12/25 02/16/25 History vaginal cream gabapentin 100 mg capsule 100 mg PO HS 02/12/25 02/16/25 History quetiapine 25 mg tablet 25 mg PO HS 02/12/25 02/16/25 History tramadol 50 mg tablet 25 - 50 mg PO Q8H PRN pain 02/12/25 02/16/25 History carvedilol 6.25 mg tablet (Coreg) 6.25 mg PO BID #60 tabs 02/13/25 02/16/25 Rx Past Med/Surg History Problem List Acute dehydration (Acute) Leukocytosis (Acute) Bradycardia (Acute) Syncope (Acute) Confusion Chronic headache Acute hyperkalemia (Acute) Syncope (Acute) Hematuria Chronic hyponatremia Chronic sinusitis, unspecified (Chronic) Glaucoma (Chronic) Arteriosclerosis of carotid artery (Chronic) Chronic constipation (Chronic) Chronic kidney disease (CKD), stage III (moderate) (Chronic) Chronic pain (Chronic) Depression (Chronic) Hypothyroidism (Chronic) Insomnia (Chronic) Lumbar radiculopathy (Chronic) Macrocytosis (Chronic) Osteopenia (Chronic) Raynauds phenomenon (Chronic) GERD (gastroesophageal reflux disease) (Chronic) Hyperlipidemia (Chronic) Hypertension (Chronic) LBBB (left bundle branch block) (Chronic) Osteoarthritis (Chronic) Degenerative arthritis of right knee (Chronic) CLL (chronic lymphocytic leukemia) (Chronic) Anemia (Chronic) IBS (irritable bowel syndrome) (Chronic) Medical History IBS (irritable bowel syndrome) History of anemia Osteoarthritis Carotid artery stenosis Left bundle branch block (LBBB) HTN (hypertension) Hyperlipidemia GERD (gastroesophageal reflux disease) Raynauds disease Osteopenia Left carotid bruit History of diverticulosis Hypothyroidism Depression Chronic pain CKD (chronic kidney disease), stage III Chronic constipation Arteriosclerosis of carotid artery Glaucoma Chronic sinusitis History of COVID-19 (2021) no hosp; resolved Chronic hyponatremia Nephrolithiasis current CLL (chronic lymphocytic leukemia) Hypertensive urgency hx Allergic rhinitis Carpal tunnel syndrome of left wrist Vasovagal syncope hx Hiatal hernia s/p robotic repair Migraine HX OF TIA (transient ischemic attack) denies H/O deep venous thrombosis "OVER 45 YEARS AGO" Lower gastrointestinal bleed (07/18/14) HX Surgical History Status post LASIK surgery of both eyes History of carpal tunnel release History of esophagogastroduodenoscopy (EGD) History of herniorrhaphy Lap HIATAL HERNIA REPAIR 02/2018. Dr Parada. History of tooth extraction H/O colonoscopy Thumb joint stiffness R JOINT REPLACEMENT H/O arthroscopy of shoulder L History of total knee replacement R History of arthroscopy R S/P [id number] History of cataract surgery R/L History of tonsillectomy Family History Sister Migraine headache Son Family history of diabetes mellitus Brother SIDS (sudden infant syndrome) Denies family history of Ovarian cancer Prostate cancer Myocardial infarction Breast cancer Lung cancer Colorectal cancer Stroke Social History Smoking Status: Former smoker Second Hand Exposure: No; Do You Dip or Chew Tobacco: No; Hx Alcohol Use: Yes Alcohol type: wine Alcohol Intake Frequency: 4 or More x per/Week Hx Substance Use: No Preferred Language: Cypriot Communication Ability: Effective Visual Impairment: Limited Hearing Ability: Use of Hearing Aid Animal Caretaker Supervisor Required: No Beliefs That Will Affect Care: None marital status: / Current Living Situation: Family Current Living Situation Comment: home with son current occupational status: retired How many Children do You have: 0 Other Information That Helps Us Care for You: No Feels Safe at Home: Yes Safety Concerns: Feels Safe At This Time Childhood Exposure to Second-Hand Smoke: No caffeine: Yes Dental Care, Regularly: No Physical Activity Frequency: 3-4 Times per Week Seatbelt Use: always Sunscreen Use: No Assistive Devices: Glasses and Hearing Aid - Bilateral Review of Systems Review of Systems: gen - no fevers or chills; patient self-reports normal appetite; family uncertain if drinking well eyes - no ocular issues HENT - chronic hearing loss; auditory hallucinations and "musical ear syndrome" per neurology records; no URI symptoms; no dysphagia CV - no chest pain pulm - no dyspnea, no cough GI - no N/V/diarrhea/blood in stool; no abd pain - no LUTS musculo - chronic, intermittent posterior neck pain; denies myalgias or any joint pains skin - no rash neuro - headaches - frontal psych - memory issues? endo - no diabetes Physical Exam Physical Exam: gen - thin, NAD, poor historian eyes - PERRL, no nystagmus, EOMI HENT - b/l hearing aids in place; MM dry; no lesions neck - no JVD, no lymph node enlargement, no goiter heart - RRR, s1 s2, no murmur lungs - CTA b/l abd - soft NT ND BS+ ext - no edema, pulses 2+ b/l skin - no rash neuro - strength 5/5 x 4 exts; DTRs 2+ b/l upper/lower exts; finger/nose/finger maneuver w/o ataxia; CN 3-12 intact; speech w/o aphasia or dysarthria psych - alert/awake/oriented but poor historian musculo - no signs of trauma Results & Data Results & Data Vital Signs (Past 12 Hours) Vital Signs Temp Pulse Pulse Resp BP BP Pulse Ox 02/16/25 11:45 46 L 18 152/58 H 99 02/16/25 10:43 97 02/16/25 10:43 97 02/16/25 10:42 42 L 02/16/25 10:26 36.5 C 44 L 18 130/54 L 97 O2 Del Method 02/16/25 11:45 Room Air 02/16/25 10:43 Room Air 02/16/25 10:43 Room Air 02/16/25 10:42 02/16/25 10:26 Room Air Laboratory Results Laboratory Results - last 24 hr 02/16/25 02/16/25 10:35 Unknown WBC 57.07 H* RBC 3.43 L Hgb 11.4 L Hct 34.6 L MCV 100.9 H MCH 33.2 MCHC 32.9 RDW Std Deviation 51.7 H RDW Coeff of Kaley 14.1 Plt Count 233 MPV 9.5 Immature Gran % (Auto) Neut % (Auto) Lymph % (Auto) [place] % (Auto) Eos % (Auto) Baso % (Auto) Neut # (Auto) Lymph # (Auto) [place] # (Auto) Eos # (Auto) Baso # (Auto) Immature Gran # (Auto) Neutrophils % (Manual) 2 Lymphocytes % (Manual) 98 Neutrophils # (Manual) 1.14 L Total Absolute Neuts 1.14 L Lymphocytes # (Manual) 55.93 H Total Abs Lymphocytes 55.93 H Smudge Cells Present Polychromasia 1+ ESR 4 PT 10.5 INR 1.0 APTT 22 PTT Ratio 0.8 Sodium 136 Potassium 5.2 H Chloride 106 Carbon Dioxide 24 Anion Gap 6 BUN 36 H Creatinine 1.23 H Est Cr Clr Drug Dosing 23.9 eGFR 42.27 BUN/Creatinine Ratio 29.3 H Glucose 105 H Calcium 9.1 Magnesium 2.2 Total Bilirubin 0.5 AST 29 ALT 17 Alkaline Phosphatase 36 Troponin I High Sens 5.5 C-Reactive Protein < 0.50 Total Protein 6.5 Albumin 4.1 Globulin 2.4 L Albumin/Globulin Ratio 1.7 Whole Bld Vitamin B1 Urine Color Yellow Urine Appearance Clear Urine pH 5.5 Ur Specific [place] 1.015 Urine Protein Negative Urine Glucose (UA) Negative Urine Ketones Negative Urine Blood Negative Urine Nitrite Negative Urine Bilirubin Negative Urine Urobilinogen Negative Ur Leukocyte Esterase Negative Urine Comment Lyme Disease Screen Negative Diagnostic Findings Chest X-Ray 02/16/25 10:42 XR chest 1V portable HISTORY: 89 years-old Female Chest pain, nonspecific COMPARISON: 02/12/2025 TECHNIQUE: AP view of the chest FINDINGS: Cardiomediastinal and hilar silhouettes are unchanged. Atherosclerosis of the aorta. Unchanged pleural thickening at the lung apices. Previously questioned left midlung airspace opacities are not seen. No pneumothorax, large pleural effusion, airspace consolidation or overt pulmonary edema. Chronic blunting of the left lateral costophrenic angle may be secondary to scarring versus atelectasis. IMPRESSION: No acute process. No airspace consolidation to suggest pneumonia. ACT 112: Negative or not required by law. The above report was generated using voice recognition software. It may contain grammatical, syntax or spelling errors. Electronically signed by: Severo Goddard M.D. 02/16/2025 11:[address] 02/16/25 10:51 CT SCAN OF THE BRAIN WITHOUT IV CONTRAST CLINICAL HISTORY: Headache COMPARISON STUDY: CT of the brain dated 02/12/2025 TECHNIQUE: Unenhanced axial CT scan of the brain is performed from the vertex to the skull base. Images are reviewed in the axial, sagittal, coronal planes. A dose lowering technique was utilized adhering to the principles of ALARA. CT DOSE: 547.75 mGy.cm FINDINGS: Brain parenchyma: There is age-related involutional change noting [id number] subcortical and periventricular microangiopathic disease. There is no hemorrhage, mass effect, or evidence of acute territorial ischemia by CT criteria. A small chronic lacunar infarct is seen in the left basal ganglia. Pa-white matter differentiation is preserved. No extra-axial fluid collection is seen. Ventricles, sulci, cisterns: Prominent secondary to involutional change. Intracranial vasculature: There is atherosclerotic calcification of the cavernous carotid and vertebral arteries. Calvarium: Unremarkable. Sinuses and mastoids: The visualized paranasal sinuses are clear. There is trace right mastoid effusion. The left mastoid air cells are well pneumatized. Orbits: The bony orbits are grossly intact. There are bilateral ocular lens implants. IMPRESSION: There is no hemorrhage, mass effect, or evidence of acute territorial ischemia by CT criteria. ACT 112: Negative or not required by law. Electronically signed by: Seymour Gasca M.D. 02/16/2025 11:22 AM ECG Additional Comments: EKG - my reading - sinus elaine, ILBBB, no other changes from prior EKG Code Status & VTE Plan Code Status full code PG Care Time/CCT Total # of Minutes Spent Total Time Spent with Patient: Total time spent is greater than 50% in coordination of care (as documented) at patient's floor/unit and/or counseling patient: Coding Level of Care Code 51110 INT INP/OBS CARE 3/75MIN Diagnoses Syncope R55 Acute hyperkalemia E87.5 Chronic headache R51.9; G89.29 Confusion R41.0
[2025-02-16 15:08] LABS: Appearance Urine Clear (Clear); Glucose Urine UA Negative (Negative)
--- NOTE | 2025-02-16 15:27 | Magnetic Resonance Report ---
MR brain wo con HISTORY: 89 years-old Female headaches, syncope, brain "fog" acute headache with syncope COMPARISON: Head CT of same day, Brain MR 08/21/2024 TECHNIQUE: Multiplanar multisequence MRI of the brain was obtained without IV contrast FINDINGS: No restricted diffusion to suggest acute or subacute infarct. Midline structures appear unremarkable. Partially empty sella. Degenerative changes of the cervical spine. No acute intracranial hemorrhage, midline shift, abnormal extra-axial collection, hydrocephalus or intra-axial mass. Involutional aguirre ges with [id number] scattered T2/FLAIR hyperintense foci throughout the white matter suggestive of chronic microvascular ischemic disease. Cerebral venous sinuses and major arterial flow voids appear patent. Prior bilateral lens are clear. Trace right mastoid effusion. The paranasal generally clear. IMPRESSION: 1. No acute intracranial abnormality. No acute or subacute infarct. 2. Involutional changes with chronic microvascular ischemic disease. ACT 112: Negative or not required by law. The above report was generated using voice recognition software. It may contain grammatical, syntax o r spelling errors. Electronically signed by: Severo Goddard M.D. 02/16/2025 3:24 PM
[2025-02-16] MEDS: SODIUM ZIRCONIUM CYCLOSILICATE 10 GM PACKET PO ONE (15:40)
[2025-02-16] MEDS: SODIUM CHLORIDE 0.9% 1,000 ML IV SCH (15:40)
[2025-02-16] MEDS ORDERED: ALBUTEROL HFA 8 GM INHALER INH PRN (16:22)
[2025-02-16] MEDS ORDERED: ONDANSETRON INJ 2 MG/ML 2 ML VIAL IV PRN (16:22)
[2025-02-16] MEDS: ACETAMINOPHEN 325 MG TAB PO SCH (16:54)
[2025-02-16] MEDS: HYDROCODONE/ACETAMOPHEN 5/325MG TAB PO PRN (18:21)
[2025-02-16] MEDS: LEVOTHYROXINE SODIUM 50 MCG TABLET PO SCH (20:38)
[2025-02-16] MEDS: AZELASTINE HCL 0.1% NASAL 200 SPRAYS/27,400 MCG BTL SCH (20:38)
[2025-02-17 07:04] LABS: Hematocrit (blood only) 29.9 % (37.0-47.0); Hemoglobin 9.6 g/dl (12.0-16.0); Mean Corpuscular Hemoglobin 32.4 pg (25.0-34.0); Mean Corpuscular Volume 101.0 fL (80.0-100.0); Platelet Count 158 K/uL (130-400); RDW Standard Deviation 51.5 fL (36.4-46.3); Red Blood Count 2.96 M/uL (4.20-5.40); White Blood Count 41.05 K/ul (4.8-10.8)
[2025-02-17 07:16] LABS: Anion Gap 2.0 (3-11); Blood Urea Nitrogen 33.0 mg/dl (6-23); Calcium 8.6 mg/dl (8.6-10.3); Carbon Dioxide 24.0 mmol/L (21-32); Chloride 112.0 mmol/L (98-107); Creatinine Clr Calc Pharmacy 26.2 ml/min; Glucose 89.0 mg/dl (70-99(Fasting)); Potassium 5.2 mmol/L (3.5-5.1); Sodium 138.0 mmol/L (136-145)
[2025-02-17 07:36] LABS: Immature Granulocytes # (auto) 0.03 K/uL (0.01-0.20); Immature Granulocytes % (auto) 0.1 %; Smudge Cells Present
[2025-02-17] MEDS: ASPIRIN 81 MG ECTAB PO SCH (08:10)
[2025-02-17] MEDS: ESCITALOPRAM OXALATE 10 MG TAB PO SCH (08:10)
[2025-02-17] MEDS: ATORVASTATIN 20 MG TAB PO SCH (08:11)
[2025-02-17] MEDS: THIAMINE HCL 200 MG in SODIUM CHLORIDE 0.9% 50 ML IV SCH (10:10)
[2025-02-17] MEDS: BUDESONIDE 0.5 MG/2 ML VIAL (PULMICORT) INH SCH (10:13)
[2025-02-17] MEDS: SODIUM ZIRCONIUM CYCLOSILICATE 10 GM PACKET PO SCH (10:45)
--- NOTE | 2025-02-17 14:14 | Hospitalist Progress Note ---
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 Presents with another syncopal episode today while riding in a car. Did have prodromal dizziness/lightheadedness. Was bradycardic upon presentation to the ER today (HRs 40s). Also c/o chronic confusion/memory issues as well as frontal headaches. #syncope - -did have prodromal dizziness prior to passing out in the car day of admission -nothing observed by her daughter to suggest seizures -had syncope on 02/12 as well prompting an admission on 02/12-02/13 -echo on 02/13 with preserved EF and normal valve function -was bradycardic upon ER presentation - fortunately sinus - but [id number]-[id number]-[id number] HRs were in the 40s; due to recently started coreg during prior admission? -was bradycardia the CAUSE of the event, or a by-product of the event? (did she have vasovagal type event leading to bradycardia?) -has had chronic "floating" feeling in her head - medication side effects from gabapentin or seroquel or both? -this symptom is much better today -plan to hold the gabapentin moving forward -cont seroquel for now (chronic med - started in early 2024) - but low threshold to stop it or at least cut the dose by half if her symptoms persist -on tramadol chronically for neck pain/arthritis and has tolerated this w/o side effects - will resume -MRI brain negative for acute findings -checked orthostatic BPs --> negative #hyperkalemia - -mild, 5.2 -2nd to mild LEXA? looked volume contracted on exam at ER presentation, and was on ARB until recently -lokelma yesterday; give another dose today -repeat BMP am #chronic frontal headaches - -sed rate/crp very normal making temporal arteritis very unlikely (<10% chance of having such with normal inflammatory markers); and temporal arteries are NOT tender on exam -MRI brain negative -headaches due to cervical neck issues? other etiology? -recheck c-spine CT -voltaren gel -tramadol prn -schedule tylenol 1gm TID #confusion/floating feeling in head/memory impairment - -B12 level in 07/2024 was wnl -checked B1 level - while pending start IV thiamine -TSH level wnl at 1.4 -MRI brain negative -suspect possible med side effects from gabapentin - this med has been stopped -these symptoms are better today #HTN - -hold coreg -no further ARB -cont amlodipine #hypothyroidism - -TSH wnl -cont synthroid #CKD stage 4 - -Cr close to baseline again today -repeat BMP am #CLL - -she is not on Rx for such -cell lines remain acceptable #GERD - -cont PPI #DVT proph - -patient is ambulating well; defer on chemical means for now pt/ot evals completed; cleared for home family updated at bedside today change observation status to full admit status hopefully home tomorrow Admission and Anticipated Discharge Date Admission Date: February 16, 2025 Subjective patient still with frontal headache and mild posterior neck pain but feels less "floaty" in the head no dizziness no syncope feels more cognitively sharp today eating fine daughter at bedside tele overnight wnl - HRs upper 50s/low 60s of note - has taken 50mg doses of tramadol for quite some time w/o difficulty and w/o side effects has tolerated seroquel at 25mg for a while as well Review of Systems Review of Systems: gen - no fevers or chills cv - no cp pulm - no dyspnea or LYNNE GI - no N/V Physical Exam Physical Exam: gen - thin, NAD, looks better today head - NO tenderness to palpation over b/l temporal arteries HENT - b/l hearing aids in place; MMM today neck - no JVD heart - RRR, s1 s2, no murmur lungs - CTA b/l, dry/fine rales lowest portion of bases abd - soft NT ND BS+ ext - no edema, pulses 2+ b/l Results & Data Results & Data Vital Signs (Past 12 Hours) Vital Signs Temp Pulse Pulse Resp BP BP Pulse Ox 02/17/25 14:06 65 02/17/25 11:19 36.7 C 56 L 16 152/60 H 100 02/17/25 09:45 60 02/17/25 07:27 36.8 C 59 L 16 136/66 95 02/17/25 04:47 56 L 02/17/25 03:11 36.6 C 60 18 108/56 L 95 O2 Del Method 02/17/25 14:06 02/17/25 11:19 Room Air 02/17/25 09:45 02/17/25 07:27 Room Air 02/17/25 04:47 02/17/25 03:11 Room Air Laboratory Results Laboratory Results - last 24 hr 02/17/25 06:34 WBC 41.05 H* RBC 2.96 L Hgb 9.6 L Hct 29.9 L MCV 101.0 H MCH 32.4 MCHC 32.1 RDW Std Deviation 51.5 H RDW Coeff of Kaley 14.1 Plt Count 158 MPV 9.4 Immature Gran % (Auto) 0.1 Neut % (Auto) 5.0 Lymph % (Auto) 94.1 [place] % (Auto) 0.4 Eos % (Auto) 0.2 Baso % (Auto) 0.2 Neut # (Auto) 2.05 Lymph # (Auto) 38.64 H [place] # (Auto) 0.15 Eos # (Auto) 0.08 Baso # (Auto) 0.10 Immature Gran # (Auto) 0.03 Smudge Cells Present Sodium 138 Potassium 5.2 H Chloride 112 H Carbon Dioxide 24 Anion Gap 2 L BUN 33 H Creatinine 1.12 Est Cr Clr Drug Dosing 26.2 eGFR 47.30 BUN/Creatinine Ratio 29.5 H Glucose 89 Calcium 8.6 Whole Bld Vitamin B1 Pending PG Care Time/CCT Total # of Minutes Spent Total Time Spent with Patient: Total time spent is greater than 50% in coordination of care (as documented) at patient's floor/unit and/or counseling patient: Coding Level of Care Code 74844 SUB INP/OBS CARE 2/35MIN Diagnoses Syncope R55 Acute hyperkalemia E87.5 Chronic headache R51.9; G89.29 Confusion R41.0
[2025-02-17] MEDS: ACETAMINOPHEN 500 MG TAB PO SCH (14:37)
[2025-02-17] MEDS: DICLOFENAC SOD 1% GEL 100 GM TUBE EXT SCH (15:15)
--- NOTE | 2025-02-17 15:49 | CT Scan Report ---
CT SCAN OF THE CERVICAL SPINE CLINICAL HISTORY: Cervicalgia. Headache. COMPARISON STUDY: CT angiogram of the neck dated 08/17/2018. MRI of the cervical spine dated 9 TECHNIQUE: CT scan of the cervical spine is performed from the skull base to the upper thoracic spine . Images are reviewed in the axial, sagittal, and coronal planes. IV contrast was not administered fo r this examination. A dose lowering technique was utilized adhering to the principles of ALARA. CT DOSE: 213.84 mGy.cm FINDINGS: Skeletal structures: The skeletal structures are osteopenic. There is no evidence of fracture or subl uxation involving the cervical spine. Vertebral body height is maintained. There is minimal anterolis thesis at C3-C4 and C7-T1. Alignment is otherwise preserved. There is straightening of the cervical l ordosis with reversal centered at C4. Small anterior osteophytes are seen throughout. The odontoid pr ocess and lateral masses are intact. The atlantoaxial articulation is preserved noting productive deg enerative change. There is partial bony fusion of the left posterior elements at C3-C4. The spinous p rocesses appear intact. There is [id number]-vu-[id number] multilevel facet arthropathy. Moderate to severe le ft neural foraminal stenosis is suggested at C3-C4 and C4-C5. Intervertebral discs: The severe disc space narrowing is seen at C4-C5 and C5-C6. There is moderate d isc space narrowing at C3-C4. Central canal: Posterior disc osteophyte complexes at C3-C4, C4-C5, and C5-C6 may contribute to acqui red compromise of the central canal. Soft tissues: The prevertebral and paraspinous soft tissues are within normal limits. Calvarium: The visualized calvarium at the skull base appears intact. Brain parenchyma: Partially visualized brain parenchyma at the skull base is within normal limits. Sinuses and mastoids: The visualized paranasal sinuses are clear. There is trace right mastoid effusi on. The left mastoid air cells are well pneumatized. Lung apices: Pleural-parenchymal scarring is seen at the apices. Apical lung parenchyma is otherwise clear as visualized. IMPRESSION: 1. No acute bony abnormality is seen involving the cervical spine. 2. Osteopenia and spondylitic change as above. ACT 112: Negative or not required by law. Electronically signed by: Seymour Gasca M.D. 02/17/2025 3:48 PM
[2025-02-18] MEDS: POLYETHYLENE (MIRALAX) 17 GM PACK PO STA (00:11)
[2025-02-18 07:17] VITALS: O2SAT 98
[2025-02-18] MEDS: POLYETHYLENE (MIRALAX) 17 GM PACK PO SCH (08:04)
[2025-02-18 09:15] LABS: Anion Gap 5.0 (3-11); Blood Urea Nitrogen 25.0 mg/dl (6-23); Calcium 9.7 mg/dl (8.6-10.3); Carbon Dioxide 29.0 mmol/L (21-32); Chloride 105.0 mmol/L (98-107); Creatinine Clr Calc Pharmacy 27.7 ml/min; Glucose 108.0 mg/dl (70-99(Fasting)); Potassium 4.4 mmol/L (3.5-5.1); Sodium 139.0 mmol/L (136-145)
[2025-02-18 11:27] VITALS: PULSE 62; RESP 20; TEMP 98.4
--- NOTE | 2025-02-18 13:34 | Discharge Summary ---
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 Presents with another syncopal episode today while riding in a car. Did have prodromal dizziness/lightheadedness. Was bradycardic upon presentation to the ER today (HRs 40s). Also c/o chronic confusion/memory issues as well as frontal headaches. #syncope - -did have prodromal dizziness prior to passing out in the car day of admission -nothing observed by her daughter to suggest seizures -had syncope on 02/12 as well prompting an admission on 02/12-02/13 -echo on 02/13 with preserved EF and normal valve function -was bradycardic upon ER presentation - fortunately sinus - but [id number] HRs were in the 40s; due to recently started coreg during prior admission? -was bradycardia the CAUSE of the event, or a by-product of the event? (did she have vasovagal type event leading to bradycardia?) -has had chronic "floating" feeling in her head - medication side effects from gabapentin or seroquel or both? -this symptom is much better today -plan to hold the gabapentin moving forward -cont seroquel for now (chronic med - started in early 2024) - but low threshold to stop it or at least cut the dose by half if her symptoms persist -on tramadol chronically for neck pain/arthritis and has tolerated this w/o side effects - will resume -MRI brain negative for acute findings -checked orthostatic BPs --> negative #hyperkalemia - -mild, 5.2 -2nd to mild LEXA? looked volume contracted on exam at ER presentation, and was on ARB until recently -lokelma yesterday; give another dose today -repeat BMP am #chronic frontal headaches - -sed rate/crp very normal making temporal arteritis very unlikely (<10% chance of having such with normal inflammatory markers); and temporal arteries are NOT tender on exam -MRI brain negative -headaches due to cervical neck issues? other etiology? -recheck c-spine CT -voltaren gel -tramadol prn -schedule tylenol 1gm TID #confusion/floating feeling in head/memory impairment - -B12 level in 07/2024 was wnl -checked B1 level - while pending start IV thiamine -TSH level wnl at 1.4 -MRI brain negative -suspect possible med side effects from gabapentin - this med has been stopped -these symptoms are better today #HTN - -hold coreg -no further ARB -cont amlodipine #hypothyroidism - -TSH wnl -cont synthroid #CKD stage 4 - -Cr close to baseline again today -repeat BMP am #CLL - -she is not on Rx for such -cell lines remain acceptable #GERD - -cont PPI #DVT proph - -patient is ambulating well; defer on chemical means for now pt/ot evals completed; cleared for home family updated at bedside today change observation status to full admit status hopefully home tomorrow Admission HPI Per Admitting Provider 89yo female - recent hospitalization from 02/12 to 02/13 for syncope without prodrome - with chronic hyponatremia x 5+ years, CKD stage 4, depression, hypothyroidism, insomnia, lumbar radiculopathy, GERD, hypertension, hyperlipidemia, chronic incomplete left bundle branch block, CLL, and 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 After hospital d/c on 02/13 she reports being in her usual state of health. Was eating/drinking normally per her recollection. For some time she has had dizziness/lightheadedness that she describes as a "floating" feeling in her head. Denies vertigo. The dizziness/floating feeling has been present off/on for weeks to months. This has been associated with frontal headaches for at least 2-3 months as well. Does wake up with the headaches at times in the morning. Some neck pain as well. Remote history of migraines years ago but none recently. In addition to headaches and dizziness she has had "slow thinking" and fogginess/confusion for several weeks. While driving in the car today to get blood work (daughter was driving) the patient stated she was feeling dizzy. Daughter looked over at her and daughter states her mother was staring straight ahead and not responding. She subsequently closed her eyes and passed out. During this time period - about 5-10 minutes - she did not respond to her daughter's questioning. She was not diaphoretic or pale per the daughter By the time they arrived to [facility] she regained consciousness. When asked if today's event felt similar to her syncope on 02/12 she replied yes, stating "I get that floating feeling." Of note - patient was placed on gabapentin earlier this month for her chronic right ear auditory hallucinations. Upon arrival to the ER today her HRs were in the 40s (sinus). Discharge Exam gen - thin, NAD, looks better today head - NO tenderness to palpation over b/l temporal arteries HENT - b/l hearing aids in place; MMM today neck - no JVD heart - RRR, s1 s2, no murmur lungs - CTA b/l, dry/fine rales lowest portion of bases abd - soft NT ND BS+ ext - no edema, pulses 2+ b/l Discharge Plan Discharge Items Patient Disposition: Home - Self-Care Reason For Visit: SYNCOPE, HYPERKALEMIA Discharge Diagnosis: 1. syncope (passing out spell) - 2 episodes recently 2. hyperkalemia (elevated potassium level) - likely due to certain blood pressure medicine - resolved 3. high blood pressure 4. recent lightheadedness/dizziness - resolved; likely multifactorial including medicine side effects 5. headaches - negative brain MRI for stroke, tumor, etc. 6. cervical spine (neck) arthritis 7. CLL (chronic lymphocytic leukemia) Activity: Resume your previous activity Non-emergency contact: Primary Care Provider Call non-emergency contact if: you have any medication questions and your symptoms worsen Follow-up/Referrals: Lucinda Wick DO [Primary Care Provider] - 02/25/25 1:30 pm (Hospital follow up on Friday, February 25 at 1:30 pm.) Diet: Regular Addtl Attending Provider Instructions: Mrs William, You were hospitalized after another episode of passing out- also known as syncope. See handouts. When you arrived to the hospital your heart rate was low. It is possible the slow heart rate contributed to your event. The recently started carvedilol medicine for your blood pressure may have caused the slow heart rate. You also complained of headaches for several weeks-months along with your head having a "floating" feeling. We performed brain MRI and this was normal/negative. The floating sensation may have been due to side effects from your gabapentin, may have been from blood pressure being too low or too high, or potentially from another cause. Your dizziness/lightheadedness/"floating" sensation in the head/etc all improved or resolved while here. With respect to your headaches it is possible that your neck arthritis is contributing to your head pain. Recommendations - 1. stop your gabapentin; stop your carvedilol 2. continue the amlodipine for your high blood pressure; take this first thing in the morning each day 3. check your blood pressures once or twice a day; write your blood pressure readings down in a notebook and show these values to your family doctor 4. for neck pain & headaches - * you can take Tylenol up to 3000mg in a 24-hour period (many people take 1000mg three times daily for arthritis, etc) * diclofenac (voltaren) gel - 4 grams to the neck (or any other large joint) up to four times daily as needed for pain * tramadol as previous - use as needed for pain 5. we are going to set you up with a 30-day heart monitor to wear at home. This will read your heart rhythm over that time period. This is to rule out any other heart rhythms problems that could have caused your 2 episodes of passing out. This will be mailed to your home with instructions on its use in the next 7-10 business days. 6. you previously were taking another blood pressure medicine called "olmesartan". Please make sure you are NO LONGER taking this medicine. You can discontinue it Return to [facility] if - * you have additional episodes of passing out * you have severe dizziness or lightheadedness * you have chest pains or difficulty breathing * you have a severe headache that won't go away with the medicines you have at home * any other concerns It was our pleasure to care for you! -Bakari Smith Pending Studies at Discharge: No Stand-Alone Forms: My [facility], Smoking Cessation Medications and DC Order Prescriptions: New diclofenac sodium [Voltaren Arthritis Pain] 1 % Gel 4 g EXT Q6H PRN (Reason: neck pain, knee pain, shoulder pain, etc.) Qty: 50 0RF Rx Instructions: purchase [id number] amlodipine 10 mg tablet 10 mg PO DAILY Qty: 30 2RF Continued famotidine 20 mg tablet 20 mg PO BID PRN (Reason: heartburn) Qty: 180 1RF albuterol sulfate 90 mcg/actuation HFA aerosol inhaler 1 inh inhalation QID PRN (Reason: shortness of breath or wheezing) Qty: 6.7 0RF pantoprazole 40 mg tablet,delayed release (DR/EC) 40 mg PO DAILY Qty: 90 3RF atorvastatin 20 mg tablet 20 mg PO QAM Qty: 90 3RF levothyroxine 50 mcg tablet 50 mcg PO HS Qty: 90 3RF cetirizine [Zyrtec] 10 mg tablet 5 mg PO DAILY PRN (Reason: Allergy Symptoms) ondansetron HCl 4 mg tablet 4 mg PO Q8H PRN (Reason: nausea and vomiting) Qty: 30 1RF azelastine 137 mcg (0.1 %) spray,non-aerosol 1 spray intranasal BID Qty: 30 2RF Rx Instructions: administer into each nostril escitalopram oxalate [Lexapro] 10 mg tablet 10 mg PO DAILY Qty: 90 2RF aspirin [Adult Aspirin Regimen] 81 mg tablet,delayed release (DR/EC) 81 mg PO QAM acetaminophen [Tylenol Arthritis Pain] 650 mg Tablet Extended Release 650 mg PO Q12H quetiapine 25 mg tablet 25 mg PO HS tramadol 50 mg tablet 25 - 50 mg PO Q8H PRN (Reason: pain) Rx Instructions: 0.5 - 1 tablet orally every 8 hours PRN; estradiol 0.01 % (0.1 mg/gram) cream 2 g vaginal 2XWK PRN (Reason: Unknown) Discontinued budesonide 1 mg/2 mL suspension for nebulization 1 mg inhalation DAILY Qty: 60 2RF amlodipine 10 mg tablet 10 mg PO DAILY Qty: 14 0RF Rx Instructions: 7 day supply until mail order comes gabapentin 100 mg capsule 100 mg PO HS Patient Comments: Pt states she is currently still taking 100mg at bedtime. - 02/12/25 Rx Instructions: take 1 tablet nightly, increase by 1 tablet weekly. Max:3 tablets/day. orally; carvedilol [Coreg] 6.25 mg tablet 6.25 mg PO BID Qty: 60 0RF Rx Instructions: must administer with a meal/food Discharge Orders: Discharge Order (Routine); Ordered 02/18/25 Ordered By: Bakari Garrett/Other Patient Handouts: What Is Syncope, Causes of Syncope Admission Data Admit Date/Time: 02/17/25 14:16 Attending Provider: Bakari Smith Admit Provider: Bakari Smith Primary Care Provider: Lucinda Wick Hospital Stay Data Diagnostic Imagining Performed 02/16/25 10:51 CT head/brain wo con Stat 02/16/25 14:10 MR brain wo con Routine 02/17/25 14:11 CT cervical spine wo con Routine Pending Results Patient Have Any Pending Studies at Discharge: No Discharge Instructions Given to Patient (Per Discharging Provider) Mrs William, Landon were hospitalized after another episode of passing out- also known as syncope. See handouts. When you arrived to the hospital your heart rate was low. It is possible the slow heart rate contributed to your event. The recently started carvedilol medicine for your blood pressure may have caused the slow heart rate. You also complained of headaches for several weeks-months along with your head having a "floating" feeling. We performed brain MRI and this was normal/negative. The floating sensation may have been due to side effects from your gabapentin, may have been from blood pressure being too low or too high, or potentially from another cause. Your dizziness/lightheadedness/"floating" sensation in the head/etc all improved or resolved while here. With respect to your headaches it is possible that your neck arthritis is contributing to your head pain. Recommendations - 1. stop your gabapentin; stop your carvedilol 2. continue the amlodipine for your high blood pressure; take this first thing in the morning each day 3. check your blood pressures once or twice a day; write your blood pressure readings down in a notebook and show these values to your family doctor 4. for neck pain & headaches - * you can take Tylenol up to 3000mg in a 24-hour period (many people take 1000mg three times daily for arthritis, etc) * diclofenac (voltaren) gel - 4 grams to the neck (or any other large joint) up to four times daily as needed for pain * tramadol as previous - use as needed for pain 5. we are going to set you up with a 30-day heart monitor to wear at home. This will read your heart rhythm over that time period. This is to rule out any other heart rhythms problems that could have caused your 2 episodes of passing out. This will be mailed to your home with instructions on its use in the next 7-10 business days. 6. you previously were taking another blood pressure medicine called "olmesartan". Please make sure you are NO LONGER taking this medicine. You can discontinue it Return to [facility] if - * you have additional episodes of passing out * you have severe dizziness or lightheadedness * you have chest pains or difficulty breathing * you have a severe headache that won't go away with the medicines you have at home * any other concerns It was our pleasure to care for you! -Bakari Smith Coding Diagnoses Syncope R55 Acute hyperkalemia E87.5 Chronic headache R51.9; G89.29 Confusion R41.0
[2025-02-18 14:17] VITALS: BP 149/68
--- NOTE | 2025-02-19 06:00 | Electrocardiogram Report ---
Test Reason : Blood Pressure : */* mmHG Vent. Rate : 44 BPM Atrial Rate : 44 BPM P-R Int : 206 ms QRS Dur : 108 ms QT Int : 514 ms P-R-T Axes : 67 -64 82 degrees QTcB Int : 439 ms Marked sinus bradycardia Left axis deviation Anteroseptal infarct (cited on or before 23-Mar-2023) Abnormal ECG When compared with ECG of 12-Feb-2025 14:39, Vent. rate has decreased by 21 bpm Confirmed by Viktor Fernandez ([id number]) on 02/19/2025 6:00:17 AM Referred By: Confirmed By: Viktor Fernandez
== END 2025-02-18 14:17 | disposition home or self-care (01) | DRG 683 ==
LOC: ED 10:25 → 2S 10:25
DX: Z88.2 Allergy status to sulfonamides; E87.5 Hyperkalemia; I12.9 Hypertensive chronic kidney disease with stage 1 through stage 4 chronic kidney disease, or unspecified chronic kidney disease; K21.9 Gastro-esophageal reflux disease without esophagitis; E78.5 Hyperlipidemia, unspecified; I44.7 Left bundle-branch block, unspecified; Z79.82 Long term (current) use of aspirin; T46.5X5A Adverse effect of other antihypertensive drugs, initial encounter; C91.90 Lymphoid leukemia, unspecified not having achieved remission; F32.A Depression, unspecified; E87.1 Hypo-osmolality and hyponatremia; E86.0 Dehydration; Z87.891 Personal history of nicotine dependence; M54.16 Radiculopathy, lumbar region; N17.8 Other acute kidney failure; M85.80 Other specified disorders of bone density and structure, unspecified site; N18.4 Chronic kidney disease, stage 4 (severe); Y92.019 Unspecified place in single-family (private) house as the place of occurrence of the external cause; Z96.659 Presence of unspecified artificial knee joint; M17.11 Unilateral primary osteoarthritis, right knee; T44.7X5A Adverse effect of beta-adrenoreceptor antagonists, initial encounter; R42 Dizziness and giddiness; G43.909 Migraine, unspecified, not intractable, without status migrainosus; R00.1 Bradycardia, unspecified; R41.0 Disorientation, unspecified; M47.892 Other spondylosis, cervical region; E03.9 Hypothyroidism, unspecified